=== PATIENT | male | born 1950 | race Caucasian/White ===

== ENCOUNTER → 2019-05-22 08:30 | Outpatient (CLI) | payer BC, SELFPAY ==
--- NOTE | 2019-05-19 08:30 | RAD_ITS ---
STUDY: X-RAY CHEST REASON FOR EXAM: Male, 68 years old. Chest pain TECHNIQUE: Frontal and lateral views of the chest COMPARISON: None. FINDINGS: The lungs are clear. There are no pleural effusions. There is no pneumothorax. The heart is normal in size. The visualized osseous structures are within normal limits. RAD/Chest PA and Lateral IMPRESSION: No acute thoracic pathology. Electronically Signed: Adi Wilhelm, at 16:54 EDT Tel , Service support ,
[2019-05-19 09:20] VITALS: BMI 37.7
--- NOTE | 2019-05-19 10:07 | HP_ITS ---
HPI HPI History of Present Illness Surgical H&P: Yes Details: Mr Fleming is a very pleasant 68-year-old nondiabetic gentleman with a history of GERD, hypertension, hypercholesterolemia, mild COPD diagnosed by PFTs on 12/15/2018, multiple sclerosis, irritable bowel syndrome, hypertension, anxiety and depression, recently relocated from [place] to [place]. He is a former cigarette smoker of approximately 40 pack years, quit in 1999, but continues to smoke 4 to 5 cigars/day. Patient had an echocardiogram on 11/27/2018 which showed normal EF of 65 percent, unable to quantitate RVSP, mildly dilated aortic root. In addition he underwent a non-walking nuclear Lexiscan stress test on 02/05/2019 which demonstrated inferolateral ischemia. Apparently it was recommended the patient undergo a catheterization in [place], but he wished to wait until he returned to [place] and completed his move. Patient states that around January 2019 he developed atypical, nonexertional chest pain while he was recumbent and sleeping. Although his chest pain has not woke him up from a sound sleep, the patient has had mostly chest pain while he is in bed. He denies any exertional chest pain, and he describes it as sharp, a pressure sensation, 5 out of 10 in severity, with no associated nausea, vomiting or shortness of breath. There is a question as to whether or not the patient has MS. Patient does not appear to have a family history of significant coronary occlusive disease. In our office today's blood pressure is 110/70, and pulse is 72 and regular. Physical exam demonstrates moderate obesity, clear lungs bilaterally, regular rate and rhythm, normal S1/S2. No S3-S4, no murmurs are noted. Lipids as of 10/17/2018 show an HDL of 43 and an LDL of 26. EKG dated 05/19/2019 shows normal sinus rhythm, normal axis, low voltage throughout, no previous myocardial infarction noted. Intake Vital Signs 05/19/19 Height 6 ft 05/19/19 Weight: 278 lb 05/19/19 Body Mass Index (BMI) 37.7 05/19/19 Blood Pressure 110/70 05/19/19 Blood Pressure Location Lt brachial 05/19/19 Respiratory Rate 20 H 05/19/19 Pulse Rate 72 05/19/19 Pulse Source Auscultation Intake Visit Reasons: CAD, JUST M[facility] [place] [facility] [place] Required: No Accompanied by: Is patient in pain?: No Allergies glatiramer (copolymer 1) [From Copaxone] Allergy (Severe, Verified 05/19/19 09:31) Other Medications CBD oil MISCELLANEOUS 05/06/19 [History Confirmed 05/19/19] acetaminophen 325 mg capsule 325 mg PO Q6H 05/06/19 [History Confirmed 05/19/19] alprazolam 1 mg tablet 1 mg PO TID tab 05/06/19 [History Confirmed 05/19/19] amlodipine 5 mg tablet 5 mg PO DAILY 05/06/19 [History Confirmed 05/19/19] atorvastatin 40 mg tablet 40 mg PO QHS 05/06/19 [History Confirmed 05/19/19] buspirone 10 mg tablet 10 mg PO BID #60 tab 05/06/19 [Rx Confirmed 05/19/19] c60 PO 05/06/19 [History Confirmed 05/19/19] furosemide 20 mg tablet 20 mg PO DAILY 05/06/19 [History Confirmed 05/19/19] lisinopril 40 mg tablet 40 mg PO DAILY 05/06/19 [History Confirmed 05/19/19] nitroglycerin 0.3 mg sublingual tablet 0.3 mg SUBLINGUAL Q5-15M 05/06/19 [History Confirmed 05/19/19] ondansetron HCl 4 mg tablet 4 mg PO BID-TID 05/06/19 [History Confirmed 05/19/19] pregabalin 150 mg capsule 150 mg PO BID 05/06/19 [History Confirmed 05/19/19] ranitidine 150 mg tablet 150 mg PO DAILY 05/06/19 [History Confirmed 05/19/19] theanine 50 mg disintegrating tablet mg PO tab 05/06/19 [History Confirmed 05/19/19] escitalopram 20 mg tablet 20 mg PO DAILY tab 05/12/19 [History Confirmed 05/19/19] aspirin 81 mg tablet,delayed release 81 mg PO DAILY #30 tab 05/19/19 [Rx Confirmed 05/19/19] clopidogrel 75 mg tablet 75 mg PO .COMPLEX #30 tab 05/19/19 [Rx Confirmed 05/19/19] diclofenac sodium 75 mg tablet,delayed release 75 mg PO BID PRN 05/19/19 [History Confirmed 05/19/19] [facility] Medical History (Updated 05/19/19 @ 07:19 by Milagros Flynn) Abnormal stress test (Acute) Chest pain (Acute) Anxiety and depression (Chronic) Neuropathy (Chronic) GERD (gastroesophageal reflux disease) (Chronic) Multiple sclerosis (Chronic) IBS (irritable bowel syndrome) (Chronic) HTN (hypertension) (Chronic) H/O emotional problems (Chronic) History of back problems (Chronic) Arthritis (Chronic) Bone fracture (Acute) Surgical History History of cholecystectomy (Acute) History of partial colectomy (Acute) Family History Other Anxiety Arthritis Bipolar 1 disorder Depression High cholesterol Hypertension Mental disorder Psychiatric care Suicide attempt Social History (Updated 05/19/19 @ 10:07 by Carlos A Marquis MD) Smoking Status: Current every day smoker tobacco type: cigars alcohol intake: never substance use type: does not use what type of physical activity do you participate in: none, walking ROS Const Const: Positive for fatigue (DX with MS recently) and other (Moved here from [place], had abn stress there. Has had CP); negative for weakness, body ache, fever(s), headache(s), chills, frequent falls, night sweats, daytime sleepiness, difficulty sleeping, excessive sweating, weight gain, weight loss, increased appetite, poor appetite or anorexia Eyes Eyes: Negative for blind spots, loss of peripheral vision, transient loss of vision, blurry vision, change in vision, double vision, floaters, tunnel vision or other ENT ENT: Negative for headache(s), dizziness, hearing loss, tinnitus, Nosebleed/epistaxis, balance problems, post nasal drip, lip swelling, tongue swelling, bleeding gums, hoarseness, neck pain, dry mouth or other Cardio Chest Pain: Yes (most recently 2 nights ago) Frequency: other (2-3 times a week) Character: squeezing Onset: at rest Location: mid sternal Duration: brief (less than a minute) Relieving: other (nitroglycerin does help) Recurrence: other (spontaneous) Palpitations: Yes (when having anxiety) Edema: None Muscle aches with walking: None Resp Respiratory: Positive for SOB with activity, wheezing and other (smokes cigars daily); negative for SOB at rest, SOB orthopnea\SOB lying down, Cough, Coughing up blood/hemoptysis, chest congestion, pain on inspiration, snoring, stridor, crackles or paroxysmal nocturnal dyspnea GI GI: Negative nausea, vomiting, heartburn, constipation, belching, bloating, cramping, vomiting blood/hematemesis, bright, red blood in stools, black,tarry stools, loose stools, Difficulty Swallowing or other : Negative for hematuria, frequent nighttime urination/ nocturia, erectile dysfunction or abnormal vaginal bleeding Musc Musc: Negative for muscle aches/ myalgia, muscle weakness, joint pain or balance problems Skin Skin: Negative redness, non-healing lesions, rash, unusual bruising, skin ulcer, wounds, jaundice or other Neuro Neuro: Negative for dizziness, lightheadedness, near syncope, syncope, orthostatic symptoms, frequent falls, headache(s), weakness, confusion, memory loss, restless legs, blurry vision, double vision, vertigo, seizures, lack of coordination or other Bryan Hematologic/Lymphatic: Negative for easy bleeding, easy bruising, enlarged lymph nodes or other Endo Endo: Positive for fatigue (DX with MS recently); negative for cold intolerance, heat intolerance, excessive sweating, flushing, increased thirst/drinking, increased hunger, hair loss, hair growth or other Psych Psych: Negative for anxiety, depression, thoughts of harming anyone, thoughts of harming yourself, visual hallucinations, panic attacks or audible hallucinations Allergy Allergy/Immunology: Negative for throat swelling, Negative for tongue swelling, Negative for hives, Negative for rash, Negative for lip swelling Cardiology Exam Const Appearance: cooperative, healthy appearing and no acute distress Nutritional Appearance: well nourished Orientation: alert, oriented x3 and oriented to person Head Head: normal to inspection, normocephalic and atraumatic Nose: external nose normal Face and Sinus: face symmetric Mouth: oral mucosae normal Eyes General: appearance normal, both eyes and all related structures Eyelids: eyelids normal Conjunctivae: conjunctivae normal Pupils: PERRL and normal by confrontation EOM: EOM intact bilaterally Neck Neck: normal visual inspection and full ROM Carotids: normal carotid upstroke Chest Chest inspection: normal inspection of the chest Auscultation: Bilateral: Clear to Auscultation Cardio Palpation: normal PMI Rate: regular rate Rhythm: regular rhythm Heart sounds: S1 normal and S2 normal GI GI: normal to inspection, no hepatosplenomegaly and bowel sounds present Neuro General: alert, awake, oriented x3, CN's II-XI intact bilaterally and moves all extremities Skin Skin: no rashes or lesions noted Extremities Pulses: Normal: Right Femoral Pulse, Left Femoral Pulse, Right Dorsalis Pedis Pulse, Left Dorsalis Pedis Pulse, Right Posterior Tibial Pulse, Left Posterior Tibial Pulse, Right Radial Pulse, Left Radial Pulse Lower Extremity Edema: None: Bilateral Psych Psychological: normal affect Assessment & Plan 1. Abnormal stress test R94.39 02/05/2019 Abnormal Lexiscan with reversible perfusion defect of inferior lateral wall, done @ [place], [place]: [employer] Worker there advised cath but pt was moving to [place] Plan 1. Abnormal stress test: The patient has several risk factors for coronary occlusive disease including his age, hypertension, hyperlipidemia, previous tobacco abuse, ongoing tobacco use, substernal chest pain, and abnormal stress test with evidence of inferior lateral ischemia. I recommended the patient undergo a left heart catheterization to determine if he has or has not significant coronary occlusive disease. The risks/benefits of the procedure were thoroughly explained to the patient including specific attention to lack of on-site surgical back-up, and the patient has agreed to proceed. All questions were answered by both him and his . I recommended starting baby aspirin 81 mg p.o. daily, loaded with Plavix 300 mg x 1 followed by 75 mg a day per and proceeding with left heart catheterization. In addition he will continue his Lasix, lisinopril and amlodipine. The patient has no significant coronary occlusive disease and does not require stenting we will discontinue his Plavix and evaluate him for possible GERD given his recumbent chest pain symptoms per Orders Orders: 12 Lead EKG performed by BMS Today Left Heart Cath Today Basic Metabolic Profile (BMP) Today Partial Thromboplast Time Today Prothrombin Time w/INR Today CBC-Complete Blood Cnt No Diff Today Chest PA and Lateral Today 2. Hyperlipidemia E78.5 Plan 2. Hyperlipidemia: His LDL and HDL cholesterol are under excellent control. Continue Lipitor. 3. Return office in 6 months. This note was generated using a voice recognition system and there may be incorrect words, spelling or punctuation that were not noted when reviewing the office note prior to saving. Plan Detail Other Orders Orders: 12 Lead EKG performed by BMS Today R07.9 Left Heart Cath Today I10, R07.9 Basic Metabolic Profile (BMP) Today R07.9 Partial Thromboplast Time Today R07.9 Prothrombin Time w/INR Today R07.9 CBC-Complete Blood Cnt No Diff Today R07.9 Chest PA and Lateral Today R07.9 Other Medications New: aspirin (Adult Aspirin Regimen) 81 mg PO DAILY 30 tabs 11RF clopidogrel (Plavix) 75 mg PO DAILY 30 tabs 11RF clopidogrel (Plavix) 75 mg PO 4 tablets by mouth today then 1 tablet by mouth daily for heart cath on Saturday05/22/19; 30 tabs 11RF Follow Up +6m ([facility]) Coding Level of Care Code Off vis,new,level 4 Diagnoses Abnormal stress test R94.39 Hyperlipidemia E78.5 Coding Level of Care Code Off vis,new,level 4 Diagnoses Abnormal stress test R94.39 Hyperlipidemia E78.5 Supplemental Info Supplemental Information Diagnostics Electrocardiogram 05/19/19 05/19/19 1007 <Electronically signed by Carlos A Marquis MD> Date _ Carlos A Marquis MD
== END ==
PROVIDERS: Family Provider Internal Medicine; PCP Internal Medicine; Referring Provider Internal Medicine Cardiovascular Disease; Visit Provider Internal Medicine Cardiovascular Disease
DX: Z01.818 Encounter for other preprocedural examination (principal); R94.39 Abnormal result of other cardiovascular function study
CPT/HCPCS: 71046

== ENCOUNTER → 2019-06-29 | Outpatient (CLI) | payer BC, SELFPAY ==
[2019-06-02 16:58] VITALS: BMI 37.7
--- NOTE | 2019-06-29 16:21 | RAD_ITS ---
STUDY: X-RAY - LUMBAR SPINE REASON FOR EXAM: Male, 69 years old. Low back pain TECHNIQUE: 3 view(s) of the lumbar spine were obtained. COMPARISON: None FINDINGS: Normal lumbar lordosis. There is no substantial scoliosis. There is a normal alignment of the vertebrae. There is multilevel endplate spondylosis of the lumbar vertebrae. There is narrowing of the L1-2 and L2-3 disc spaces. There is no demonstrated fracture. There are calcified plaques of the abdominal aorta. RAD/Lumbar Spine 2 or 3 Views IMPRESSION: Degenerative changes of the spine, as detailed above. Calcified plaques of the abdominal aorta. Electronically Signed: Jona Dutta MD at 17:53 EDT , Service support ,
--- NOTE | 2019-06-29 16:30 | RAD_ITS ---
STUDY: X-RAY - CERVICAL SPINE REASON FOR EXAM: Male, 69 years old. Neck pain TECHNIQUE: 5 view(s) of the cervical spine were obtained. COMPARISON: None FINDINGS: Normal anterior atlantoaxial articulation. Normal odontoid process. There is straightening of the normal cervical lordosis. C7 is poorly visualized on the lateral and swimmer's views. There is endplate spondylosis of C5 and C6. There is narrowing of the C5-6 disc space. The soft tissue structures are unremarkable. RAD/Cerv Spine 2 or 3 Views IMPRESSION: Poorly visualized C7. Straightening of the normal lordotic curvature which may be positional in nature or due to muscular spasm. Endplate spondylosis of C5 and C6. Narrowing of the C5-6 disc space. Electronically Signed: Jona Dutta MD at 19:43 EDT , Service support ,
[2019-06-29 17:49] LABS: Amphetamine Urine VISTA NEGATIVE (<1000 ng/mL); Barbiturate Urine VISTA NEGATIVE (< 200 ng/mL); Benzodiazepine Urine VISTA POSITIVE (< 200 ng/mL); Cocaine Urine VISTA NEGATIVE (< 300 ng/mL); Ecstacy Urine VISTA NEGATIVE (< 500 ng/mL); Methadone Urine VISTA NEGATIVE (< 300 ng/mL); PCP Urine VISTA NEGATIVE (< 25 ng/mL); THC Urine VISTA NEGATIVE (< 50 ng/mL); Vista UDS pH Range 5
== END | disposition home or self-care (01) ==
PROVIDERS: Family Provider Internal Medicine; PCP Internal Medicine; Referring Provider Anesthesiology Pain Medicine; Visit Provider Anesthesiology Pain Medicine
DX: F11.20 Opioid dependence, uncomplicated (principal); M54.2 Cervicalgia; M54.5 Low back pain
CPT/HCPCS: 72040; 72100; 80307

== ENCOUNTER → 2019-06-30 | Outpatient (CLI) | payer BC, SELFPAY ==
[2019-06-02 16:58] VITALS: BMI 37.7
[2019-06-30 13:26] LABS: CREATININE FINGERSTICK 1.1 mg/dL (0.70-1.30); EGFR FINGERSTICK > 60.0000 mL/min (>60)
--- NOTE | 2019-06-30 13:45 | MRI_ITS ---
STUDY: MRI BRAIN WITH AND WITHOUT CONTRAST REASON FOR EXAM: Male, 69 years old. Diplopia. Memory loss. History of MS TECHNIQUE: Standardized multiplanar fat and water weighted pulse sequences were obtained. IV Dotarem 25 was administered for the contrast portion of the examination. COMPARISON: None. FINDINGS: There is a large nonenhancing 2.2 x 0.8 cm plaque adjacent to the left occipital horn and a similar but slightly smaller plaque adjacent to the right occipital horn. Small juxtacortical areas of increased signal in the T2 FLAIR data sets are also evident. No similar findings in the posterior fossa or within the visualized portions of the upper spinal cord. There are no findings to suggest the presence of optic neuritis. The pituitary and pineal regions are normal. The brainstem is normal. The corpus callosum is normal. The 7th and 8th nerve complexes are normal. Both cerebellopontine angles are clear. The cerebellar vermis and lobes are normal. The ventricles, basal cisterns and cortical sulci are normal for the patient's age with no midline shift and no intra or extra-axial hemorrhage or tumor mass. There is no acute infarction. The calvarium is intact. There are no scalp swelling. The vessels at the base of the brain are normal. There is a retention cyst in the right maxillary sinus MRI/Brain W/WO Contrast IMPRESSION: The findings in the brain, consistent with multiple sclerosis (using Garcia's criteria). No evidence of optic neuritis. The extraocular muscles are normal Electronically Signed: Yinka Bob MD at 0:39 EDT Tel , Service support ,
== END | disposition home or self-care (01) ==
LOC: MRI 12:43
PROVIDERS: Family Provider Internal Medicine; PCP Internal Medicine; Referring Provider Psychiatry & Neurology Neurology; Visit Provider Psychiatry & Neurology Neurology
DX: H53.2 Diplopia (principal); R27.0 Ataxia, unspecified; R41.3 Other amnesia; R42 Dizziness and giddiness
CPT/HCPCS: 70553; A9575

== ENCOUNTER → 2019-07-08 | Outpatient (CLI) | payer BC, SELFPAY ==
[2019-06-02 16:58] VITALS: BMI 37.7
[2019-07-08 17:40] LABS: Amphetamine Urine VISTA NEGATIVE (<1000 ng/mL); Barbiturate Urine VISTA NEGATIVE (< 200 ng/mL); Benzodiazepine Urine VISTA NEGATIVE (< 200 ng/mL); Cocaine Urine VISTA NEGATIVE (< 300 ng/mL); Ecstacy Urine VISTA NEGATIVE (< 500 ng/mL); Methadone Urine VISTA NEGATIVE (< 300 ng/mL); PCP Urine VISTA NEGATIVE (< 25 ng/mL); THC Urine VISTA NEGATIVE (< 50 ng/mL); Vista UDS pH Range 6
== END | disposition home or self-care (01) ==
LOC: LAB 15:18
PROVIDERS: Family Provider Internal Medicine; PCP Internal Medicine; Referring Provider Anesthesiology Pain Medicine; Visit Provider Anesthesiology Pain Medicine
DX: F11.20 Opioid dependence, uncomplicated (principal)
CPT/HCPCS: 80307

== ENCOUNTER 2019-07-10 12:30 | Outpatient (RCR) | payer BC, SELFPAY ==
[2019-06-02 16:58] VITALS: BMI 37.7
--- NOTE | 2019-06-10 14:01 | HP.PTEVAL_ITS ---
Patient's Visit Information SHERLEY RIVERA is a 68 year old M referred to Physical Therapy by Marcial La MD with a diagnosis of vertigo, imbalance. Date of Evaluation: 06/10/19 Physical Therapist: Esau Arroyo, RANDYT, OCS, CSCS - Visit Plan Frequency: 2x /Week Duration: 2 Months Plan: Neurocom test then. 2x/week for 4-8 weeks for balance likely vest and FW weight shift and functional as well as progression of VOR HEP - Subjective Findings: Diagnosed with MS and sent to neuro. [facility] and found sparkly twinklies on the brain. Flew in from [place] to talk to neuro at [facility] to check into stem cell treatment. During that time they found that his balance is poor. Has to hold on if looks at the stars at night. Was told he does not have MS by [facility]. Has something else going on in neuro system. Balance remains poor however. Short term memory is poor. Balance is poor. Neuro thought one eye looked up higher than another. Started seeing double intermittently in the last month. Has tingling in toes and side of neck which is what started this diagnostic process. Working out pain and meds regimen over last couple years for anxiety, blood pressure adn pain. Came back to [place] from [place] to take care of mom's estate and convenience. Also for better quality medical care. Daily dizzyness intermittent without reason. It lasts 2 hours or a few minutes. Described as lightheaded disconnect. Not positional. Feels imbalance nearly all the time. Falls quite a bit last time in February. That was in a hurry and walking on [employer]. Sleeps OK, on meds. Not employed but does yard work and takes care of house. Spends time on computer researching finances. Wants to walk without feeling unsteady. - Pain feet Pain Intensity (Out of 10): 0 Pain Intensity Range: 2 Comment: tinkly , like step on stone, lyrica helps - Objective Walks slow and wide RIYA but I and refuses to try cane or walker. Stands with weight through heels. Slightly neuropathic gait pattern. Trasnfers without UE I. Steps require rail and prefers to mei R as L has pain and meniscal problem according to patient. LE aROM WFL adn strength at 4+/5. reflexes 2/3 patella and achilles. Sensation is hypersensitive to gross light touch distally in LE. Coordination to reciprocal toe tap is mildly challenging adn slow. - B hallpike bi test, - roll test. Oculomotor is : no nystagmus with gaze or head shake. normal pursuit, saccades slightly symptomatic afte 30 sec, VOR symptomatic after 30 seconds for one minute. - skew eye deviation. - ocular tilt. convergence is good but give goofy feeling in head transiently. - head thrust. - Balance Scores Functional Gait Assessment Score: 21 % Disability: 30.0000 CATSIB Score (Max score 120 seconds): 72 - Goals Goal 1:: Pt feel 50% better with dizzyness and able to look up at stars without symptoms. Goal Time Frame: 6-8 Weeks Goal 2:: Pt score 26/30 on FGA to diminish fall risk. Goal Time Frame: 6-8 Weeks Goal 3:: Neurocom test adn given results. Goal Time Frame: 2 Weeks - Rehabilitation Potential Physical Therapy Diagnosis: Imbalance, vertigo, likely neuropathy. Rehabilitation Potential: Questionable - Anticipated Interventions Patient/Client Instruction: Educate patient on: Condition, Plan of Care For the Purpose of:: To improve muscle performance and motor function, To improve gait and locomotor functions, To improve balance, To improve safety with gait Therapeutic Exercise to Include: Balance training Comment: adaptation/habituation ex For the Purpose of:: To increase tolerance to activity/condition/position, To improve ability of physical actions for home/community/work/leisure, To improve safety Thank you for the opportunity to evaluate your patient. For Medicare and Medicare HMO plans, please review the plan of care and approve it. It will need to be FAXED BACK to us at [phone] for Medicare purposes. For Medicare only, by signing this I certify the plan of care. Please let me know if there are questions or concerns regarding this plan of care. Physician Signature: Date:
--- NOTE | 2019-07-10 13:25 | HP.PTCOM ---
PT Communication Note 07/10/[address] Marcial La MD , Thank you for the referral of Sergey to [facility] for balance assessment. I have enclosed a copy of the results for your review. The patient is feeling significantly better since medication changes two weeks ago and wishes to f/u with you in a couple weeks before committing to pursuing any physical therapy. Please advise if you have questions or concerns. Sincerely, RANDY ArcherT, OCS, CSCS Contact Information
--- NOTE | 2019-07-10 13:27 | HP.PTDCSUM ---
HP - PT D/C Summary It has been my pleasure to treat SHERLEY RIVERA under orders from Marcial La MD, for the diagnosis of vertigo, imbalance for a total of 2 visit(s). Discharge Date: Please see the following information for a summary of their discharge status. - Subjective Subjective: No dizzyness, still unsteady. Numbness in feet persists. Overall symptoms noticably decreased since med change 2 weeks. - Pain feet Pain Intensity (Out of 10): 0 - Overall Improvement % Improvement: 90 - Objective Objective/Function: Much better balance test then expected. SOT: slight somatosensory deficits. MCT:normal. LOS:Fw excursion and velocity slight deficits. Walking well today with some complaints of R knee pain. pt feeling significantly better since medication change about two weeks ago(90%) adn wishes to hold until seeing doctor Abhinav on further therapy if recommended. - Goals Goal 1:: Pt feel 50% better with dizzyness and able to look up at stars without symptoms. Goal Progress: Goal Met Goal 2:: Pt score 26/30 on FGA to diminish fall risk. Goal Progress: not retested today Goal 3:: Neurocom test adn given results. Goal Progress: Goal Met - Plan Plan: d/c - D/C Information If there are questions or concerns regarding this patient's physical therapy, please feel free to call me at [phone]. Thank you for the referral of this patient. Sincerely, Esau Arroyo, DPT, OCS, CSCS
== END 2019-07-10 19:00 | disposition home or self-care (01) ==
LOC: PT 12:30
PROVIDERS: Family Provider Internal Medicine; PCP Internal Medicine; Referring Provider Psychiatry & Neurology Neurology; Visit Provider Psychiatry & Neurology Neurology
DX: R26.89 Other abnormalities of gait and mobility (principal); R42 Dizziness and giddiness
CPT/HCPCS: 97162; 97750

== ENCOUNTER → 2019-08-26 13:16 | Outpatient (CLI) | payer BC, SELFPAY ==
[2019-06-02 16:58] VITALS: BMI 37.7
[2019-08-26 14:42] LABS: Amphetamine Urine VISTA NEGATIVE (<1000 ng/mL); Barbiturate Urine VISTA NEGATIVE (< 200 ng/mL); Benzodiazepine Urine VISTA NEGATIVE (< 200 ng/mL); Cocaine Urine VISTA NEGATIVE (< 300 ng/mL); Ecstacy Urine VISTA NEGATIVE (< 500 ng/mL); Methadone Urine VISTA NEGATIVE (< 300 ng/mL); PCP Urine VISTA NEGATIVE (< 25 ng/mL); THC Urine VISTA NEGATIVE (< 50 ng/mL); Vista UDS pH Range 6
== END ==
PROVIDERS: Family Provider Internal Medicine; PCP Internal Medicine; Referring Provider Anesthesiology Pain Medicine; Visit Provider Anesthesiology Pain Medicine
DX: F11.20 Opioid dependence, uncomplicated (principal)
CPT/HCPCS: 80307

== ENCOUNTER → 2019-09-01 11:21 | Outpatient (CLI) | payer BC, SELFPAY ==
[2019-09-01 10:42] VITALS: BMI 37.7
[2019-09-01 12:51] LABS: Absolute Lymphocyte Count 1.77 X10^3/uL (0.83-4.51); Absolute Neutrophil Count 6.6 X10^3/uL (2.0-7.7); Basophil# 0.04 X10^3/uL; Basophil% 0.4 % (0-1); Eosinophil# 0.25 X10^3/uL; Eosinophils% 2.6 % (0-5); Hematocrit 42.3 % (40-54); Hemoglobin 14.4 g/dL (13.0-16.5); Lymphocyte # 1.77 X10^3/ul (4.0); Lymphocyte % 18.7 % (19-41); Mean Corpuscular Volume 88.1 fL (80-94); Mean Platelet Vol. 9.7 fl (6.2-12.0); Monocyte# 0.72 X10^3/uL; Monocyte% 7.6 % (0-10); NRBC Flagged by Analyzer 0 % (0-5); Neutrophil # 6.64 X10^3/uL (2.7-7.7); Neutrophil % 70.3 % (47-70); Platelet Count 335 K/mm3 (150-450); RBC Distribution Width CV 12.5 % (11.6-14.6); RBC Distribution Width SD 40.6 fl (35.1-43.9); White Blood Count 9.5 K/mm3 (4.4-11.0)
[2019-09-01 12:55] LABS: Erythrocyte Sedimentation Rate 12 mm/hr (0-20)
[2019-09-01 13:21] LABS: Vitamin B12 209 pg/mL (211-911)
[2019-09-01 13:26] LABS: Cholesterol 116 mg/dL (200); High Density Lipoprotein 48 mg/dL; Triglycerides 105 mg/dL; Very Low Density Lipoprotein 21 mg/dL (5-40)
[2019-09-01 13:28] LABS: AST(SGOT) 20 U/L (15-37); Alanine Aminotransfer ALT/SGPT 19 U/L (16-61); Albumin, Serum 3.6 g/dL (3.2-5.0); Alkaline Phosphatase 99 U/L (45-117); Anion Gap 6 (5-15); BUN 9 mg/dL (7-18); BUN/Creat Ratio 8.4 RATIO (10-20); Calcium,Total 8.3 mg/dL (8.5-10.1); Chloride 108 mmol/L (98-107); Creatinine, Serum 1.07 mg/dL (0.70-1.30); EST Glomerular Filtration Rate 73 mL/min (>60); Est Glom Filt Rate - Afr Amer 88 mL/min (>60); Globulin 3.7 g/dL (2.2-4.2); Glucose 76 mg/dL (74-106); Potassium 3.1 mmol/L (3.5-5.1); Protein, Total 7.3 g/dL (6.4-8.2); Sodium Level 141 mmol/L (136-145); T3 Uptake 32 % (33-40); T4 Free Direct 0.91 ng/dL (0.76-1.46); T4 Total, Thyroxin 7.5 ug/dL (4.5-12.1); T7 / Free Thyroxin Index 2.4 (1.4-4.5)
[2019-09-02 13:21] LABS: ANTINUCLEAR ANTIBODIES DIRECT Negative (Negative)
[2019-09-02 16:08] LABS: PROEL- A/G Ratio 1.2 (0.7-1.7); PROEL- Albumin 3.7 g/dL (2.9-4.4); PROEL- Alpha-1 Globulin 0.3 g/dL (0.0-0.4); PROEL- Alpha-2 Globulin 0.7 g/dL (0.4-1.0); PROEL- TOTAL PROTEIN 6.7 g/dL (6.0-8.5)
[2019-09-03 11:13] LABS: Angiotensin Convert Enzyme < 15 U/L (14-82)
== END ==
PROVIDERS: Family Provider Internal Medicine; PCP Internal Medicine; Visit Provider Psychiatry & Neurology Neurology
DX: I10 Essential (primary) hypertension (principal); G35 Multiple sclerosis
CPT/HCPCS: 36415; 80053; 80061; 82164; 82607; 84165; 84436; 84439; 84479; 85025; 85652; 86038

== ENCOUNTER → 2020-04-25 | Outpatient (CLI) | payer BC, SELFPAY ==
[2020-04-21 13:49] VITALS: BMI 37.5
--- NOTE | 2020-04-25 14:00 | RAD_ITS ---
STUDY: X-RAY - RIGHT SHOULDER REASON FOR EXAM: Male, 69 years old. Right shoulder pain for several weeks TECHNIQUE: 4 view(s) of the shoulder. COMPARISON: None. FINDINGS: There is mild degenerative arthrosis of the glenohumeral articulation. There is degenerative arthrosis of the acromioclavicular joint without inferior osseous spur formation. Normal acromion. Normal humeral head and visualized proximal humerus. The soft tissue structures are unremarkable. Normal visualized pulmonary apex. RAD/Shoulder min 2 Views IMPRESSION: Mild arthrosis Electronically Signed: Jayme Posadas MD at 14:16 EDT , Service support ,
== END | disposition home or self-care (01) ==
LOC: MTRAD 14:00
PROVIDERS: PCP Internal Medicine; Referring Provider Internal Medicine; Visit Provider Internal Medicine
DX: M25.511 Pain in right shoulder (principal)
CPT/HCPCS: 73030

== ENCOUNTER → 2020-06-02 | Outpatient (CLI) | payer BC, SELFPAY ==
[2020-06-02 13:18] VITALS: BMI 37.5
[2020-06-02 15:43] LABS: Absolute Lymphocyte Count 1.94 X10^3/uL (0.83-4.51); Absolute Neutrophil Count 7.6 X10^3/uL (2.0-7.7); Basophil# 0.05 X10^3/uL; Basophil% 0.5 % (0-1); Eosinophil# 0.13 X10^3/uL; Eosinophils% 1.2 % (0-5); Hematocrit 43.2 % (40-54); Hemoglobin 14.4 g/dL (13.0-16.5); Lymphocyte # 1.94 X10^3/ul (4.0); Lymphocyte % 18.4 % (19-41); Mean Corp Hgb Conc 33.3 g/dL (32-36); Mean Corpuscular Hgb 30.6 pg (27.0-32.0); Mean Corpuscular Volume 91.7 fL (80-94); Mean Platelet Vol. 9.8 fl (6.2-12.0); Monocyte# 0.81 X10^3/uL; Monocyte% 7.7 % (0-10); NRBC Flagged by Analyzer 0 % (0-5); Neutrophil # 7.55 X10^3/uL (2.7-7.7); Neutrophil % 71.6 % (47-70); Platelet Count 384 K/mm3 (150-450); RBC Distribution Width CV 11.9 % (11.6-14.6); RBC Distribution Width SD 40.1 fl (35.1-43.9); Red Blood Count 4.71 M/mm3 (4.6-6.2); White Blood Count 10.5 K/mm3 (4.4-11.0)
[2020-06-02 16:08] LABS: Amphetamine Urine VISTA NEGATIVE (<1000 ng/mL); Barbiturate Urine VISTA NEGATIVE (< 200 ng/mL); Benzodiazepine Urine VISTA NEGATIVE (< 200 ng/mL); Cocaine Urine VISTA NEGATIVE (< 300 ng/mL); Ecstacy Urine VISTA NEGATIVE (< 500 ng/mL); Methadone Urine VISTA NEGATIVE (< 300 ng/mL); PCP Urine VISTA NEGATIVE (< 25 ng/mL); THC Urine VISTA NEGATIVE (< 50 ng/mL); Vista UDS pH Range 6
[2020-06-02 16:09] LABS: AST(SGOT) 14 U/L (15-37); Alanine Aminotransfer ALT/SGPT 19 U/L (16-61); Albumin, Serum 3.8 g/dL (3.2-5.0); Alkaline Phosphatase 78 U/L (45-117); Anion Gap 5 (5-15); BUN 10 mg/dL (7-18); Calcium,Total 8.8 mg/dL (8.5-10.1); Chloride 106 mmol/L (98-107); Cholesterol 110 mg/dL (200); Creatinine, Serum 1.11 mg/dL (0.70-1.30); EST Glomerular Filtration Rate 70 mL/min (>60); Est Glom Filt Rate - Afr Amer 85 mL/min (>60); Globulin 3.9 g/dL (2.2-4.2); Glucose 95 mg/dL (74-106); High Density Lipoprotein 39 mg/dL; Potassium 4.4 mmol/L (3.5-5.1); Protein, Total 7.7 g/dL (6.4-8.2); Sodium Level 138 mmol/L (136-145); Triglycerides 85 mg/dL; Very Low Density Lipoprotein 17 mg/dL (5-40)
== END | disposition home or self-care (01) ==
LOC: BIMLAB 14:02
PROVIDERS: PCP Internal Medicine; Referring Provider Internal Medicine; Visit Provider Internal Medicine
DX: I10 Essential (primary) hypertension (principal); F32.9 Major depressive disorder, single episode, unspecified; F41.9 Anxiety disorder, unspecified
CPT/HCPCS: 36415; 80053; 80061; 80307; 85025

== ENCOUNTER 2020-06-07 13:00 | Outpatient (RCR) | payer BC, SELFPAY ==
[2020-04-21 13:49] VITALS: BMI 37.5
--- NOTE | 2020-05-02 14:44 | HP.PTEVAL ---
Patient's Visit Information SHERLEY RIVERA is a 69 year old M referred to Physical Therapy by Dr. Yarely De La Cruz MD with a diagnosis of PAIN IN RIGHT SHOULDER,ENTHESOPATHY. Date of Evaluation: 05/02/20 Physical Therapist: Marcial Enriquez, PT, Cert MDT, OCS - Visit Plan Frequency: 2x /Week Duration: 4 Weeks Plan: PT INTERVENTIONS GRADED RTC/SCAPULAR, ROM, POSTURAL EX'S,MANUAL THERAPY,AND MODALTIES - Subjective This 69 y/o male presents to physical therapy with right shoulder pain. This patient patient has had shoulder pain for 8weeks. Patient woke up with pain. Pain located right lateral deltiod. Patient pain desriped as sharp pain,popping . Patient seen DR kirbyeded x-rays and provided with predisone helped some. Patient aggraveting factors unable to lifting arm ,above 90 degrees for self hygine and ADLS'. Patient sleeping okay. Alleviating factors none. Patient MD stated try PT if doesnt help will do MRI. 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 SOCAIL: - Pain Right Shoulder Pain Intensity (Out of 10): 9 Pain Intensity Range: 10 - Objective POSTURE: mild foward posture. PALAPTION: tender AC ,long head bicep. NEURO: intact,denies parathesia/tingling. AROM: shoulder flexion 90 pain ,abduction 80 degrees pain,IR S2. PROM: shoulder flexion 150 degrres pain ,abd 10 in scapation ,ER 90 pain. MMT: infrspinatous pain 4-/5,suprspainatous 3+/5 ,pain subscapularis 4-/5. deltoid 3-/5 pain. CAPSULAR RESTRICTION: mild /mod tight - Special Tests R Shoulder External Rotation Lag Test - RC Tear: Positive R Shoulder Supine Impingement Test - RC Tear: Positive R Shoulder Lift Off Test - Subscapular Tear: Positive R Shoulder Drop Sign - IS Test: Negative R Shoulder Belly Press - SupScap: Positive R Shoulder Neer - Impingement: Positive R Shoulder Jim Jose - Impingement: Positive R Shoulder Speeds Test - Labrum/Biceps: Positive - Goals Goal 1:: Patient to be I with HEP( STG ) Goal Time Frame: 2-4 Weeks Goal 2:: Patient to decrease shoulder pain by 50 % or > to improve function. Goal Time Frame: 4-6 Weeks Goal 3:: Patient to increase AROM shoulder flexion /abd to 130 degrees to improve ADL'S Goal Time Frame: 4-6 Weeks Goal 4:: Pateint increase strength deltoid 3+/5 and RTC 4-/5 to improve ADL'S Goal Time Frame: 4-6 Weeks Goal 5:: Pateint improve quick dash score by 5 points or> to improve QOL and function. Goal Time Frame: 4-6 Weeks - Rehabilitation Potential Physical Therapy Diagnosis: This patient has right shoulder pain with possible torn RTC with poor ROM ,pain with RTC testing with weakness supraspinatous ,-drop arm impairs ADLS and activities abouve 90 degrees thus benidfit from skilled PT if doesnt get better may need further diagostics Rehabilitation Potential: Good - Anticipated Interventions Patient/Client Instruction: Educate patient on: Condition, Plan of Care For the Purpose of:: To decrease pain, To increase ROM, To improve muscle performance and motor function, To improve ability to perform ADL's, To increase tolerance to activity/condition/position, To improve performance and independence with ADL's, To improve ability of physical actions for home/community/work/leisure, To improve health of tissue, To decrease soft tissue restriction, To increase flexibility/ROM, To assume or resume ADL's, To reduce risk of recurrence Therapeutic Exercise to Include: Strength training, Postural training, Flexibilty training, Passive ROM, Active ROM, Scapular Strength/Stabilization Comment: RTC For the Purpose of:: To decrease pain, To increase ROM, To improve nutrient delivery to tissue, To increase oxygenation perfusion, To improve ability to perform ADL's, To improve ability of physical actions for home/community/work/leisure, To improve health of tissue, To decrease soft tissue restriction, To increase flexibility/ROM Manual Therapy Techniques to Include: Mobilization, Soft tissue mobilization Comment: G-H For the Purpose of:: To decrease pain, To increase ROM, To improve health of tissue, To decrease soft tissue restriction TENS: Yes IF ES: Yes Cryotherapy (ice pack, ice massage): Yes Thermo therapy (hot pack): Yes Ultrasound (thermal/non thermal): Yes For the Purpose of:: To decrease pain, To increase ROM, To improve nutrient delivery to tissue, To increase oxygenation perfusion, To improve health of tissue, To decrease soft tissue restriction Thank you for the opportunity to evaluate your patient. For Medicare and Medicare HMO plans, please review the plan of care and approve it. It will need to be FAXED BACK to us at [phone] for Medicare purposes. For Medicare only, by signing this I certify the plan of care. Please let me know if there are questions or concerns regarding this plan of care. Physician Signature: Date:
--- NOTE | 2020-05-05 08:19 | HP.PTEVAL_ITS ---
Patient's Visit Information SHERLEY RIVERA is a 69 year old M referred to Physical Therapy by Dr. Yarely De La Cruz MD with a diagnosis of PAIN IN RIGHT SHOULDER,ENTHESOPATHY. Date of Evaluation: 05/02/20 Physical Therapist: Marcial Enriquez, PT, Cert MDT, OCS - Visit Plan Frequency: 2x /Week Duration: 4 Weeks Plan: PT INTERVENTIONS GRADED RTC/SCAPULAR, ROM, POSTURAL EX'S,MANUAL THERAPY,AND MODALTIES - Subjective This 69 y/o male presents to physical therapy with right shoulder pain. This patient patient has had shoulder pain for 8weeks. Patient woke up with pain. Pain located right lateral deltiod. Patient pain desriped as sharp pain,popping . Patient seen DR kirbyeded x-rays and provided with predisone helped some. Patient aggraveting factors unable to lifting arm ,above 90 degrees for self hygine and ADLS'. Patient sleeping okay. Alleviating factors none. Patient MD stated try PT if doesnt help will do MRI. 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 SOCAIL: - Pain Right Shoulder Pain Intensity (Out of 10): 9 Pain Intensity Range: 10 - Objective POSTURE: mild foward posture. PALAPTION: tender AC ,long head bicep. NEURO: intact,denies parathesia/tingling. AROM: shoulder flexion 90 pain ,abduction 80 degrees pain,IR S2,ER 30 ,EXTENSION 30 degrees. PROM: shoulder flexion 150 degrres pain ,abd 120 in scapation ,ER 90 pain. MMT: infrspinatous pain 4- /5,suprspainatous 3+/5 ,pain subscapularis 4-/5. deltoid 3-/5 pain. CAPSULAR RESTRICTION: mild /mod tight - Special Tests R Shoulder External Rotation Lag Test - RC Tear: Positive R Shoulder Supine Impingement Test - RC Tear: Positive R Shoulder Lift Off Test - Subscapular Tear: Positive R Shoulder Drop Sign - IS Test: Negative R Shoulder Belly Press - SupScap: Positive R Shoulder Neer - Impingement: Positive R Shoulder Jim Jose - Impingement: Positive R Shoulder Speeds Test - Labrum/Biceps: Positive - Goals Goal 1:: Patient to be I with HEP( STG ) Goal Time Frame: 2-4 Weeks Goal 2:: Patient to decrease shoulder pain by 50 % or > to improve function. Goal Time Frame: 4-6 Weeks Goal 3:: Patient to increase AROM shoulder flexion /abd to 130 degrees to improve ADL'S Goal Time Frame: 4-6 Weeks Goal 4:: Pateint increase strength deltoid 3+/5 and RTC 4-/5 to improve ADL'S Goal Time Frame: 4-6 Weeks Goal 5:: Pateint improve quick dash score by 5 points or> to improve QOL and function. Goal Time Frame: 4-6 Weeks - Rehabilitation Potential Physical Therapy Diagnosis: This patient has right shoulder pain with possible torn RTC with poor ROM ,pain with RTC testing with weakness supraspinatous ,- drop arm impairs ADLS and activities abouve 90 degrees thus benidfit from skilled PT if doesnt get better may need further diagostics Rehabilitation Potential: Good - Anticipated Interventions Patient/Client Instruction: Educate patient on: Condition, Plan of Care For the Purpose of:: To decrease pain, To increase ROM, To improve muscle performance and motor function, To improve ability to perform ADL's, To increase tolerance to activity/condition/position, To improve performance and independ ence with ADL's, To improve ability of physical actions for home/community/work/leisure, To improve health of tissue, To decrease soft tissue restriction, To increase flexibility/ROM, To assume or resume ADL's, To reduce risk of recurrence Therapeutic Exercise to Include: Strength training, Postural training, Flexibilty training, Passive ROM, Active ROM, Scapular Strength/Stabilization Comment: RTC For the Purpose of:: To decrease pain, To increase ROM, To improve nutrient delivery to tissue, To increase oxygenation perfusion, To improve ability to perform ADL's, To improve ability of physical actions for home/community/work/leisure, To improve health of tissue, To decrease soft tissue restriction, To increase flexibility/ROM Manual Therapy Techniques to Include: Mobilization, Soft tissue mobilization Comment: G-H For the Purpose of:: To decrease pain, To increase ROM, To improve health of tissue, To decrease soft tissue restriction TENS: Yes IF ES: Yes Cryotherapy (ice pack, ice massage): Yes Thermo therapy (hot pack): Yes Ultrasound (thermal/non thermal): Yes For the Purpose of:: To decrease pain, To increase ROM, To improve nutrient delivery to tissue, To increase oxygenation perfusion, To improve health of tissue, To decrease soft tissue restriction Thank you for the opportunity to evaluate your patient. For Medicare and Medicare HMO plans, please review the plan of care and approve it. It will need to be FAXED BACK to us at [phone] for Medicare purposes. For Medicare only, by signing this I certify the plan of care. Please let me know if there are questions or concerns regarding this plan of care. Physician Signature: Date:
--- NOTE | 2020-09-15 10:38 | HP.PTDCSUM ---
It has been my pleasure to treat SHERLEY RIVERA referred by Dr. Yarely De La Cruz MD, with the diagnosis of PAIN IN RIGHT SHOULDER,ENTHESOPATHY for a total of 5 visit(s). Discharge Date: 05/31/20 Please see the following information for a summary of their discharge status. Subjective: is happy with progress. No soreness today Right Shoulder Pain Intensity (Out of 10): 1 % Improvement: 90 Objective/Function: Did well with ex's no pain just fatigue. GOOD ROM SHOULDER WFL. STRENGTH 4/5 Goal 1:: Patient to be I with HEP( STG ) Goal Progress: Goal Met Goal 2:: Patient to decrease shoulder pain by 50 % or > to improve function. Goal Progress: Goal Met Goal 3:: Patient to increase AROM shoulder flexion /abd to 130 degrees to improve ADL'S Goal Progress: Goal Met Goal 4:: Pateint increase strength deltoid 3+/5 and RTC 4-/5 to improve ADL'S Goal 5:: Pateint improve quick dash score by 5 points or> to improve QOL and function. Goal Progress: Goal Met Plan: d/c Discharge Comments: HEP If there are questions or concerns regarding this patient's physical therapy, please feel free to call me at [phone]. Thank you for the referral of this patient. Sincerely, Marcial Enriquez PT, Cert MDT, OCS
== END 2020-06-07 19:00 | disposition home or self-care (01) ==
LOC: PT 13:00
PROVIDERS: PCP Internal Medicine; Referring Provider Internal Medicine; Visit Provider Internal Medicine
DX: M25.511 Pain in right shoulder (principal); M77.9 Enthesopathy, unspecified
CPT/HCPCS: 97035; 97110; 97162

== ENCOUNTER → 2020-06-07 | Outpatient (CLI) | payer BC, SELFPAY ==
[2020-06-02 13:18] VITALS: BMI 37.5
--- NOTE | 2020-06-07 13:32 | RAD_ITS ---
STUDY: X-RAY - LUMBAR SPINE REASON FOR EXAM: Male, 69 years old. LOW BACK PAIN X SEVERAL YEARS, INJURY 40 YEARS AGO TECHNIQUE: 5 view(s) of the lumbar spine were obtained. COMPARISON: 06/29/2019 FINDINGS: Normal alignment. Diffuse spondylosis. Degenerative disc disease at the L1-2 and L5-S1 levels. Diffuse facet disease. No compression deformities. Vascular calcifications. RAD/L/S Spine Min 4 Views IMPRESSION: Multilevel degenerative disease as described. Electronically Signed: Carlos Manuel Holder MD at 18:52 EDT Tel , Service support ,
== END | disposition home or self-care (01) ==
PROVIDERS: PCP Internal Medicine; Referring Provider Internal Medicine; Visit Provider Internal Medicine
DX: M54.5 Low back pain (principal); G89.29 Other chronic pain
CPT/HCPCS: 72110

== ENCOUNTER → 2020-11-28 | Outpatient (CLI) | payer BC, SELFPAY ==
[2020-11-17 13:14] VITALS: BMI 40.6
[2020-11-28 15:13] LABS: Hematocrit 45.3 % (40-54); Mean Corp Hgb Conc 33.1 g/dL (32-36); Mean Corpuscular Hgb 30.2 pg (27.0-32.0); Mean Corpuscular Volume 91.3 fL (80-94); Mean Platelet Vol. 9.5 fl (6.2-12.0); Platelet Count 371 K/mm3 (150-450); RBC Distribution Width CV 12.3 % (11.6-14.6); RBC Distribution Width SD 41.1 fl (35.1-43.9); Red Blood Count 4.96 M/mm3 (4.6-6.2); White Blood Count 8.7 K/mm3 (4.4-11.0)
[2020-11-28 15:35] LABS: Vitamin B12 1758 pg/mL (211-911); Vitamin D,25 Hydroxy 70.2 ng/mL
[2020-11-28 15:48] LABS: ALB/GLOB Ratio 1.1 RATIO (0.9-2.4); AST(SGOT) 15 U/L (15-37); Alanine Aminotransfer ALT/SGPT 17 U/L (16-61); Albumin, Serum 3.8 g/dL (3.2-5.0); Alkaline Phosphatase 114 U/L (45-117); Anion Gap 5 (5-15); BUN 9 mg/dL (7-18); BUN/Creat Ratio 8.3 RATIO (10-20); Chloride 105 mmol/L (98-107); Creatinine, Serum 1.08 mg/dL (0.70-1.30); EST Glomerular Filtration Rate 72 mL/min (>60); Est Glom Filt Rate - Afr Amer 87 mL/min (>60); Globulin 3.5 g/dL (2.2-4.2); Glucose 89 mg/dL (74-106); Potassium 4.2 mmol/L (3.5-5.1); Protein, Total 7.3 g/dL (6.4-8.2); Sodium Level 139 mmol/L (136-145); Thyroid Stim Hormone (TSH) 1.06 uIU/mL (0.358-3.74)
[2020-11-28 16:23] LABS: Amphetamine Urine VISTA NEGATIVE (<1000 ng/mL); Barbiturate Urine VISTA NEGATIVE (< 200 ng/mL); Benzodiazepine Urine VISTA NEGATIVE (< 200 ng/mL); Cocaine Urine VISTA NEGATIVE (< 300 ng/mL); Ecstacy Urine VISTA NEGATIVE (< 500 ng/mL); Methadone Urine VISTA NEGATIVE (< 300 ng/mL); PCP Urine VISTA NEGATIVE (< 25 ng/mL); THC Urine VISTA POSITIVE (< 50 ng/mL); Vista UDS pH Range 5
[2020-12-03 14:09] LABS: Free Lambda Light Chains 14.7 mg/L (5.7-26.3); Intrinsic Factor Ab 1.1 AU/mL (0.0-1.1)
[2020-12-03 14:20] LABS: Vitamin B1, Thiamine 153.8 nmol/L (66.5-200.0)
== END | disposition home or self-care (01) ==
LOC: BIMLAB 14:03
PROVIDERS: Psychiatry & Neurology Neurology; PCP Internal Medicine; Visit Provider Internal Medicine
DX: G35 Multiple sclerosis (principal); G62.89 Other specified polyneuropathies; F41.0 Panic disorder [episodic paroxysmal anxiety]; F41.1 Generalized anxiety disorder
CPT/HCPCS: 36415; 80053; 80307; 82306; 82607; 82746; 83883; 84425; 84443; 85027; 86340

== ENCOUNTER → 2020-11-30 12:32 | Outpatient (CLI) | payer BC, SELFPAY ==
[2020-11-17 13:14] VITALS: BMI 40.6
--- NOTE | 2020-11-30 12:33 | MRI_ITS ---
STUDY: MRI BRAIN WITH AND WITHOUT CONTRAST REASON FOR EXAM: Male, 70 years old. MS TECHNIQUE: Standardized multiplanar fat and water weighted pulse sequences were obtained. IV Yes YES was administered for the contrast portion of the examination. COMPARISON: CT of the brain 06/30/2019 MRI of the brain 06/30/2019 FINDINGS: Mild atrophy and periventricular white matter disease which may be consistent with clinical history of multiple sclerosis. No foci of restricted diffusion are observed.. Normal bilateral basal ganglia. Normal thalami. There is no extra-axial fluid accumulation. Normal flow voids within the major intracranial circulation suggesting patency by spin echo criteria. Normal venous enhancement. There is no enhancing intra-axial or extra-axial abnormality. Empty sella deformity likely of no significance. Normal, infundibular stalk, optic chiasm and hypothalamus. Normal tectal plate and pineal gland. Normal midbrain, robb and medulla. Normal cerebellum. Normal basal cisterns. Normal bilateral temporal bones. Normal bilateral internal auditory canals. Fluid signal within left mastoid air cells consistent with inflammatory disease No demonstrated orbital abnormality, within the constraints of a routine brain study. Large mucous retention cyst in right maxillary sinus and minor mucosal thickening of the ethmoid air cells.. Normal calvarium and skull base. Normal visualized soft tissue structures. Normal visualized upper cervical spine. The plaque burden is relatively stable since previous exam with reduction in size of some of the lesions and slight increase in size of others. There is no enhancement to suggest active demyelination. MRI/Brain W/WO Contrast IMPRESSION: Mild atrophy and findings consistent with known multiple sclerosis which appears relatively stable since previous study. No enhancing plaque this time to suggest active demyelination. Electronically Signed: Pravin Serrano MD at 16:46 EST , Service support ,
== END ==
PROVIDERS: PCP Internal Medicine; Referring Provider Psychiatry & Neurology Neurology; Visit Provider Psychiatry & Neurology Neurology
DX: G35 Multiple sclerosis (principal); G62.89 Other specified polyneuropathies
CPT/HCPCS: 70553

== ENCOUNTER 2021-02-21 16:12 | Inpatient (IN) | payer MEDICARE, BC, SELFPAY ==
[2021-02-21 15:07] VITALS: BMI 39.9
[2021-02-21 16:13] VITALS: BP 159/88; PULSE 81; RESP 16; TEMP 36.6; O2SAT 97; BMI 39.4
--- NOTE | 2021-02-21 16:49 | CT_ITS ---
STUDY: CT FACIAL BONES WITH CONTRAST REASON FOR EXAM: Male, 70 years old. Nose drainage with facial pain RADIATION DOSAGE (If Supplied By Facility): CTDIvol = ( 29.38 ) mGy, DLP = ( 525.42 ) mGycm TECHNIQUE: The patient was scanned in a multi detector CT scanner. Transaxial imaging was performed following the intravenous administration of 100mL Isovue-300. Sagittal and coronal images were reconstructed. Individualized dose optimization techniques were used for this CT. COMPARISON: None. FINDINGS: There is soft tissue swelling of the nose with 1.1 cm low density collection compatible with abscess anteriorly and on the left. There are enlarged submandibular lymph nodes measuring 1.9 cm. Normal orbital meneses and orbital contents. Normal nasal bones and anterior nasal spine. There is sinuous deviation of the nasal septum. Normal zygomatic arches. Normal mandible Normal facial bones. There is no demonstrated fracture. Mucosal thickening of the right maxillary sinus. 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 There is mild left mastoid opacification. CT/Sinus/Facial Bone WITH Contras IMPRESSION: Swelling of the nose with anterior fluid collection consistent with abscess. Electronically Signed: Mike Cannon MD at 18:39 EDT , Service support ,
--- NOTE | 2021-02-21 16:50 | EX.ED.DYSGE1 ---
HPI History of Present Illness Chief Complaint: Cellulitis Narrative Narrative: 70-year-old male presents with swelling and pain to his nose. States is been present over the past 3 days. States it began draining on the outside of his nose. Followed up with his primary care this morning and was sent to the emergency department for further evaluation. Had 1 low blood pressure at his primary care office. States he has had subjective fever and chills. Denies any cough, chest pain, shortness of breath. Patient states he had one episode of vomiting prior to arrival. Denies any abdominal pain. [facility] Medical History (Updated 02/21/21 @ 22:[address] Jose L Khalil, DO) Abnormal stress test Anxiety and depression Arthritis Bone fracture Chest pain Chronic pain GERD (gastroesophageal reflux disease) H/O emotional problems History of back problems HTN (hypertension) IBS (irritable bowel syndrome) Multiple sclerosis Neuropathy Home Medications cholecalciferol (vitamin D3) 50 mcg (2,000 unit) capsule 2,000 unit PO DAILY 09/01/19 [History Last Taken Unknown] mecobalamin (vitamin B12) 5,000 mcg disintegrating tablet 5,000 mcg PO DAILY 10/21/19 [History Last Taken Unknown] lisinopril 40 mg tablet 40 mg PO DAILY #90 tab 05/03/20 [Rx Last Taken Unknown] ondansetron HCl 4 mg tablet 4 mg PO Q8H PRN #30 tab 06/10/20 [Rx Last Taken Unknown] clopidogrel 75 mg tablet 75 mg PO DAILY #90 tab 07/25/20 [Rx Last Taken Unknown] amlodipine 10 mg tablet 10 mg PO DAILY #90 tab 10/08/20 [Rx Last Taken Unknown] atorvastatin 40 mg tablet 40 mg PO QHS #90 tab 11/22/20 [Rx Last Taken Unknown] nitroglycerin 0.3 mg sublingual tablet 0.3 mg SUBLINGUAL Q5-15M #90 tab 01/03/21 [Rx Last Taken Unknown] furosemide 20 mg tablet 20 mg PO DAILY #90 tab 01/13/21 [Rx Last Taken Unknown] atenolol 50 mg tablet 50 mg PO DAILY #60 tab 01/19/21 [Rx Last Taken Unknown] pregabalin 150 mg capsule 150 mg PO BID #60 cap 01/26/21 [Rx Last Taken Unknown] duloxetine 30 mg capsule,delayed release 30 mg PO QPM #30 cap 02/13/21 [Rx Last Taken Unknown] duloxetine 60 mg capsule,delayed release 60 mg PO QAM #30 cap 02/13/21 [Rx Last Taken Unknown] oxycodone-acetaminophen 7.5 mg-325 mg tablet 1 tab PO .QID PRN tab 02/13/21 [History Last Taken Unknown] Allergy/AdvReac Type Severity Reaction Status Date / Time glatiramer (copolymer 1) Allergy Severe Bruising/Bl Verified 02/21/21 16:15 [From Copaxone] eeding dimethyl fumarate AdvReac Severe Nausea/Vom/ Verified 02/21/21 16:15 [From Tecfidera] Diarrhea ibuprofen AdvReac Upset Verified 02/21/21 21:40 Stomach Family History Other Anxiety Arthritis Bipolar 1 disorder Depression High cholesterol Hypertension Mental disorder Psychiatric care Suicide attempt Surgical History History of cholecystectomy History of partial colectomy Social History household members: spouse housing: house number of children: 0 Smoking Status: Current every day smoker tobacco type: cigars Tobacco: How many years used: 3 second hand exposure: No alcohol intake: former substance use type: marijuana and other details: CBD vape pen, and smokes marijuana (for past 2 years) what type of physical activity do you participate in: none and walking debbie/latter day: Islam ROS ROS ED Constitutional Constitutional ED: Denies chills, fever(s) or sweats Eyes Eyes: Denies blurry vision, change in vision or diplopia ENT ENT ED: Reports other Details: nose pain and erythema ; Denies rhinorrhea or sore throat Cardiovascular Cardiovascular: Denies chest pain, orthopnea, palpitations or racing heartbeat Respiratory/Chest Respiratory/Chest: Denies cough, dyspnea, dyspnea on exertion, orthopnea or sputum Gastrointestinal Gastrointestinal: Denies abdominal pain, constipation, diarrhea, melena, nausea or vomiting Genitourinary Genitourinary ED: Denies dysuria, hematuria or urinary frequency Musculoskeletal Musculoskeletal: Denies arthralgias, myalgias or neck pain Integumentary Denies rash Neurologic Neurologic: Denies headache(s), paresthesias or weakness Psychiatric Psychiatric: Denies anxiety or depression Hematologic/Lymphatic Hematologic/Lymphatic: Denies easy bleeding or easy bruising Allergic/Immunologic Allergic/Immunologic ED: Denies mouth swelling or tongue swelling EXAM Physical Exam Const Vital Signs: 02/21/21 16:13 02/21/21 17:15 02/21/21 19:00 Temperature 97.9 F Temperature Source Temporal Pulse Rate 81 92 Respiratory Rate 16 18 Blood Pressure 159/88 H 111/66 115/66 Blood Pressure Mean 111 81 82 Pulse Ox 97 98 Oxygen Delivery Method Room Air Room Air Positive well nourished and well developed General Appearance ED: well developed HEENT Reports TM's clear and moist mucous membranes HEENT Narrative: Erythema to the tip of the nose with small pustule. Crusting in this area. No intranasal drainage. normocephalic and atraumatic Tympanic Membrane ED: Yes TM's clear Eyes PERRL and EOMs intact bilaterally Neck no lymphadenopathy, supple and no JVD Chest Wall inspection of chest normal Resp normal respiratory effort and clear to auscultation bilaterally Cardio regular rate, S1 normal heart sound, S2 normal heart sound and no murmurs Peripheral Pulses: pulses 2+ throughout GI soft to palpation, non-tender and non-distended Back/Spine no CVA tenderness and no thoracic nor lumbar tenderness Extremity normal to inspection General Extremety ED: Negative for edema or tenderness General Extremity: Negative for edema Neuro oriented x3, CN's II-XII intact bilaterally and no sensory deficits noted Sensorium / Orientation: alert Motor Exam: strength 5/5 throughout Psych mental status grossly normal Skin no rashes or lesions noted MDM MDM MDM Narrative Medical decision making narrative: Patient appears well nontoxic. Afebrile and normotensive upon arrival. White blood cell count of 24,000. Lactate negative. Acute renal insufficiency. Patient given 1 L of normal saline. CT of the sinuses shows evidence of tip of the nose abscess without any other fluid collection. Spoke with ENT on-call Dr. Martell who advised antibiotic therapy but felt that this significant leukocytosis might not be secondary to the small abscess in the tip of his nose. Given the patient's heart rate being above 90 as well as his leukocytosis he does qualify for sepsis and will be treated with Unasyn and vancomycin. Spoke with hospitalist who agrees that he likely needs admission for IV antibiotic therapy. Patient also agreeable and admitted in stable condition. Lab Data Attestation: I reviewed the patient's lab results. Labs: Laboratory Results - last 24 hr 02/21/21 02/21/21 02/21/21 17:00 17:00 18:56 WBC 24.3 H RBC 5.24 Hgb 15.9 Hct 47.7 MCV 91.0 MCH 30.3 MCHC 33.3 RDW Std Deviation 39.5 RDW Coeff of Riddhi 11.8 Plt Count 476 H MPV 9.3 Immature Gran % (Auto) 0.800 Neut % (Auto) 87.9 H Lymph % (Auto) 4.4 L [place] % (Auto) 6.2 Eos % (Auto) 0.2 Baso % (Auto) 0.5 Absolute Neuts (auto) 21.4 H Absolute Lymphs (auto) 1.06 Nucleated RBC % 0 Differential Comment SCANNED Diff Path Review May foll Sodium 139 Potassium 4.4 Chloride 105 Carbon Dioxide 27.0 Anion Gap 7 BUN 16 Creatinine 1.70 H Estim Creat Clear Calc 42.34 Est GFR (MDRD) Af Amer 52 L Est GFR (MDRD) Non-Af 43 L BUN/Creatinine Ratio 9.4 L Glucose 141 H Lactic Acid 1.3 Calcium 8.8 Radiography Diagnostic Testing: Radiology Impression Facial/Sinus 02/21/21 16:49 IMPRESSION: Swelling of the nose with anterior fluid collection consistent with abscess. Electronically Signed: Mike Cannon MD at 18:39 EDT , Service support , Discharge Plan Dx/Rx/DC Orders Clinical Impression: Sepsis, Cellulitis of nasal tip, RUPALI (acute kidney injury) Disposition Disposition: Acute Care Hospital [facility] Discharge Date/Time: 02/21/21 21:05
[2021-02-21] MEDS: Ondansetron 4 MG/2 ML Vial IV (17:12)
[2021-02-21 17:15] VITALS: BP 111/66
[2021-02-21 17:32] LABS: Absolute Lymphocyte Count 1.06 X10^3/uL (0.83-4.51); Absolute Neutrophil Count 21.4 X10^3/uL (2.0-7.7); Basophil# 0.11 X10^3/uL; Basophil% 0.5 % (0-1); Eosinophil# 0.04 X10^3/uL; Eosinophils% 0.2 % (0-5); Hematocrit 47.7 % (40-54); Hemoglobin 15.9 g/dL (13.0-16.5); Lymphocyte # 1.06 X10^3/ul (0.83-4.51); Lymphocyte % 4.4 % (19-41); Mean Corp Hgb Conc 33.3 g/dL (32-36); Mean Corpuscular Hgb 30.3 pg (27.0-32.0); Mean Platelet Vol. 9.3 fl (6.2-12.0); Monocyte# 1.52 X10^3/uL; Monocyte% 6.2 % (0-10); NRBC Flagged by Analyzer 0 % (0-5); Neutrophil % 87.9 % (47-70); POSITIVE DIFFERENTIAL YES; Platelet Count 476 K/mm3 (150-450); RBC Distribution Width CV 11.8 % (11.6-14.6); RBC Distribution Width SD 39.5 fl (35.1-43.9); Red Blood Count 5.24 M/mm3 (4.6-6.2); White Blood Count 24.3 K/mm3 (4.4-11.0)
[2021-02-21 17:37] LABS: Anion Gap 7 (5-15); BUN 16 mg/dL (7-18); BUN/Creat Ratio 9.4 RATIO (10-20); Calcium,Total 8.8 mg/dL (8.5-10.1); Chloride 105 mmol/L (98-107); EST Glomerular Filtration Rate 43 mL/min (>60); Est Glom Filt Rate - Afr Amer 52 mL/min (>60); Estimated Creatinine Clearance 42.34 ml/min; Glucose 141 mg/dL (74-106); Potassium 4.4 mmol/L (3.5-5.1); Sodium Level 139 mmol/L (136-145)
[2021-02-21 17:53] LABS: Differential Indicated SCAN CRITERIA MET
[2021-02-21] MEDS: 0.9% Normal Saline 1,000 ML 999 ML IV (18:00)
[2021-02-21 18:22] LABS: Differential Comment SCANNED
[2021-02-21 19:00] VITALS: BP 115/66; PULSE 92; RESP 18; O2SAT 98
[2021-02-21 19:27] LABS: Lactic Acid 1.3 mmol/L (0.4-1.9)
--- NOTE | 2021-02-21 20:11 | PCM.HP.STD ---
HPI - General HPI Narrative SHERLEY RIVERA, is a 70 M who presents with fever, chills and redness to tip of nose. Patient states that he was at his primary care office for the redness to his nose tip when he became diaphoretic, hypotensive and chilled. PCP instructed patient to present to ER. Patient has not been hypotensive since arrival to ER. Upon review of labs patient is septic. Dr. Groves was consulted from ER and instructed ER physician to initiate IV antibiotic coverage for MRSA. [facility] Medical History (Updated 02/21/21 @ 20:20 by Donna Del Toro, INFORMATION SECURITY OFFICER-C) Abnormal stress test Anxiety and depression Arthritis Bone fracture Chest pain GERD (gastroesophageal reflux disease) H/O emotional problems History of back problems HTN (hypertension) IBS (irritable bowel syndrome) Multiple sclerosis Neuropathy Home Medications cholecalciferol (vitamin D3) 50 mcg (2,000 unit) capsule 2,000 unit PO DAILY 09/01/19 [History Last Taken Unknown] mecobalamin (vitamin B12) 5,000 mcg disintegrating tablet mcg PO 10/21/19 [History Last Taken Unknown] lisinopril 40 mg tablet 40 mg PO DAILY #90 tab 05/03/20 [Rx Last Taken Unknown] ondansetron HCl 4 mg tablet 4 mg PO Q8H PRN #30 tab 06/10/20 [Rx Last Taken Unknown] clopidogrel 75 mg tablet 75 mg PO DAILY #90 tab 07/25/20 [Rx Last Taken Unknown] amlodipine 10 mg tablet 10 mg PO DAILY #90 tab 10/08/20 [Rx Last Taken Unknown] atorvastatin 40 mg tablet 40 mg PO QHS #90 tab 11/22/20 [Rx Last Taken Unknown] nitroglycerin 0.3 mg sublingual tablet 0.3 mg SUBLINGUAL Q5-15M #90 tab 01/03/21 [Rx Last Taken Unknown] furosemide 20 mg tablet 20 mg PO DAILY #90 tab 01/13/21 [Rx Last Taken Unknown] atenolol 50 mg tablet 50 mg PO DAILY #60 tab 01/19/21 [Rx Last Taken Unknown] pregabalin 150 mg capsule 150 mg PO BID #60 cap 01/26/21 [Rx Last Taken Unknown] duloxetine 30 mg capsule,delayed release 30 mg PO QPM #30 cap 02/13/21 [Rx Last Taken Unknown] duloxetine 60 mg capsule,delayed release 60 mg PO QAM #30 cap 02/13/21 [Rx Last Taken Unknown] oxycodone-acetaminophen 7.5 mg-325 mg tablet 1 tab PO .QID PRN tab 02/13/21 [History Last Taken Unknown] Allergy/AdvReac Type Severity Reaction Status Date / Time glatiramer (copolymer 1) Allergy Severe Bruising/Bl Verified 02/21/21 16:15 [From Copaxone] eeding dimethyl fumarate AdvReac Severe Nausea/Vom/ Verified 02/21/21 16:15 [From Tecfidera] Diarrhea Family History Other Anxiety Arthritis Bipolar 1 disorder Depression High cholesterol Hypertension Mental disorder Psychiatric care Suicide attempt Surgical History History of cholecystectomy History of partial colectomy Social History household members: spouse housing: house number of children: 0 Smoking Status: Current every day smoker tobacco type: cigars Tobacco: How many years used: 3 second hand exposure: No alcohol intake: former substance use type: marijuana and other details: CBD vape pen, and smokes marijuana (for past 2 years) what type of physical activity do you participate in: none and walking debbie/latter-day: Hoahaoism ROS Constitutional Constitutional: Reports chills and fever(s); Denies anorexia or weakness Cardiovascular Cardiovascular: Denies chest pain, edema or palpitations Respiratory/Chest Respiratory/Chest: Denies cough, shortness of breath at rest or shortness of breath with exertion Gastrointestinal Gastrointestinal: Denies abdominal pain, constipation or diarrhea Genitourinary Genitourinary: Denies dysuria Musculoskeletal Musculoskeletal: Reports back pain; Denies extremity pain or joint pain Integumentary Integumentary: Reports erythema Neurologic Neurologic: Denies abnormal gait, abnormal speech, confusion or dizziness Psychiatric Psychiatric: Denies anxiety or depression Endocrine Endocrinology: Denies change in body appearance Hematologic/Lymphatic Hematologic/Lymphatic: Denies easy bleeding or easy bruising Vital Signs Vital Signs Vital Signs: 02/21/21 16:13 02/21/21 17:15 02/21/21 19:00 Temperature 97.9 F Temperature Source Temporal Pulse Rate 81 92 Respiratory Rate 16 18 Blood Pressure 159/88 H 111/66 115/66 Blood Pressure Mean 111 81 82 Pulse Ox 97 98 Oxygen Delivery Method Room Air Room Air Physical Exam Const alert and oriented x3 General Appearance: cooperative HEENT normocephalic and head/scalp atraumatic Face and Sinus: Negative for sinus tenderness Nose: no nasal polyps, nasal mucous membranes and turbinates normal, septum normal and external nose abnormal nasal erythema, nasal tenderness, nasal swelling and other (Drainage from nose tip) Eyes PERRL Neck no lymphadenopathy, supple, no JVD and thyroid normal General: trachea midline Resp normal respiratory effort, normal air movement and clear to auscultation bilaterally Cardio regular rate, regular rhythm, S1 normal heart sound and S2 normal heart sound GI normal to inspection, nondistended, normoactive bowel sounds, soft to palpation and non-tender Extremity normal capillary refill and no clubbing, cyanosis or edema General Extremity: no tenderness to palpation of joints or extremities Skin General Skin Exam: turgor normal Lesions: no lesions Rashes: no rashes Wounds: wounds noted size, drainage purulent and surrounding erythema Wound Narrative: To nose tip Neuro CN's II-XII intact bilaterally Psych thought process normal, cooperative and affect normal Appearance: appropriate Lab / Micro Data Result Diagrams: 02/21/21 17:00 02/21/21 17:00 Labs: Laboratory Results - last 24 hr 02/21/21 02/21/21 02/21/21 17:00 17:00 18:56 WBC 24.3 H RBC 5.24 Hgb 15.9 Hct 47.7 MCV 91.0 MCH 30.3 MCHC 33.3 RDW Std Deviation 39.5 RDW Coeff of Riddhi 11.8 Plt Count 476 H MPV 9.3 Immature Gran % (Auto) 0.800 Neut % (Auto) 87.9 H Lymph % (Auto) 4.4 L Carroll % (Auto) 6.2 Eos % (Auto) 0.2 Baso % (Auto) 0.5 Absolute Neuts (auto) 21.4 H Absolute Lymphs (auto) 1.06 Nucleated RBC % 0 Differential Comment SCANNED Diff Path Review May foll Sodium 139 Potassium 4.4 Chloride 105 Carbon Dioxide 27.0 Anion Gap 7 BUN 16 Creatinine 1.70 H Estim Creat Clear Calc 42.34 Est GFR (MDRD) Af Amer 52 L Est GFR (MDRD) Non-Af 43 L BUN/Creatinine Ratio 9.4 L Glucose 141 H Lactic Acid 1.3 Calcium 8.8 Radiology Impression Facial/Sinus 02/21/21 16:49 IMPRESSION: Swelling of the nose with anterior fluid collection consistent with abscess. Electronically Signed: Mike Cannon MD at 18:39 EDT , Service support , Assessment & Plan Assessment/Plan (1) Sepsis: QUALIFIERS: Sepsis type: sepsis due to unspecified organism Sepsis acute organ dysfunction status: with acute organ dysfunction Severe sepsis acute organ dysfunction type: acute renal failure Acute renal failure type: unspecified Severe sepsis shock status: without septic shock Qualified Code(s): A41.9 - Sepsis, unspecified organism; R65.20 - Severe sepsis without septic shock; N17.9 - Acute kidney failure, unspecified (2) Cellulitis of nasal tip: (3) RUPALI (acute kidney injury): PLAN: 1. Sepsis -Admit to [facility] -Vital signs per protocol -CBC and BMP in a.m. -O2 per protocol 2. Cellulitis of nasal tip -Due to location Dr. Martell was consulted by ER physician, recommended coverage for MRSA -Unasyn and vancomycin IV initiated in ER will continue -Wound culture and MRSA PCR ordered and obtained -Blood cultures pending -N.p.o. at midnight pending possible I&D 3. Acute kidney injury -Received 2 L IV fluids in the ER, normal saline at 150x1 bag ordered -Due to increased creatinine furosemide lisinopril held at this time -Trend kidney function daily with BMP -Encourage fluids 4. Chronic back pain -Continue Percocet and Lyrica -As needed morphine ordered for breakthrough pain 5. Hypertension -We will continue amlodipine and atenolol, lisinopril and Lasix held due to RUPALI -Vital signs per protocol, trend BP 6. Anxiety and depression -Continue duloxetine DVT Prophylaxis-SCDs only This patient was seen by Donna Del Toro NP-C under the supervision of Dr. Brown.
[2021-02-21 20:34] VITALS: BP 123/88; PULSE 69; RESP 18; TEMP 37.1; O2SAT 99
[2021-02-21 21:28] VITALS: BMI 40.0
[2021-02-21 21:43] VITALS: BP 117/65; PULSE 68; RESP 16; TEMP 37.1; O2SAT 95
[2021-02-21 22:22] LABS: M R Staph aureus DNA By PCR POSITIVE (Negative); Probe Check PASS; Staph aureus DNA By PCR POSITIVE (Negative)
[2021-02-21] MEDS: Atorvastatin Calcium 40 MG Tablet PO (22:34)
[2021-02-21] MEDS: DULoxetine Hcl 30 MG Capsule PO (22:34)
[2021-02-21] MEDS: Pregabalin 75 MG Capsule 150 MG PO (22:44)
[2021-02-21] MEDS: 0.9% Normal Saline 1,000 ML 150 ML IV (22:44)
[2021-02-21] MEDS: oxyCODONE 5 MG Tablet 7.5 MG PO (23:25)
[2021-02-22] VITALS (8 sets, daily range): BP systolic 85–141; BP diastolic 44–73; PULSE 65–94; RESP 16–19; TEMP 36.3–37; O2SAT 92–97
--- NOTE | 2021-02-22 01:22 | PCM.RX.CS ---
Consult Pharmacy has been consulted to manage selected antiobiotic: Vancomycin Type of Consult: New start Suspected Infection: Sepsis, Skin/Soft tissue Prior Doses of Antibiotics Received/Current Regimen: Medications Vancomycin HCl 1,500 mg/ (Sodium Chloride) 530 mls @ 250 mls/hr IV Q24H MANJIT Discontinued Medications Vancomycin HCl 1,250 mg/ (Sodium Chloride) 275 mls @ 167 mls/hr IV X1 ONE Stop: 02/21/21 21:24 Last Admin: 02/22/21 00:50 Dose: Infused Labs: Sodium 139 mmol/L (136-145) 02/21/21 17:00 Potassium 4.4 mmol/L (3.5-5.1) 02/21/21 17:00 Chloride 105 mmol/L (98-107) 02/21/21 17:00 Carbon Dioxide 27.0 mmol/L (21.0-32.0) 02/21/21 17:00 Anion Gap 7 (5-15) 02/21/21 17:00 BUN 16 mg/dL (7-18) 02/21/21 17:00 Creatinine 1.70 mg/dL (0.70-1.30) H 02/21/21 17:00 Est GFR (MDRD) Af Amer 52 mL/min (>60) L 02/21/21 17:00 Est GFR (MDRD) Non-Af 43 mL/min (>60) L 02/21/21 17:00 BUN/Creatinine Ratio 9.4 RATIO (10-20) L 02/21/21 17:00 Glucose 141 mg/dL (74-106) H 02/21/21 17:00 Weight used for dosin kg Estimated Creatinine Clearance: 42 Goal Trough: 10-15 mcg/mL Pharmacy Plan for Drug Dosing: Pharmacy Service will continue to monitor and adjust dosing as required. Follow-Up Labs: Trough Vancomycin Labs to be done on [date and time ordered]: 02/23/21 @2200
[2021-02-22] MEDS: 0.9% Normal Saline 1,000 ML 999 ML IV (01:58)
[2021-02-22 07:11] LABS: Absolute Lymphocyte Count 2.13 X10^3/uL (0.83-4.51); Absolute Neutrophil Count 11.4 X10^3/uL (2.0-7.7); Basophil# 0.06 X10^3/uL; Basophil% 0.4 % (0-1); Eosinophil# 0.16 X10^3/uL; Hematocrit 37.6 % (40-54); Hemoglobin 12.4 g/dL (13.0-16.5); Lymphocyte # 2.13 X10^3/ul (0.83-4.51); Lymphocyte % 13.6 % (19-41); Mean Corpuscular Hgb 30.5 pg (27.0-32.0); Mean Corpuscular Volume 92.4 fL (80-94); Mean Platelet Vol. 9.6 fl (6.2-12.0); Monocyte% 11.5 % (0-10); NRBC Flagged by Analyzer 0 % (0-5); Neutrophil # 11.42 X10^3/uL (2.7-7.7); Neutrophil % 72.9 % (47-70); POSITIVE DIFFERENTIAL YES; Platelet Count 355 K/mm3 (150-450); RBC Distribution Width CV 11.9 % (11.6-14.6); RBC Distribution Width SD 40.1 fl (35.1-43.9); Red Blood Count 4.07 M/mm3 (4.6-6.2); White Blood Count 15.7 K/mm3 (4.4-11.0)
[2021-02-22 07:12] LABS: Differential Indicated SCAN CRITERIA MET
[2021-02-22] MEDS: oxyCODONE 5 MG Tablet 7.5 MG PO ×3 (07:23→19:56)
[2021-02-22 07:36] LABS: Anion Gap 3 (5-15); BUN 13 mg/dL (7-18); Calcium,Total 8.1 mg/dL (8.5-10.1); Chloride 110 mmol/L (98-107); Creatinine, Serum 1.18 mg/dL (0.70-1.30); EST Glomerular Filtration Rate 65 mL/min (>60); Est Glom Filt Rate - Afr Amer 79 mL/min (>60); Estimated Creatinine Clearance 61.01 ml/min; Glucose 80 mg/dL (74-106); Potassium 3.9 mmol/L (3.5-5.1); Sodium Level 139 mmol/L (136-145)
--- NOTE | 2021-02-22 08:45 | PCM.RX.CS ---
Consult Pharmacy has been consulted to manage selected antiobiotic: Vancomycin Type of Consult: Follow-up Suspected Infection: Sepsis, Skin/Soft tissue Prior Doses of Antibiotics Received/Current Regimen: received 1250mg x1 in E.R. last night, then had been ordered to continue with 1500mg q24h starting tonight Labs: Sodium 139 mmol/L (136-145) 02/22/21 05:50 Potassium 3.9 mmol/L (3.5-5.1) 02/22/21 05:50 Chloride 110 mmol/L (98-107) H 02/22/21 05:50 Carbon Dioxide 26.0 mmol/L (21.0-32.0) 02/22/21 05:50 Anion Gap 3 (5-15) L 02/22/21 05:50 BUN 13 mg/dL (7-18) 02/22/21 05:50 Creatinine 1.18 mg/dL (0.70-1.30) 02/22/21 05:50 Est GFR (MDRD) Af Amer 79 mL/min (>60) 02/22/21 05:50 Est GFR (MDRD) Non-Af 65 mL/min (>60) 02/22/21 05:50 BUN/Creatinine Ratio 11.0 RATIO (10-20) 02/22/21 05:50 Glucose 80 mg/dL (74-106) 02/22/21 05:50 Weight used for dosin.6 kg Estimated Creatinine Clearance: 78.9ml/min Goal Trough: 10-15 mcg/mL Pharmacy Plan for Drug Dosing: The patient's renal function has improved from last night (SCr improved to 1.18 from 1.70 last night) so will change dosing to 1250mg q12h per [facility] dosing protocol. Will order a trough to be drawn before the 4th total dose tomorrow morning. The patient's CrCl of 78.9ml/min was calculated using an adjusted body weight of 94.4kg. Pharmacy Service will continue to monitor and adjust dosing as required. Follow-Up Labs: Trough Vancomycin Labs to be done on [date and time ordered]: 02/23/21 9124
--- NOTE | 2021-02-22 09:40 | CASEMGMT ---
KHALIDA BARLOW Assessment: Face to Face with pt for initial transition planning/care coordination assessment. RN CAIN introduced self and role at [facility], pt voices understanding and consents to assessment. Pt is A/O x4 and answers all questions appropriately at this time. Pt lying in bed in no distress. Care providers, pharmacy, and demographics verified/updated. Admitting Dx: RUPALI, cellulitis, sepsis PCP: Dorothy Specialists: Gabriel,neuro; Luan, pain mgmt at [facility] Preferred Pharmacy: [facility] Insurance: Lauren MORENO Prescription Benefit: yes LW/HPOA: Pt denies having a LW/DPOA. LNOK: [facility], Living Arrangements: Pt lives with in a two story house with 4-5 steps to enter with a rail. Pt reports being I with ADL's and denies concerns at home. Transportation: Pt drives self, denies concerns with transportation. DME/HHC/SNF: Pt has no DME in the home, denies need for. Pt denies previous HHC or SNF stays. Pt recently moved back to [place] from [place] after 35 years. Pt states he is going to do a road trip out west to see [place], etc in a couple of weeks. Pt states no concerns with going home at time of dc. Pt states no further concerns/needs. CM to follow. Advised pt to ask CM if any further question/concerns/needs arise, voices understanding. Pt Goal: Home Plan: Home with support
--- NOTE | 2021-02-22 11:34 | PCM.RX.CS ---
Consult Pharmacy has been consulted to manage selected antiobiotic: Vancomycin Type of Consult: Follow-up Suspected Infection: Sepsis, Skin/Soft tissue Prior Doses of Antibiotics Received/Current Regimen: current regimen is 1250mg q12h with the first dose given today at 10:13. A 1250mg dose was also given in E.R. last night at 22:30 Labs: Sodium 139 mmol/L (136-145) 02/22/21 05:50 Potassium 3.9 mmol/L (3.5-5.1) 02/22/21 05:50 Chloride 110 mmol/L (98-107) H 02/22/21 05:50 Carbon Dioxide 26.0 mmol/L (21.0-32.0) 02/22/21 05:50 Anion Gap 3 (5-15) L 02/22/21 05:50 BUN 13 mg/dL (7-18) 02/22/21 05:50 Creatinine 1.18 mg/dL (0.70-1.30) 02/22/21 05:50 Est GFR (MDRD) Af Amer 79 mL/min (>60) 02/22/21 05:50 Est GFR (MDRD) Non-Af 65 mL/min (>60) 02/22/21 05:50 BUN/Creatinine Ratio 11.0 RATIO (10-20) 02/22/21 05:50 Glucose 80 mg/dL (74-106) 02/22/21 05:50 Microbiology: Microbiology 02/21/21 Unknown Wound Abcess - Nose Gram Stain - Final Weight used for dosin.6 kg Estimated Creatinine Clearance: 78.9ml/min Goal Trough: 15-20 mcg/mL Pharmacy Plan for Drug Dosing: After the current regimen was started, a new order was received today to increase the goal trough to 15-20. Therefore, will increase the next dose to 1750mg IV q12h per [facility] dosing protocol. Will start this a couple hours earlier than when the next 1250mg dose would have been due (instead of giving an extra dose this morning). Will still check the trough tomorrow morning. The patient's CrCl of 78.9ml/min was calculated using an adjusted body weight of 94.4kg. Pharmacy Service will continue to monitor and adjust dosing as required. Follow-Up Labs: Trough Vancomycin Labs to be done on [date and time ordered]: 02/23/21 0728
[2021-02-22] MEDS: Pregabalin 75 MG Capsule 150 MG PO ×2 (11:58→20:51)
[2021-02-22] MEDS: Cholecalciferol (VIT D3) 25 MCG TABLET (1,000 UNITS) 50 MCG PO (11:58)
[2021-02-22] MEDS: DULoxetine Hcl 60 MG Capsule PO (11:58)
[2021-02-22] MEDS: Mupirocin Ointment 22gm Tube 1 APPLIC NASAL ×2 (11:59→20:51)
--- NOTE | 2021-02-22 12:29 | NURSING ---
Pt home meds returned to [facility] to take home. Count verified by second RN Otilia. Pt aware.
[2021-02-22 13:24] LABS: Pathologist Review Reviewed
--- NOTE | 2021-02-22 14:53 | PCM.PN.HOSP ---
Documented by User: Izaiah TSANG 02/22/21 15:07 Subjective Subjective Patient is a 70-year-old male comfortably resting in bed, alert and oriented x3. Patient denies any change or progression in symptoms from admission. Denies chest pain, shortness of breath, palpitations, sputum production, fever, chills, N/V/D. Objective Data Objective Data Vital Signs: Vital Signs Temp Pulse Resp BP Pulse Ox 97.3 F L 72 18 95/61 97 02/22/21 09:00 02/22/21 09:00 02/22/21 09:00 02/22/21 09:00 02/22/21 09:00 Oxygen Delivery Method Room Air Weight: 278 lb 15.99 oz Body Mass Index (BMI) 40.0 Intake & Output: Intake and Output for Last 24 Hours 02/20/21 02/21/21 02/22/21 23:59 23:59 23:59 Intake Total 1000 / 1220 3458 / 3458 Balance 1000 / 1220 3458 / 3458 Lab / Micro Data Result Diagrams: 02/22/21 05:50 02/22/21 05:50 Labs: Laboratory Results - last 24 hr 02/21/21 02/21/21 02/21/21 17:00 17:00 18:56 WBC 24.3 H RBC 5.24 Hgb 15.9 Hct 47.7 MCV 91.0 MCH 30.3 MCHC 33.3 RDW Std Deviation 39.5 RDW Coeff of Riddhi 11.8 Plt Count 476 H MPV 9.3 Immature Gran % (Auto) 0.800 Neut % (Auto) 87.9 H Lymph % (Auto) 4.4 L Montgomery % (Auto) 6.2 Eos % (Auto) 0.2 Baso % (Auto) 0.5 Absolute Neuts (auto) 21.4 H Absolute Lymphs (auto) 1.06 Nucleated RBC % 0 Differential Comment SCANNED Diff Path Review Reviewed Sodium 139 Potassium 4.4 Chloride 105 Carbon Dioxide 27.0 Anion Gap 7 BUN 16 Creatinine 1.70 H Estim Creat Clear Calc 42.34 Est GFR (MDRD) Af Amer 52 L Est GFR (MDRD) Non-Af 43 L BUN/Creatinine Ratio 9.4 L Glucose 141 H Lactic Acid 1.3 Calcium 8.8 S.aureus Protein A PCR MRSA (PCR) 02/21/21 02/22/21 02/22/21 Unknown 05:50 05:50 WBC 15.7 H RBC 4.07 L Hgb 12.4 L Hct 37.6 L MCV 92.4 MCH 30.5 MCHC 33.0 RDW Std Deviation 40.1 RDW Coeff of Riddhi 11.9 Plt Count 355 MPV 9.6 Immature Gran % (Auto) 0.600 Neut % (Auto) 72.9 H Lymph % (Auto) 13.6 L Montgomery % (Auto) 11.5 H Eos % (Auto) 1.0 Baso % (Auto) 0.4 Absolute Neuts (auto) 11.4 H Absolute Lymphs (auto) 2.13 Nucleated RBC % 0 Differential Comment Diff Path Review February foll Sodium 139 Potassium 3.9 Chloride 110 H Carbon Dioxide 26.0 Anion Gap 3 L BUN 13 Creatinine 1.18 Estim Creat Clear Calc 61.01 Est GFR (MDRD) Af Amer 79 Est GFR (MDRD) Non-Af 65 BUN/Creatinine Ratio 11.0 Glucose 80 Lactic Acid Calcium 8.1 L S.aureus Protein A PCR POSITIVE H MRSA (PCR) POSITIVE H Micro: Microbiology 02/21/21 Unknown Wound Abcess - Nose Gram Stain - Final 02/21/21 Unknown Wound Abcess - Nose Wound Culture - Preliminary Staphylococcus aureus Radiography Diagnostic Testing: Radiology Impression Facial/Sinus 02/21/21 16:49 IMPRESSION: Swelling of the nose with anterior fluid collection consistent with abscess. Electronically Signed: Mike Cannon MD at 18:39 EDT , Service support , Physical Exam Narrative See subjective. Const alert, oriented x3 and no apparent distress HEENT head/scalp atraumatic and moist oral mucous membranes HEENT Narrative: Redness and swelling noted about the tip of the nose. White discharge observed inside the left nostril. Head and Scalp: normocephalic Face and Sinus: facial erythema Nose: no nasal polyps, nasal discharge and other Other Details: Swelling Mouth: oral and palatal mucosa normal, lips normal and tongue normal Eyes PERRL, EOMs intact bilaterally and conjunctivae normal Neck no lymphadenopathy, supple and no JVD Resp normal respiratory effort, no retractions, no use of accessory muscles and clear to auscultation bilaterally Cardio regular rate, regular rhythm, no murmurs and no JVD GI normal to inspection, nondistended, normoactive bowel sounds, soft to palpation, non-tender and non-distended Extremity normal to inspection, full ROM and no clubbing, cyanosis or edema Skin no rashes or lesions noted and no wounds Neuro CN's II-XII intact bilaterally Psych affect normal Assessment & Plan Assessment/Plan (1) Sepsis: QUALIFIERS: Acute renal failure type: unspecified Sepsis acute organ dysfunction status: with acute organ dysfunction Sepsis type: sepsis due to unspecified organism Severe sepsis acute organ dysfunction type: acute renal failure Severe sepsis shock status: without septic shock Qualified Code(s): A41.9 - Sepsis, unspecified organism; R65.20 - Severe sepsis without septic shock; N17.9 - Acute kidney failure, unspecified (2) RUPALI (acute kidney injury): (3) Cellulitis of nasal tip: (4) Chronic back pain: QUALIFIERS: Back pain laterality: bilateral Back pain location: low back pain Sciatica laterality: bilateral sciatica Sciatica presence: with sciatica Qualified Code(s): M54.42 - Lumbago with sciatica, left side; M54.41 - Lumbago with sciatica, right side; G89.29 - Other chronic pain (5) HTN (hypertension): QUALIFIERS: Hypertension type: essential hypertension Qualified Code(s): I10 - Essential (primary) hypertension (6) Anxiety: (7) Depression: PLAN: 1) Cellulitis of the nasal tip Redness and swelling observed about the tip of the nose. White discharge noted in the left nostril. CT of the face/sinuses demonstrate swelling of the nose with anterior fluid collection consistent with abscess. Vital signs stable and patient is afebrile. Leukocytosis at 15,000. BMP unremarkable. MRSA serologies of the wound/abscess +. Blood cultures pending. Plan; ENT following and to see patient on 02/23, continue Unasyn and vancomycin. 2) RUPALI Resolved, creatinine currently 1.18. Plan; continue to hold lisinopril and Lasix. 3) Chronic LBP Plan; continue percocet and Lyrica, morphine as needed. 4) Hypertension Stable. Continue amlodipine, atenolol. Hold lisinopril and Lasix due to #2. 5) Anxiety/Depression Continue duloxetine DVT prophylaxis -SCDs Patient seen by Izaiah Bloom PA-C, under the supervision of Dr. Linder. Documented by User: Dr. Kunal Linder MD 02/22/21 15:51 Subjective Subjective Patient admitted with nose pain, swelling and cellulitis. RUPALI. Patient has history of MS and hypertension. Has leukocytosis. Currently pain is improved and abscess drained in ED. Cultures pending. Objective Data Lab / Micro Data Result Diagrams: 02/22/21 05:50 02/22/21 05:50 Physical Exam Narrative Physical exam General: Alert, Oriented x3, Cooperative HEENT: Redness over vestibular part of nasal cavity with tenderness, induration and edema. No purulent discharge. No proximal tenderness over the nasal bridge, periorbital region or maxillary sinuses. Atraumatic, PERRLA, EOMI, Normocephalic Oral: No Gingival or Mucosal Lesions/ Ulcerations Neck: Supple, No JVD, Negative Carotid Bruits Lungs: Air entry diminished in bilateral lung bases. No crepitation/rhonchi Cardiovascular: Regular rate, Regular Rhythm, Normal S1, Normal S2, No murmurs Abdomen: Bowel Sounds Present, Soft, Non Tender, Non-Distended : No renal angle tenderness. No suprapubic tenderness. Extremities: No edema, Capillary Refill Less than 3 Seconds Skin: No rashes, No breakdown Musculoskeletal: No Tenderness to Palpation of Joints or Extremities Neurological: Cranial nerves II-XII grossly intact, Deep Tendon Reflexes 2+/4 and Symmetrical, Neuro grossly intact Psych/Mental Status: Normal Affect, Appropriate. Assessment & Plan Assessment/Plan (1) Cellulitis of nasal tip: PLAN: This patient was seen in conjunction with SHARAN Sargent. I have independently interviewed and examined the patient and reviewed pertinent history, examination findings, laboratory and plan of management. I have reviewed the note and agree with the documented findings with the few additional points. In brief, patient is admitted for cellulitis of vestibule of nasal cavity and abscess. CT sinus reviewed and shows nasal cavity vestibular abscess. Discussed with ENT Dr. Ny. He agrees with the current IV antibiotic for MRSA coverage. Patient on vancomycin, Unasyn and mupirocin ointment. Leukocytosis improving. Patient afebrile. MRSA PCR positive. Preliminary wound culture showing staph aureus 1+ possible MRSA. Patient has RUPALI, creatinine normal. RUPALI resolved. Patient has history of MS, hypertension as mentioned above. He follows Dr. Rios, the neurologist and currently not on treatment for MS which is in remission. I have discussed my assessment with SHARAN Sargent and orders have been reviewed. Microbiology Past 72 Hours 02/21/21 Unknown Wound Abcess - Nose Gram Stain - Final 02/21/21 Unknown Wound Abcess - Nose Wound Culture - Preliminary Staphylococcus aureus Laboratory Results 02/21/21 18:56: Lactic Acid 1.3 02/21/21 : S.aureus Protein A PCR POSITIVE H, MRSA (PCR) POSITIVE H 02/22/21 05:50: WBC 15.7 H, RBC 4.07 L, Hgb 12.4 L, Hct 37.6 L, MCV 92.4, MCH 30.5, MCHC 33.0, RDW Std Deviation 40.1, RDW Coeff of Riddhi 11.9, Plt Count 355, MPV 9.6, Immature Gran % (Auto) 0.600, Neut % (Auto) 72.9 H, Lymph % (Auto) 13.6 L, Montgomery % (Auto) 11.5 H, Eos % (Auto) 1.0, Baso % (Auto) 0.4, Absolute Neuts (auto) 11.4 H, Absolute Lymphs (auto) 2.13, Nucleated RBC % 0, Diff Path Review February02/22/21 05:50: Sodium 139, Potassium 3.9, Chloride 110 H, Carbon Dioxide 26.0, Anion Gap 3 L, BUN 13, Creatinine 1.18, Estim Creat Clear Calc 61.01, Est GFR (MDRD) Af Amer 79, Est GFR (MDRD) Non-Af 65, BUN/Creatinine Ratio 11.0, Glucose 80, Calcium 8.1 L Clinical Impression(s) from Imaging Studies Facial/Sinus 02/21/21 16:49 IMPRESSION: Swelling of the nose with anterior fluid collection consistent with abscess. Visit Charges Inpatient E&M: 52986 Subs Hosp L2
[2021-02-22] MEDS: Atorvastatin Calcium 40 MG Tablet PO (20:50)
[2021-02-22] MEDS: DULoxetine Hcl 30 MG Capsule PO (20:51)
--- NOTE | 2021-02-22 20:56 | NURSING ---
Patient's 2200 medication given early per patient request.
[2021-02-23] MEDS: oxyCODONE 5 MG Tablet 7.5 MG PO ×5 (01:01→22:04)
[2021-02-23 02:45] VITALS: BP 107/62; PULSE 66; RESP 17; TEMP 36.7; O2SAT 97
[2021-02-23 07:31] LABS: Absolute Lymphocyte Count 2.33 X10^3/uL (0.83-4.51); Absolute Neutrophil Count 6.8 X10^3/uL (2.0-7.7); Basophil# 0.06 X10^3/uL; Basophil% 0.6 % (0-1); Eosinophil# 0.35 X10^3/uL; Eosinophils% 3.3 % (0-5); Hematocrit 35.8 % (40-54); Hemoglobin 12.1 g/dL (13.0-16.5); Lymphocyte # 2.33 X10^3/ul (0.83-4.51); Lymphocyte % 22.1 % (19-41); Mean Corp Hgb Conc 33.8 g/dL (32-36); Mean Corpuscular Hgb 30.4 pg (27.0-32.0); Mean Corpuscular Volume 89.9 fL (80-94); Mean Platelet Vol. 8.8 fl (6.2-12.0); Monocyte# 0.93 X10^3/uL; Monocyte% 8.8 % (0-10); NRBC Flagged by Analyzer 0 % (0-5); Neutrophil % 64.6 % (47-70); Platelet Count 352 K/mm3 (150-450); RBC Distribution Width CV 11.9 % (11.6-14.6); RBC Distribution Width SD 38.8 fl (35.1-43.9); Red Blood Count 3.98 M/mm3 (4.6-6.2); White Blood Count 10.5 K/mm3 (4.4-11.0)
[2021-02-23 07:42] VITALS: O2SAT 92
[2021-02-23 07:49] LABS: Anion Gap 4 (5-15); BUN 8 mg/dL (7-18); BUN/Creat Ratio 7.9 RATIO (10-20); Calcium,Total 8.4 mg/dL (8.5-10.1); Chloride 110 mmol/L (98-107); Creatinine, Serum 1.01 mg/dL (0.70-1.30); EST Glomerular Filtration Rate 78 mL/min (>60); Est Glom Filt Rate - Afr Amer 94 mL/min (>60); Estimated Creatinine Clearance 71.27 ml/min; Glucose 95 mg/dL (74-106); Potassium 3.6 mmol/L (3.5-5.1); Sodium Level 140 mmol/L (136-145)
[2021-02-23 07:56] LABS: Vancomycin, Trough Level 16.8 ug/mL (5.0-15.0)
--- NOTE | 2021-02-23 08:30 | PCM.RX.CS ---
Consult Pharmacy has been consulted to manage selected antiobiotic: Vancomycin Type of Consult: Follow-up Suspected Infection: Sepsis, Skin/Soft tissue Labs: Sodium 140 mmol/L (136-145) 02/23/21 07:20 Potassium 3.6 mmol/L (3.5-5.1) 02/23/21 07:20 Chloride 110 mmol/L (98-107) H 02/23/21 07:20 Carbon Dioxide 26.0 mmol/L (21.0-32.0) 02/23/21 07:20 Anion Gap 4 (5-15) L 02/23/21 07:20 BUN 8 mg/dL (7-18) 02/23/21 07:20 Creatinine 1.01 mg/dL (0.70-1.30) 02/23/21 07:20 Est GFR (MDRD) Af Amer 94 mL/min (>60) 02/23/21 07:20 Est GFR (MDRD) Non-Af 78 mL/min (>60) 02/23/21 07:20 BUN/Creatinine Ratio 7.9 RATIO (10-20) L 02/23/21 07:20 Glucose 95 mg/dL (74-106) 02/23/21 07:20 Vancomycin Trough 16.8 ug/mL (5.0-15.0) H 02/23/21 07:20 Microbiology: Microbiology 02/21/21 Unknown Wound Abcess - Nose Gram Stain - Final 02/21/21 Unknown Wound Abcess - Nose Wound Culture - Final Meth. resistant Staph. aureus Goal Trough: 15-20 mcg/mL Pharmacy Plan for Drug Dosing: VANCOMYCIN LEVEL RECEIVED Current Vancomycin Dose: 1750mg q12h (). Dose was increased from 1250mg q12h on 02/22/21 due to a change in goal trough Number of Doses Received: 1250mg x1 on 02/21/21 at 2230 (ER), 1250mg q12h x1 dose 02/22/21 at 1013, and 1750mg q12h x1 dose on 02/22/21 at 1949 Vancomycin Level: 16.8 Hours Since Last Dose: 11.5 Renal Function: SrCr 1.01 Renal Function Trend: stable Lab/Micro: Vancomycin Plan/Comments: continue current dose of 1750mg q12h Pending Level: 02/24/21 at 1930 Pharmacy Service will continue to monitor and adjust dosing as required. Follow-Up Labs: Trough Vancomycin - 02/24/21 at 1930
[2021-02-23 08:36] VITALS: BP 111/63; PULSE 62; RESP 18; TEMP 36.2; O2SAT 96
[2021-02-23] MEDS: Pregabalin 75 MG Capsule 150 MG PO ×2 (08:44→22:01)
[2021-02-23] MEDS: DULoxetine Hcl 60 MG Capsule PO (08:45)
[2021-02-23] MEDS: Mupirocin Ointment 22gm Tube 1 APPLIC NASAL ×2 (08:45→22:02)
[2021-02-23] MEDS: Cholecalciferol (VIT D3) 25 MCG TABLET (1,000 UNITS) 50 MCG PO (08:46)
--- NOTE | 2021-02-23 10:29 | PCM.CONS.GEN ---
Assessment & Plan Assessment/Plan (1) Cellulitis of nasal tip: PLAN: nasal vestibulitis / vestibular abscess -initial WBC combination of abscess and renal failure hemoconcentration. labs have since normalized including creatinine. -cultures returned MRSA. -improving dramatically on current antibiotic regimen, added mupirocin yesterday -okay for discharge on oral antibiotics if continues to improve tomorrow. would run sensitivities on culture and send home on appropriate oral MRSA dosage along with mupirocin HPI Consult Data Date of Consult: 02/23/21 HPI Narrative HPI Narrative: SHERLEY RIVERA, is a 70 M with nasal vestibulitis that progressed to vestibular abscess. initial presentation with fever/chills, WBC 24k. also in acute renal failure. was placed on vanc, unasyn; added mupirocin ointment yesterday. abscess freely draining and has improved dramatically. cultures returned MRSA. CT scan with vestibular abscess, no further spread. renal labs and WBC normalized. [facility] Medical History (Updated 02/21/21 @ 22:[address] Jose L Khalil, DO) Abnormal stress test Anxiety and depression Arthritis Bone fracture Chest pain Chronic pain GERD (gastroesophageal reflux disease) H/O emotional problems History of back problems HTN (hypertension) IBS (irritable bowel syndrome) Multiple sclerosis Neuropathy Home Medications cholecalciferol (vitamin D3) 50 mcg (2,000 unit) capsule 2,000 unit PO DAILY 09/01/19 [History Last Taken Unknown] mecobalamin (vitamin B12) 5,000 mcg disintegrating tablet 5,000 mcg PO DAILY 10/21/19 [History Last Taken Unknown] lisinopril 40 mg tablet 40 mg PO DAILY #90 tab 05/03/20 [Rx Last Taken Unknown] ondansetron HCl 4 mg tablet 4 mg PO Q8H PRN #30 tab 06/10/20 [Rx Last Taken Unknown] clopidogrel 75 mg tablet 75 mg PO DAILY #90 tab 07/25/20 [Rx Last Taken Unknown] amlodipine 10 mg tablet 10 mg PO DAILY #90 tab 10/08/20 [Rx Last Taken Unknown] atorvastatin 40 mg tablet 40 mg PO QHS #90 tab 11/22/20 [Rx Last Taken Unknown] nitroglycerin 0.3 mg sublingual tablet 0.3 mg SUBLINGUAL Q5-15M #90 tab 01/03/21 [Rx Last Taken Unknown] furosemide 20 mg tablet 20 mg PO DAILY #90 tab 01/13/21 [Rx Last Taken Unknown] atenolol 50 mg tablet 50 mg PO DAILY #60 tab 01/19/21 [Rx Last Taken Unknown] pregabalin 150 mg capsule 150 mg PO BID #60 cap 01/26/21 [Rx Last Taken Unknown] duloxetine 30 mg capsule,delayed release 30 mg PO QPM #30 cap 02/13/21 [Rx Last Taken Unknown] duloxetine 60 mg capsule,delayed release 60 mg PO QAM #30 cap 02/13/21 [Rx Last Taken Unknown] oxycodone-acetaminophen 7.5 mg-325 mg tablet 1 tab PO .QID PRN tab 02/13/21 [History Last Taken Unknown] Allergy/AdvReac Type Severity Reaction Status Date / Time glatiramer (copolymer 1) Allergy Severe Bruising/Bl Verified 02/21/21 16:15 [From Copaxone] eeding dimethyl fumarate AdvReac Severe Nausea/Vom/ Verified 02/21/21 16:15 [From Tecfidera] Diarrhea ibuprofen AdvReac Upset Verified 02/21/21 21:40 Stomach Family History Other Anxiety Arthritis Bipolar 1 disorder Depression High cholesterol Hypertension Mental disorder Psychiatric care Suicide attempt Surgical History History of cholecystectomy History of partial colectomy Social History household members: spouse housing: house number of children: 0 Smoking Status: Current every day smoker tobacco type: cigars Tobacco: How many years used: 3 second hand exposure: No alcohol intake: former substance use type: marijuana and other details: CBD vape pen, and smokes marijuana (for past 2 years) what type of physical activity do you participate in: none and walking debbie/religious: Protestant ROS Constitutional Constitutional: Denies chills or headache(s) Eyes Eyes: Denies puffy eyes ENT HEENT: Reports other Details: nasal tip pain Respiratory/Chest Respiratory/Chest: Denies wheezing Physical Exam Const alert and oriented x3 General Appearance: cooperative Orientation / Consciousness: awake Exam Limitations: no limitations HEENT Head and Scalp: normal to inspection Face and Sinus: Negative for sinus tenderness Nose: external nose abnormal other (left vestibular abscess with left tip / alar drainage) Lab / Micro Data Result Diagrams: 02/23/21 07:20 02/23/21 07:20 Labs: Laboratory Results - last 24 hr 02/21/21 02/23/21 02/23/21 17:00 07:20 07:20 WBC 10.5 RBC 3.98 L Hgb 12.1 L Hct 35.8 L MCV 89.9 MCH 30.4 MCHC 33.8 RDW Std Deviation 38.8 RDW Coeff of Riddhi 11.9 Plt Count 352 MPV 8.8 Immature Gran % (Auto) 0.600 Neut % (Auto) 64.6 Lymph % (Auto) 22.1 [place] % (Auto) 8.8 Eos % (Auto) 3.3 Baso % (Auto) 0.6 Absolute Neuts (auto) 6.8 Absolute Lymphs (auto) 2.33 Nucleated RBC % 0 [address] Review Reviewed Sodium Potassium Chloride Carbon Dioxide Anion Gap BUN Creatinine Estim Creat Clear Calc Est GFR (MDRD) Af Amer Est GFR (MDRD) Non-Af BUN/Creatinine Ratio Glucose Calcium Vancomycin Trough 16.8 H 02/23/21 07:20 WBC RBC Hgb Hct MCV MCH MCHC RDW Std Deviation RDW Coeff of Riddhi Plt Count MPV Immature Gran % (Auto) Neut % (Auto) Lymph % (Auto) [place] % (Auto) Eos % (Auto) Baso % (Auto) Absolute Neuts (auto) Absolute Lymphs (auto) Nucleated RBC % Diff Path Review Sodium 140 Potassium 3.6 Chloride 110 H Carbon Dioxide 26.0 Anion Gap 4 L BUN 8 Creatinine 1.01 Estim Creat Clear Calc 71.27 Est GFR (MDRD) Af Amer 94 Est GFR (MDRD) Non-Af 78 BUN/Creatinine Ratio 7.9 L Glucose 95 Calcium 8.4 L Vancomycin Trough Micro: Microbiology 02/21/21 Unknown Gram Stain - Final Wound Abcess - Nose Wound Culture - Final Meth. resistant Staph. aureus
[2021-02-23 12:28] LABS: Pathologist Review Reviewed
--- NOTE | 2021-02-23 13:54 | PN.HOSP_ITS ---
Documented by User: Hannah Burciaga NP, DIRECTOR OF STRATEGIC COMMUNICATIONS-C 02/23/21 14:09 Subjective Subjective Patient seen and examined. Denies fever, chills. States he is still having intermittent purulent drainage from the end of his nose. Objective Data Objective Data Vital Signs: Vital Signs Temp Pulse Resp BP Pulse Ox 97.2 F L 62 18 111/63 96 02/23/21 08:36 02/23/21 08:36 02/23/21 08:36 02/23/21 08:36 02/23/21 08:36 Oxygen Delivery Method Room Air Weight: 278 lb 15.99 oz Body Mass Index (BMI) 40.0 Intake & Output: Intake and Output for Last 24 Hours 02/21/21 02/22/21 02/23/21 23:59 23:59 23:59 Intake Total 1000 / 1220 4345 / 4545 1579 / 1579 Balance 1000 / 1220 4345 / 4545 1579 / 1579 Lab / Micro Data Result Diagrams: 02/23/21 07:20 02/23/21 07:20 Labs: Laboratory Results - last 24 hr 02/22/21 02/23/21 02/23/21 05:50 07:20 07:20 WBC 10.5 RBC 3.98 L Hgb 12.1 L Hct 35.8 L MCV 89.9 MCH 30.4 MCHC 33.8 RDW Std Deviation 38.8 RDW Coeff of Riddhi 11.9 Plt Count 352 MPV 8.8 Immature Gran % (Auto) 0.600 Neut % (Auto) 64.6 Lymph % (Auto) 22.1 [place] % (Auto) 8.8 Eos % (Auto) 3.3 Baso % (Auto) 0.6 Absolute Neuts (auto) 6.8 Absolute Lymphs (auto) 2.33 Nucleated RBC % [address] Review Reviewed Sodium Potassium Chloride Carbon Dioxide Anion Gap BUN Creatinine Estim Creat Clear Calc Est GFR (MDRD) Af Amer Est GFR (MDRD) Non-Af BUN/Creatinine Ratio Glucose Calcium Vancomycin Trough 16.8 H 02/23/21 07:20 WBC RBC Hgb Hct MCV MCH MCHC RDW Std Deviation RDW Coeff of Riddhi Plt Count MPV Immature Gran % (Auto) Neut % (Auto) Lymph % (Auto) [place] % (Auto) Eos % (Auto) Baso % (Auto) Absolute Neuts (auto) Absolute Lymphs (auto) Nucleated RBC % Diff Path Review Sodium 140 Potassium 3.6 Chloride 110 H Carbon Dioxide 26.0 Anion Gap 4 L BUN 8 Creatinine 1.01 Estim Creat Clear Calc 71.27 Est GFR (MDRD) Af Amer 94 Est GFR (MDRD) Non-Af 78 BUN/Creatinine Ratio 7.9 L Glucose 95 Calcium 8.4 L Vancomycin Trough Micro: Microbiology 02/21/21 Unknown Wound Abcess - Nose Gram Stain - Final 02/21/21 Unknown Wound Abcess - Nose Wound Culture - Final Meth. resistant Staph. aureus Physical Exam Const alert, oriented x3 and no apparent distress Orientation / Consciousness: awake, oriented to person, oriented to place and oriented to time HEENT normocephalic and moist oral mucous membranes Eyes PERRL, EOMs intact bilaterally and conjunctivae normal Neck no lymphadenopathy Resp normal respiratory effort and clear to auscultation bilaterally Cardio regular rate, regular rhythm and no murmurs Peripheral Pulses: pulses 2+ throughout GI normal to inspection, nondistended, normoactive bowel sounds, non-tender and non-distended Extremity normal to inspection Skin no rashes or lesions noted Skin Narrative: Nasal tip cellulitis with distal areas of scabbing, intermittent purulent drainage Lesions: no lesions Rashes: no rashes Trauma: no lacerations or abrasions Neuro oriented x3 Sensorium / Orientation: awake and alert Psych affect normal Assessment & Plan Assessment/Plan (1) Cellulitis of nasal tip: PLAN: 1. Cellulitis of nasal tip-ENT consulted. Cultures growing MRSA. Improving on IV antibiotics. Plan for discharge home on oral antibiotics tomor row if patient continues to improve. No plans for OR. Continue IV vancomycin. 2. Acute kidney injury-resolved, trend BMP. 3. Chronic back pain-on Percocet, Lyrica. 4. Hypertension-stable, continue amlodipine, atenolol. KELIN inhibitor and Lasix on hold secondary to acute kidney injury. 5. Anxiety/depression-continue duloxetine. DVT prophylaxis-SCDs This patient was seen by LUIS CARLOS Bridges under the supervision of Dr. Linder. Documented by User: Dr. Kunal Linder MD 02/23/21 16:14 Subjective Subjective Patient was seen by ENT doctor in the morning. No surgical intervention recommended by surgeon. Continue IV antibiotics. Objective Data Lab / Micro Data Result Diagrams: 02/23/21 07:20 02/23/21 07:20 Physical Exam Narrative Physical exam General: Alert, Oriented x3, Cooperative HEENT: Erythema, tenderness and induration over vestibular part of nasal cavity has improved. No purulent discharge. Atraumatic, PERRLA, EOMI, Normocephalic Oral: No Gingival or Mucosal Lesions/ Ulcerations Neck: Supple, No JVD, Negative Carotid Bruits Lungs: Air entry diminished in bilateral lung bases. No crepitation/rhonchi Cardiovascular: Regular rate, Regular Rhythm, Normal S1, Normal S2, No murmurs Abdomen: Bowel Sounds Present, Soft, Non Tender, Non-Distended : No renal angle tenderness. No suprapubic tenderness. Extremities: No edema, Capillary Refill Less than 3 Seconds Skin: No rashes, No breakdown Musculoskeletal: No Tenderness to Palpation of Joints or Extremities Neurological: Cranial nerves II-XII grossly intact, Deep Tendon Reflexes 2+/4 and Symmetrical, Neuro grossly intact Psych/Mental Status: Normal Affect, Appropriate. Assessment & Plan Assessment/Plan (1) Cellulitis of nasal tip: PLAN: This patient was seen in conjunction with DIRECTOR OF STRATEGIC COMMUNICATIONS, Hannah. I have independently interviewed and examined the patient and reviewed pertinent history, examination findings, laboratory and plan of management. I have reviewed the note and agree with the documented findings with the few additional points. In brief, patient is admitted for cellulitis of vestibule of nasal cavity and abscess due to MRSA.? CT sinus reviewed and shows nasal cavity vestibular abscess.? Discussed with ENT Dr. Ny.? He agrees with the current IV antibiotic for MRSA coverage.? Initially patient on vancomycin, Unasyn and mupirocin ointment and then Unasyn discontinued after MRSA culture.? Leukocytosis improving.? Patient afebrile.? MRSA PCR positive.??Preliminary wound culture showing MRSA. Patient has RUPALI, creatinine normal.? RUPALI resolved. Patient has history of MS, hypertension as mentioned above.? He follows Dr. Rios, the neurologist and currently not on treatment for MS which is in remission. MRSA infection, contact precaution, disinfection and antibiotic discussed with the patient and present in the room I have discussed my assessment with DIRECTOR OF STRATEGIC COMMUNICATIONS, Hannah and orders have been reviewed. Visit Charges Inpatient E&M: 93323 Subs Hosp L2
[2021-02-23 14:40] VITALS: BP 129/69; PULSE 68; RESP 18; TEMP 37.2; O2SAT 97
[2021-02-23] MEDS: 0.9% Saline Lock 10 ML Syringe IV ×2 (20:08→22:58)
[2021-02-23 20:10] VITALS: BP 122/74; PULSE 66; RESP 16; TEMP 36.7; O2SAT 98
[2021-02-23] MEDS: Atorvastatin Calcium 40 MG Tablet PO (22:04)
[2021-02-23] MEDS: DULoxetine Hcl 30 MG Capsule PO (22:06)
[2021-02-24 02:57] VITALS: BP 132/72; PULSE 63; RESP 16; TEMP 36.6; O2SAT 97
[2021-02-24] MEDS: oxyCODONE 5 MG Tablet 7.5 MG PO ×2 (06:43→11:23)
[2021-02-24 07:07] LABS: Absolute Lymphocyte Count 1.58 X10^3/uL (0.83-4.51); Absolute Neutrophil Count 4.6 X10^3/uL (2.0-7.7); Basophil# 0.05 X10^3/uL; Basophil% 0.7 % (0-1); Eosinophil# 0.27 X10^3/uL; Eosinophils% 3.6 % (0-5); Hematocrit 33.6 % (40-54); Hemoglobin 11.6 g/dL (13.0-16.5); Lymphocyte # 1.58 X10^3/ul (0.83-4.51); Lymphocyte % 21.2 % (19-41); Mean Corp Hgb Conc 34.5 g/dL (32-36); Mean Corpuscular Hgb 30.9 pg (27.0-32.0); Mean Corpuscular Volume 89.4 fL (80-94); Monocyte# 0.89 X10^3/uL; NRBC Flagged by Analyzer 0 % (0-5); Neutrophil % 61.8 % (47-70); Platelet Count 341 K/mm3 (150-450); RBC Distribution Width CV 11.5 % (11.6-14.6); RBC Distribution Width SD 37.3 fl (35.1-43.9); Red Blood Count 3.76 M/mm3 (4.6-6.2); White Blood Count 7.4 K/mm3 (4.4-11.0)
[2021-02-24 07:53] LABS: Anion Gap 5 (5-15); BUN 5 mg/dL (7-18); BUN/Creat Ratio 6.2 RATIO (10-20); Calcium,Total 8.3 mg/dL (8.5-10.1); Chloride 109 mmol/L (98-107); EST Glomerular Filtration Rate 101 mL/min (>60); Est Glom Filt Rate - Afr Amer 123 mL/min (>60); Estimated Creatinine Clearance 89.98 ml/min; Glucose 87 mg/dL (74-106); Potassium 3.4 mmol/L (3.5-5.1); Sodium Level 142 mmol/L (136-145)
[2021-02-24] MEDS: amLODIPine 10 MG Tablet PO (09:15)
[2021-02-24] MEDS: Potassium Chloride Oral Tablet 20 MEQ 40 MEQ PO (09:15)
[2021-02-24] MEDS: Mupirocin Ointment 22gm Tube 1 APPLIC NASAL (09:15)
[2021-02-24] MEDS: Pregabalin 75 MG Capsule 150 MG PO (09:19)
[2021-02-24 09:23] VITALS: BP 111/68; PULSE 58; RESP 18; TEMP 36.5; O2SAT 95
[2021-02-24] MEDS: DULoxetine Hcl 60 MG Capsule PO (10:09)
--- NOTE | 2021-02-24 11:22 | PCM.DC ---
Discharge Instructions Diet Discharge Diet: No restrictions Activity Discharge Activity: Return to Normal Activity Dressing / Incision Call your doctor if your incision/area has: Continuous Slow Oozing, Increased Pain/ Swelling, Increased Redness and Foul Smelling Discharge Call your doctor if you observe: Fever of 101 or Higher and Uncontrolled pain Follow Up Care Test Results: Test results from this visit will be discussed in further detail at your follow-up appointment, if applicable. Discharge Plan Admission Admit Date/Time: 02/21/21 20:09 Primary Reason for Your Visit: Nasal Cellulitis Attending Provider: Kunal Linder Primary Care Provider: Yarely De La Cruz Consulting Providers: Bolivar Quiñones Discharge Orders/Prescriptions Prescriptions: New mupirocin 2 % Ointment 1 applic NASAL BID 7 Days Qty: 0 RF: 0 sulfamethoxazole-trimethoprim [Bactrim DS] 800-160 mg tablet 1 tab PO BID 7 Days Qty: 14 RF: 0 Continued cholecalciferol (vitamin D3) 2,000 unit capsule 2,000 unit PO DAILY RF: 0 mecobalamin (vitamin B12) 5,000 mcg disintegrating tablet 5,000 mcg tablet,disintegrating 5,000 mcg PO DAILY RF: 0 oxycodone-acetaminophen [Percocet] 7.5-325 mg tablet 1 tab PO .QID PRN (Reason: Pain) RF: 0 duloxetine 30 mg capsule,delayed release(DR/EC) 30 mg PO QPM Qty: 30 RF: 3 duloxetine 60 mg capsule,delayed release(DR/EC) 60 mg PO QAM Qty: 30 RF: 3 lisinopril 40 mg tablet 40 mg PO DAILY Qty: 90 RF: 3 ondansetron HCl [Zofran] 4 mg tablet 4 mg PO Q8H PRN (Reason: nausea and vomiting) Qty: 30 RF: 1 clopidogrel [Plavix] 75 mg tablet 75 mg PO DAILY Qty: 90 RF: 3 amlodipine 10 mg tablet 10 mg PO DAILY Qty: 90 RF: 3 atorvastatin 40 mg tablet 40 mg PO QHS Qty: 90 RF: 3 nitroglycerin 0.3 mg tablet, sublingual 0.3 mg SUBLINGUAL Q5-15M Qty: 90 RF: 3 furosemide 20 mg tablet 20 mg PO DAILY Qty: 90 RF: 3 atenolol 50 mg tablet 50 mg PO DAILY Qty: 60 RF: 1 pregabalin 150 mg capsule 150 mg PO BID Qty: 60 RF: 1 Referrals / Follow Up: Yarely De La Cruz MD [Primary Care Provider] - In 1 Week Disposition Disposition (needs filled in before D/C Order can be placed): Home, self care
[2021-02-24 11:32] VITALS: O2SAT 98
--- NOTE | 2021-02-24 11:36 | DS.PCM_ITS ---
Documented by User: Hannah Burciaga NP, [employer] 02/24/21 11:41 Providers Date of Admission: 02/21/21 Date of Discharge: 02/24/21 Primary Care Physician: Dr. Yarely De La Cruz MD Consultations 02/22/21 01:54 Consult: ENT Routine Consulting Provider: Bolivar Quiñones Reason for Consult: nasal tip abscess EMERGENT Consult: No MD Notified: Yes Date Notified:: 02/21/21 Time Notified: 20:00 Method of Notification: Provider Initiated Method of Consult:: In-Person Reason For Visit: RUPALI, CELLULITIS, SEPSIS Diagnosis Discharge Diagnosis (1) Cellulitis of nasal tip: Status: Acute Code(s): J34.0 - Abscess, furuncle and carbuncle of nose Medications at Discharge Home Medications cholecalciferol (vitamin D3) 50 mcg (2,000 unit) capsule 2,000 unit PO DAILY 09/01/19 mecobalamin (vitamin B12) 5,000 mcg disintegrating tablet 5,000 mcg PO DAILY 10/21/19 lisinopril 40 mg tablet 40 mg PO DAILY #90 tab 05/03/20 ondansetron HCl 4 mg tablet 4 mg PO Q8H PRN #30 tab 06/10/20 clopidogrel 75 mg tablet 75 mg PO DAILY #90 tab 07/25/20 amlodipine 10 mg tablet 10 mg PO DAILY #90 tab 10/08/20 atorvastatin 40 mg tablet 40 mg PO QHS #90 tab 11/22/20 nitroglycerin 0.3 mg sublingual tablet 0.3 mg SUBLINGUAL Q5-15M #90 tab 01/03/21 furosemide 20 mg tablet 20 mg PO DAILY #90 tab 01/13/21 atenolol 50 mg tablet 50 mg PO DAILY #60 tab 01/19/21 pregabalin 150 mg capsule 150 mg PO BID #60 cap 01/26/21 duloxetine 30 mg capsule,delayed release 30 mg PO QPM #30 cap 02/13/21 duloxetine 60 mg capsule,delayed release 60 mg PO QAM #30 cap 02/13/21 oxycodone-acetaminophen 7.5 mg-325 mg tablet 1 tab PO .QID PRN tab 02/13/21 mupirocin 1 applic NASAL BID 7 Days #0 g 02/24/21 sulfamethoxazole-trimethoprim [Bactrim DS] 1 tab PO BID 7 Days #14 tab 02/24/21 Hospital Course Operations None Procedures None Summary of Care Provided Minutes Spent on Discharge: 35 Hospital Course: Patient is a 70-year-old male admitted 02/21/2021 due to fever, chills and redness of the tip of the nose. 1. MRSA cellulitis of nasal tip-ENT consulted during admission. Cultures growing MRSA. Improved on IV vancomycin. No surgical intervention required. Continue nasal mupirocin twice daily. Discharged on Bactrim DS 1 tab twice daily for 7 days. Follow-up with PCP in 1 week. 2. Acute kidney injury-resolved. 3. Chronic back pain-on Percocet, Lyrica. 4. Hypertension-stable, continue amlodipine, atenolol. Resume KELIN inhibitor and Lasix at discharge given acute kidney injury resolved. 5. Anxiety/depression-continue duloxetine. Physical Exam Const alert, oriented x3 and no apparent distress Orientation / Consciousness: awake, oriented to person, oriented to place and oriented to time HEENT normocephalic and moist oral mucous membranes Eyes PERRL, EOMs intact bilaterally and conjunctivae normal Neck no lymphadenopathy Resp normal respiratory effort and clear to auscultation bilaterally Cardio regular rate, regular rhythm and no murmurs Peripheral Pulses: pulses 2+ throughout GI normal to inspection, nondistended, normoactive bowel sounds, non-tender and non-distended Extremity normal to inspection Skin no rashes or lesions noted Skin Narrative: Nasal tip cellulitis with distal areas of scabbing, intermittent purulent drainage Lesions: no lesions Rashes: no rashes Trauma: no lacerations or abrasions Neuro oriented x3 Sensorium / Orientation: awake and alert Psych affect normal Patient seen and examined prior to discharge. Physical assessment as noted above. Patient is stable for discharge with follow up recommendations as noted above. This patient was seen by LUIS CARLOS Bridges under the supervision of Dr. Linder. ABG / Lab / Microbiology Data Result Diagrams: 02/24/21 06:31 02/24/21 06:31 Laboratory: Laboratory Results - last 24 hr 02/22/21 02/24/21 02/24/21 05:50 06:31 06:31 WBC 7.4 RBC 3.76 L Hgb 11.6 L Hct 33.6 L MCV 89.4 MCH 30.9 MCHC 34.5 RDW Std Deviation 37.3 RDW Coeff of Riddhi 11.5 L Plt Count 341 MPV 9.0 Immature Gran % (Auto) 0.700 Neut % (Auto) 61.8 Lymph % (Auto) 21.2 Forest % (Auto) 12.0 H Eos % (Auto) 3.6 Baso % (Auto) 0.7 Absolute Neuts (auto) 4.6 Absolute Lymphs (auto) 1.58 Nucleated RBC % 0 [address] Review Reviewed Sodium 142 Potassium 3.4 L Chloride 109 H Carbon Dioxide 28.0 Anion Gap 5 BUN 5 L Creatinine 0.80 Estim Creat Clear Calc 89.98 Est GFR (MDRD) Af Amer 123 Est GFR (MDRD) Non-Af 101 BUN/Creatinine Ratio 6.2 L Glucose 87 Calcium 8.3 L Microbiology: Microbiology 02/21/21 19:09 Blood Culture - Preliminary Blood Culture (Wb) - Left Forearm No growth in 48 hours. 02/21/21 18:56 Blood Culture - Preliminary Blood Culture (Wb) - Anticubital Right No growth in 48 hours. Microbiology 02/21/21 19:09 Blood Culture (Wb) - Left Forearm Blood Culture - Preliminary No growth in 48 hours. 02/21/21 18:56 Blood Culture (Wb) - Anticubital Right Blood Culture - Preliminary No growth in 48 hours. 02/21/21 Unknown Wound Abcess - Nose Gram Stain - Final 02/21/21 Unknown Wound Abcess - Nose Wound Culture - Final Meth. resistant Staph. aureus D/C Instructions Discharge Diet: No restrictions Discharge Activity: Return to Normal Activity Call your doctor if your incision/area has: Continuous Slow Oozing, Increased Pain/ Swelling, Increased Redness and Foul Smelling Discharge Call your doctor if you observe: Fever of 101 or Higher and Uncontrolled pain Meaningful Use Info Meaningful Use Diagnoses (Choose all that apply): None applicable Discharge Plan Admission Admit Date/Time: 02/21/21 20:09 Primary Reason for Your Visit: Nasal Cellulitis Attending Provider: Kunal Linder Primary Care Provider: Yarley De La Cruz Consulting Providers: Bolivar Quiñones Instructions Additional Instructions / Restrictions: Patient Problems: Altered Health Status related to Hospitalization Patient Goals: *Optimal Level of Health *Keep Appointments *Medication Compliance *Remain Safe Discharge Orders/Prescriptions Prescriptions: New mupirocin 2 % Ointment 1 applic NASAL BID 7 Days Qty: 0 RF: 0 sulfamethoxazole-trimethoprim [Bactrim DS] 800-160 mg tablet 1 tab PO BID 7 Days Qty: 14 RF: 0 Continued cholecalciferol (vitamin D3) 2,000 unit capsule 2,000 unit PO DAILY RF: 0 mecobalamin (vitamin B12) 5,000 mcg disintegrating tablet 5,000 mcg tablet,disintegrating 5,000 mcg PO DAILY RF: 0 oxycodone-acetaminophen [Percocet] 7.5-325 mg tablet 1 tab PO .QID PRN (Reason: Pain) RF: 0 duloxetine 30 mg capsule,delayed release(DR/EC) 30 mg PO QPM Qty: 30 RF: 3 duloxetine 60 mg capsule,delayed release(DR/EC) 60 mg PO QAM Qty: 30 RF: 3 lisinopril 40 mg tablet 40 mg PO DAILY Qty: 90 RF: 3 ondansetron HCl [Zofran] 4 mg tablet 4 mg PO Q8H PRN (Reason: nausea and vomiting) Qty: 30 RF: 1 clopidogrel [Plavix] 75 mg tablet 75 mg PO DAILY Qty: 90 RF: 3 amlodipine 10 mg tablet 10 mg PO DAILY Qty: 90 RF: 3 atorvastatin 40 mg tablet 40 mg PO QHS Qty: 90 RF: 3 nitroglycerin 0.3 mg tablet, sublingual 0.3 mg SUBLINGUAL Q5-15M Qty: 90 RF: 3 furosemide 20 mg tablet 20 mg PO DAILY Qty: 90 RF: 3 atenolol 50 mg tablet 50 mg PO DAILY Qty: 60 RF: 1 pregabalin 150 mg capsule 150 mg PO BID Qty: 60 RF: 1 Referrals / Follow Up: Yarely De La Cruz MD [Primary Care Provider] - In 1 Week Disposition Disposition (needs filled in before D/C Order can be placed): Home, self care Documented by User: Dr. Kunal Linder MD 02/24/21 16:36 Providers Date of Admission: 02/21/21 Reason For Visit: RUPALI, CELLULITIS, SEPSIS Medications at Discharge Home Medications cholecalciferol (vitamin D3) 50 mcg (2,000 unit) capsule 2,000 unit PO DAILY 09/01/19 mecobalamin (vitamin B12) 5,000 mcg disintegrating tablet 5,000 mcg PO DAILY 10/21/19 lisinopril 40 mg tablet 40 mg PO DAILY #90 tab 05/03/20 ondansetron HCl 4 mg tablet 4 mg PO Q8H PRN #30 tab 06/10/20 clopidogrel 75 mg tablet 75 mg PO DAILY #90 tab 07/25/20 amlodipine 10 mg tablet 10 mg PO DAILY #90 tab 10/08/20 atorvastatin 40 mg tablet 40 mg PO QHS #90 tab 11/22/20 nitroglycerin 0.3 mg sublingual tablet 0.3 mg SUBLINGUAL Q5-15M #90 tab 01/03/21 furosemide 20 mg tablet 20 mg PO DAILY #90 tab 01/13/21 atenolol 50 mg tablet 50 mg PO DAILY #60 tab 01/19/21 pregabalin 150 mg capsule 150 mg PO BID #60 cap 01/26/21 duloxetine 30 mg capsule,delayed release 30 mg PO QPM #30 cap 02/13/21 duloxetine 60 mg capsule,delayed release 60 mg PO QAM #30 cap 02/13/21 oxycodone-acetaminophen 7.5 mg-325 mg tablet 1 tab PO .QID PRN tab 02/13/21 mupirocin 1 applic NASAL BID 7 Days #0 g 02/24/21 sulfamethoxazole-trimethoprim [Bactrim DS] 1 tab PO BID 7 Days #14 tab 02/24/21 Hospital Course Summary of Care Provided Hospital Course: ?This patient was seen in conjunction with [employer].? I have independently interviewed and examined the patient and reviewed pertinent history, examination findings, laboratory and plan of management.? I have? reviewed the note and agree with the documented findings with the few? additional points. In brief, patient is admitted for cellulitis of vestibule of nasal cavity and abscess due to MRSA.? CT sinus reviewed and shows nasal cavity vestibular abscess.? Discussed with ENT Dr. Ny.? He agrees with the current IV antibiotic for MRSA coverage.? Initially patient on vancomycin, Unasyn and mupirocin ointment and then Unasyn discontinued after MRSA culture.? Tonie kocytosis improving.? Patient afebrile.? MRSA PCR positive.??Preliminary wound culture showing MRSA. Patient is discharged on Bactrim DS 1 tablet twice daily for 7 more days and advised to continue using mupirocin nasal ointment, twice daily for 5 days. Patient has RUPALI, creatinine normal.? RUPALI resolved. Patient has history of MS, hypertension as mentioned above.? He follows Dr. Rios, the neurologist and currently not on treatment for MS which is in remission. MRSA infection, contact precaution, disinfection and antibiotic discussed with the patient and present in the room I have discussed my assessment with [employer], Hannah and orders have been reviewed. Discharge medication reconciliation done. Discharge follow-up instructions completed. Discharge process discussed with the patient and all questions were answered to patient's satisfaction. Total time spent, exact 35 minutes on discharge meds reconciliation, examination, coordination of care with nurses and ancillary staff, review of imaging and blood test and discussion with the patient on follow-up instructions Physical Exam Narrative Physical exam General: Alert, Oriented x3, Cooperative HEENT: Cellulitis over vestibular part of nasal cavity has improved/almost resolved. No purulent discharge. Atraumatic, PERRLA, EOMI, Normocephalic Oral: No Gingival or Mucosal Lesions/ Ulcerations Neck: Supple, No JVD, Negative Carotid Bruits Lungs: Air entry diminished in bilateral lung bases. No crepitation/rhonchi Cardiovascular: Regular rate, Regular Rhythm, Normal S1, Normal S2, No murmurs Abdomen: Bowel Sounds Present, Soft, Non Tender, Non-Distended : No renal angle tenderness. No suprapubic tenderness. Extremities: No edema, Capillary Refill Less than 3 Seconds Skin: No rashes, No breakdown Musculoskeletal: No Tenderness to Palpation of Joints or Extremities Neurological: Cranial nerves II-XII grossly intact, Deep Tendon Reflexes 2+/4 and Symmetrical, Neuro grossly intact Psych/Mental Status: Normal Affect, Appropriate. ABG / Lab / Microbiology Data Result Diagrams: 02/24/21 06:31 02/24/21 06:31 Discharge Plan Admission Admit Date/Time: 02/21/21 20:09 Primary Reason for Your Visit: Nasal Cellulitis Attending Provider: Kunal Linder Primary Care Provider: Yarely De La Cruz Consulting Providers: Bolivar Quiñones Instructions Additional Instructions / Restrictions: Patient Problems: Altered Health Status related to Hospitalization Patient Goals: *Optimal Level of Health *Keep Appointments *Medication Compliance *Remain Safe Discharge Orders/Prescriptions Prescriptions: New mupirocin 2 % Ointment 1 applic NASAL BID 7 Days Qty: 0 RF: 0 sulfamethoxazole-trimethoprim [Bactrim DS] 800-160 mg tablet 1 tab PO BID 7 Days Qty: 14 RF: 0 Continued cholecalciferol (vitamin D3) 2,000 unit capsule 2,000 unit PO DAILY RF: 0 mecobalamin (vitamin B12) 5,000 mcg disintegrating tablet 5,000 mcg tablet,disintegrating 5,000 mcg PO DAILY RF: 0 oxycodone-acetaminophen [Percocet] 7.5-325 mg tablet 1 tab PO .QID PRN (Reason: Pain) RF: 0 duloxetine 30 mg capsule,delayed release(DR/EC) 30 mg PO QPM Qty: 30 RF: 3 duloxetine 60 mg capsule,delayed release(DR/EC) 60 mg PO QAM Qty: 30 RF: 3 lisinopril 40 mg tablet 40 mg PO DAILY Qty: 90 RF: 3 ondansetron HCl [Zofran] 4 mg tablet 4 mg PO Q8H PRN (Reason: nausea and vomiting) Qty: 30 RF: 1 clopidogrel [Plavix] 75 mg tablet 75 mg PO DAILY Qty: 90 RF: 3 amlodipine 10 mg tablet 10 mg PO DAILY Qty: 90 RF: 3 atorvastatin 40 mg tablet 40 mg PO QHS Qty: 90 RF: 3 nitroglycerin 0.3 mg tablet, sublingual 0.3 mg SUBLINGUAL Q5-15M Qty: 90 RF: 3 furosemide 20 mg tablet 20 mg PO DAILY Qty: 90 RF: 3 atenolol 50 mg tablet 50 mg PO DAILY Qty: 60 RF: 1 pregabalin 150 mg capsule 150 mg PO BID Qty: 60 RF: 1 Referrals / Follow Up: Yarely De La Cruz MD [Primary Care Provider] - In 1 Week Disposition Disposition (needs filled in before D/C Order can be placed): Home, self care Visit Charges Inpatient E&M: 77665 Disch Hosp
--- NOTE | 2021-02-24 12:27 | PHA.DC.MR ---
Pharmacy Service has performed discharge medication reconciliation for this patient. The patient's discharge medication list was reviewed for discrepancies and discrepancies were resolved. Home Medications cholecalciferol (vitamin D3) 50 mcg (2,000 unit) capsule 2,000 unit PO DAILY 09/01/19 mecobalamin (vitamin B12) 5,000 mcg disintegrating tablet 5,000 mcg PO DAILY 10/21/19 lisinopril 40 mg tablet 40 mg PO DAILY #90 tab 05/03/20 ondansetron HCl 4 mg tablet 4 mg PO Q8H PRN #30 tab 06/10/20 clopidogrel 75 mg tablet 75 mg PO DAILY #90 tab 07/25/20 amlodipine 10 mg tablet 10 mg PO DAILY #90 tab 10/08/20 atorvastatin 40 mg tablet 40 mg PO QHS #90 tab 11/22/20 nitroglycerin 0.3 mg sublingual tablet 0.3 mg SUBLINGUAL Q5-15M #90 tab 01/03/21 furosemide 20 mg tablet 20 mg PO DAILY #90 tab 01/13/21 atenolol 50 mg tablet 50 mg PO DAILY #60 tab 01/19/21 pregabalin 150 mg capsule 150 mg PO BID #60 cap 01/26/21 duloxetine 30 mg capsule,delayed release 30 mg PO QPM #30 cap 02/13/21 duloxetine 60 mg capsule,delayed release 60 mg PO QAM #30 cap 02/13/21 oxycodone-acetaminophen 7.5 mg-325 mg tablet 1 tab PO .QID PRN tab 02/13/21 mupirocin 1 applic NASAL BID 7 Days #0 g 02/24/21 sulfamethoxazole-trimethoprim [Bactrim DS] 1 tab PO BID 7 Days #14 tab 02/24/21
== END 2021-02-24 14:45 | disposition home or self-care (01) | DRG 155 ==
LOC: ED 20:15 → PCU 20:47
PROVIDERS: Nurse Practitioner Family; Physician Assistant; Admitting Provider Family Medicine; Emergency Provider Emergency Medicine; PCP Internal Medicine; Visit Provider Internal Medicine
DX: J34.0 Abscess, furuncle and carbuncle of nose (principal); N17.9 Acute kidney failure, unspecified; B95.62 Methicillin resistant Staphylococcus aureus infection as the cause of diseases classified elsewhere; G89.29 Other chronic pain; M54.5 Low back pain; I10 Essential (primary) hypertension; F31.9 Bipolar disorder, unspecified; F41.9 Anxiety disorder, unspecified; F17.290 Nicotine dependence, other tobacco product, uncomplicated; I25.10 Atherosclerotic heart disease of native coronary artery without angina pectoris; E78.5 Hyperlipidemia, unspecified; G35 Multiple sclerosis; Z79.02 Long term (current) use of antithrombotics/antiplatelets; Z79.899 Other long term (current) drug therapy
CPT/HCPCS: 36415; 70487; 80048; 80202; 83605; 85025; 87040; 87070; 87077; 87186; 87205; 87640; 97802; 99282; J7030; J7040; J7050; A4216; J0295; J2405

== ENCOUNTER → 2021-04-19 13:52 | Outpatient (CLI) | payer BC, SELFPAY ==
[2021-04-19 13:29] VITALS: BMI 39.9
[2021-04-19 15:21] LABS: T4 Free Direct 0.96 ng/dL (0.76-1.46); Thyroid Stim Hormone (TSH) 1.06 uIU/mL (0.358-3.74)
[2021-04-21 16:09] LABS: Albumin 3.6 g/dL (2.9-4.4); Alpha-1-Globulins 0.3 g/dL (0.0-0.4); Alpha-2-Globulins 0.8 g/dL (0.4-1.0); Immunoglobulin A 284 mg/dL (61-437); Immunoglobulin G 1014 mg/dL (603-1613); Immunoglobulin M 81 mg/dL (20-172); PROEL- TOTAL PROTEIN 6.9 g/dL (6.0-8.5)
== END ==
PROVIDERS: Psychiatry & Neurology Neurology; PCP Internal Medicine; Referring Provider Internal Medicine; Visit Provider Internal Medicine
DX: G62.9 Polyneuropathy, unspecified (principal); Z13.29 Encounter for screening for other suspected endocrine disorder
CPT/HCPCS: 36415; 82784; 84165; 84439; 84443; 86334; 86335

== ENCOUNTER → 2021-08-14 10:03 | Outpatient (CLI) | payer BC, SELFPAY ==
[2021-08-14 12:12] LABS: Absolute Lymphocyte Count 1.84 X10^3/uL (0.83-4.51); Absolute Neutrophil Count 6.8 X10^3/uL (2.0-7.7); Basophil# 0.06 X10^3/uL; Basophil% 0.6 % (0-1); Eosinophil# 0.17 X10^3/uL; Eosinophils% 1.7 % (0-5); Hematocrit 42.5 % (40-54); Hemoglobin 14.3 g/dL (13.0-16.5); Lymphocyte # 1.84 X10^3/ul (0.83-4.51); Lymphocyte % 18.5 % (19-41); Mean Corp Hgb Conc 33.6 g/dL (32-36); Mean Corpuscular Hgb 30.4 pg (27.0-32.0); Mean Corpuscular Volume 90.2 fL (80-94); Monocyte# 0.97 X10^3/uL; Monocyte% 9.8 % (0-10); NRBC Flagged by Analyzer 0 % (0-5); Neutrophil # 6.83 X10^3/uL (2.7-7.7); Neutrophil % 68.8 % (47-70); Platelet Count 378 K/mm3 (150-450); RBC Distribution Width CV 11.8 % (11.6-14.6); RBC Distribution Width SD 38.8 fl (35.1-43.9); Red Blood Count 4.71 M/mm3 (4.6-6.2); White Blood Count 9.9 K/mm3 (4.4-11.0)
[2021-08-14 12:30] LABS: Vitamin D,25 Hydroxy 71.3 ng/mL
[2021-08-14 12:40] LABS: AST(SGOT) 13 U/L (15-37); Alanine Aminotransfer ALT/SGPT 20 U/L (16-61); Albumin, Serum 3.7 g/dL (3.2-5.0); Alkaline Phosphatase 103 U/L (45-117); Anion Gap 3 (5-15); BUN 10 mg/dL (7-18); BUN/Creat Ratio 9.5 RATIO (10-20); Calcium,Total 8.8 mg/dL (8.5-10.1); Chloride 106 mmol/L (98-107); Cholesterol 98 mg/dL (200); Creatinine, Serum 1.05 mg/dL (0.70-1.30); EST Glomerular Filtration Rate 74 mL/min (>60); Est Glom Filt Rate - Afr Amer 90 mL/min (>60); Globulin 3.8 g/dL (2.2-4.2); Glucose 95 mg/dL (74-106); High Density Lipoprotein 46 mg/dL; Potassium 3.5 mmol/L (3.5-5.1); Protein, Total 7.5 g/dL (6.4-8.2); Sodium Level 138 mmol/L (136-145); Triglycerides 69 mg/dL; Very Low Density Lipoprotein 14 mg/dL (5-40)
== END ==
PROVIDERS: PCP Internal Medicine; Visit Provider Internal Medicine
DX: E55.9 Vitamin D deficiency, unspecified (principal); I10 Essential (primary) hypertension
CPT/HCPCS: 36415; 80053; 80061; 82306; 85025

== ENCOUNTER 2021-11-23 14:37 | Outpatient (CLI) | payer BC, SELFPAY ==
[2021-11-23 17:21] LABS: Anion Gap 3 (5-15); BUN 13 mg/dL (7-18); BUN/Creat Ratio 11.8 RATIO (10-20); Calcium,Total 8.7 mg/dL (8.5-10.1); Chloride 104 mmol/L (98-107); EST Glomerular Filtration Rate 70 mL/min (>60); Est Glom Filt Rate - Afr Amer 85 mL/min (>60); Glucose 96 mg/dL (74-106); Potassium 3.6 mmol/L (3.5-5.1); Sodium Level 138 mmol/L (136-145)
== END 2021-11-23 23:59 | disposition home or self-care (01) ==
LOC: BIMLAB 14:38
PROVIDERS: PCP Internal Medicine; Referring Provider Internal Medicine; Visit Provider Internal Medicine
DX: I10 Essential (primary) hypertension (principal)
CPT/HCPCS: 36415; 80048

== ENCOUNTER → 2022-10-11 | Outpatient (CLI) | payer BC, SELFPAY ==
[2022-10-11 17:00] LABS: Absolute Lymphocyte Count 1.57 X10^3/uL (0.83-4.51); Absolute Neutrophil Count 8.5 X10^3/uL (2.0-7.7); Basophil# 0.03 X10^3/uL; Basophil% 0.3 % (0-1); Eosinophil# 0.08 X10^3/uL; Eosinophils% 0.7 % (0-5); Hematocrit 44.5 % (40-54); Hemoglobin 14.9 g/dL (13.0-16.5); Lymphocyte # 1.57 X10^3/ul (0.83-4.51); Lymphocyte % 14.1 % (19-41); Mean Corp Hgb Conc 33.5 g/dL (32-36); Mean Corpuscular Hgb 30.9 pg (27.0-32.0); Mean Corpuscular Volume 92.3 fL (80-94); Mean Platelet Vol. 9.6 fl (6.2-12.0); Monocyte# 0.92 X10^3/uL; Monocyte% 8.3 % (0-10); NRBC Flagged by Analyzer 0 % (0-5); Neutrophil # 8.48 X10^3/uL (2.7-7.7); Neutrophil % 76.2 % (47-70); Platelet Count 361 K/mm3 (150-450); RBC Distribution Width CV 11.8 % (11.6-14.6); RBC Distribution Width SD 39.8 fl (35.1-43.9); Red Blood Count 4.82 M/mm3 (4.6-6.2); White Blood Count 11.1 K/mm3 (4.4-11.0)
[2022-10-11 17:13] LABS: AST(SGOT) 16 U/L (15-37); Alanine Aminotransfer ALT/SGPT 21 U/L (16-61); Albumin, Serum 3.8 g/dL (3.2-5.0); Alkaline Phosphatase 92 U/L (45-117); Anion Gap 6 (5-15); BUN 10 mg/dL (7-18); BUN/Creat Ratio 8.3 RATIO (10-20); Calcium,Total 8.5 mg/dL (8.5-10.1); Chloride 106 mmol/L (98-107); Cholesterol 103 mg/dL (200); Creatinine, Serum 1.21 mg/dL (0.70-1.30); EST Glomerular Filtration Rate 63 mL/min (>60); Est Glom Filt Rate - Afr Amer 76 mL/min (>60); Globulin 3.9 g/dL (2.2-4.2); Glucose 104 mg/dL (74-106); High Density Lipoprotein 52 mg/dL; PSA,Total - Annual Screen 4.35 ng/mL (0.00-4.00); Potassium 3.6 mmol/L (3.5-5.1); Protein, Total 7.7 g/dL (6.4-8.2); Sodium Level 140 mmol/L (136-145); Triglycerides 70 mg/dL; Very Low Density Lipoprotein 14 mg/dL (5-40)
== END | disposition home or self-care (01) ==
PROVIDERS: PCP Internal Medicine; Referring Provider Internal Medicine; Visit Provider Internal Medicine
DX: I10 Essential (primary) hypertension (principal); E78.5 Hyperlipidemia, unspecified; N40.0 Benign prostatic hyperplasia without lower urinary tract symptoms
CPT/HCPCS: 36415; 80053; 80061; 84153; 85025; G0103

== ENCOUNTER → 2023-04-17 | Outpatient (CLI) | payer BC, SELFPAY ==
[2023-04-17 15:33] LABS: Bacteria 0 SEEN /hpf (None Seen); Mucous, Urine 0 SEEN /hpf (<or=2+); Red Blood Cells-Urine 0 SEEN /hpf (0-5); White Blood Cells 0 SEEN /hpf (0-5)
[2023-04-17 16:33] LABS: Absolute Lymphocyte Count 1.41 X10^3/uL (0.83-4.51); Absolute Neutrophil Count 8.1 X10^3/uL (2.0-7.7); Basophil# 0.04 X10^3/uL; Basophil% 0.4 % (0-1); Eosinophil# 0.13 X10^3/uL; Eosinophils% 1.2 % (0-5); Hematocrit 44.3 % (40-54); Hemoglobin 14.9 g/dL (13.0-16.5); Lymphocyte # 1.41 X10^3/ul (0.83-4.51); Lymphocyte % 13.1 % (19-41); Mean Corp Hgb Conc 33.6 g/dL (32-36); Mean Corpuscular Hgb 31.2 pg (27.0-32.0); Mean Corpuscular Volume 92.7 fL (80-94); Mean Platelet Vol. 9.1 fl (6.2-12.0); Monocyte# 1.05 X10^3/uL; Monocyte% 9.8 % (0-10); NRBC Flagged by Analyzer 0 % (0-5); Neutrophil # 8.08 X10^3/uL (2.7-7.7); Platelet Count 348 K/mm3 (150-450); RBC Distribution Width CV 11.8 % (11.6-14.6); RBC Distribution Width SD 40.5 fl (35.1-43.9); Red Blood Count 4.78 M/mm3 (4.6-6.2); White Blood Count 10.8 K/mm3 (4.4-11.0)
[2023-04-17 16:53] LABS: Color, Urine Yellow (Yellow); Glucose, Dipstick Normal (Normal); Ketone-Dipstick 5 mg/dl (Negative); Leukocyte Esterase-Dipstick Negative /ul (Negative); Nitrite-Dipstick Negative (Negative); Occult Blood-Urine 25 /ul (Negative); Protein-Dipstick Negative (Negative); Urine Bilirubin Dipstick Negative (Negative); Urine Clarity Clear (Clear); Urine Urobilinogen Normal (Normal)
[2023-04-17 17:03] LABS: ALB/GLOB Ratio 1.1 RATIO (0.9-2.4); AST(SGOT) 18 U/L (15-37); Alanine Aminotransfer ALT/SGPT 24 U/L (16-61); Albumin, Serum 3.9 g/dL (3.2-5.0); Alkaline Phosphatase 104 U/L (45-117); Anion Gap 7 (5-15); BUN 25 mg/dL (7-18); BUN/Creat Ratio 22.5 RATIO (10-20); Calcium,Total 8.5 mg/dL (8.5-10.1); Chloride 101 mmol/L (98-107); Creatinine, Serum 1.11 mg/dL (0.70-1.30); EST Glomerular Filtration Rate 69 mL/min (>60); Est Glom Filt Rate - Afr Amer 84 mL/min (>60); Globulin 3.6 g/dL (2.2-4.2); Glucose 86 mg/dL (74-106); PSA,Total- Diagnostic 2.14 ng/mL (0.0-4.0); Potassium 3.9 mmol/L (3.5-5.1); Protein, Total 7.5 g/dL (6.4-8.2); Sodium Level 135 mmol/L (136-145); T4 Free Direct 1.07 ng/dL (0.76-1.46); Thyroid Stim Hormone (TSH) 1.34 uIU/mL (0.358-3.74)
[2023-04-17 17:08] LABS: Squamous Epithelial Cells - UA 0-5 SEEN /hpf (0-5)
== END | disposition home or self-care (01) ==
PROVIDERS: PCP Internal Medicine; Visit Provider Internal Medicine
DX: R53.83 Other fatigue (principal); N40.0 Benign prostatic hyperplasia without lower urinary tract symptoms
CPT/HCPCS: 36415; 80053; 81001; 84153; 84439; 84443; 85025

== ENCOUNTER → 2024-02-05 | Outpatient (CLI) | payer BC, SELFPAY ==
[2024-02-05 16:38] LABS: Absolute Lymphocyte Count 1.58 X10^3/uL (0.83-4.51); Absolute Neutrophil Count 6.9 X10^3/uL (2.0-7.7); Basophil# 0.05 X10^3/uL; Basophil% 0.5 % (0-1); Eosinophil# 0.18 X10^3/uL; Eosinophils% 1.8 % (0-5); Hematocrit 43.8 % (40-54); Hemoglobin 14.8 g/dL (13.0-16.5); Lymphocyte # 1.58 X10^3/ul (0.83-4.51); Lymphocyte % 16.1 % (19-41); Mean Corp Hgb Conc 33.8 g/dL (32-36); Mean Corpuscular Hgb 31.3 pg (27.0-32.0); Mean Corpuscular Volume 92.6 fL (80-94); Mean Platelet Vol. 9.2 fl (6.2-12.0); Monocyte# 1.06 X10^3/uL; Monocyte% 10.8 % (0-10); NRBC Flagged by Analyzer 0 % (0-5); Neutrophil # 6.89 X10^3/uL (2.7-7.7); Neutrophil % 70.1 % (47-70); Platelet Count 312 K/mm3 (150-450); RBC Distribution Width CV 12.3 % (11.6-14.6); Red Blood Count 4.73 M/mm3 (4.6-6.2); White Blood Count 9.8 K/mm3 (4.4-11.0)
[2024-02-05 16:53] LABS: Vitamin D,25 Hydroxy 48.6 ng/mL
[2024-02-05 17:06] LABS: ALB/GLOB Ratio 1.1 RATIO (0.9-2.4); AST(SGOT) 15 U/L (15-37); Alanine Aminotransfer ALT/SGPT 17 U/L (16-61); Albumin, Serum 3.7 g/dL (3.2-5.0); Alkaline Phosphatase 119 U/L (45-117); Anion Gap 4 (5-15); BUN 26 mg/dL (7-18); BUN/Creat Ratio 26.5 RATIO (10-20); Calcium,Total 8.7 mg/dL (8.5-10.1); Chloride 107 mmol/L (98-107); Cholesterol 111 mg/dL (200); Creatinine, Serum 0.98 mg/dL (0.70-1.30); EST Glomerular Filtration Rate 80 mL/min (>60); Est Glom Filt Rate - Afr Amer 96 mL/min (>60); Globulin 3.5 g/dL (2.2-4.2); Glucose 70 mg/dL (74-106); High Density Lipoprotein 56 mg/dL; PSA,Total - Annual Screen 3.63 ng/mL (0.00-4.00); Potassium 3.9 mmol/L (3.5-5.1); Protein, Total 7.2 g/dL (6.4-8.2); Sodium Level 138 mmol/L (136-145); Triglycerides 62 mg/dL; Very Low Density Lipoprotein 12 mg/dL (5-40)
== END | disposition home or self-care (01) ==
LOC: BIMLAB 14:41
PROVIDERS: PCP Internal Medicine; Visit Provider Internal Medicine
DX: I10 Essential (primary) hypertension (principal); E78.5 Hyperlipidemia, unspecified; N40.0 Benign prostatic hyperplasia without lower urinary tract symptoms; F41.9 Anxiety disorder, unspecified; F32.9 Major depressive disorder, single episode, unspecified
CPT/HCPCS: 36415; 80053; 80061; 82306; 84153; 85025; G0103

== ENCOUNTER → 2024-09-08 | Outpatient (CLI) | payer BC, SELFPAY ==
--- NOTE | 2024-09-08 06:56 | ECHOD_ITS ---
Reason For Study: Dyspnea/SOB Procedure This was a 2D Doppler, Color Flow transthoracic echocardiogram. Exam performed in department. Left Ventricle Normal LV size. The estimated ejection fraction is 55 %. No evidence for diastolic dysfunction. No regional wall motion abnormalities noted. Right Ventricle Normal RV size. Normal systolic function. Atria The left and right atria are normal. No doppler evidence for ASD. Mitral Valve There is no mitral valve stenosis. Trivial mitral valve insufficiency. Tricuspid Valve There is no tricuspid stenosis. Trivial tricuspid valve insufficiency. Unable to estimate RV systolic pressure due to insufficient tricuspid regurgitant envelope. Aortic Valve Trisinus/trileaflet aortic valve. Aortic sclerosis, no stenosis. There is no aortic stenosis. No aortic valve insufficiency. Pulmonic Valve There is no pulmonic valvular stenosis. No pulmonic valve insufficiency. Great Vessels Mildly dilated aortic root. Pericardium/Pleural No pericardial effusion. MMode/2D Measurements & Calculations LVIDd: 5.1 cm IVSd: 1.1 cm LVOT diam: 2.0 cm LVIDs: 3.1 cm LVPWd: 1.1 cm LVOT area: 3.3 cm2 RVDd: 4.6 cm FS: 40.6 % asc Aorta Diam: 3.9 cm LAV(MOD-bp): 50.2 ml LVAd ap4: 28.4 cm2 LAV(MOD-bp) Indexed: 21.0 ml/m2 LVLd ap4: 7.5 cm LAV(MOD-sp2): 56.2 ml EDV(MOD-sp4): 89.1 ml LAV(MOD-sp4): 43.4 ml EDV(sp4-el): 90.5 ml LVAs ap4: 14.2 cm2 LVLs ap4: 6.3 cm ESV(MOD-sp4): 28.8 ml ESV(sp4-el): 27.3 ml EF(MOD-sp4): 67.6 % EF(sp4-el): 69.8 % SV(MOD-sp4): 60.2 ml SV(sp4-el): 63.1 ml LA A4 area: 16.7 cm2 SI(MOD-sp4): 25.1 ml/m2 LA dimension(2D): 4.6 cm RA A4 area: 17.2 cm2 Time Measurements MV dec time: 0.25 sec Doppler Measurements & Calculations MV E max roni: 65.3 cm/sec Lat Peak E' Roni: 8.4 cm/sec Med Peak E' Roni: 8.7 cm/sec MV A max roni: 69.3 cm/sec E/E' lat: 7.8 E/E' med: 7.5 MV E/A: 0.94 Ao V2 max: 149.4 cm/sec LV V1 max: 122.9 cm/sec MV dec slope: 256.6 cm/sec2 Ao max P.9 mmHg LV V1 max P.0 mmHg Ao V2 mean: 103.8 cm/sec LV V1 mean P.0 mmHg Ao mean P.9 mmHg LV V1 mean: 79.5 cm/sec Ao V2 VTI: 32.0 cm LV V1 VTI: 28.7 cm AV (velocity ratio): 0.90 JAZ(I,D): 3.0 cm2 JAZ(V,D): 2.7 cm2 SV(LVOT): 94.5 ml PA V2 max: 95.1 cm/sec TR max roni: 265.0 cm/sec TR max P.1 mmHg ECHO/Echo Complete Interpretation Summary The estimated ejection fraction is 55 %. No evidence for diastolic dysfunction. Trivial mitral valve insufficiency. Mildly dilated aortic root. Ordering Physician: Naldo Caballero Referring Physician: Yarely De La Cruz Performed By: Annamarie Steel RVT, RDCS and Student
--- NOTE | 2024-09-08 14:46 | STRESSREP_ITS ---
Stress Test Report Date: 09/08/2024 Procedure: Pharmacologic stress nuclear imaging study Indications: Abnormal stress test Consent: Per the patient Procedure: The patient underwent pharmacologic (Regadenoson) evaluation with a peak heart rate of 65 beats per minute (44%predicted maximal heart rate) and a peak blood pressure of 118/68 mmHg. The baseline ECG demonstrated normal sinus rhythm. EKG during lexiscan infusion revealed no significant ischemic changes. EKG post infusion revealed no significant ischemic changes [There were no cardiac dysrhythmias pretest, during pharmacologic infusion, or recovery]. [There was no complaint of chest discomfort during pharmacologic infusion or recovery]. The examination was discontinued secondary to completion of protocol. Impression: 1. Lexiscan stress test test is negative for Lexiscan infusion induced EKG changes of ischemia. 2. Lexiscan stress test test is negative for Lexiscan infusion induced chest pain. 3. Results of the nuclear portion of the test is as below Myocardial perfusion imaging study: Technique: The patient was injected with 14.7 millicuries of technetium 99m Cardiolite and subsequently rest SPECT Cardiolite nuclear imaging was obtained in the horizontal long, vertical long, and short axis views. The patient underwent pharmacologic [Regadenoson 0.4mg] evaluation. Please see above for details. The patient was injected with 44.4 millicuries of technetium 99m Cardiolite and subsequently stress SPECT Cardiolite nuclear imaging was obtained in the horiz ontal long, vertical long, and short axis views. A gated Cardiolite study at peak stress was obtained. Interpretation: Rest and stress SPECT Cardiolite nuclear imaging status post realignment, no rmalization, and attenuation correction demonstrate evidence of mild ischemia involving the inferior wall and inferior apex. Gated images reveal no significant regional wall motion abnormalities. The reported LVEF is 72%. Impression: 1. There is evidence of mild ischemia involving the inferior wall and inferior apex. 2. Estimated ejection fraction is 72%. This note was generated with [employer] software. It may contain incorrect words, spelling, and punctuation that were not noted in checking the note before signing.
== END | disposition home or self-care (01) ==
PROVIDERS: PCP Internal Medicine; Referring Provider Internal Medicine Cardiovascular Disease; Visit Provider Internal Medicine Cardiovascular Disease
DX: I25.10 Atherosclerotic heart disease of native coronary artery without angina pectoris (principal); R06.09 Other forms of dyspnea
CPT/HCPCS: 78452; 93017; 93306; A9500; A4216; J2785

== ENCOUNTER → 2024-10-19 | Outpatient (CLI) | payer BC, SELFPAY ==
[2024-10-19 16:46] LABS: Absolute Lymphocyte Count 1.87 X10^3/uL (0.83-4.51); Absolute Neutrophil Count 5.7 X10^3/uL (2.0-7.7); Basophil# 0.05 X10^3/uL; Basophil% 0.6 % (0-1); Eosinophil# 0.21 X10^3/uL; Eosinophils% 2.3 % (0-5); Hematocrit 41.6 % (40-54); Hemoglobin 14.1 g/dL (13.0-16.5); Lymphocyte # 1.87 X10^3/ul (0.83-4.51); Lymphocyte % 20.8 % (19-41); Mean Corp Hgb Conc 33.9 g/dL (32-36); Mean Corpuscular Hgb 31.1 pg (27.0-32.0); Mean Corpuscular Volume 91.6 fL (80-94); Mean Platelet Vol. 9.8 fl (6.2-12.0); Monocyte# 1.08 X10^3/uL; NRBC Flagged by Analyzer 0 % (0-5); Neutrophil # 5.73 X10^3/uL (2.7-7.7); Platelet Count 270 K/mm3 (150-450); RBC Distribution Width CV 12.2 % (11.6-14.6); RBC Distribution Width SD 41.1 fl (35.1-43.9); Red Blood Count 4.54 M/mm3 (4.6-6.2)
[2024-10-19 16:53] LABS: Anion Gap 3 (5-15); BUN 15 mg/dL (7-18); BUN/Creat Ratio 14.7 RATIO (10-20); Calcium,Total 8.8 mg/dL (8.5-10.1); Chloride 107 mmol/L (98-107); Creatinine, Serum 1.02 mg/dL (0.70-1.30); EST Glomerular Filtration Rate 76 mL/min (>60); Est Glom Filt Rate - Afr Amer 92 mL/min (>60); Glucose 98 mg/dL (74-106); Potassium 3.6 mmol/L (3.5-5.1); Sodium Level 139 mmol/L (136-145)
== END | disposition home or self-care (01) ==
LOC: BIMLAB 14:46
PROVIDERS: PCP Internal Medicine; Referring Provider Internal Medicine; Visit Provider Internal Medicine
DX: I10 Essential (primary) hypertension (principal)

== ENCOUNTER → 2025-09-17 | Outpatient (CLI) | payer BC, SELFPAY ==
[2025-09-17 12:30] LABS: Hematocrit 42.1 % (40-54); Hemoglobin 14.7 g/dL (13.0-16.5); Immature Granulocytes Count 0.040 X10^3/uL (0.0-0.0); Mean Corp Hgb Conc 34.9 g/dL (32-36); Mean Corpuscular Volume 90.9 fL (80-94); Mean Platelet Vol. 9.5 fl (6.2-12.0); NRBC Flagged by Analyzer 0 % (0-5); Platelet Count 323 K/mm3 (150-450); RBC Distribution Width CV 11.9 % (11.6-14.6); RBC Distribution Width SD 40.1 fl (35.1-43.9); Red Blood Count 4.63 M/mm3 (4.6-6.2); White Blood Count 9.7 K/mm3 (4.4-11.0)
[2025-09-17 13:02] LABS: AST(SGOT) 21 U/L (<=37); Alanine Aminotransfer ALT/SGPT 8 U/L (<=46); Albumin, Serum 4.2 g/dL (3.4-4.8); Alkaline Phosphatase 78 U/L (40-129); Anion Gap 11 (5-15); BUN 17 mg/dL (4-19); BUN/Creat Ratio 17.4 RATIO (10-20); Calcium,Total 9.5 mg/dL (7.6-11.0); Carbon Dioxide 25.5 mmol/L (21.0-32.0); Chloride 103 mmol/L (98-108); Cholesterol 111 mg/dL (<=200); Globulin 2.8 g/dL (2.2-4.2); Glucose 85 mg/dL (70-99); Low Density Lipoprotein Calc. 47 mg/dL; PSA,Total - Annual Screen 3.36 ng/mL (0.02-4.00); Potassium 3.9 mmol/L (3.3-5.1); Triglycerides 81 mg/dL; Very Low Density Lipoprotein 16 mg/dL (5-40); Vitamin D,25 Hydroxy 61.8 ng/mL (30-100); cholesterol:hdl ratio screen 2.33
[2025-09-17 17:27] LABS: Xtra Tube EP Lab EXTRA TUBE
== END | disposition home or self-care (01) ==
LOC: EPLAB 09:26
PROVIDERS: PCP Internal Medicine; Visit Provider Internal Medicine
DX: F41.1 Generalized anxiety disorder (principal); I25.10 Atherosclerotic heart disease of native coronary artery without angina pectoris; E78.00 Pure hypercholesterolemia, unspecified; N40.0 Benign prostatic hyperplasia without lower urinary tract symptoms; G35.D Multiple sclerosis, unspecified
CPT/HCPCS: 36415; 80053; 80061; 82306; 84153; 85025; G0103

== ENCOUNTER → 2025-10-01 | Outpatient (CLI) | payer BC, SELFPAY ==
--- NOTE | 2025-10-01 11:11 | MRI_ITS ---
PROCEDURE: BRAIN W/WO CONTRAST 10/01/2025 REASON FOR EXAM: UNSTEADY GAIT, DIZZINESS, DIPLOPIA TECHNIQUE: Procedure Code: [id number] Modality: MR Procedure: BRAIN W/WO CONTRAST Multiplanar and multisequence images were obtained. CONTRAST: Fiorella scan VOLUME: 20 mL COMPARISON: 11/30/2020 FINDINGS: Normal craniovertebral junction. Incidental note is made of a partial empty sella. Periventricular demyelination is present. The craniovertebral junction is unremarkable. There is no pathologic diffusion restriction. There is no hydrocephalus. Mild cerebral atrophy. Normal brainstem and cerebellum. No pathologic flow voids. No extra-axial pathology. The pattern and degree of periventricular demyelination is similar to the prior study without new areas of demyelination detected. Negative for hemorrhage. Negative for pathologic enhancement. MRI/Brain W/WO Contrast IMPRESSION: Stable intracranial demyelination without new areas of demyelination, acute inf arct or abnormal enhancement Reading [facility]
--- OUTSIDE RECORDS SUMMARY | 2025-10-01 11:24 | XMS RPT_ITS | CCD ---
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 Francisco De La Cruz Primary Care Provider [phone] Dr. Francisco De La Cruz Attending Provider [phone] Dr. Francisco De La Cruz Referring Provider [phone] Francisco De La Cruz MD Primary Care Provider 1(3 30) Carlos A Marquis MD Unavailable Carlos A Marquis MD Unavailable Francisco De La Cruz MD Primary Care Provider 1(3 30) Carlos A Marquis MD Unavailable Dr. Francisco De La Cruz Primary Care Provider [phone] Dr. Francisco De La Cruz Attending Provider [phone] Dr. Francisco De La Cruz Referring Provider [phone] FRANCISCO DE LA CRUZ Primary Care Unavailable Francisco De La Cruz MD Primary Care Provider 1(3 [phone]) Francisco De La Cruz MD Primary Care Provider 1(3 30) JOEL, TANGELA Attending Unavailable MELISSA DE LA CRUZBE B Primary Care Unavailable JOEL, TANGELA Attending Unavailable AUDELIA DE LA CRUZONGBE B Primary Care Unavailable JOEL, TANGELA Attending Unavailable DOROTHY, EFEWONGBE B Primary Care Unavailable JOEL, TANGELA Attending Unavailable DOROTHY EFEWONGBE B Primary Care Unavailable JOEL, TANGELA Referring Unavailable OLEGHE, EFEWONGBE B Primary Care Unavailable TANGELA MALDONADO Attending Unavailable OLEGHE, EFEWONGBE B Primary Care Unavailable TANGELA MALDONADO Attending Unavailable OLEGHE, EFEWONGBE B Primary Care Unavailable Oleghe, Efewongbe Primary Care Unavailable Oleghe, Efewongbe Attending Unavailable Oleghe, Efewongbe Referring Unavailable Adi Paulino Attending Unavailable Oleghe, Efewongbe Primary Care Unavailable Oleghe, Efewongbe Referring Unavailable Oleghe, Efewongbe Primary Care Unavailable Oleghe, Efewongbe Attending Unavailable Oleghe, Efewongbe Referring Unavailable Nagajomario Nagapradee Attending Unavailabl e Oleghe, Efewongbe Primary Care Unavailable Oleghe, Efewongbe Primary Care Unavailable Oleghe, Efewongbe Attending Unavailable Oleghe, Efewongbe Referring Unavailable Oleghe, Efewongbe Referring Unavailable Naldo Caballero Attending Unavailable Oleghe, Efewongbe Primary Care Unavailable Oleghe, Efewongbe Referring Unavailable Oleghe, Efewongbe Primary Care Unavailable Oleghe, Efewongbe Attending Unavailable Oleghe, Efewongbe Primary Care Unavailable Oleghe, Efewongbe Attending Unavailable Oleghe, Efewongbe Referring Unavailable Naldo Caballero Attending Unavailable Naldo Caballero Referring Unavailable Oleghe, Efewongbe Primary Care Unavailable Allergies Allergy Classification Reported Allergen(s) Allergy Type Date of Onset Reaction(s) Facility dimethyl fumarate (1 source) dimethyl fumarate Drug Allergy 7 Other: See Comments [facility] Glatiramer (1 source) Glatiramer Drug Allergy 1 Unknown [facility] NSAIDs (1 source) Ibuprofen Drug Allergy 1 GI Upset [facility] (20 sources) dimethyl fumarate; Translations: [DIMETHYL FUMARATE] Drug Allergy 7 Other: See Comments [facility] (20 sources) Glatiramer; Translations: [GLATIRAMER] Drug Allergy 1 Unknown [facility] (20 sources) Ibuprofen; Translations: [IBUPROFEN] Drug Allergy 1 GI Upset [facility] Work Phone: (2 sources) Glatiramer Drug Allergy 2 Bruising/Bleedi ng [facility] (2 sources) Escitalopram; Translations: [ESCITALOPRAM] Drug Allergy 5 Unknown [facility] (1 source) dimethyl fumarate Drug Allergy 5 [facility] (1 source) Escitalopram Drug Allergy 5 [facility] (1 source) Glatiramer Drug Allergy 5 [facility] (1 source) Ibuprofen Drug Allergy 5 [facility] Medications Current Medications Medication Drug Class(es) Dates Sig (Normalized) Sig (Original) acetaminophen 325 mg / oxyCODONE hydrochloride 7.5 mg oral tablet (20 sources) Opioid Agonist Start: 04-28-2025 End: 07-27-2025 take 1 tablet by mouth four times daily as needed for pain oxyCODONE-acetamino phen (PERCOCET) 7.5-325 mg tablet Indications: Lumbar radiculopathy , Chronic pain syndrome , Lumbar degenerative disc disease , Lumbar facet arthropathy Take 1 tablet by mouth four times a day as needed for pain for up to 30 days. Ok to fill early if pharmacy is closed or closes early on fill date Patient should start on June 27, 2025. 120 tablet 06/27/2025 07/27/2025 Active Start: 03-29-2025 End: 04-22-2025 take 1 tablet by mouth four times daily as needed for pain oxyCODONE-acetaminophen (PERCOCET) 7.5-3 25 mg tablet Indications: Chronic pain syndrome , Lumbar radiculopathy , Lumbar degenerative disc disease , Lumbar facet arthropathy Take 1 tablet by mouth four times a day as needed for pain for up to 30 days. Ok to fill early if pharmacy is closed or closes early on fill date Patient should start on March 29, 2025. 120 tablet 03/29/2025 04/22/2025 Discontinued Start: 03-29-2025 End: 03-23-2025 take 1 tablet by mouth four times daily as needed for pain oxyCODONE-acetaminophen (PERCOCET) 7.5-3 25 mg tablet Indications: Chronic pain syndrome , Lumbar radiculopathy , Lumbar degenerative disc disease , Lumbar facet arthropathy Take 1 tablet by mouth four times a day as needed for pain for up to 30 days. Ok to fill early if pharmacy is closed or closes early on fill date Patient should start on March 29, 2025. 120 tablet 03/29/2025 03/23/2025 Discontinued Start: 11-29-2024 End: 04-28-2025 take 1 tablet by mouth four times daily as needed for pain oxyCODONE-acetaminophen (PERCOCET) 7.5-3 25 mg tablet Indications: Chronic pain syndrome , Lumbar radiculopathy , Lumbar degenerative disc disease , Lumbar facet arthropathy Take 1 tablet by mouth four times a day as needed for pain for up to 30 days. Ok to fill early if pharmacy is closed or closes early on fill date Patient should start on February 27, 2025. 120 tablet 02/27/2025 04/22/2025 Discontinued Start: 11-27-2024 End: 10-28-2024 take 1 tablet by mouth four times daily as needed for pain oxyCODONE-acetaminophen (PERCOCET) 7.5-3 25 mg tablet Indications: Lumbar radiculopathy , Lumbar degenerative disc disease , Chronic pain syndrome , Lumbar facet arthropathy Take 1 tablet by mouth four times a day as needed for pain for up to 30 days. Ok to fill early if pharmacy is closed or closes early on fill date Patient should start on November 27, 2024. 120 tablet 11/27/2024 10/28/2024 Discontinued Start: 08-31-2024 End: 12-24-2024 take 1 tablet by mouth four times daily as needed for pain oxyCODONE-acetaminophen (PERCOCET) 7.5-3 25 mg tablet Indications: Lumbar radiculopathy , Lumbar degenerative disc disease , Chronic pain syndrome , Lumbar facet arthropathy Take 1 tablet by mouth four times a day as needed for pain for up to 30 days. Ok to fill early if pharmacy is closed or closes early on fill date Patient should start on October 30, 2024. 120 tablet 10/30/2024 12/24/2024 Discontinued Start: 08-24-2024 End: 07-01-2024 take 1 tablet by mouth four times daily as needed for pain oxyCODONE-acetaminophen (PERCOCET) 7.5-3 25 mg tablet Indications: Lumbar degenerative disc disease , Lumbar radiculopathy , Chronic pain syndrome , Lumbar facet arthropathy Take 1 tablet by mouth four times a day as needed for pain for up to 30 days. Ok to fill early if pharmacy is closed or closes early on fill date Patient should start on August 24, 2024. 120 tablet 08/24/2024 07/01/2024 Discontinued Start: 08-01-2024 End: 08-31-2024 take 1 tablet by mouth four times daily as needed for pain oxyCODONE-acetaminophen (PERCOCET) 7.5-3 25 mg tablet Indications: Lumbar degenerative disc disease , Lumbar radiculopathy , Chronic pain syndrome , Lumbar facet arthropathy Take 1 tablet by mouth four times a day as needed for pain for up to 30 days. Ok to fill early if pharmacy is closed or closes early on fill date Patient should start on August 01, 2024. 120 tablet 08/01/2024 08/27/2024 Discontinued Start: 07-25-2024 End: 07-01-2024 take 1 tablet by mouth four times daily as needed for pain oxyCODONE-acetaminophen (PERCOCET) 7.5-3 25 mg tablet Indications: Lumbar degenerative disc disease , Lumbar radiculopathy , Chronic pain syndrome , Lumbar facet arthropathy Take 1 tablet by mouth four times a day as needed for pain for up to 30 days. Ok to fill early if pharmacy is closed or closes early on fill date Patient should start on July 25, 2024. 120 tablet 07/25/2024 07/01/2024 Discontinued Start: 03-20-2024 End: 08-27-2024 take 1 tablet by mouth four times daily as needed for pain oxyCODONE-acetaminophen (PERCOCET) 7.5-3 25 mg tablet Indications: Lumbar degenerative disc disease , Lumbar radiculopathy , Chronic pain syndrome , Lumbar facet arthropathy Take 1 tablet by mouth four times a day as needed for pain for up to 30 days. Ok to fill early if pharmacy is closed or closes early on fill date Patient should start on July 02, 2024. 120 tablet 07/02/2024 08/27/2024 Discontinued Start: 03-20-2024 End: 03-04-2024 take 1 tablet by mouth four times daily as needed for pain oxyCODONE-acetaminophen (PERCOCET) 7.5-3 25 mg tablet Indications: Lumbar degenerative disc disease , Chronic pain syndrome , Lumbar radiculopathy , Lumbar facet arthropathy Take 1 tablet by mouth four times a day as needed for pain for up to 12 days. Ok to fill early if pharmacy is closed or closes early on fill date Do not start before March 20, 2024. 48 tablet 0 03/20/2024 03/04/2024 Discontinued Start: 03-20-2024 End: 04-01-2024 take 1 tablet by mouth four times daily as needed for pain oxyCODONE-acetaminophen (PERCOCET) 7.5-3 25 mg tablet Indications: Lumbar degenerative disc disease , Chronic pain syndrome , Lumbar radiculopathy , Lumbar facet arthropathy Take 1 tablet by mouth four times a day as needed for pain for up to 12 days. Ok to fill early if pharmacy is closed or closes early on fill date Do not start before March 20, 2024. 48 tablet 0 03/20/2024 04/01/2024 Active Start: 03-20-2024 End: 03-04-2024 take 1 tablet by mouth four times daily as needed for pain oxyCODONE-acetaminophen (PERCOCET) 7.5-3 25 mg tablet Indications: Lumbar degenerative disc disease , Chronic pain syndrome , Lumbar radiculopathy , Lumbar facet arthropathy Take 1 tablet by mouth four times a day as needed for pain for up to 12 days. Ok to fill early if pharmacy is closed or closes early on fill date Do not start before March 20, 2024. 48 tablet 0 03/20/2024 03/04/2024 Discontinued Start: 11-03-2023 End: 05-01-2024 take 1 tablet by mouth four times daily as needed for pain oxyCODONE-acetaminophen (PERCOCET) 7.5-3 25 mg tablet Indications: Lumbar degenerative disc disease , Chronic pain syndrome , Lumbar radiculopathy , Lumbar facet arthropathy Take 1 tablet by mouth four times a day as needed for pain for up to 30 days. Ok to fill early if pharmacy is closed or closes early on fill date Do not start before March 02, 2024. 120 tablet 0 03/02/2024 04/30/2024 Discontinued Start: 04-26-2023 End: 10-04-2023 take 1 tablet by mouth four times daily as needed for pain oxyCODONE-acetaminophen (PERCOCET) 7.5-3 25 mg tablet Indications: Lumbar degenerative disc disease , Lumbar radiculopathy , Chronic pain syndrome , Lumbar facet arthropathy Take 1 tablet by mouth four times a day as needed for pain for up to 5 days. Ok to fill early if pharmacy is closed on fill date Do not start before August 30, 2023. 20 tablet 0 08/30/2023 09/03/2023 Discontinued Start: 04-26-2023 End: 04-16-2023 take 1 tablet by mouth four times daily as needed for pain oxyCODONE-acetaminophen (PERCOCET) 7.5-3 25 mg tablet Indications: Lumbar radiculopathy , Chronic pain syndrome , Lumbar degenerative disc disease , Lumbar facet arthropathy Take 1 tablet by mouth four times daily as needed for pain for up to 5 days. Ok to fill early if pharmacy is closed on fill date Do not start before April 26, 2023. 20 tablet 0 04/26/2023 04/16/2023 Discontinued Start: 02-28-2023 End: 05-01-2023 take 1 tablet by mouth four times daily as needed for pain oxyCODONE-acetaminophen (PERCOCET) 7.5-3 25 mg tablet Indications: Lumbar radiculopathy , Chronic pain syndrome , Lumbar degenerative disc disease , Lumbar facet arthropathy Take 1 tablet by mouth four times daily as needed for pain for up to 5 days. Ok to fill early if pharmacy is closed on fill date Do not start before April 26, 2023. 20 tablet 0 04/26/2023 05/01/2023 Active Start: 10-01-2022 End: 09-20-2022 take 1 tablet by mouth every 30 days as needed oxyCODONE-acetaminophen (PERCOCET) 7.5-3 25 mg tablet Indications: Lumbar radiculopathy , Chronic pain syndrome , Lumbar degenerative disc disease , Lumbar facet arthropathy Take 1 tablet by mouth as needed for up to 30 days. Do not start before October 01, 2022. 120 tablet 0 10/01/2022 09/20/2022 Discontinued Start: 10-01-2022 End: 10-31-2022 take 1 tablet by mouth every 30 days as needed oxyCODONE-acetaminophen (PERCOCET) 7.5-3 25 mg tablet Indications: Lumbar radiculopathy , Chronic pain syndrome , Lumbar degenerative disc disease , Lumbar facet arthropathy Take 1 tablet by mouth as needed for up to 30 days. Do not start before October 01, 2022. 120 tablet 0 10/01/2022 10/31/2022 Active Start: 07-03-2022 End: 09-17-2022 take 1 tablet by mouth every 30 days as needed oxyCODONE-acetaminophen (PERCOCET) 7.5-3 25 mg tablet Indications: Lumbar radiculopathy , Chronic pain syndrome , Lumbar degenerative disc disease , Lumbar facet arthropathy Take 1 tablet by mouth as needed for up to 30 days. Do not start before September 01, 2022. 120 tablet 0 09/01/2022 09/17/2022 Discontinued Start: 02-05-2022 End: 07-03-2022 oxyCODONE-acetaminophen (PER COCET) 7.5-325 mg tablet Start: 02-13-2021 End: 01-29-2023 take 1 tablet by mouth four times daily as needed for pain oxyCODONE-acetaminophen (PERCOCET) 7.5-3 25 mg tablet Indications: Lumbar radiculopathy , Chronic pain syndrome , Lumbar degenerative disc disease , Lumbar facet arthropathy Take 1 tablet by mouth four times daily as needed for pain for up to 30 days. Ok to fill early if pharmacy is closed on fill date Do not start before December 30, 2022. 120 tablet 0 12/30/2022 01/29/2023 Discontinued Start: 06-02-2019 End: 09-01-2019 take 1 tablet by mouth every eight hours Oxycodone-Acetaminophen Discontinued 1 TABLET PO Q8H June 01, 2019 11:00pm September 01, 2019 10:38am Start: 05-06-2019 End: 05-19-2019 take 1 tablet by mouth every four hours Oxycodone-Acetaminophen Discontinued 1 TABLET PO Q4H May 05, 2019 11:00pm May 19, 2019 8:35am Comment on above: Take 1 tablet by ade th four times daily as needed for pain for up to 30 days. Do not start before May 06, 2022. Take 1 tablet by ade th four times daily as needed for pain for up to 30 days. Do not start before June 05, 2022. Take 1 tablet by ade th as needed. Take 1 tablet by ade th as needed for up to 30 days. Take 1 tablet by ade th as needed for up to 30 days. Do not start before August 02, 2022. Take 1 tablet by ade th as needed for up to 30 days. Do not start before October 01, 2022. Take 1 tablet by ade th as needed for up to 30 days. Do not start before September 01, 2022. Take 1 tablet by ade th four times daily as needed for pain for up to 30 days. Normal fill date would be 10/01/22- ok to fill 09/28/22 due to the holiday Take 1 tablet by ade th four times daily as needed for pain for up to 30 days. Ok to fill early if pharmacy is closed on fill date Take 1 tablet by ade th four times daily as needed for pain for up to 30 days. Ok to fill early if pharmacy is closed on fill date Do not start before December 30, 2022. Take 1 tablet by ade th four times daily as needed for pain for up to 30 days. Ok to fill early if pharmacy is closed on fill date Do not start before February 28, 2023. Take 1 tablet by ade th four times daily as needed for pain for up to 30 days. Ok to fill early if pharmacy is closed or closes early on fill date Do not start before March 30, 2023. Take 1 tablet by ade th four times daily as needed for pain for up to 5 days. Ok to fill early if pharmacy is closed on fill date Do not start before April 26, 2023. Take 1 tablet by ade th four times daily as needed for pain for up to 30 days. Ok to fill early if pharmacy is closed or closes early on fill date Do not start before May 02, 2023. Take 1 tablet by ade th four times daily as needed for pain for up to 30 days. Ok to fill early if pharmacy is closed or closes early on fill date Do not start before June 01, 2023. Take 1 tablet by ade th four times daily as needed for pain for up to 30 days. Ok to fill early if pharmacy is closed or closes early on fill date Do not start before July 01, 2023. Take 1 tablet by ade th four times a day as needed for pain for up to 30 days. Ok to fill early if pharmacy is closed or closes early on fill date Do not start before July 31, 2023. Take 1 tablet by ade th four times a day as needed for pain for up to 5 days. Ok to fill early if pharmacy is closed on fill date Do not start before August 30, 2023. Take 1 tablet by ade th four times a day as needed for pain for up to 30 days. Ok to fill early if pharmacy is closed or closes early on fill date Do not start before September 04, 2023. Take 1 tablet by ade th four times a day as needed for pain for up to 30 days. Ok to fill early if pharmacy is closed or closes early on fill date Take 1 tablet by ade th four times a day as needed for pain for up to 30 days. Ok to fill early if pharmacy is closed or closes early on fill date Do not start before November 03, 2023. Take 1 tablet by ade four times a day as needed for pain for up to 30 days. Ok to fill early if pharmacy is closed or closes early on fill date Do not start before January 02, 2024. amLODIPine 10 mg oral tablet (20 sources) Dihydropyridine Calcium Channel Cathryn Start: 02-26-2023 amLODIPine (NORVASC) 10 mg tablet 02/26/2023 Active Start: 05-27-2022 amLODIPine (NO RVASC) 5 mg tablet Start: 02-23-2022 End: 04-18-2022 amLODIPine (NORVASC) 5 mg ta blet Start: 02-18-2022 End: 05-29-2022 amLODIPine (NORVASC) 10 mg t ablet Start: 12-22-2021 End: 02-23-2022 take 5 mg by mouth once daily Amlodipine Discontinued 5 MG PO DAILY December 22, 2021 10:40am February 23, 2022 1:01pm Start: 10-21-2019 End: 12-22-2021 take 10 mg by mouth once daily Amlodipine Discontinued 10 MG PO DAILY November 20, 2021 12:53pm December 22, 2021 10:41am Start: 05-06-2019 End: 10-21-2019 take 5 mg by mouth once daily Amlodipine Discontinued 5 MG PO DAILY May 05, 2019 11:00pm October 21, 2019 11:20am Comment on above: Take 5 mg by mouth o nce daily. ascorbic acid 500 mg oral capsule (20 sources) Vitamin C Start: 12-22-2021 ascorbic acid, vitamin C, 500 mg cap Take by mouth. 12/22/2021 Active Start: 12-22-2021 Ascorbic Acid (Vitamin C) Active MG PO December 21, 2021 11:00pm Comment on above: Take by mouth. atenolol 50 mg oral tablet (20 sources) beta-Adrenergic Cathryn Start: 11-28-2020 End: 07-23-2022 take 1 tablet by mouth once daily atenolol (TENORMIN) 50 mg tablet Take 50 mg by mouth once daily. 01/22/2022 Active Start: 12-02-2019 End: 11-28-2020 take 25 mg by mouth once daily Atenolol Discontinued 2 5 MG PO DAILY 60 October 13, 2020 10:04am November 28, 2020 2:02pm Comment on above: Take 50 mg by mouth once daily. busPIRone hydrochloride 15 mg oral tablet (20 sources) Start: 07-30-2023 take 1 tablet by mouth three times daily busPIRone (BUSPAR) 15 mg tablet Take 1 tablet by mouth three times a day. 07/30/2023 Active Start: 11-23-2021 End: 12-22-2021 take 10 mg by mouth twice daily Buspirone Discontinued 10 MG PO TWICE A DAY 180 November 23, 2021 12:00am December 22, 2021 10:18am Start: 02-23-2020 End: 12-26-2020 take 1 tablet by mouth three times daily Buspirone Discontinued 0 .ROUTE .COMPLEX 270 February 23, 2020 12:32pm December 26, 2020 12:21pm TAKE 1 TABLET BY MOUTH THREE TIMES A DAY Start: 09-01-2019 End: 02-23-2020 Buspirone Discontinued 15 MG PO .Q6 360 90 September 01, 2019 11:12am February 23, 2020 12:32pm Start: 06-02-2019 End: 09-01-2019 take 15 mg by mouth three times daily Buspirone Discontinued 15 MG PO THREE TIMES A DAY 270 90 June 02, 2019 9:24am September 01, 2019 11:13am Start: 05-06-2019 End: 06-02-2019 take 10 mg by mouth twice daily Buspirone Discontinued 10 MG PO TWICE A DAY 60 May 05, 2019 11:00pm June 02, 2019 9:25am Comment on above: Take 10 mg by mouth twice daily. Take 1 tablet by ade th three times a day. cholecalciferol 0.05 mg oral capsule (2 sources) Vitamin D Start: 09-01-20 take 2000 [IU] by mouth once daily Cholecalciferol (Vitamin D3) Active 2000 UNIT PO DAILY September 01, 2019 12:00am cyclobenzaprine hydrochloride 10 mg oral tablet (4 sources) Muscle Relaxant Start: 02-25-20 End: 04-22-20 take 5-10 mg by mouth every eight hours as needed cyclobenzaprine (FLEXERIL) 10 mg tablet Take 0.5-1 tablets by mouth three times a day as needed for muscle spasm or pain. 90 tablet 1 04/22/2025 Active escitalopram 5 mg oral tablet (17 sources) Serotonin Reuptake Inhibitor Start: 01-19-20 take 0.5 tablet by mouth once daily escitalopram oxalate (LEXAPRO) 5 mg tablet Take 0.5 tablets by mouth once daily. 01/18/2025 Active Start: 11-23-2021 End: 12-22-2021 take 10 mg by mouth once daily Escitalopram Oxalate Di scontinued 10 MG PO DAILY November 23, 2021 12:00am December 22, 2021 10:19am Start: 12-02-2019 End: 11-17-2020 take 20 mg by mouth once daily Escitalopram Oxalate Di scontinued 20 MG PO DAILY December 02, 2019 12:00am November 17, 2020 2:26pm Start: 05-12-2019 End: 10-21-2019 take 20 mg by mouth once daily Escitalopram Oxalate Di scontinued 20 MG PO DAILY October 08, 2019 4:40pm October 21, 2019 11:33am Start: 05-06-2019 End: 05-12-2019 take 10 mg by mouth once daily Escitalopram Oxalate Di scontinued 10 MG PO DAILY May 05, 2019 11:00pm May 12, 2019 2:27pm Comment on above: Take 20 mg by mouth once daily. furosemide 40 mg oral tablet (20 sources) Loop Diuretic Start: 05-15-2022 take 1 tablet by mouth once daily furosemide (LASIX) 40 mg tablet Take 40 mg by mouth once daily. 05/15/2022 Active Start: 08-14-2021 End: 01-29-2022 take 40 mg by mouth once daily Furosemide Discontinued 40 MG PO DAILY January 17, 2022 12:44pm January 29, 2022 12:38pm Start: 05-06-2019 End: 05-29-2022 take 20 mg by mouth once daily Furosemide Discontinued 20 MG PO DAILY January 13, 2021 12:14pm August 14, 2021 4:20pm Comment on above: Take 20 mg by mouth once daily. Take 40 mg by mouth once daily. mupirocin 0.02 mg/mg topical ointment (2 sources) RNA Synthetase Inhibitor Antibacterial Start: 02-24-2021 Mupirocin Active 1 APPLIC NASAL TWICE A DAY 0 February 23, 2021 11:00pm nitroglycerin 0.3 mg sublingual tablet (20 sources) Nitrate Vasodilator Start: 07-09-2022 nitroglycerin sublingual (NITROQUICK) 0.3 mg SL tablet DISSOLVE 1 TABLET UNDER THE TONGUE EVERY 5 TO 15 MINUTES 07/09/2022 Active Start: 02-23-2022 End: 07-03-2022 nitroglycerin sublingual (NI TROQUICK) 0.3 mg SL tablet Start: 05-06-2019 End: 07-09-2022 Nitroglycerin Discontinued 0 .3 MG SL every 5 to 15 minutes January 03, 2021 8:24am February 23, 2022 12:57pm nitroglycerin lynch blingual (NITROQUICK) 0.4 mg SL tablet Dissolve 0.4 mg under the tongue every 5 minutes as needed. 0 Active Comment on above: Dissolve 0.4 mg unde r the tongue every 5 minutes as needed. DISSOLVE 1 TABLET UN CHERI THE TONGUE EVERY 5 TO 15 MINUTES ondansetron 4 mg oral tablet (20 sources) Serotonin-3 Receptor Antagonist Start: 05-06-2019 End: 09-18-2022 ondansetron (ZOFRAN) 4 mg tablet 09/19/2022 Active Start: 05-06-2019 End: 12-02-2019 Ondansetron Hcl Discontinued 4 MG PO 2 to 3 times per day May 05, 2019 11:00pm December 02, 2019 11:42am End: 07-03-2022 take 1 tablet by mouth every six hours as needed ondansetron orally disintegrating (ZOFRAN ODT) 4 mg disintegrating tablet Take 4 mg by mouth every 6 hours as needed for Nausea/Vomiting. 0 07/03/2022 Discontinued Comment on above: Take 4 mg by mouth e very 6 hours as needed for Nausea/Vomiting. Take by mouth as nee ded. PARoxetine hydrochloride 20 mg oral tablet (20 sources) Serotonin Reuptake Inhibitor Start: 02-07-20 take 0.5 tablet by mouth once daily, then take 1 tablet by mouth once daily PARoxetine (PAXIL) 20 mg tablet TAKE 1/2 TABLET BY MOUTH DAILY X 1 WEEK THEN INCREASE TO 1 TABLET DAILY 02/06/2023 Active Comment on above: TAKE 1/2 TABLET BY M OUTH DAILY X 1 WEEK THEN INCREASE TO 1 TABLET DAILY pregabalin 150 mg oral capsule (20 sources) Start: 04-26-20 End: 05-26-20 take 1 capsule by mouth twice daily pregabalin (LYRICA) 150 mg capsule Indications: Chronic pain syndrome Take 1 capsule by mouth two times a day for 30 days. Patient should start on April 26, 2025. 60 capsule 2 04/26/2025 05/26/2025 Active Start: 02-24-2025 End: 04-22-2025 take 1 capsule by mouth twice daily pregabalin (LYRICA) 150 mg capsule Indications: Chronic pain syndrome Take 1 capsule by mouth two times a day for 30 days. 60 capsule 1 02/24/2025 04/22/2025 Discontinued Start: 08-30-2024 End: 01-23-2025 take 1 capsule by mouth twice daily pregabalin (LYRICA) 150 mg capsule Indications: Chronic pain syndrome Take 1 capsule by mouth two times a day for 30 days. 60 capsule 1 12/24/2024 01/23/2025 Active Start: 10-31-2023 End: 08-27-2024 take 1 capsule by mouth twice daily pregabalin (LYRICA) 150 mg capsule Indications: Chronic pain syndrome Take 1 capsule by mouth two times a day for 30 days. 60 capsule 1 07/01/2024 08/27/2024 Discontinued Start: 04-30-2023 End: 10-03-2023 take 1 capsule by mouth twice daily pregabalin (LYRICA) 150 mg capsule Indications: Chronic pain syndrome Take 1 capsule by mouth two times a day for 30 days. 60 capsule 0 09/03/2023 10/03/2023 Active Start: 02-27-2023 End: 04-28-2023 take 1 capsule by mouth twice daily pregabalin (LYRICA) 150 mg capsule Indications: Chronic pain syndrome Take 1 capsule by mouth twice daily for 30 days. 60 capsule 1 03/29/2023 04/28/2023 Active Start: 09-27-2022 End: 12-30-2022 take 1 capsule by mouth twice daily pregabalin (LYRICA) 150 mg capsule Indications: Chronic pain syndrome Take 1 capsule by mouth twice daily for 30 days. 60 capsule 1 11/30/2022 Active Start: 08-28-2022 End: 09-17-2022 take 1 capsule by mouth twice daily pregabalin (LYRICA) 150 mg capsule Indications: Chronic pain syndrome Take 1 capsule by mouth twice daily for 60 days. 60 capsule 1 08/28/2022 09/17/2022 Discontinued Start: 05-06-2019 End: 07-28-2022 take 150 mg by mouth twice daily Pregabalin Discontinued 150 MG PO TWICE A DAY 60 September 01, 2021 1:51pm November 23, 2021 2:30pm Comment on above: Take 150 mg by mouth twice daily. Take 1 capsule by mo ut twice daily for 60 days. Take 1 capsule by mo uth twice daily for 60 days. Do not start before September 27, 2022. Take 1 capsule by mo uth twice daily for 30 days. Take 1 capsule by mo uth two times a day for 30 days. Completed/Discontinued Medications Medication Drug Class(es) Dates Sig (Normalized) Sig (Original) acetaminophen 325 mg oral capsule (2 sources) Start: 05-06-2019 End: 06-02-2019 take 1 capsule by mouth every six hours Acetaminophen (Tylenol) 325 mg capsule Discontinued 325 MG PO EVERY 6 HOURS May 05, 2019 11:00pm June 02, 2019 8:42am ALPRAZolam 0.25 mg oral tablet (16 sources) Benzodiazepine Start: 06-02-2020 End: 12-26-2020 take 0.25 mg by mouth every week Alprazolam Discontinued 0.25 MG PO DAILY July 01, 2020 2:02pm August 29, 2020 3:46pm Take Once to 2x weekly for panic attacks. Start: 12-02-2019 End: 04-21-2020 take 0.25 mg by mouth once daily Alprazolam Discontinued 0.25 MG PO DAILY December 02, 2019 12:00am April 21, 2020 12:46pm Start: 06-02-2019 End: 09-01-2019 take 0.5 mg by mouth twice daily Alprazolam Discontinued 0.5 MG PO TWICE A DAY June 02, 2019 3:59pm September 01, 2019 10:38am Start: 06-02-2019 End: 06-02-2019 take 0.5 mg by mouth three times daily Alprazolam Discontinued 0.5 MG PO THREE TIMES A DAY June 02, 2019 3:58pm June 02, 2019 3:59pm Start: 05-06-2019 End: 06-02-2019 take 1 mg by mouth three times daily Alprazolam Discontinued 1 MG PO THREE TIMES A DAY May 22, 2019 2:06pm June 02, 2019 3:58pm ARIPiprazole 10 mg oral tablet (6 sources) Atypical Antipsychotic Start: 07-01-2020 End: 12-26-2020 take 10 mg by mouth at bedtime Aripiprazole Discontinued 10 MG PO AT BEDTIME July 11, 2020 12:25pm December 26, 2020 12:21pm Start: 06-02-2020 End: 07-01-2020 take 5 mg by mouth at bedtime Aripiprazole (Abilify) 1 0 mg tablet Discontinued 5 MG PO AT BEDTIME June 01, 2020 11:00pm July 01, 2020 12:32pm aspirin 81 mg delayed release oral tablet (6 sources) Platelet Aggregation Inhibitor, Nonsteroidal Anti-inflammatory Drug Start: 05-19-2019 End: 06-02-2019 take 1 tablet by mouth once daily Aspirin (Adult Aspirin Regimen) 81 mg tablet,delayed release (DR/EC) Discontinued 81 MG PO DAILY May 18, 2019 11:00pm June 02, 2019 8:44am take 1 tablet by mouth once stacy y aspirin 81 mg chewable tablet Take 81 mg by mouth once daily. 0 Active Comment on above: Take 81 mg by mouth once daily. atorvastatin 40 mg oral tablet (20 sources) HMG-CoA Reductase Inhibitor Start: 9 End: 2 take 40 mg by mouth at bedtime Atorvastatin Discontinued 40 MG PO AT BEDTIME November 15, 2021 11:11am February 23, 2022 12:57pm Comment on above: Take 40 mg by mouth daily at bedtime. CBD oil (2 sources) Start: 9 End: 9 CBD oil Discontinued May 05, 2019 11:00pm September 01, 2019 10:38am Start: 05-06-2019 End: 09-01-2019 CBD oil Discontinued May 06, 2019 12:00am September 01, 2019 11:38am clopidogrel 75 mg oral tablet (20 sources) P2Y12 Platelet Inhibitor Start: 09-01-2019 End: 01-17-2022 take 1 tablet by mouth once daily Clopidogrel (Plavix) 75 mg tablet Discontinued 75 MG PO DAILY August 07, 2021 9:36am January 17, 2022 12:38pm Start: 05-19-2019 End: 06-02-2019 take 1 tablet by mouth once daily Clopidogrel (Plavix) 75 mg tablet Discontinued 75 MG PO .COMPLEX May 19, 2019 8:50am June 02, 2019 8:45am 75 mg PO 4 tablets by mouth today then 1 tablet by mouth daily for heart cath on Saturday05/22/19; Comment on above: Take 75 mg by mouth once daily. diclofenac sodium 75 mg delayed release oral tablet (14 sources) Nonsteroidal Anti-inflammatory Drug Start: 03-30-2020 End: 11-29-2020 Diclofenac Sodium Discontinued 0 .ROUTE .COMPLEX March 30, 2020 11:42am November 29, 2020 8:23am TAKE 1 TABLET BY MOUTH ONCE TO TWICE WEEKLY NEEDED FOR PAIN Start: 05-06-2019 End: 03-30-2020 take 1 tablet by mouth twice daily as needed for pain Diclofenac Sodium Discontinued 0 .ROUTE .COMPLEX December 29, 2019 8:38am March 30, 2020 11:43am TAKE 1 TABLET BY MOUTH TWICE DAILY NEEDED FOR PAIN Comment on above: Take 75 mg by mouth twice daily as needed (Low back pain). Take with food or milk DULoxetine 60 mg delayed release oral capsule (20 sources) Serotonin and Norepinephrine Reuptake Inhibitor Start: 05-30-20 End: 11-23-19 take 60 mg by mouth once daily in the morning Duloxetine Discontinued 60 MG PO EVERY MORNING May 30, 2021 1:28pm November 23, 2021 2:25pm Start: 12-29-2020 End: 05-30-2021 take 30 mg by mouth once daily in the evening Duloxetine Discontinued 30 MG PO EVERY EVENING February 13, 2021 6:49pm May 30, 2021 12:56pm Start: 11-17-2020 End: 11-28-2020 take 30 mg by mouth once daily Duloxetine Discontinued 30 MG PO DAILY November 17, 2020 12:00am November 28, 2020 1:48pm Start: 11-17-2020 End: 05-30-2021 take 30 mg by mouth once daily in the evening Duloxetine Discontinued 60 MG PO EVERY MORNING February 13, 2021 6:50pm May 30, 2021 1:31pm Take with duloxetine 30mg po every evening Start: 10-21-2019 End: 12-02-2019 take 30 mg by mouth twice daily Duloxetine Discontinue d 30 MG PO TWICE A DAY 60 November 12, 2019 4:42pm December 02, 2019 11:41am flurbiprofen 100 mg oral tablet (2 sources) Nonsteroidal Anti-inflammatory Drug Start: 11-29-2020 End: 12-08-2020 take 100 mg by mouth three times daily at mealtime Flurbiprofen Discontinued 100 MG PO THREE TIMES A DAY November 29, 2020 12:00am December 08, 2020 4:11pm take with food; do not take with other NSAIDs lisinopril 40 mg oral tablet (20 sources) Angiotensin Converting Enzyme Inhibitor Start: 05-06-2019 End: 07-03-2022 take 40 mg by mouth once daily Lisinopril Discontinued 40 MG PO DAILY April 06, 2021 10:02am June 15, 2022 2:44pm Comment on above: Take 40 mg by mouth once daily. Take 1 tablet by . mecobalamin 5 mg disintegrating oral tablet (2 sources) Start: 10-21-2019 End: 05-30-2021 take 1 tablet by mouth once daily mecobalamin (vitamin B12) 5,000 mcg disintegrating tablet Discontinued 5000 MCG PO DAILY October 21, 2019 12:00am May 30, 2021 1:39pm meloxicam 15 mg oral tablet (4 sources) Nonsteroidal Anti-inflammatory Drug Start: 12-08-2020 End: 12-29-2020 take 15 mg by mouth once daily Meloxicam Discontinued 15 MG PO DAILY December 26, 2020 12:22pm December 29, 2020 2:35pm methylPREDNISolone 4 mg oral tablet (2 sources) Corticosteroid Start: 04-21-2020 End: 06-02-2020 take 1 tablet by mouth once Methylprednisolone (Medrol (Jose)) 4 mg tablets,dose pack Discontinued 0 PO per package directions April 20, 2020 11:00pm June 02, 2020 12:13pm PO PER PKG DIR oxyCODONE 13.5 mg 12 hr extended release oral capsule, abuse-deterrent (2 sources) Opioid Agonist Start: 09-01-2019 End: 10-21-2019 take 1 capsule by mouth twice daily Oxycodone Myristate (Xtampza Er) 13.5 mg cap,sprinkl,ER12hr(D ONT CRUSH) Discontinued 13.5 MG PO TWICE A DAY September 01, 2019 12:00am October 21, 2019 11:04am raNITIdine 150 mg oral tablet (8 sources) Histamine-2 Receptor Antagonist Start: 05-06-2019 End: 04-21-2020 take 150 mg by mouth once daily Ranitidine Hcl Discontinued 150 MG PO DAILY September 01, 2019 4:49pm April 21, 2020 12:47pm take 1 tablet by mouth twice douglas ly ranitidine (ZANTAC) 150 mg tablet Take 150 mg by mouth twice daily. 0 Active Comment on above: Take 150 mg by mouth twice daily. sulfamethoxazole 800 mg / trimethoprim 160 mg oral tablet (2 sources) Dihydrofolate Reductase Inhibitor Antibacterial, Sulfonamide Antimicrobial Start: End: take 1 tablet by mouth twice daily Sulfamethoxazole-Trim ethoprim (Bactrim Ds) 800-160 mg tablet Discontinued 1 TABLET PO TWICE A DAY 19 04February 23, 2021 11:00pm May 30, 2021 1:30pm theanine 50 mg disintegrating tablet (2 sources) Start: 019 End: 020 theanine 50 mg disintegrating tablet Discontinued MG PO May 05, 2019 11:00pm December 02, 2019 11:10am Start: 05-06-2019 End: 12-02-2019 theanine 50 mg disintegratin g tablet Discontinued MG PO May 06, 2019 12:00am December 02, 2019 12:10pm Problems Active Problems Problem Classification Problem Date Documented Da te Episodic/Chronic Acute and unspecified renal failure (2 sources) Injury of kidney; Translations: [Acute kidney failure, unspecified] 02-21-2021 Episodic Anxiety disorders (20 sources) Anxiety; Translations: [Anxiety disorder, unspecified] Onset: 1 04-18-2022 Chronic Coronary atherosclerosis and other heart disease (1 source) Atherosclerotic heart disease of [place] coronary artery without angina pectoris; Translations: [Atherosclerotic heart disease of [place] coronary artery without angina pectoris] Onset: Chronic Disorders of lipid metabolism (20 sources) Hyperlipidemia; Translations: [Hyperlipidemia, unspecified] Onset: 1 04-18-2022 Chronic Esophageal disorders (20 sources) Gastroesophageal reflux disease; Translations: [Gastro-esophageal reflux disease without esophagitis] Onset: 2 04-18-2022 Chronic Essential hypertension (20 sources) Hypertensive disorder; Translations: [Essential (primary) hypertension] Onset: 1 04-18-2022 Chronic Hyperplasia of prostate (20 sources) Benign prostatic hyperplasia; Translations: [Benign prostatic hyperplasia without lower urinary tract symptoms] Onset: 3 10-11-2022 Chronic Malaise and fatigue (20 sources) Chronic fatigue syndrome; Translations: [Chronic fatigue syndrome] Onset: 2 08-27-2022 Chronic Malaise and fatigue (4 sources) Fatigue; Translations: [Other fatigue] 02-13-2021 Episodic Mood disorders (20 sources) Recurrent major depressive episodes, moderate ; Translations: [Major depressive disorder, recurrent, moderate] Onset: 7 07-05-2017 Chronic Multiple sclerosis (20 sources) Multiple sclerosis; Translations: [Multiple sclerosis] Onset: 1 04-18-2022 Chronic Nutritional deficiencies (2 sources) Vitamin D deficiency; Translations: [Vitamin D deficiency, unspecified] 08-14-2021 Chronic Osteoarthritis (20 sources) Arthritis; Translations: [Unspecified osteoarthritis, unspecified site] Onset: 1 04-18-2022 Chronic Other aftercare (20 sources) Long-term current use of opiate analgesic drug; Translations: [intermediate (current) use of opiate analgesic] Onset: 1 Episodic Other and unspecified benign neoplasm (2 sources) Change in skin lesion; Translations: [Melanocytic nevi of unspecified part of face] 08-14-2021 Episodic Other connective tissue disease (2 sources) Tendinitis of shoulder region; Translations: [Other enthesopathies, not elsewhere classified] 06-02-2020 Episodic Other gastrointestinal disorders (20 sources) Irritable bowel syndrome; Translations: [Irritable bowel syndrome without diarrhea] Onset: 2 04-18-2022 Chronic Other nervous system disorders (20 sources) Chronic pain syndrome; Translations: [Chronic pain syndrome] Onset: 1 04-18-2022 Chronic Other nervous system disorders (20 sources) Neuropathy; Translations: [Polyneuropathy, unspecified] Onset: 2 04-18-2022 Chronic Other nervous system disorders (20 sources) Chronic pain; Translations: [Other chronic pain] Onset: 2 Chronic Other nervous system disorders (1 source) Other chronic pain; Translations: [Other chronic pain] Onset: 2 Chronic Other nervous system disorders (1 source) Polyneuropathy, unspecified; Translations: [Neuropathy] Onset: 2 Chronic Other nervous system disorders (1 source) Chronic pain syndrome; Translations: [Chronic pain syndrome] Onset: 4 Chronic Other non-traumatic joint disorders (2 sources) Pain in right knee; Translations: [Right knee pain] 10-11-2022 Episodic Other upper respiratory disease (2 sources) Cellulitis of external nose ; Translations: [Abscess, furuncle and carbuncle of nose] 02-21-2021 Episodic Screening and history of mental health and substance abuse codes (2 sources) History of clinical finding in subject; Translations: [Personal history of other mental and behavioral disorders] 05-19-2019 Episodic Septicemia (except in labor) (2 sources) Sepsis; Translations: [Sepsis, unspecified organism] 02-21-2021 Episodic Spondylosis; intervertebral disc disorders; other back problems (20 sources) Arthropathy of lumbar facet joint; Translations: [Spondylosis without myelopathy or radiculopathy, lumbar region] Onset: 1 04-18-2022 Chronic Unclassified (20 sources) H/O: back problem; Translations: [History of back problems] Onset: 2 04-18-2022 Unclassified (1 source) Degeneration of intervertebral disc of lumbar region with discogenic back pain; Translations: [Degeneration of intervertebral disc of lumbar region with discogenic back pain] Onset: 2 Unclassified (1 source) Lumbar degenerative disc disease; Translations: [Lumbar degenerative disc disease] Onset: 2 Past or Other Problems Problem Classification Problem Date Documented Date Episodic/Chronic Conditions associated with dizziness or vertigo (20 sources) Dizziness and giddiness; Translations: [Dizziness and giddiness] Onset: 08-27-2022 08-27-2022 Episodic Joint disorders and dislocations; trauma-related (20 sources) Tear of meniscus of knee; Translations: [Unspecified tear of unspecified meniscus, current injury, unspecified knee, initial encounter] Onset: 12-24-2022 12-26-2022 Episodic Nonspecific chest pain (20 sources) Chest pain; Translations: [Chest pain, unspecified] Onset: 04-18-2022 04-18-2022 Episodic Other aftercare (20 sources) Patient encounter status; Translations: [intermediate (current) use of opiate analgesic] Onset: 04-03-2011 04-18-2022 Episodic Other aftercare (1 source) intermediate (current) use of opiate analgesic; Translations: [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] Onset: 05-02-2022 Episodic Other and unspecified benign neoplasm (1 source) Melanocytic nevi of unspecified part of face; Translations: [Melanocytic nevi of unspecified part of face] Onset: 04-19-2025 Episodic Other connective tissue disease (20 sources) Fibromyositis; Translations: [Fibromyalgia] Onset: 01-10-2021 04-18-2022 Episodic Other connective tissue disease (11 sources) H/O: back problem; Translations: [Personal history of other diseases of the musculoskeletal system and connective tissue] Onset: 04-18-2022 04-18-2022 Episodic Other connective tissue disease (1 source) Other symptoms and signs involving the musculoskeletal system; Translations: [Other symptoms and signs involving the musculoskeletal system] Onset: 01-18-2025 Episodic Other lower respiratory disease (20 sources) Dyspnea; Translations: [Shortness of breath] Onset: 08-27-2022 08-27-2022 Episodic Other lower respiratory disease (1 source) Other forms of dyspnea; Translations: [Other forms of dyspnea] Onset: 08-13-2024 Episodic Other nervous system disorders (20 sources) Paresthesia; Translations: [Paresthesia of skin] Onset: 07-05-2017 07-05-2017 Episodic Other screening for suspected conditions (not mental disorders or infectious disease) (20 sources) Cardiovascular stress test abnormal; Translations: [Abnormal result of other cardiovascular function study] Onset: 04-18-2022 04-18-2022 Episodic Spondylosis; intervertebral disc disorders; other back problems (20 sources) Chronic back pain ; Translations: [Dorsalgia, unspecified] Onset: 01-03-2021 04-18-2022 Episodic Sprains and strains (20 sources) Sprain of left knee; Translations: [Sprain of unspecified site of left knee, initial encounter] Onset: 05-25-2013 04-18-2022 Episodic Results Test Name Value Interpretation Reference Range Facility Internal Medicine Office Vis [facility] 07-26-2025 Internal Medicine Office Visit [facility] Internal Medicine [address] [place] [address] OFFICE VISIT Date of Service: 07/26/25 MR#: [id number] Acct: [id number] Name: SHERLEY RIVERA Rep #: [id number] : 1950 Provider: Dr. 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: No Accompanied by: Self Is patient in pain?: No Allergies escitalopram (From MediaVaprAnafocus) Allergy (Severe, Verified 07/26/25 14:33) Nausea glatiramer (copolymer 1) (From Copaxone) Allergy (Severe, Verified 07/26/25 14:33) Bruising/Bleeding dimethyl fumarate (From Tecfidera) Adverse Reaction (Severe, Verified 07/26/25 14:33) Nausea/Vom/Diarrhea ibuprofen Adverse Reaction (Verified 07/26/25 14:33) Upset Stomach Medications ???Medication ???Instructions ???Recorded ???Confirmed ???Type cholecalciferol (vitamin D3) 50 2,000 unit PO DAILY 09/01/1907/26 History mcg (2,000 unit) capsule oxycodone-acetaminop hen 7.5 mg-325 1 tab PO .QID PRN Pain 02/13/21 07/26/25 History mg tablet (Percocet) ascorbic acid (vitamin C) 500 mg mg PO 12/22/21 07/26/25 History capsule nitroglycerin 0.3 mg sublingual 0.3 mg sublingual Q5-15M #90 tabs 07/09/22 07/26/25 Rx tablet furosemide 40 mg tablet 40 mg PO DAILY #90 tabs 03/23/24 1 Rx chaga mushroom PO DAILY 08/13/24 07/26/25 History pregabalin 150 mg capsule mg PO BID 01/18/25 07/26/25 Histor y amlodipine 10 mg tablet See Rx Instructions .Route 5 07/26/25 Rx .COMPLEX #90 tabs prednisone 50 mg tablet 50 mg PO QDAY #6 tabs 02/15/25 Rx atorvastatin 40 mg tablet 40 mg PO QHS #90 TABLETS 04/19/25 07/26/25 Rx clopidogrel 75 mg tablet See Rx Instructions .Route 5 07/26/25 Rx .COMPLEX #90 tabs escitalopram oxalate 5 mg tablet 5 mg PO QDAY #90 tabs 04/19/25 Rx (Lexapro) lisinopril 40 mg tablet 40 mg PO DAILY #90 TABLETS 5 07/26/25 Rx atenolol 50 mg tablet 50 mg PO DAILY #90 tabs 05/31/25 1 Rx ondansetron HCl 4 mg tablet 4 mg PO Q8H PRN nausea and 07/26/2 5 07/26/25 Rx vomiting #90 tabs Have you fallen in the past year?: No PFSH Medical History (Updated 07/26/25 @ 15:[address] Francisco De La Cruz MD) Flu vaccine refused Stasis dermatitis of both legs Bilateral lower extremity edema Skin lesion of back Lumbar radiculopathy Lumbar strain Right leg weakness MDD (major depressive disorder) MADALYN (generalized anxiety disorder) CAD (coronary artery disease) Right knee pain BPH (benign prostatic hyperplasia) Hyperlipidemia Fatigue Change in facial mole Vitamin D deficiency Screening for thyroid disorder Chronic pain Abnormal stress test Chest pain Anxiety and depression Neuropathy GERD (gastroesophageal reflux disease) Multiple sclerosis IBS (irritable bowel syndrome) HTN (hypertension) H/O emotional problems Bone fracture History of back problems Arthritis Surgical History History of hand surgery History of tonsillectomy History of appendectomy History of partial colectomy History of cholecystectomy Family History Other Anxiety Arthritis Bipolar 1 disorder Depression High cholesterol Hypertension Mental disorder Psychiatric care Suicide attempt Social History household members: spouse housing: house number of children: 0 Smoking Status: Current every day smoker tobacco type: cigars Tobacco: How many years used: 3 second hand exposure: No alcohol intake: former caffeine: Yes what type of physical activity do you participate in: none and walking debbie/adventist: Adventism HPI HPI Chief Complaint: 3 M FU Details: SHERLEY RIVERA, is a 75-year-old male with a history of HTN, anxiety, and neuropathic pain, presenting for a follow-up visit. He requests a refill of ondansetron and reports a recurrent rash on the posterior aspect of both legs. The patient reports a recurrent rash on the posterior aspect of both legs, which has been present for the past few months. He has been using [id number] cortisone cream, which he finds somewhat effective. He mentions that his , Ruby, had a skin issue and was prescribed a more potent cortisone cream, which was very ef (more content not included)... [facility] 07-09-2025 CNPN Telephone ([facility]) MIGUELSHERLEY ([id number]) 1950 Date Time Provider Department 07/09/25 TANGELA MALDONADO [facility] During your visit today, we recorded the following information about you: Caroline Cabral MA 07/09/2025 1:04 PM Signed Items addressed in this encounter: Telephone Encounter Spoke with Ins about UDS and coverage. It is 100% covered. No copay or out of pocket costs. Spoke with Audra Vasquez With a reference #[id number]. If any questions call and give the ref# they can pull up the info. Able to close encounter. Caroline Cabral MA July 09, 2025 1:02 PM 1:02 PM Allergies As of Date: 07/09/2025 Noted Allergy Reaction ESCITALOPRAM 02/15/2025 16 - Unknown GLATIRAMER 01/03/2021 16 - Unknown IBUPROFEN 04/19/2021 8 - GI Upset TECFIDERA (DIMETHYL FUMARATE) 07/01/2017 14 - Other: See Comments Comments: Cognitive changes Dizziness headaches Date Reviewed: 07/08/2025 Reviewed by: Tangela Maldonado APRN.[employer]ICKB[employer]KS BOOKKEEPER - Fully Assessed Reason for Visit: Other [1320] Cmt: UDS costs per ins 100% covered Prescriptions as of 07/09/2025 - oxyCODONE-acetaminop hen (PERCOCET) 7.5-325 mg tablet Take 1 tablet by mouth four times a day as needed for pain for up to 30 days. Ok to fill early if pharmacy is closed or closes early on fill date Patient should start on July 27, 2025. - oxyCODONE-acetaminop hen (PERCOCET) 7.5-325 mg tablet Take 1 tablet by mouth four times a day as needed for pain for up to 30 days. Ok to fill early if pharmacy is closed or closes early on fill date Patient should start on August 26, 2025. - oxyCODONE-acetaminop hen (PERCOCET) 7.5-325 mg tablet Take 1 tablet by mouth four times a day as needed for pain for up to 30 days. Ok to fill early if pharmacy is closed or closes early on fill date Patient should start on September 25, 2025. - pregabalin (LYRICA) 150 mg capsule Take 1 capsule by mouth two times a day for 30 days. Patient should start on July 13, 2025. - escitalopram oxalate (LEXAPRO) 5 mg tablet Take 0.5 tablets by mouth once daily. - busPIRone (BUSPAR) 15 mg tablet Take 1 tablet by mouth three times a day. - PARoxetine (PAXIL) 20 mg tablet TAKE 1/2 TABLET BY MOUTH DAILY X 1 WEEK THEN INCREASE TO 1 TABLET DAILY - amLODIPine (NORVASC) 10 mg tablet - ascorbic acid, vitamin C, 500 mg cap Take by mouth. - ondansetron (ZOFRAN) 4 mg tablet - nitroglycerin sublingual (NITROQUICK) 0.3 mg SL tablet DISSOLVE 1 TABLET UNDER THE TONGUE EVERY 5 TO 15 MINUTES - lisinopril (ZESTRIL, PRINIVIL) 40 mg tablet Take 1 tablet by mouth. - furosemide (LASIX) 40 mg tablet Take 40 mg by mouth once daily. - atenolol (TENORMIN) 50 mg tablet Take 50 mg by mouth once daily. - clopidogrel (PLAVIX) 75 mg tablet Take 75 mg by mouth once daily. - atorvastatin (LIPITOR) 40 mg tablet Take 40 mg by mouth daily at bedtime. 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] 01/10/2021 Generalized anxiety disorder [F41.1] 04/18/2022 History of back problems [Z87.39] 04/18/2022 Hyperlipidemia [E78.5] 01/03/2021 Hypertension [I10] 01/03/2021 Irritable bowel syndrome [K58.9] 04/18/2022 Left knee sprain [S83.92XA] 05/25/2013 Lumbar facet arthropathy [M47.816] 02/21/2021 Lumbar radiculopathy [M54.16] 01/10/2021 Lumbar degenerative disc disease [M51.369] 02/21/2021 Multiple sclerosis (HCC) [G35.D] 01/10/2021 Neuropathy [G62.9] 04/18/2022 Chronic fatigue syndrome [G93.32] 08/27/2022 Dizziness and giddiness [R42] 08/27/2022 Shortness of breath [R06.02] 08/27/2022 Other chronic pain [G89.29] 10/02/2022 Benign prostatic hyperplasia [N40.0] 10/11/2022 Tear of meniscus of knee [S83.209A] 12/24/2022 Bipolar I disorder (HCC) [F31.9] 07/30/2023 Encounter Status:Closed by CAROLINE CABRAL on 07/09/25 [facility] Kasey 07-08-2025 [facility] SHERLEY [facility]IVERA ([id number]) 1950 [place] Date Time Provider Department 07/08/25 2:00 PM TANGELA MALDONADO During your visit today, we recorded the following information about you: Pulse Respiration Blood pressure Weight 60/minute 20/minute 155/87 112.5 kg Tangela Maldonado APRN.CNP 07/08/2025 2:02 PM Addendum Despite its legality, THC containing products and CBD products that may contain THC are not to be used while being prescribed pain medications. If your drug screen contains any THC your medication will be discontinued. Continue Percocet A prescription for narcan (naloxone) has been offered to the patient. Continue Lyrica He declines physical therapy at this time due to the cost Patient declines injections at this time Continue care with PCP and specialists Follow up in 3 months Tangela Maldonado APRN.CNP 07/08/2025 2:02 PM Signed Chief Complaint: Pain History of Present Illness: Sherley Rivera is a 75 year old year old male being seen at [facility] for a evaluation and/or management of his chronic pain. He states that since the last visit symptoms have been stable. His medical history has not changed and he denies any hospital stays or ER visits. Pain Level: 6 Pain Location: Back Description: Aching; Stabbing; Throbbing Duration Amount of Time: 20 Duration Units: Years Frequency: Continuous Intervention/Comfort measure: Medication; Reposition; Relaxation Has the Patient Had 2 Falls in the Last Year or 1 Fall with Injury or Currently Using an Ambulatory Assistive Device (Walker, Cane, Wheelchair, Crutches, etc.): No No Data Recorded The patient denies any bowel or bladder dysfunction. The patient is currently prescribed percocet and lyrica from our office. The last doses were taken today. The medications are partially effective. He denies any side effects from the medications. PDMP website checked and validated. The OARRS report has been reviewed and is consistent with the patients medical history and medication intake. Last Opioid agreement effective date: 12/24/2024 Last UDS: Ordered. 10/28/2024 UDS CONSISTENT 01/22/2024 UDS CONSISTENT 07/16/2023 UDS CONSISTENT 11/27/2022 UDS Questionable - no drugs detected but low creatinine. [facility] Urine Drug Screen Summary Report Date Value Ref Range Status 10/28/2024 FINAL Final Comment: ======== Opiate Class, MS, Ur RFX Oxycodone Class, MS, Ur RFX Methadone, MS, Ur RFX Acetaminophen, MS, Ur RFX ToxAssure Flex 23, Ur ======== Test Result Flag Units Drug Present Oxycodone 1098 ng/mg creat Oxymorphone 80 ng/mg creat Noroxycodone 700 ng/mg creat Sources of oxycodone include scheduled prescription medications. Oxymorphone and noroxycodone are expected metabolites of oxycodone. Oxymorphone is also available as a scheduled prescription medication. Acetaminophen PRESENT ======== Test Result Flag Units Ref Range Creatinine 64 mg/dL >=20 ======== Declared Medications: Medication list was not provided. ======== For clinical consultation, please call . ======== [facility] Urine Drug Screen and Benzo Confirm Urine Panel: Lab Results Component Value Date Cannabinoid Quant, Urine <16 11/27/2022 Benzoylecgonine Quant, Urine <24 11/27/2022 6-Acetylmorphine Quant, Urine <5 11/27/2022 Amphetamine Quant, Urine <5 11/27/2022 Methamphetamine Quant, Urine <8 11/27/2022 Buprenorphine Quant, Urine <20 11/27/2022 Norbuprenorphine Quant, Urine <20 11/27/2022 Methadone Quant, Urine <16 11/27/2022 EDDP Quant, Urine <6 11/27/2022 Tramadol Quant, Urine <25 11/27/2022 Desmethyltramadol Quant, Urine <20 11/27/2022 Fentanyl Quant, Urine <6 11/27/2022 Norfentanyl Quant, Urine <6 11/27/2022 Codeine Quant, Urine <11 11/27/2022 Morphine Quant, Urine <10 11/27/2022 Dihydrocodeine Quant, Urine <5 11/27/2022 Hydrocodone Quant, Urine <8 11/27/2022 Oxycodone Quant, Urine 1,235 (H) 11/27/2022 Hydromorphone Quant, Urine <5 11/27/2022 Oxymorphone Quant, Urine 253 (H) 11/27/2022 Chronic Pain Functional Assessment Tools Pain Disability Index: 02/24/2025 07/08/2025 Pain Disability Index Family/Home Responsibilities: This category includes chores or duties performed around the house (e.g. yard work), errands or favors for other family members (e.g. driving the children to school) 10 Total Disability 3 Recreation: This category (more content not included)... Normal [facility] Internal Medicine Office Vis iton 04-19-2025 Internal Medicine Office Visit [facility] [address] [place], [place] [address] OFFICE VISIT Date of Service: 04/19/25 MR#: [id number] Acct: [id number] Name: SHERLEY RIVERA Rep #: [id number] : 1950 Provider: Dr. 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: No Accompanied by: Self Is patient in pain?: No Allergies escitalopram (From Lexapro) Allergy (Severe, Verified 04/19/25 15:30) Nausea glatiramer (copolymer 1) (From Copaxone) Allergy (Severe, Verified 04/19/25 15:30) Bruising/Bleeding dimethyl fumarate (From Tecfidera) Adverse Reaction (Severe, Verified 04/19/25 15:30) Nausea/Vom/Diarrhea ibuprofen Adverse Reaction (Verified 04/19/25 15:30) Upset Stomach Medications ???Medication ???Instructions ???Recorded ???Confirmed ???Type cholecalciferol (vitamin D3) 50 2,000 unit PO DAILY 09/01/1904/19 History mcg (2,000 unit) capsule oxycodone-acetaminop hen 7.5 mg-325 1 tab PO .QID PRN Pain 02/13/21 04/19/25 History mg tablet (Percocet) ascorbic acid (vitamin C) 500 mg mg PO 12/22/21 04/19/25 History capsule nitroglycerin 0.3 mg sublingual 0.3 mg sublingual Q5-15M #90 tabs 07/09/22 04/19/25 Rx tablet furosemide 40 mg tablet 40 mg PO DAILY #90 tabs 03/23/24 0 04/19/25 Rx chaga mushroom PO DAILY 08/13/24 04/19/25 History atenolol 50 mg tablet 50 mg PO DAILY #90 tabs 11/23/24 0 04/19/25 Rx pregabalin 150 mg capsule mg PO BID 01/18/25 04/19/25 Histor y amlodipine 10 mg tablet See Rx Instructions .Route 5 04/19/25 Rx .COMPLEX #90 tabs prednisone 50 mg tablet 50 mg PO QDAY #6 tabs 02/15/25 Rx ondansetron HCl 4 mg tablet 4 mg PO Q8H PRN nausea and 5 04/19/25 Rx vomiting #90 tabs atorvastatin 40 mg tablet 40 mg PO QHS #90 TABLETS 04/19/25 04/19/25 Rx clopidogrel 75 mg tablet See Rx Instructions .Route 5 04/19/25 Rx .COMPLEX #90 tabs escitalopram oxalate 5 mg tablet 5 mg PO QDAY #90 tabs 04/19/25 Rx (Lexapro) lisinopril 40 mg tablet 40 mg PO DAILY #90 TABLETS 5 04/19/25 Rx Have you fallen in the past year?: Yes (twice; ice and then knee gave out) Nurse's Note: F/U. Has concern for skin issue(s) and has questions about medications. [facility] Medical History (Updated 04/19/25 @ 16:[address] Francisco De La Cruz MD) Skin lesion of back Lumbar radiculopathy Lumbar strain Right leg weakness MDD (major depressive disorder) MADALYN (generalized anxiety disorder) CAD (coronary artery disease) Right knee pain BPH (benign prostatic hyperplasia) Hyperlipidemia Fatigue Change in facial mole Vitamin D deficiency Screening for thyroid disorder Chronic pain Abnormal stress test Chest pain Anxiety and depression Neuropathy GERD (gastroesophageal reflux disease) Multiple sclerosis IBS (irritable bowel syndrome) HTN (hypertension) H/O emotional problems Bone fracture History of back problems Arthritis Surgical History History of hand surgery History of tonsillectomy History of appendectomy History of partial colectomy History of cholecystectomy Family History Other Anxiety Arthritis Bipolar 1 disorder Depression High cholesterol Hypertension Mental disorder Psychiatric care Suicide attempt Social History household members: spouse housing: house number of children: 0 Smoking Status: Current every day smoker tobacco type: cigars Tobacco: How many years used: 3 second hand exposure: No alcohol intake: former caffeine: Yes what type of physical activity do you participate in: none and walking debbie/adventist: Adventism HPI HPI Chief Complaint: 3 M FU Details: SHERLEY RIVERA, is a 74 M who presents to the office today for follow-up of his chronic conditions. The patient reports the presence of skin tags and a lesion with a red base on his back, which is painful upon contact. The lesion has been causing discomfort, especially when rubbed against clothing. Started on Lexapro at his last visit due to ongoing anxiety. He was however started on very low- dose due to concern for tolerance. He states that he has done well on the low-dose and has noted an overall improvement in his symptoms. He would like to go up to 5 mg. Hist (more content not included)... Normal [facility] CNOVon 02-24-2025 [facility] SHERLEY RIVERA ([id number]) 1950 M Date Time Provider Department 02/24/25 3:00 PM TANGELA MALDONADO [facility] During your visit today, we recorded the following information about you: Pulse Respiration Blood pressure Weight 68/minute 20/minute 172/95 117.3 kg Tangela Maldonado APRN.CNP 02/24/2025 2:58 PM Addendum Despite its legality, THC containing products and CBD products that may contain THC are not to be used while being prescribed pain medications. If your drug screen contains any THC your medication will be discontinued. Continue Percocet A prescription for narcan (naloxone) has been offered to the patient. Continue Lyrica Trial of flexeril Order XR LS He declines physical therapy at this time due to the cost Patient declines injections at this time Continue care with PCP and specialists Follow up with PCP concerning BP Follow up in 2 months Tangela Maldonado APRN.QUICKBOOKS BOOKKEEPER 02/24/2025 3:01 PM Signed Chief Complaint: Pain History of Present Illness: Sherley Rivera is a 74 year old year old male being seen at [facility] for a evaluation and/or management of his chronic pain. He states that since the last visit symptoms have been worsening. He has been having a sharp throb in his lower back on the right side. He was seen in the urgent care for this and given steroids. Otherwise, his medical history has not changed and he denies any hospital stays or ER visits. Pain Level: 9 Pain Location: (Patient-Rptd) Back-Lower Description: (Patient-Rptd) Radiating; Sharp; Shooting; Spasm; Stiffness; Tightness Duration Amount of Time: 10 Duration Units: Years Frequency: (Patient-Rptd) Continuous Intervention/Comfort measure: Medication; Reposition; Relaxation Has the Patient Had 2 Falls in the Last Year or 1 Fall with Injury or Currently Using an Ambulatory Assistive Device (Walker, Cane, Wheelchair, Crutches, etc.): (Patient-Rptd) Yes, Patient High Risk for Falls, Notify provider if applicable The patient denies any bowel or bladder dysfunction. The patient is currently prescribed percocet and lyrica from our office. The last doses were taken today. The medications are partially effective. PDMP website checked and validated. The OARRS report has been reviewed and is consistent with the patients medical history and medication intake. Last Opioid agreement effective date: 12/24/2024 Last UDS: Reviewed - No inconsistencies noted. 10/28/2024 UDS CONSISTENT 01/22/2024 UDS CONSISTENT 07/16/2023 UDS CONSISTENT 11/27/2022 UDS Questionable - no drugs detected but low creatinine. [facility] Urine Drug Screen Summary Report Date Value Ref Range Status 10/28/2024 FINAL Final Comment: ======== Opiate Class, MS, Ur RFX Oxycodone Class, MS, Ur RFX Methadone, MS, Ur RFX Acetaminophen, MS, Ur RFX ToxAssure Flex 23, Ur ======== Test Result Flag Units Drug Present Oxycodone 1098 ng/mg creat Oxymorphone 80 ng/mg creat Noroxycodone 700 ng/mg creat Sources of oxycodone include scheduled prescription medications. Oxymorphone and noroxycodone are expected metabolites of oxycodone. Oxymorphone is also available as a scheduled prescription medication. Acetaminophen PRESENT ======== Test Result Flag Units Ref Range Creatinine 64 mg/dL >=20 ======== Declared Medications: Medication list was not provided. ======== For clinical consultation, please call . ======== [facility] Urine Drug Screen and Benzo Confirm Urine Panel: Lab Results Component Value Date Cannabinoid Quant, Urine <16 11/27/2022 Benzoylecgonine Quant, Urine <24 11/27/2022 6-Acetylmorphine Quant, Urine <5 11/27/2022 Amphetamine Quant, Urine <5 11/27/2022 Methamphetamine Quant, Urine <8 11/27/2022 Buprenorphine Quant, Urine <20 11/27/2022 Norbuprenorphine Quant, Urine <20 11/27/2022 Methadone Quant, Urine <16 11/27/2022 EDDP Quant, Urine <6 11/27/2022 Tramadol Quant, Urine <25 11/27/2022 Desmethyltramadol Quant, Urine <20 11/27/2022 Fentanyl Quant, Urine <6 11/27/2022 Norfentanyl Quant, Urine <6 11/27/2022 Codeine Quant, Urine <11 11/27/2022 Morphine Quant, Urine <10 11/27/2022 Dihydrocodeine Quant, Urine <5 11/27/2022 Hydrocodone Quant, Urine <8 11/27/2022 Oxycodone Quant, Urine 1,235 (H) 11/27/2022 Hydromorphone Quant, Urine <5 11/27/2022 Oxymorphone Quant, Urine 253 (H) 11/27/2022 Chronic Pain Functional Assess (more content not included)... [facility] XR LUMBAR 4V AP/LAT/ FLEX/EX Ton 02-24-2025 XR LUMBAR 4V AP/LAT/ FLEX/EXT * * *Final Report* * * DATE OF EXAM: Feb 24 2025 4:56PM RNX [id number] - XR LUMBAR 4V AP/LAT/ FLEX/EXT / PROCEDURE REASON: Degeneration of intervertebral disc of lumbar region with discogenic back pain * * * * Physician Interpretation * * * * EXAMINATION: XR LUMBAR 4V AP/LAT/ FLEX/EXT HISTORY: PT C/O LOWER RIGHT SIDED BACK PAIN. NKI Degeneration of intervertebral disc of lumbar region with discogenic back pain . COMPARISON: None. FINDINGS: For counting purposes, L4-5 is presumed to be at the level of the iliac crests. Normal vertebral body height and alignment. No instability in flexion or extension. Levoscoliosis. _ There is degenerative disc disease with endplate spondylosis and disc height loss at all lumbar levels. Degenerative changes of the lumbar facet joints. Surgical clips in the right upper quadrant of the abdomen. _ IMPRESSION: Degenerative changes of the lumbar spine. Levoscoliosis Crib Tender: [facility] Transcribe Date/Time: Mar 02 2025 6:14P Dictated by : ADRIÁN ANGELES MD This examination was interpreted and the report reviewed and electronically signed by: ADRIÁN ANGELES MD on Mar 02 2025 6:15PM EST [id number] [email or web address] [facility] Urgent Care Visit Reporton 0 02-15-2025 Urgent Care Visit Report [facility] [address] [place] [address] OFFICE VISIT Date of Service: 02/15/25 MR#: [id number] Acct: [id number] Name: SHERLEY RIVERA Rep #: [id number] : 1950 Provider: SHARAN Kay Age/Sex: 74/M [place] [facility] Status: Signed Intake Vital Signs 01/18/25 14:22 02/15/25 07:47 Height 5 ft 10 in 5 ft 10 in Weight: 261 lb 257 lb 6 oz BMI 37.4 36.9 BP 136/78 H 138/82 H Blood Pressure Location Lt brachial Position Sitting Sitting Respiration 18 Pulse 67 61 Pulse Source Monitor Temp 96.8 F L 98.3 F Temp Source Temporal Oral Pulse Oximetry (%) 99 99 Oxygen Delivery Method room air room air Intake Visit Reasons: LOWER BACK PAIN Accompanied by: Self Is patient in pain?: Yes Pain scale (1-10): 8 Allergies escitalopram (From Lexapro) Allergy (Severe, Verified 02/15/25 07:39) Nausea glatiramer (copolymer 1) (From Copaxone) Allergy (Severe, Verified 02/15/25 07:39) Bruising/Bleeding dimethyl fumarate (From Tecfidera) Adverse Reaction (Severe, Verified 02/15/25 07:39) Nausea/Vom/Diarrhea ibuprofen Adverse Reaction (Verified 02/15/25 07:39) Upset Stomach Medications ???Medication ???Instructions ???Recorded ???Confirmed ???Type cholecalciferol (vitamin D3) 50 2,000 unit PO DAILY 09/01/1901/18 History mcg (2,000 unit) capsule oxycodone-acetaminop hen 7.5 mg-325 1 tab PO .QID PRN Pain 02/13/21 02/15/25 History mg tablet (Percocet) ascorbic acid (vitamin C) 500 mg mg PO 12/22/21 01/18/25 History capsule nitroglycerin 0.3 mg sublingual 0.3 mg sublingual Q5-15M #90 tabs 07/09/22 02/15/25 Rx tablet furosemide 40 mg tablet 40 mg PO DAILY #90 tabs 03/23/24 0 02/15/25 Rx chaga mushroom PO DAILY 08/13/24 01/18/25 History atorvastatin 40 mg tablet 40 mg PO QHS #90 tabs 09/28/2409/30 Rx clopidogrel 75 mg tablet See Rx Instructions .Route 4 02/15/25 Rx .COMPLEX #90 tabs ondansetron HCl 4 mg tablet 4 mg PO Q8H PRN nausea and 5 01/18/25 Rx vomiting #30 tabs atenolol 50 mg tablet 50 mg PO DAILY #90 tabs 11/23/24 0 02/15/25 Rx lisinopril 40 mg tablet 40 mg PO DAILY #90 TABLETS 5 02/15/25 Rx escitalopram oxalate 5 mg tablet 2.5 mg (1/2 x 5 mg) PO QDAY #60 02/15/25 Rx (Lexapro) tabs pregabalin 150 mg capsule mg PO BID 01/18/25 02/15/25 Histor y amlodipine 10 mg tablet See Rx Instructions .Route 5 02/15/25 Rx .COMPLEX #90 tabs prednisone 50 mg tablet 50 mg PO QDAY #6 tabs 02/15/2509/30 Rx Have you fallen in the past year?: No Nurse's Note: Patient has been having Right side lower back pain since Sat or thus. Patient states that he has a tightness that goes down his leg. [facility] Medical History (Updated 02/15/25 @ 09:31 by Adi TSANG, PA) Lumbar radiculopathy Lumbar strain Right leg weakness MDD (major depressive disorder) MADALYN (generalized anxiety disorder) CAD (coronary artery disease) Right knee pain BPH (benign prostatic hyperplasia) Hyperlipidemia Fatigue Change in facial mole Vitamin D deficiency Screening for thyroid disorder Chronic pain Abnormal stress test Chest pain Anxiety and depression Neuropathy GERD (gastroesophageal reflux disease) Multiple sclerosis IBS (irritable bowel syndrome) HTN (hypertension) H/O emotional problems Bone fracture History of back problems Arthritis Surgical History History of hand surgery History of tonsillectomy History of appendectomy History of partial colectomy History of cholecystectomy Family History Other Anxiety Arthritis Bipolar 1 disorder Depression High cholesterol Hypertension Mental disorder Psychiatric care Suicide attempt Social History household members: spouse housing: house number of children: 0 Smoking Status: Current every day smoker tobacco type: cigars Tobacco: How many years used: 3 second hand exposure: No alcohol intake: former caffeine: Yes what type of physical activity do you participate in: none and walking debbie/adventist: Adventism HPI HPI Details: SHERLEY RIVERA, is a 74 M who presents to the office today for initial evaluation approximately 1 week history of progressively worsening right low back pain with intermittent right thigh paresthes ias. No history of trauma/fall to the same. Patient notes currently under the care of pain management for chronic low back pain, well-controlled with oxycodone/acetaminop hen, but noting the symptoms are new. No cauda complaints upon questioning. Pain is aggravated touch and with range of motion, alleviat (more content not included)... Normal [facility] Internal Medicine Office Vis cata 01-18-2025 Internal Medicine Office Visit [facility] [address] [place] [address] [place] [address] OFFICE VISIT Date of Service: 01/18/25 MR#: [id number] Acct: [id number] Name: SHERLEY RIVERA Rep #: [id number] : 1950 Provider: Dr. Francisco yeh MD Age/Sex: 74/M [place] [facility] Status: Signed Intake Vital Signs 10/19/24 14:25 01/18/25 14:22 Height 5 ft 10 in 5 ft 10 in Weight: 261 lb BMI 37.4 BP 136/78 H Blood Pressure Location Lt brachial Position Sitting Respiration 18 Pulse 67 Pulse Source Monitor Temp 96.8 F L Temp Source Temporal Pulse Oximetry (%) 99 Oxygen Delivery Method room air Intake Visit Reasons: 3 M FU Chief Complaint: 3 M FU Is patient in pain?: No Allergies escitalopram (From Lexapro) Allergy (Severe, Verified 01/18/25 14:27) Nausea glatiramer (copolymer 1) (From Copaxone) Allergy (Severe, Verified 01/18/25 14:27) Bruising/Bleeding dimethyl fumarate (From Tecfidera) Adverse Reaction (Severe, Verified 01/18/25 14:27) Nausea/Vom/Diarrhea ibuprofen Adverse Reaction (Verified 01/18/25 14:27) Upset Stomach Medications ???Medication ???Instructions ???Recorded ???Confirmed ???Type cholecalciferol (vitamin D3) 50 2,000 unit PO DAILY 09/01/1901/18 History mcg (2,000 unit) capsule oxycodone-acetaminop hen 7.5 mg-325 1 tab PO .QID PRN Pain 02/13/21 01/18/25 History mg tablet (Percocet) ascorbic acid (vitamin C) 500 mg mg PO 12/22/21 01/18/25 History capsule nitroglycerin 0.3 mg sublingual 0.3 mg sublingual Q5-15M #90 tabs 07/09/22 01/18/25 Rx tablet amlodipine 10 mg tablet See Rx Instructions .Route 4 01/18/25 Rx .COMPLEX #90 tabs furosemide 40 mg tablet 40 mg PO DAILY #90 tabs 03/23/24 0 01/18/25 Rx chaga mushroom PO DAILY 08/13/24 01/18/25 History atorvastatin 40 mg tablet 40 mg PO QHS #90 tabs 09/28/24 Rx clopidogrel 75 mg tablet See Rx Instructions .Route 4 01/18/25 Rx .COMPLEX #90 tabs ondansetron HCl 4 mg tablet 4 mg PO Q8H PRN nausea and 5 01/18/25 Rx vomiting #30 tabs atenolol 50 mg tablet 50 mg PO DAILY #90 tabs 11/23/24 0 01/18/25 Rx lisinopril 40 mg tablet 40 mg PO DAILY #90 TABLETS 5 01/18/25 Rx escitalopram oxalate 5 mg tablet 2.5 mg (1/2 x 5 mg) PO QDAY #60 01/18/25 Rx (Lexapro) tabs pregabalin 150 mg capsule mg PO BID 01/18/25 01/18/25 Histor y Have you fallen in the past year?: Yes (x2) PFS Medical History (Updated 01/18/25 @ 14:[address] Francisco De La Cruz MD) Right leg weakness MDD (major depressive disorder) MADALYN (generalized anxiety disorder) CAD (coronary artery disease) Right knee pain BPH (benign prostatic hyperplasia) Hyperlipidemia Fatigue Change in facial mole Vitamin D deficiency Screening for thyroid disorder Chronic pain Abnormal stress test Chest pain Anxiety and depression Neuropathy GERD (gastroesophageal reflux disease) Multiple sclerosis IBS (irritable bowel syndrome) HTN (hypertension) H/O emotional problems Bone fracture History of back problems Arthritis Surgical History History of hand surgery History of tonsillectomy History of appendectomy History of partial colectomy History of cholecystectomy Family History Other Anxiety Arthritis Bipolar 1 disorder Depression High cholesterol Hypertension Mental disorder Psychiatric care Suicide attempt Social History household members: spouse housing: house number of children: 0 Smoking Status: Current every day smoker tobacco type: cigars Tobacco: How many years used: 3 second hand exposure: No alcohol intake: former caffeine: Yes what type of physical activity do you participate in: none and walking debbie/adventist: Adventism HPI HPI Chief Complaint: 3 M FU Details: SHERLEY RIVERA, is a 74 M who presents to the office today for follow-up of his chronic conditions. Also has some concerns. Chronic history of anxiety and depression. Recently, started taking Lexapro again however he states that he discontinued just after a few days due to intolerable side effects. Ongoing depressive symptoms which have been progressively worsening. History of hypertension, blood pressure today at 136/78 mmHg. Has reestablished with cardiology and workup so far with no significant concerns. Documented history of multiple sclerosis although, recently reevaluated by neurology with no significant concerns for this. He states that recently, he had a fall where his right leg just gave out. Was able to stand up and walk without any significant assistance no loss of consciousness. Other chronic medical con (more content not included)... [facility] SHER[facility]IVER[facility] ([id number]) 1950 M Date Time Provider Department 12/24/24 3:00 PM [facility] During your visit today, we recorded the following information about you: Pulse Respiration Blood pressure Weight 68/minute 20/minute 176/68 127.2 kg Tangela Maldonado APRN.CNP 12/24/2024 2:51 PM Signed Despite its legality, THC containing products and CBD products that may contain THC are not to be used while being prescribed pain medications. If your drug screen contains any THC your medication will be discontinued. Continue Percocet A prescription for narcan (naloxone) has been offered to the patient. Continue Lyrica Patient declines injections at this time Continue care with PCP and specialists Follow up in 2 months Tangela Maldonado APRN.CNP 12/24/2024 3:09 PM Signed Chief Complaint: Pain History of Present Illness: Sherley Rivera is a 74 year old year old male being seen at [facility] for a evaluation and/or management of his chronic pain. He states that since the last visit symptoms have been stable. He slipped on the ice when going up some stairs and fell. He denies serious injury or an Emergency Room visit. His BP is elevated today. He states he did not take his BP medication. Otherwise, his medical history has not changed and he denies any hospital stays or ER visits. Pain Level: 5 Pain Location: Back Description: Aching; Burning; Throbbing Duration Amount of Time: 10 Duration Units: Years Frequency: Continuous Intervention/Comfort measure: Medication; Reposition; Relaxation Has the Patient Had 2 Falls in the Last Year or 1 Fall with Injury or Currently Using an Ambulatory Assistive Device (Walker, Cane, Wheelchair, Crutches, etc.): (Patient-Rptd) No The patient denies any bowel or bladder dysfunction. The patient is currently prescribed percocet and lyrica from our office. The last doses were taken today. The medications are partially effective. PDMP website checked and validated. The OARRS report has been reviewed and is consistent with the patients medical history and medication intake. Last Opioid agreement effective date: 12/03/2023 Last UDS: Reviewed - No inconsistencies noted. 10/28/2024 UDS CONSISTENT 01/22/2024 UDS CONSISTENT 07/16/2023 UDS CONSISTENT 11/27/2022 UDS Questionable - no drugs detected but low creatinine. [facility] Urine Drug Screen Summary Report Date Value Ref Range Status 10/28/2024 FINAL Final Comment: ======== Opiate Class, MS, Ur RFX Oxycodone Class, MS, Ur RFX Methadone, MS, Ur RFX Acetaminophen, MS, Ur RFX ToxAssure Flex 23, Ur ======== Test Result Flag Units Drug Present Oxycodone 1098 ng/mg creat Oxymorphone 80 ng/mg creat Noroxycodone 700 ng/mg creat Sources of oxycodone include scheduled prescription medications. Oxymorphone and noroxycodone are expected metabolites of oxycodone. Oxymorphone is also available as a scheduled prescription medication. Acetaminophen PRESENT ======== Test Result Flag Units Ref Range Creatinine 64 mg/dL >=20 ======== Declared Medications: Medication list was not provided. ======== For clinical consultation, please call . ======== [facility] Urine Drug Screen and Benzo Confirm Urine Panel: Lab Results Component Value Date Cannabinoid Quant, Urine <16 11/27/2022 Benzoylecgonine Quant, Urine <24 11/27/2022 6-Acetylmorphine Quant, Urine <5 11/27/2022 Amphetamine Quant, Urine <5 11/27/2022 Methamphetamine Quant, Urine <8 11/27/2022 Buprenorphine Quant, Urine <20 11/27/2022 Norbuprenorphine Quant, Urine <20 11/27/2022 Methadone Quant, Urine <16 11/27/2022 EDDP Quant, Urine <6 11/27/2022 Tramadol Quant, Urine <25 11/27/2022 Desmethyltramadol Quant, Urine <20 11/27/2022 Fentanyl Quant, Urine <6 11/27/2022 Norfentanyl Quant, Urine <6 11/27/2022 Codeine Quant, Urine <11 11/27/2022 Morphine Quant, Urine <10 11/27/2022 Dihydrocodeine Quant, Urine <5 11/27/2022 Hydrocodone Quant, Urine <8 11/27/2022 Oxycodone Quant, Urine 1,235 (H) 11/27/2022 Hydromorphone Quant, Urine <5 11/27/2022 Oxymorphone Quant, Urine 253 (H) 11/27/2022 Chronic Pain Functional Assessment Tools Pain Disability Index: 10/28/2024 12/24/2024 Pain Disability Index Family/Home Responsibilities: This category includes chores or duties performed around the house (e.g. yard work), errands or favors for ot (more content not included)... [facility] 10-28-2024 [facility] Office Visit ([facility]) SHERLEY RIVERA ([id number]) 1950 M Date Time Provider Department 10/28/24 3:00 PM TANGELA MALDONADO During your visit today, we recorded the following information about you: Pulse Respiration Blood pressure Weight 78/minute 20/minute 158/73 128.5 kg Tangela Maldonado APRN.CNP 10/28/2024 2:57 PM Signed Order UDS Despite its legality, THC containing products and CBD products that may contain THC are not to be used while being prescribed pain medications. If your drug screen contains any THC your medication will be discontinued. Continue Percocet A prescription for narcan (naloxone) has been offered to the patient. Continue Lyrica He was started on this medication and has been maintained on it by Dr Roland and CLINICAL ALLERGIST's working with her. Patient declines injections at this time Continue care with PCP and specialists Follow up in 2 months Tangela Maldonado APRN.CNP 10/28/2024 3:14 PM Signed Chief Complaint: Pain History of Present Illness: Sherley Rivera is a 74 year old year old male being seen at [facility] for a evaluation and/or management of his chronic pain. The patient was last seen on 08/27/2024. He states that since the last visit symptoms have been stable. His medical history has not changed and he denies any hospital stays or ER visits. Pain Location: lower back, feet due to neuropathy, right knee VAS: 7-8/10 Timing: constant Character/Quality: ache Radiation: pelvic area to both legs at times Numbness/Tingling: toes Burning: denies Weakness: denies Falls: denies Alleviating Factors: medications and laying down Aggravating Factors: standing, walking, prior to medications The patient denies any bowel or bladder dysfunction. The patient is currently prescribed percocet and lyrica from our office. The last doses were taken today. The medications are partially effective. PDMP website checked and validated. OARRS report reviewed and is consistent with the patients medical history and medication intake. Last Opioid agreement effective date: 12/03/2023 Last UDS: Reviewed - No inconsistencies noted. 01/22/2024 UDS CONSISTENT 07/16/2023 UDS CONSISTENT 11/27/2022 UDS Questionable - no drugs detected but low creatinine. Summary Report Date Value Ref Range Status 01/16/2024 FINAL Final Comment: ======== Opiate Class, MS, Ur RFX Oxycodone Class, MS, Ur RFX Acetaminophen, MS, Ur RFX ToxAssure Flex 23, Ur ======== Test Result Flag Units Drug Present Oxycodone 4730 ng/mg creat Noroxycodone 5100 ng/mg creat Sources of oxycodone include scheduled prescription medications. Noroxycodone is an expected metabolite of oxycodone. Acetaminophen PRESENT ======== Test Result Flag Units Ref Range Creatinine 20 mg/dL >=20 ======== Declared Medications: Medication list was not provided. ======== For clinical consultation, please call . ======== PREGABALIN, URINE Date Value Ref Range Status 01/16/2024 97.8 ug/mL Final Comment: This test was developed and its performance characteristics determined by [employer]. It has not been cleared or approved by the Food and Drug Administration. Urine Panel: Lab Results Component Value Date Cannabinoid Quant, Urine <16 11/27/2022 Benzoylecgonine Quant, Urine <24 11/27/2022 6-Acetylmorphine Quant, Urine <5 11/27/2022 Amphetamine Quant, Urine <5 11/27/2022 Methamphetamine Quant, Urine <8 11/27/2022 Buprenorphine Quant, Urine <20 11/27/2022 Norbuprenorphine Quant, Urine <20 11/27/2022 Methadone Quant, Urine <16 11/27/2022 EDDP Quant, Urine <6 11/27/2022 Tramadol Quant, Urine <25 11/27/2022 Desmethyltramadol Quant, Urine <20 11/27/2022 Fentanyl Quant, Urine <6 11/27/2022 Norfentanyl Quant, Urine <6 11/27/2022 Codeine Quant, Urine <11 11/27/2022 Morphine Quant, Urine <10 11/27/2022 Dihydrocodeine Quant, Urine <5 11/27/2022 Hydrocodone Quant, Urine <8 11/27/2022 Oxycodone Quant, Urine 1,235 (H) 11/27/2022 Hydromorphone Quant, Urine <5 11/27/2022 Oxymorphone Quant, Urine 253 (H) 11/27/2022 Chronic Pain Functional Assessment Tools Pain Disability Index: 11/24/2022 10/28/2024 Pain Disability Index Family/Home Responsibilities: This category includes chores or duties performed around the house (e.g. yard work), errands or favors for other family members (e.g. driving the children to school) 7 5 Recreation: This category in (more content not included)... Normal [facility] Basic Metabolic Profile (BMP )on 10-19-2024 BUN/CRE 14.7 RATIO Normal 10-20 [facility] Comment on above: Performed By: #### L 100.0100, L500.2500 ####[facility] [address] [place], [address] CA,Total 8.8 mg/dL Normal 8.5-10.1 [facility] Comment on above: Performed By: #### L 100.0100, L500.2500 ####[facility] [address] [place], [address] Chloride [Moles/Vol] 107 mmol/L Normal 98-107 [facility] Comment on above: Performed By: #### L 100.0100, L500.2500 ####[facility] [address] [place], [address] CO2 [Moles/Vol] 29.0 mmol/L Normal 21.0-32.0 [facility] Comment on above: Performed By: #### L 100.0100, L500.2500 ####[facility] [address] [place], [address] Creatinine [Mass/Vol] 1.02 mg/dL Normal 0.70-1.30 [facility] Comment on above: Result Comment: The validity of the calculated GFR GFRAA in patients over 70 years has not been determined. Clinical correlation is essential. Performed By: #### L 100.0100, L500.2500 ####[facility] [address] [place], [address] EST GFR - AA 92 mL/min Normal >60 [facility] Comment on above: Result Comment: Afri can German GFR Calc Performed By: #### L 100.0100, L500.2500 ####[facility] [address] [place], [address] GAP 3 Low 5-15 [facility] Comment on above: Performed By: #### L 100.0100, L500.2500 ####[facility] [address] [place], [address] GFR/1.73 sq M.predicted among non-blacks MDRD (S/P/Bld) [Vol rate/Area] 76 mL/min/{1.73_m2} Normal >60 [facility] Comment on above: Result Comment: Non- GFR Calc Performed By: #### L 100.0100, L500.2500 ####[facility] [address] [place], [address] Glucose [Mass/Vol] 98 mg/dL Normal 74-106 [facility] Comment on above: Performed By: #### L 100.0100, L500.2500 ####[facility] [address] [place], [address] Potassium [Moles/Vol] 3.6 mmol/L Normal 3.5-5.1 [facility] Comment on above: Performed By: #### L 100.0100, L500.2500 ####[facility] [address] [place], [address] Sodium [Moles/Vol] 139 mmol/L Normal 136-145 [facility] Comment on above: Performed By: #### L 100.0100, L500.2500 ####[facility] [address] [place], [address] Urea nitrogen [Mass/Vol] 15 mg/dL Normal 7-18 [facility] Comment on above: Performed By: #### L 100.0100, L500.2500 ####[facility] [address] [place], [address] CBC W/Diff, Automatedon 10-07 Absolute Lymph 1.87 X10 3/uL Normal 0.83-4.51 [facility] Comment on above: Performed By: #### L 100.0100, L500.2500 #### [facility] [address] [place], [address] Absolute Neut 5.7 X10 3/uL Normal 2.0-7.7 [facility] Comment on above: Performed By: #### L 100.0100, L500.2500 #### [facility] [address] [place], [address] Basophils/100 WBC (Bld) 0.6 % Normal 0-1 [facility] Comment on above: Performed By: #### L 100.0100, L500.2500 #### [facility] [address] [place], [address] Eosinophils/100 WBC (Bld) 2.3 % Normal 0-5 [facility] Comment on above: Performed By: #### L 100.0100, L500.2500 #### [facility] [address] [place], [address] Erythrocyte distribution width (RBC) [Ratio] 12.2 % Normal 11.6-14.6 [facility] Comment on above: Performed By: #### L 100.0100, L500.2500 #### [facility] [address] [place], [address] Hematocrit (Bld) [Volume fraction] 41.6 % Normal 40-54 [facility] Comment on above: Performed By: #### L 100.0100, L500.2500 #### [facility] [address] [place], [address] Hemoglobin (Bld) [Mass/Vol] 14.1 g/dL Normal 13.0-16.5 [facility] Comment on above: Performed By: #### L 100.0100, L500.2500 #### [facility] [address] [place], [address] IG% 0.300 Normal 0.0-0.9 [facility] Comment on above: Result Comment: IG% - Immature Granulocytes (promyelocytes, myelocytes and metamyelocytes) > 1% indicates that a LEFT SHIFT is Present. Performed By: #### L 100.0100, L500.2500 #### [facility] [address] [place], [address] Lymphocytes/100 WBC (Bld) 20.8 % Normal 19-41 [facility] Comment on above: Performed By: #### L 100.0100, L500.2500 #### [facility] [address] [place], [address] MCH (RBC) [Entitic mass] 31.1 pg Normal 27.0-32.0 [facility] Comment on above: Performed By: #### L 100.0100, L500.2500 #### [facility] [address] [place], [address] MCHC (RBC) [Mass/Vol] 33.9 g/dL Normal 32-36 [facility] Comment on above: Performed By: #### L 100.0100, L500.2500 #### [facility] [address] [place], [address] MCV (RBC) [Entitic vol] 91.6 fL Normal 80-94 [facility] Comment on above: Performed By: #### L 100.0100, L500.2500 #### [facility] [address] [place], [address] Monocytes/100 WBC (Bld) 12.0 % High 0-10 [facility] Comment on above: Performed By: #### L 100.0100, L500.2500 #### [facility] [address] [place], [address] Neutrophils/100 WBC (Bld) 64.0 % Normal 47-70 [facility] Comment on above: Performed By: #### L 100.0100, L500.2500 #### [facility] [address] [place], [address] Nucleated RBC (Bld) [#/Vol] 0 10*3/uL Normal 0-5 [facility] Comment on above: Performed By: #### L 100.0100, L500.2500 #### [facility] [address] [place], [address] Platelet mean volume (Bld) [Entitic vol] 9.8 fL Normal 6.2-12.0 [facility] Comment on above: Performed By: #### L 100.0100, L500.2500 #### [facility] [address] [place], [address] Platelets (Bld) [#/Vol] 270 10*3/uL Normal 150-450 [facility] Comment on above: Performed By: #### L 100.0100, L500.2500 #### [facility] [address] [place], [address] RBC (Bld) [#/Vol] 4.54 10*6/uL Low 4.6-6.2 [facility] Comment on above: Performed By: #### L 100.0100, L500.2500 #### [facility] [address] [place], [address] RDW SD 41.1 fl Normal 35.1-43.9 [facility] Comment on above: Performed By: #### L 100.0100, L500.2500 #### [facility] [address] [place], [address] WBC (Bld) [#/Vol] 9.0 10*3/uL Normal 4.4-11.0 [facility] Comment on above: Performed By: #### L 100.0100, L500.2500 #### [facility] [address] [place], [address] Internal Medicine Office Vis cata 10-19-2024 Internal Medicine Office Visit [facility] [address] [place] [address] [place] [address] OFFICE VISIT Date of Service: 10/19/24 MR#: [id number] Acct: [id number] Name: SHERLEY RIVERA Rep #: [id number] : 1950 Provider: Dr. Francisco yeh MD Age/Sex: 74/M [place] [facility] [place]: Signed Intake Vital Signs 06/10/24 14:38 08/13/24 14:35 10/19/24 14:25 Height 5 ft 10 in 5 ft 10 in 5 ft 10 in Weight: 276 lb BMI 39.6 BP 116/62 Blood Pressure Location Lt brachial Position Sitting Respiration 16 Pulse 7 L Pulse Source Monitor Temp 97.4 F L Temp Source Temporal Pulse Oximetry (%) 99 Oxygen Delivery Method room air Intake Visit Reasons: 3 m fu Chief Complaint: FU Chronic Conditions Red Hat Engineer Required: No Accompanied by: Self Is patient in pain?: No Allergies glatiramer (copolymer 1) (From Copaxone) Allergy (Severe, Verified 10/19/24 14:21) Bruising/Bleeding dimethyl fumarate (From Tecfidera) Adverse Reaction (Severe, Verified 10/19/24 14:21) Nausea/Vom/Diarrhea ibuprofen Adverse Reaction (Verified 10/19/24 14:21) Upset Stomach Medications ???Medication ???Instructions ???Recorded ???Confirmed ???Type cholecalciferol (vitamin D3) 50 2,000 unit PO DAILY 09/01/19 10/19/24 History mcg (2,000 unit) capsule oxycodone-acetaminop hen 7.5 mg-325 1 tab PO .QID PRN Pain 02/13/21 10/19/24 History mg tablet (Percocet) ascorbic acid (vitamin C) 500 mg mg PO 12/22/21 10/19/24 History capsule nitroglycerin 0.3 mg sublingual 0.3 mg sublingual Q5-15M #90 tabs 07/09/22 10/19/24 Rx tablet pregabalin 150 mg capsule mg PO 12/04/23 10/19/24 History amlodipine 10 mg tablet See Rx Instructions .Route 12/31/23 10/19/24 Rx .COMPLEX #90 tabs furosemide 40 mg tablet 40 mg PO DAILY #90 tabs 03/23/24 10/19/24 Rx atenolol 50 mg tablet 50 mg PO DAILY #90 tabs 05/04/24 10/19/24 Rx lisinopril 40 mg tablet 40 mg PO DAILY #90 tabs 06/17/24 10/19/24 Rx chaga mushroom PO DAILY 08/13/24 10/19/24 History atorvastatin 40 mg tablet 40 mg PO QHS #90 tabs 09/28/24 10/19/24 Rx clopidogrel 75 mg tablet See Rx Instructions .Route 09/28/24 10/19/24 Rx .COMPLEX #90 tabs escitalopram oxalate 10 mg tablet 10 mg PO QDAY #30 tabs 10/19/24 10/19/24 Rx (Lexapro) ondansetron HCl 4 mg tablet 4 mg PO Q8H PRN nausea and 10/19/24 10/19/24 Rx vomiting #30 tabs Have you fallen in the past year?: No PFSH Medical History MDD (major depressive disorder) MADALYN (generalized anxiety disorder) CAD (coronary artery disease) Right knee pain BPH (benign prostatic hyperplasia) Hyperlipidemia Fatigue Change in facial mole Vitamin D deficiency Screening for thyroid disorder Chronic pain Abnormal stress test Chest pain Anxiety and depression Neuropathy GERD (gastroesophageal reflux disease) Multiple sclerosis IBS (irritable bowel syndrome) HTN (hypertension) H/O emotional problems Bone fracture History of back problems Arthritis Surgical History History of hand surgery History of tonsillectomy History of appendectomy History of partial colectomy History of cholecystectomy Family History Other Anxiety Arthritis Bipolar 1 disorder Depression High cholesterol Hypertension Mental disorder Psychiatric care Suicide attempt Social History household members: spouse housing: house number of children: 0 Smoking Status: Current every day smoker tobacco type: cigars Tobacco: How many years used: 3 second hand exposure: No alcohol intake: former caffeine: Yes what type of physical activity do you participate in: none and walking debbie/adventist: Adventism HPI HPI Chief Complaint: FU Chronic Conditions Details: SHERLEY RIVERA, is a 74 M who presents to the office today for follow-up of his chronic conditions. Chronic history of anxiety and depression. Has been seeing psychiatry over the last year however he states that current measures have not been particularly helpful. He would like to go back on Lexapro which he had been on in the past and believes he tolerated much better overall. History of hypertension, blood pressure today at 116/62 mmHg. Taking medication as prescribed. No chest pain, palpitation or worsening shortness of breath reported. Since his last visit, established with cardiology and workup so far with no significant concerns per patient. Other chronic conditions are stable. ROS Const Constitutional: No body ache, chills, excessive sweating, fatigue, fever(s), frequent falls, headache(s), snoring, weakness or change in appetite Eyes Eyes: No blurry vision, change in visi (more content not included)... Normal [facility] Echo Completeon 09-08-2024 Echo Complete [facility] [address] [place] [address] Echo Complete 09/08/24 0830 MR#: [id number] Acct: [id number] Name: SHERLEY RIVERA Rep #: [id number] : 1950 74 From: Denise Johnson MD Attending Dr: Dr. Naldo Caballero MD Status: [facility] Ordering Dr: Naldo Caballero MD Date: 09/08/24 Location: [facility] Sex: M C Admitted: Reason For Study: Dyspnea/SOB Procedure This was a 2D Doppler, Color Flow transthoracic echocardiogram. Exam performed in department. Left Ventricle Normal LV size. The estimated ejection fraction is 55 %. No evidence for diastolic dysfunction. No regional wall motion abnormalities noted. Right Ventricle Normal RV size. Normal systolic function. Atria The left and right atria are normal. No doppler evidence for ASD. Mitral Valve There is no mitral valve stenosis. Trivial mitral valve insufficiency. Tricuspid Valve There is no tricuspid stenosis. Trivial tricuspid valve insufficiency. Unable to estimate RV systolic pressure due to insufficient tricuspid regurgitant envelope. Aortic Valve Trisinus/trileaflet aortic valve. Aortic sclerosis, no stenosis. There is no aortic stenosis. No aortic valve insufficiency. Pulmonic Valve There is no pulmonic valvular stenosis. No pulmonic valve insufficiency. Great Vessels Mildly dilated aortic root. Pericardium/Pleural No pericardial effusion. MMode/2D Measurements Calculations LVIDd: 5.1 cm IVSd: 1.1 cm LVOT diam: 2.0 cm LVIDs: 3.1 cm LVPWd: 1.1 cm LVOT area: 3.3 cm2 RVDd: 4.6 cm FS: 40.6 % _ asc Aorta Diam: 3.9 cm LAV(MOD-bp): 50.2 ml LVAd ap4: 28.4 cm2 LAV(MOD-bp) Indexed: 21.0 ml/m2 LVLd ap4: 7.5 cm LAV(MOD-sp2): 56.2 ml EDV(MOD-sp4): 89.1 ml LAV(MOD-sp4): 43.4 ml EDV(sp4-el): 90.5 ml LVAs ap4: 14.2 cm2 LVLs ap4: 6.3 cm ESV(MOD-sp4): 28.8 ml ESV(sp4-el): 27.3 ml EF(MOD-sp4): 67.6 % EF(sp4-el): 69.8 % _ SV(MOD-sp4): 60.2 ml SV(sp4-el): 63.1 ml LA A4 area: 16.7 cm2 SI(MOD-sp4): 25.1 ml/m2 _ LA dimension(2D): 4.6 cm RA A4 area: 17.2 cm2 Time Measurements MV dec time: 0.25 sec Doppler Measurements Calculations MV E max renan: 65.3 cm/sec Lat Peak E' Renan: 8.4 cm/sec Med Peak E' Renan: 8.7 cm/sec MV A max renan: 69.3 cm/sec E/E' lat: 7.8 E/E' med: 7.5 MV E/A: 0.94 _ Ao V2 max: 149.4 cm/sec LV V1 max: 122.9 cm/sec MV dec slope: 256.6 cm/sec2 Ao max P.9 mmHg LV V1 max P.0 mmHg Ao V2 mean: 103.8 cm/sec LV V1 mean P.0 mmHg Ao mean P.9 mmHg LV V1 mean: 79.5 cm/sec Ao V2 VTI: 32.0 cm LV V1 VTI: 28.7 cm AV (velocity ratio): 0.90 JAZ(I,D): 3.0 cm2 JAZ(V,D): 2.7 cm2 _ SV(LVOT): 94.5 ml PA V2 max: 95.1 cm/sec TR max renan: 265.0 cm/sec TR max P.1 mmHg ECHO/Echo Complete Interpretation Summary The estimated ejection fraction is 55 %. No evidence for diastolic dysfunction. Trivial mitral valve insufficiency. Mildly dilated aortic root. Ordering Physician: Naldo Caballero Referring Physician: Francisco De La Cruz Performed By: Damián Stella FUNG, Annamarie and Student 09/08/24 1335 Date Denise Johnson MD CC: Dr. Francisco De La Cruz MD; Dr. Naldo Caballero MD Date Dictated: 09/08/24829 Date Transcribed: 09/08/241334 Crib Tender: Signed Normal [facility] Stress Reporton 09-08-2024 Stress Report [facility] [address] [place] [id number] MR#: [id number] Acct: [id number] Name: SHERLEY RIVERA Rep #: [id number] : 1950 74 From: Denise Johnson MD Primary Care: Dr. Francisco De La Cruz MD Status: REG CLI Referring Dr: Naldo Caballero MD Sex: M C Stress Test Report Date: 09/08/2024 Procedure: Pharmacologic stress nuclear imaging study Indications: Abnormal stress test Consent: Per the patient Procedure: The patient underwent pharmacologic (Regadenoson) evaluation with a peak heart rate of 65 beats per minute (44%predicted maximal heart rate) and a peak blood pressure of 118/68 mmHg. The baseline ECG demonstrated normal sinus rhythm. EKG during lexiscan infusion revealed no significant ischemic changes. EKG post infusion revealed no significant ischemic changes [There were no cardiac dysrhythmias pretest, during pharmacologic infusion, or recovery]. [There was no complaint of chest discomfort during pharmacologic infusion or recovery]. The examination was discontinued secondary to completion of protocol. Impression: 1. Lexiscan stress test test is negative for Lexiscan infusion induced EKG changes of ischemia. 2. Lexiscan stress test test is negative for Lexiscan infusion induced chest pain. 3. Results of the nuclear portion of the test is as below Myocardial perfusion imaging study: Technique: The patient was injected with 14.7 millicuries of technetium 99m Cardiolite and subsequently rest SPECT Cardiolite nuclear imaging was obtained in the horizontal long, vertical long, and short axis views. The patient underwent pharmacologic [Regadenoson 0.4mg] evaluation. Please see above for details. The patient was injected with 44.4 millicuries of technetium 99m Cardiolite and subsequently stress SPECT Cardiolite nuclear imaging was obtained in the horizontal long, vertical long, and short axis views. A gated Cardiolite study at peak stress was obtained. Interpretation: Rest and stress SPECT Cardiolite nuclear imaging status post realignment, normalization, and attenuation correction demonstrate evidence of mild ischemia involving the inferior wall and inferior apex. Gated images reveal no significant regional wall motion abnormalities. The reported LVEF is 72%. Impression: 1. There is evidence of mild ischemia involving the inferior wall and inferior apex. 2. Estimated ejection fraction is 72%. This note was generated with [employer] software. It may contain incorrect words, spelling, and punctuation that were not noted in checking the note before signing. 09/08/24 1451 Date Denise Johnson MD CC: Dr. Francisco De La Cruz MD; Dr. Naldo Caballero MD Date Dictated: 09/08/241445 Date Transcribed: 09/08/241445 Crib Tender: NN Signed Normal [facility] CNOVon 08-27-2024 [facility] SHERLEY [facility]IVER[facility] ([id number]) 1950 M Date Time Provider Department 08/27/24 3:00 PM TANGELA MALDONADO [facility] During your visit today, we recorded the following information about you: Pulse Respiration Blood pressure Weight 74/minute 20/minute 155/74 123.7 kg Tangela Maldonado APRN.FANNY 08/27/2024 3:09 PM Addendum Order Drug Screen Despite its legality, THC containing products and CBD products that may contain THC are not to be used while being prescribed pain medications. If your drug screen contains any THC your medication will be discontinued. Continue Percocet A prescription for narcan (naloxone) has been offered to the patient. Continue Lyrica He was started on this medication and has been maintained on it by Dr Roland and CLINICAL ALLERGIST's working with her. Patient declines injections at this time Continue care with PCP and specialists Follow up in 2 months Tangela Maldonado APRN.FANNY 08/27/2024 3:09 PM Signed Chief Complaint: Pain History of Present Illness: Sherley Rivera is a 74 year old year old male being seen at [facility] for a evaluation and/or management of his chronic pain. The patient was last seen on 07/01/2024. He states that since the last visit symptoms have been stable. His medical history has not changed and he denies any hospital stays or ER visits. Pain Location: lower back, feet due to neuropathy, right knee VAS: 3-4/10 Timing: constant Character/Quality: ache Radiation: pelvic area to both legs at times Numbness/Tingling: toes Burning: denies Weakness: denies Falls: denies Alleviating Factors: medications and laying down Aggravating Factors: standing, walking, prior to medications The patient denies any bowel or bladder dysfunction. The patient is currently prescribed percocet and lyrica from our office. The last doses were taken today. The medications are partially effective. PDMP website checked and validated. OARRS report reviewed and is consistent with the patients medical history and medication intake. Last Opioid agreement effective date: 12/03/2023 Last UDS: Reviewed - No inconsistencies noted. 01/22/2024 UDS CONSISTENT 07/16/2023 UDS CONSISTENT 11/27/2022 UDS Questionable - no drugs detected but low creatinine. Summary Report Date Value Ref Range Status 01/16/2024 FINAL Final Comment: ======== Opiate Class, MS, Ur RFX Oxycodone Class, MS, Ur RFX Acetaminophen, MS, Ur RFX ToxAssure Flex 23, Ur ======== Test Result Flag Units Drug Present Oxycodone 4730 ng/mg creat Noroxycodone 5100 ng/mg creat Sources of oxycodone include scheduled prescription medications. Noroxycodone is an expected metabolite of oxycodone. Acetaminophen PRESENT ======== Test Result Flag Units Ref Range Creatinine 20 mg/dL >=20 ======== Declared Medications: Medication list was not provided. ======== For clinical consultation, please call . ======== PREGABALIN, URINE Date Value Ref Range Status 01/16/2024 97.8 ug/mL Final Comment: This test was developed and its performance characteristics determined by [employer]. It has not been cleared or approved by the Food and Drug Administration. Urine Panel: Lab Results Component Value Date Cannabinoid Quant, Urine <16 11/27/2022 Benzoylecgonine Quant, Urine <24 11/27/2022 6-Acetylmorphine Quant, Urine <5 11/27/2022 Amphetamine Quant, Urine <5 11/27/2022 Methamphetamine Quant, Urine <8 11/27/2022 Buprenorphine Quant, Urine <20 11/27/2022 Norbuprenorphine Quant, Urine <20 11/27/2022 Methadone Quant, Urine <16 11/27/2022 EDDP Quant, Urine <6 11/27/2022 Tramadol Quant, Urine <25 11/27/2022 Desmethyltramadol Quant, Urine <20 11/27/2022 Fentanyl Quant, Urine <6 11/27/2022 Norfentanyl Quant, Urine <6 11/27/2022 Codeine Quant, Urine <11 11/27/2022 Morphine Quant, Urine <10 11/27/2022 Dihydrocodeine Quant, Urine <5 11/27/2022 Hydrocodone Quant, Urine <8 11/27/2022 Oxycodone Quant, Urine 1,235 (H) 11/27/2022 Hydromorphone Quant, Urine <5 11/27/2022 Oxymorphone Quant, Urine 253 (H) 11/27/2022 Chronic Pain Functional Assessment Tools Pain Disability Index: 10/28/2022 11/24/2022 Pain Disability Index Family/Home Responsibilities: This category includes chores or duties performed around the house (e.g. yard work), errands or favors for other family members (e.g. driving the children to school) 7 7 Recreation: This (more content not included)... Normal [facility] 12 Lead E[place] performed [place] [facility] [place]-13[place]2024 12 Lead EKG performed by [place] [id number] [place] [address] 12 Lead E[place] [facility] 08/13/24 1009 MR#: [id number] Acct: [id number] Name: SHERLEY RIVERA Rep #: [id number] : 1950 74 From: Naldo Caballero MD Attending Dr: Dr. Naldo Caballero MD Status: DE P [facility] Ordering Dr: Naldo Caballero MD Date: 08/13/24 Location: [facility] Sex: M C Ad[place] [facility]12 Lead [place] performed [place] [facility] ECG Report Interpretation ------Sinus Rhythm Low voltage in limb leads. ABNORMAL Electronically signed on 08/13/2024 at 16:[address] Naldo Caballero [employer] Version 8610 08/13/24 1650 Date Naldo Caballero MD CC: Dr. Francisco De La Cruz MD Date Dictated: 08/13/241008 Date Transcribed: 08/13/241008 Crib Tender: Signed Normal [facility] Cardiology Visit Reporton Cardiology Visit Report [facility] [address] [place] [address] OFFICE VISIT Date of Service: 08/13/24 MR#: [id number] Acct: [id number] Name: SHERLEY RIVERA Rep #: [id number] : 1950 Provider: Dr. Naldo vanessa MD Age/Sex: 74/M [place] [facility] Status: Signed HPI HPI History of Present Illness Details: Patient is a pleasant 74-year-old white male from [place] who moved back to his hometown of [facility] in 2019. Patient carries a history of an abnormal stress test which showed inferior wall ischemic changes. He was evaluated by Dr. Gonzales Marquis and then Dr. Matt Cervantes at the [facility]. He opted for medical therapy. The patient also has a history of multiple sclerosis hyperlipidemia and hypertension. He continues to complain of fatigue and weakness he complains of chest tightness usually when he is lying down is of short duration he has occasionally used nitro sublingual. His biggest complaint is the fatigue and sweating. It is difficult to ascertain if this is related to his multiple sclerosis which she is on no therapy. The patient was never a cast back in 2019. He really does not have much in the way of change of his symptoms from a chest standpoint but this fatigue and sweating is progressive. His EKG in office today shows sinus rhythm at 60 bpm and low voltage in the limb leads otherwise is unremarkable. Patient denies any PND or orthopnea. Intake Vital Signs 06/10/24 14:38 08/13/24 14:33 08/13/24 14:35 Height 5 ft 10 in 5 ft 10.5 in 5 ft 10 in Weight: 271 lb 272 lb BMI 38.9 38.5 BP 112/78 131/80 H Blood Pressure Location Lt brachial Lt brachial Position Sitting Sitting Respiration 14 18 Pulse 65 62 Pulse Source Monitor Monitor Temp 98 F Pulse Oximetry (%) 99 96 Oxygen Delivery Method room air room air Intake Visit Reasons: CAD (Dorothy) [employer] Required: No Accompanied by: Self Is patient in pain?: No Allergies glatiramer (copolymer 1) (From Copaxone) Allergy (Severe, Verified 08/13/24 14:29) Bruising/Bleeding dimethyl fumarate (From Tecfidera) Adverse Reaction (Severe, Verified 08/13/24 14:29) Nausea/Vom/Diarrhea ibuprofen Adverse Reaction (Verified 08/13/24 14:29) Upset Stomach Medications ???Medication ???Instructions ???Recorded ???Confirmed ???Type cholecalciferol (vitamin D3) 50 2,000 unit PO DAILY 09/01/19 08/13/24 History mcg (2,000 unit) capsule oxycodone-acetaminop hen 7.5 mg-325 1 tab PO .QID PRN Pain 02/13/21 08/13/24 History mg tablet (Percocet) ascorbic acid (vitamin C) 500 mg mg PO 12/22/21 08/13/24 History capsule nitroglycerin 0.3 mg sublingual 0.3 mg sublingual Q5-15M #90 tabs 07/09/22 08/13/24 Rx tablet atorvastatin 40 mg tablet 40 mg PO QHS #90 tabs 10/10/23 08/13/24 Rx clopidogrel 75 mg tablet See Rx Instructions .Route 10/10/23 08/13/24 Rx .COMPLEX #90 tabs pregabalin 150 mg capsule mg PO 12/04/23 08/13/24 History amlodipine 10 mg tablet See Rx Instructions .Route 12/31/23 08/13/24 Rx .COMPLEX #90 tabs furosemide 40 mg tablet 40 mg PO DAILY #90 tabs 03/23/24 08/13/24 Rx atenolol 50 mg tablet 50 mg PO DAILY #90 tabs 05/04/24 08/13/24 Rx bupropion HCl 150 mg 24 hr tablet, See Rx Instructions .Route 05/25/24 08/13/24 Rx extended release .COMPLEX #30 tabs ondansetron HCl 4 mg tablet 4 mg PO Q8H PRN nausea and 06/15/24 08/13/24 Rx vomiting #30 tabs lisinopril 40 mg tablet 40 mg PO DAILY #90 tabs 06/17/24 08/13/24 Rx paroxetine HCl 30 mg tablet 30 mg PO DAILY 30 days #30 tabs 07/02/24 08/13/24 Rx chaga mushroom PO DAILY 08/13/24 History Have you fallen in the past year?: No PFSH Medical History MDD (major depressive disorder) MADALYN (generalized anxiety disorder) CAD (coronary artery disease) Right knee pain BPH (benign prostatic hyperplasia) Hyperlipidemia Fatigue Change in facial mole Vitamin D deficiency Screening for thyroid disorder Chronic pain Abnormal stress test Chest pain Anxiety and depression Neuropathy GERD (gastroesophageal reflux disease) Multiple sclerosis IBS (irritable bowel syndrome) HTN (hypertension) H/O emotional problems Bone fracture History of back problems Arthritis Surgical History History of hand surgery History of tonsillectomy History of appendectomy History of partial colectomy History of cholecystectomy Family History Other Anxiety Arthritis Bipolar 1 disorder Depression High cholesterol Hypertension Mental disorder Psychiatric care Suicide attempt Social History (more content not included)... Normal [facility] ACETAMINOPHEN, MS, UR RFXon 01-20-2024 Acetaminophen (U) [Mass/Vol] PRESENT [facility] Acetaminophen Ql (U) Positive [facility] - Drug toxicology on 01-20-2024 Ethanol Screen Ql (U) Negative CUTOFF :500 ng/mL [facility] Opiate Class, MS, Ur RFXon 0 01-20-2024 Codeine Confirm (U) [Mass/Vol] Not detected [facility] Dihydrocodeine/Creatini ne (U) [Mass ratio] Not detected [facility] HYDROcodone Confirm (U) [Mass/Vol] Not detected [facility] HYDROmorphone Confirm (U) [Mass/Vol] Not detected [facility] Morphine Confirm (U) [Mass/Vol] Not detected [facility] Norcodeine/Creatinine Confirm (U) [Mass ratio] Not detected [facility] Norhydrocodone Confirm (U) [Mass/Vol] Not detected [facility] Normorphine (U) [Mass/Vol] Not detected [facility] Opiates Confirm Ql (U) Negative [facility] Oxycodone Class, MS, Ur RFXo n 01-20-2024 Noroxycodone Confirm (U) [Mass/Vol] 5100 ng/mg creat [facility] Noroxymorphone/Creatini ne Confirm (U) [Mass ratio] Not detected [facility] oxyCODONE Confirm (U) [Mass/Vol] 4730 ng/mg creat [facility] oxyCODONE Confirm Ql (U) Positive [facility] oxyMORphone Confirm (U) [Mass/Vol] Not detected [facility] TOXASSURE FLEX 23, URINEon 0 01-20-2024 1-Hydroxymidazolam Screen Ql (U) Not detected [facility] 6-Monoacetylmorphine (6-ANNY) Screen Ql (U) Negative CUTOFF:10 ng/mL [facility] 7-Aminoclonazepam/Creat inine (U) [Mass ratio] Not detected [facility] Acetaminophen Screen Ql (U) Comment CUTOFF:5.0 ug/mL [facility] Alpha hydroxyalprazolam/Creat inine (U) [Mass ratio] Not detected [facility] Alpha hydroxytriazolam/Creati nine Confirm (U) [Mass ratio] Not detected [facility] ALPRAZolam/Creatinine Confirm (U) [Mass ratio] Not detected [facility] Amino Chloropyridine Not detected [facility] Amphetamines Screen Ql (U) Negative CUTOFF:300 ng/mL [facility] Barbiturates Screen Ql (U) Negative CUTOFF:200 ng/mL [facility] Benzodiazepines screen method Nom (U) Negative [facility] Buprenorphine Screen Ql (U) Negative [facility] Buprenorphine/Creatinin e (U) [Mass ratio] Not detected [facility] Cannabinoids Screen Ql (U) Negative CUTOFF:20 ng/mL [facility] Carisoprodol Ql (U) Negative CUTOFF:1 00 ng/mL [facility] clonazePAM/Creatinine Confirm (U) [Mass ratio] Not detected [facility] Cocaine+Benzoylecgonine Screen Ql (U) Negative CUTOFF:150 ng/mL [facility] Creatinine (U) [Mass/Vol] 20 mg/dL [facility] Dextromethorphan (U) [Mass/Vol] Not detected [facility] Dextromethorphan+Levorp hanol Ql (U) Not detected [facility] diazePAM/Creatinine (U) [Mass ratio] Not detected [facility] fentaNYL cutoff Screen (U) [Mass/Vol] Negative [facility] fentaNYL/Creatinine (U) [Mass ratio] Not detected [facility] Flunitrazepam Screen Ql (U) Not detected [facility] Gabapentin (U) [Mass/Vol] Negative CUTOFF:1.0 ug/mL [facility] Hypnotics Screen Ql (U) Negative [facility] Ketamine Ql (U) Not detected [facility] LORazepam/Creatinine (U) [Mass ratio] Not detected [facility] Meperidine Screen Ql (U) Negative CUTOFF:200 ng/mL [facility] Methadone Screen Ql (U) Negative CUTO FF:100 ng/mL [facility] Methadone+Metabolite Screen Ql (U) Negative CUTOFF:100 ng/mL [facility] Midazolam/Creatinine Confirm (U) [Mass ratio] Not detected [facility] MISCELLANEOUS Negative [facility] N-desalkylflurazepam/Cr eatinine (U) [Mass ratio] Not detected [facility] Norbuprenorphine/Creati nine (U) [Mass ratio] Not detected [facility] Nordiazepam/Creatinine (U) [Mass ratio] Not detected [facility] Norfentanyl/Creatinine (U) [Mass ratio] Not detected [facility] Norflunitrazepam (U) [Mass/Vol] Not detected [facility] Norketamine (U) [Mass/Vol] Not detected [facility] Opiates Screen (U) [Mass/Vol] Comment CUTOFF:100 ng/mL [facility] OTHER HALLUCINOGENS Negative [facility] Oxazepam/Creatinine (U) [Mass ratio] Not detected [facility] oxyCODONE cutoff Screen (U) [Mass/Vol] Comment CUTOFF:100 ng/mL [facility] Phencyclidine Ql (U) Negative CUTOFF: 25 ng/mL [facility] Prescribed medications FINAL [facility] Propoxyphene Screen Ql (U) Negative CUTOFF:300 ng/mL [facility] Tapentadol cutoff Screen (U) [Mass/Vol] Negative CUTOFF:200 ng/mL [facility] Temazepam/Creatinine (U) [Mass ratio] Not detected [facility] traMADol Screen Ql (U) Negative CUTOF F:200 ng/mL [facility] Zaleplon (U) [Mass/Vol] Not detected [facility] Zolpidem [id number] Screen Ql (U) Not detected [facility] Zolpidem Screen Ql (U) Not detected [facility] Ofttttius-G-ytnio (U) [Mass/Vol] Not detected [facility] Absolute lymphocyte countOrd ered By: Dr. De La Cruz on 10-11-2022 Lymphocytes Auto (Unsp spec) [#/Vol] 1.57 10*3/uL 0.83-4.51 [facility] Basophil percentageOrdered B y: Dr. De La Cruz on 10-11-2022 Basophils/100 WBC (Bld) 0.3 % 0-1 [facility] Bilirubin [Mass/Vol] 0.60 mg/dL 0.20-1.00 [facility] Comment on above: For patients on eltr ombopag therapy, use of Dimension [place] TBIL is not recommended. Chloride [Moles/Vol] 106 mmol/L 98-107 [facility] Cholesterol [Mass/Vol] 103 mg/dL <200 [facility] Comment on above: <200 mg/dL Desirable 200-240 mg/dL Borderline >240 mg/dL High Risk Eosinophils/100 WBC (Bld) 0.7 % 0-5 [facility] Glucose [Mass/Vol] 104 mg/dL 74-106 [facility] Comment on above: Fasting Glucose resu lt from 100 to 125 mg/dL suggests IMPAIRED HOMEOSTASIS per A.D.A. criteria. Neutrophils (Bld) [#/Vol] 8.5 10*3/uL 2.0-7.7 [facility] Neutrophils/100 WBC (Bld) 76.2 % 47-70 [facility] Potassium [Moles/Vol] 3.6 mmol/L 3.5-5.1 [facility] Protein [Mass/Vol] 7.7 g/dL 6.4-8.2 [facility] Sodium [Moles/Vol] 140 mmol/L 136-145 [facility] Triglyceride [Mass/Vol] 70 mg/dL <199 [facility] Comment on above: The drugs N-Acetylcy steine and Metamizole may falsely depress this assay.Serum Triglycerides Reference Interval Normal <150 mg/dL Borderline high 150 - 199 mg/dL High 200 - 499 mg/dL Very High > or = 500 mg/dL WBC (Bld) [#/Vol] 11.1 10*3/uL 4.4-11.0 [facility] Blood erythrocytes count (nu mber/volume)Ordered By: Dr. De La Cruz on 10-11-2022 RBC (Bld) [#/Vol] 4.82 10*6/uL 4.6-6.2 [facility] Blood hemoglobin measurement (mass/volume)Ordered By: Dr. De La Cruz on 10-11-2022 Hemoglobin (Bld) [Mass/Vol] 14.9 g/dL 13.0-16.5 [facility] Blood lymphocytes/100 leukoc ytesOrdered By: Dr. De La Cruz on 10-11-2022 Lymphocytes/100 WBC (Bld) 14.1 % 19-41 [facility] Blood monocytes/100 leukocyt esOrdered By: Dr. De La Cruz on 10-11-2022 Monocytes/100 WBC (Bld) 8.3 % 0-10 [facility] Blood platelet mean volumeOr dered By: Dr. De La Cruz on 10-11-2022 Platelet mean volume (Bld) [Entitic vol] 9.6 fL 6.2-12.0 [facility] Determination of erythrocyte mean corpuscular volume (MCV)Ordered By: Dr. De La Cruz on 10-11-2022 MCV (RBC) [Entitic vol] 92.3 fL 80-94 [facility] Hematocrit Auto (Bld) [Volum e fraction]Ordered By: Dr. De La Cruz on 10-11-2022 Hematocrit (Bld) [Volume fraction] 44.5 % 40-54 [facility] Laboratory - Chemistry and C hemistry - challengeOrdered By: Dr. De La Cruz on 10-11-2022 ALP [Catalytic activity/Vol] 92 U/L 45-117 [facility] ALT [Catalytic activity/Vol] 21 U/L 16-61 [facility] CO2 [Moles/Vol] 28.0 mmol/L 21.0-32.0 [facility] Globulin (S) [Mass/Vol] 3.9 g/dL 2.2-4.2 [facility] Urea nitrogen/Creatinine [Mass ratio] 8.3 mg/mg 10-20 [facility] - Hematology and Cell countsOrdered By: Dr. De La Cruz on 10-11-2022 Erythrocyte distribution width (RBC) [Entitic vol] 39.8 fL 35.1-43.9 [facility] Erythrocyte distribution width (RBC) [Ratio] 11.8 % 11.6-14.6 [facility] Immature granulocytes/100 WBC (Bld) 0.400 % 0.0-0.9 [facility] Comment on above: IG% - Immature Granu locytes (promyelocytes, myelocytes and metamyelocytes) > 1% indicates that a LEFT SHIFT is Present. MCH (RBC) [Entitic mass] 30.9 pg 27.0-32.0 [facility] Nucleated RBC/100 WBC (Bld) [Ratio] 0 % 0-5 [facility] MCHC Auto (RBC) [Mass/Vol]Or dered By: Dr. De La Cruz on 10-11-2022 MCHC (RBC) [Mass/Vol] 33.5 g/dL 32-36 [facility] No Panel InformationOrdered By: Dr. De La Cruz on 10-11-2022 Estimated GFR (MDRD) Amer 76 mL/min >60 [facility] Comment on above: GFR Calc Estimated GFR (MDRD) Non-Af Amer 63 mL/min >60 [facility] Comment on above: Non- GFR Calc Prostate Specific Antigen Screen 4.35 ng/mL 0.00-4.00 [facility] Comment on above: This test was perfor med using the TPSA assay method for theVigno chemistry system. Values obtained with differentassay methods cannot be used interchangably.When changing PSA assays in the course of monitoring apatient, additional sequential testing should be carriedout to confirm baseline values. Platelets bldOrdered By: Dr. De La Cruz on 10-11-2022 Platelets (Bld) [#/Vol] 361 10*3/uL 150-450 [facility] Serum or plasma albumin chandrika urement (mass/volume)Ordered By: Dr. De La Cruz on 10-11-2022 Albumin [Mass/Vol] 3.8 g/dL 3.2-5.0 [facility] Serum or plasma albumin/glob ulin mass ratioOrdered By: Dr. De La Cruz on 10-11-2022 Albumin/Globulin [Mass ratio] 1.0 {ratio} 0.9-2.4 [facility] Serum or plasma calcium chandrika urement (mass/volume)Ordered By: Dr. De La Cruz on 10-11-2022 Calcium [Mass/Vol] 8.5 mg/dL 8.5-10.1 [facility] Serum or plasma cholesterol in HDL measurement (mass/volume)Ordered By: Dr. De La Cruz on 10-11-2022 Cholesterol in HDL [Mass/Vol] 52 mg/dL >40 [facility] Comment on above: The drugs N-Acetylcy steine and Metamizole may falsely depress this assay. Reference Range HDL <40 mg/dL Low HDL Cholesterol HDL >or= 60 mg/dL High HDL Cholesterol Serum or plasma cholesterol in VLDL measurement (mass/volume)Ordered By: Dr. De La Cruz on 10-11-2022 Cholesterol in VLDL [Mass/Vol] 14 mg/dL 5-40 [facility] Serum or plasma creatinine m easurement (mass/volume)Ordered By: Dr. De La Cruz on 10-11-2022 Creatinine [Mass/Vol] 1.21 mg/dL 0.70-1.30 [facility] Comment on above: The validity of the calculated GFR & GFRAA in patients over 70 years has not been determined. Clinical correlation is essential. Serum or plasma low density lipoprotein (LDL) cholesterol measurement (mass/volume)Ordered By: Dr. De La Cruz on 10-11-2022 Cholesterol in LDL [Mass/Vol] 37 mg/dL 0-130 [facility] Serum or plasma urea nitroge n measurement (mass/volume)Ordered By: Dr. De La Cruz on 10-11-2022 Urea nitrogen [Mass/Vol] 10 mg/dL 7-18 [facility] Thin prep Papanicolaou smear with manual screeningOrdered By: Dr. De La Cruz on 10-11-2022 Thin prep Papanicolaou smear with manual screening 16 U/L 15-37 [facility] Thin prep Papanicolaou smear with manual screening 6 5-15 [facility] Vital Signs Date Time Vital Sign Value Performing Clinician Scooteri carlos 12-24-2024 14:53-0400 Body mass index (BMI) [Ratio] 39.26 kg/m2 Tangela Maldonado APRN.CNP Work Phone: [facility] 12-24-2024 14:53-0400 Body weight 127.19 kg Tangela Maldonado APRN.CNP Work Phone: [facility] 12-24-2024 14:53-0400 Diastolic blood pressure 68 mm[Hg] Tangela Joel UNIX ANALYST.[employer] BOOKKEEPER Work Phone: [facility] 12-24-2024 14:53-0400 Heart rate 68 /min Tangela Joel UNIX ANALYST.[employer] BOOKKEEPER Work Phone: [facility] 12-24-2024 14:53-0400 Respiratory rate 20 /min Tangela Joel UNIX ANALYST.[employer] BOOKKEEPER Work Phone: [facility] 12-24-2024 14:53-0400 SaO2% (BldA) [Mass fraction] 99 % Tangela Joel UNIX ANALYST.[employer] BOOKKEEPER Work Phone: [facility] 12-24-2024 14:53-0400 Systolic blood pressure 176 mm[Hg] Tangela Joel UNIX ANALYST.[employer] BOOKKEEPER Work Phone: [facility] 10-28-2024 14:59-0500 Body mass index (BMI) [Ratio] 39.65 kg/m2 Tangela Joel UNIX ANALYST.[employer] BOOKKEEPER Work Phone: [facility] 10-28-2024 14:59-0500 Body weight 128.46 kg Tangela Joel UNIX ANALYST.[employer] BOOKKEEPER Work Phone: [facility] 10-28-2024 14:59-0500 Diastolic blood pressure 73 mm[Hg] Tangela Joel UNIX ANALYST.[employer] BOOKKEEPER Work Phone: [facility] 10-28-2024 14:59-0500 Heart rate 78 /min Tangela Joel UNIX ANALYST.[employer] BOOKKEEPER Work Phone: [facility] 10-28-2024 14:59-0500 Respiratory rate 20 /min Tangela Joel UNIX ANALYST.[employer] BOOKKEEPER Work Phone: [facility] 10-28-2024 14:59-0500 SaO2% (BldA) [Mass fraction] 98 % Tangela Joel UNIX ANALYST.[employer] BOOKKEEPER Work Phone: [facility] 10-28-2024 14:59-0500 Systolic blood pressure 158 mm[Hg] Tangela Joel UNIX ANALYST.[employer] BOOKKEEPER Work Phone: [facility] 08-27-2024 15:00-0500 Body mass index (BMI) [Ratio] 38.16 kg/m2 Tangela Joel UNIX ANALYST.[employer] BOOKKEEPER Work Phone: [facility] 08-27-2024 15:00-0500 Body weight 123.65 kg Tangela Joel UNIX ANALYST.[employer] BOOKKEEPER Work Phone: [facility] 08-27-2024 15:00-0500 Diastolic blood pressure 74 mm[Hg] Tangela Joel UNIX ANALYST.[employer] BOOKKEEPER Work Phone: [facility] 08-27-2024 15:00-0500 Heart rate 74 /min Tangela Joel UNIX ANALYST.[employer] BOOKKEEPER Work Phone: [facility] 08-27-2024 15:00-0500 Respiratory rate 20 /min Tangela Joel UNIX ANALYST.[employer] BOOKKEEPER Work Phone: [facility] 08-27-2024 15:00-0500 SaO2% (BldA) [Mass fraction] 98 % Tangela Joel UNIX ANALYST.[employer] BOOKKEEPER Work Phone: [facility] 08-27-2024 15:00-0500 Systolic blood pressure 155 mm[Hg] Tangela Joel UNIX ANALYST.[employer] BOOKKEEPER Work Phone: [facility] 07-01-2024 07:25-0400 Body mass index (BMI) [Ratio] 36.71 kg/m2 Tangela Joel UNIX ANALYST.[employer] BOOKKEEPER Work Phone: [facility] 07-01-2024 07:25-0400 Body weight 118.93 kg Tangela Joel UNIX ANALYST.[employer] BOOKKEEPER Work Phone: [facility] 07-01-2024 07:25-0400 Diastolic blood pressure 83 mm[Hg] Tangela Joel UNIX ANALYST.[employer] BOOKKEEPER Work Phone: [facility] 07-01-2024 07:25-0400 Heart rate 63 /min Tangela Joel UNIX ANALYST.[employer] BOOKKEEPER Work Phone: [facility] 07-01-2024 07:25-0400 Respiratory rate 18 /min Tangela Joel UNIX ANALYST.[employer] BOOKKEEPER Work Phone: [facility] 07-01-2024 07:25-0400 SaO2% (BldA) [Mass fraction] 100 % Tangela Maldonado UNIX ANALYST.[employer] BOOKKEEPER Work Phone: [facility] 07-01-2024 07:25-0400 Systolic blood pressure 138 mm[Hg] Tangela Maldonado UNIX ANALYST.[employer] BOOKKEEPER Work Phone: [facility] 10-11-2022 14:28-0500 Body height 177.[address] Francisco De La Cruz Work Phone: [facility] 10-11-2022 14:28-0500 Body mass index (BMI) [Ratio] 39.2 kg/m2 Dr. Francisco De La Cruz Work Phone: [facility] 10-11-2022 14:28-0500 Body temperature 99.1 [degF] Dr. Francisco De La Cruz Work Phone: [facility] 10-11-2022 14:28-0500 Body weight 123.[address] Francisco De La Cruz Work Phone: [facility] 10-11-2022 14:28-0500 Diastolic blood pressure 82 mm[Hg] Dr. Francisco De La Cruz Work Phone: [facility] 10-11-2022 14:28-0500 Heart rate 65 /min Dr. Francisco De La Cruz Work Phone: [facility] 10-11-2022 14:28-0500 Respiratory rate 16 /min Dr. Francisco De La Cruz Work Phone: [facility] 10-11-2022 14:28-0500 SaO2% (BldA) [Mass fraction] 98 % Dr. Francisco De La Cruz Work Phone: [facility] 10-11-2022 14:28-0500 Systolic blood pressure 138 mm[Hg] Dr. Francisco De La Cruz Work Phone: [facility] 07-03-2022 08:50-0400 Body height 180 cm Marcialcate oRland DO Work Phone: [facility] 07-03-2022 08:50-0400 Body weight 122.02 kg Marija Roland DO Work Phone: [facility] 07-03-2022 08:50-0400 Diastolic blood pressure 84 mm[Hg] Marcialcate Roland DO Work Phone: [facility] 07-03-2022 08:50-0400 Heart rate 71 /min Marija Roland DO Work Phone: [facility] 07-03-2022 08:50-0400 Respiratory rate 19 /min Marija Roland DO Work Phone: [facility] 07-03-2022 08:50-0400 SaO2% (BldA) [Mass fraction] 98 % Marija Roland DO Work Phone: [facility] 07-03-2022 08:50-0400 Systolic blood pressure 153 mm[Hg] Marija Roland DO Work Phone: [facility] 02-23-2022 13:44-0400 Body height 177.[address] Francisco De La Cruz Work Phone: [facility] Work Phone: 02-23-2022 13:44-0400 Body mass index (BMI) [Ratio] 40.7 kg/m2 Dr. Francisco De La Cruz Work Phone: [facility] Work Phone: 02-23-2022 13:44-0400 Body temperature 98.6 [degF] Dr. Francisco De La Cruz Work Phone: [facility] Work Phone: 02-23-2022 13:44-0400 Body weight 128.[address] Francisco De La Cruz Work Phone: [facility] Work Phone: 02-23-2022 13:44-0400 Diastolic blood pressure 86 mm[Hg] Dr. Francisco De La Cruz Work Phone: [facility] Work Phone: 02-23-2022 13:44-0400 Heart rate 78 /min Dr. Francisco De La Cruz Work Phone: [facility] Work Phone: 02-23-2022 13:44-0400 Respiratory rate 16 /min Dr. Francisco De La Cruz Work Phone: [facility] Work Phone: 02-23-2022 13:44-0400 SaO2% (BldA) [Mass fraction] 98 % Dr. Francisco De La Cruz Work Phone: [facility] Work Phone: 02-23-2022 13:44-0400 Systolic blood pressure 116 mm[Hg] Dr. Francisco De La Cruz Work Phone: [facility] Work Phone: 01-10-2021 10:07-0400 Body height 172.7 cm Tangela Joel UNIX ANALYST.[employer] BOOKKEEPER Work Phone: [facility] 01-10-2021 10:07-0400 Body weight 126.55 kg Tangela Joel UNIX ANALYST.[employer] BOOKKEEPER Work Phone: [facility] 01-10-2021 10:07-0400 Diastolic blood pressure 97 mm[Hg] Tangela Joel UNIX ANALYST.[employer] BOOKKEEPER Work Phone: [facility] 01-10-2021 10:07-0400 Heart rate 89 /min Tangela Joel UNIX ANALYST.[employer] BOOKKEEPER Work Phone: [facility] 01-10-2021 10:07-0400 Respiratory rate 19 /min Tangela Joel UNIX ANALYST.[employer] BOOKKEEPER Work Phone: [facility] 01-10-2021 10:07-0400 SaO2% (BldA) [Mass fraction] 98 % Tangela Joel UNIX ANALYST.[employer] BOOKKEEPER Work Phone: [facility] 01-10-2021 10:07-0400 Systolic blood pressure 133 mm[Hg] Tangela Joel UNIX ANALYST.[employer] BOOKKEEPER Work Phone: [facility] Encounters Encounter Date Encounter Type Care Provider Facility Start: 07-26-2025 End: 07-26-2025 ambulatory [facility] Start: 07-08-2025 End: 07-08-2025 ambulatory TANGELA JOEL Facility:[id number] Start: 04-22-2025 End: 04-22-2025 Telemedicine consultation with patient Tangela Joel UNIX ANALYST.[employer] BOOKKEEPER Work Phone: [facility] Start: 04-22-2025 End: 04-22-2025 ambulatory Tangela Joel UNIX ANALYST.[employer] BOOKKEEPER Work Phone: [facility] Comment on above: Other chronic pain ( Primary Dx); Lumbar radiculopathy; 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; Neuropathy; Multiple sclerosis (HCC); Chronic pain syndrome; Lumbar degenerative disc disease; Lumbar facet arthropathy Start: 04-19-2025 End: 04-19-2025 ambulatory [facility] Start: 03-23-2025 End: 03-23-2025 Refill Tangela Joel UNIX ANALYST.[employer] BOOKKEEPER Work Phone: [facility] Comment on above: Refill Request Start: 03-22-2025 End: 03-23-2025 ambulatory Tangela Joel UNIX ANALYST.[employer] BOOKKEEPER Work Phone: [facility] Comment on above: NEW PHARMACY Start: 02-24-2025 End: 02-24-2025 ambulatory TANGELA JOEL Facility:[id number] Start: 02-15-2025 End: 02-15-2025 ambulatory Adi TSANG Facility:[facility] Start: 01-18-2025 End: 01-18-2025 ambulatory [facility] Start: 12-24-2024 End: 12-24-2024 Patient encounter procedure Tangela Joel UNIX ANALYST.[employer] B[employer]KEEPER Work Phone: [facility] Comment on above: Other chronic pain ( Primary Dx); Degeneration of intervertebral disc of lumbar region with discogenic back pain; 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; Neuropathy; Multiple sclerosis (HCC); Lumbar radiculopathy; Lumbar degenerative disc disease; Chronic pain syndrome; Lumbar facet arthropathy Start: 12-24-2024 End: 12-24-2024 ambulatory [facility] Facility:[id number] Start: 10-28-2024 End: 10-28-2024 Patient encounter procedure Tangela Joel UNIX ANALYST.[employer] BOOKKEEPER Work Phone: [facility] Comment on above: Other chronic pain ( Primary Dx); Degeneration of intervertebral disc of lumbar region with discogenic back pain; 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; Neuropathy; Lumbar radiculopathy; Lumbar degenerative disc disease; Chronic pain syndrome; Lumbar facet arthropathy Start: 10-28-2024 End: 10-28-2024 ambulatory [facility] Facility:[id number] Start: 10-26-2024 End: 10-27-2024 ambulatory Tangela Joel UNIX ANALYST.[employer] B[employer]KEEPER Work Phone: [facility] Start: 10-26-2024 End: 10-27-2024 Patient encounter procedure Tangela Joel UNIX ANALYST.[employer] BOOKKEEPER Work Phone: [facility] Comment on above: CHANGE TO VIRTUAL R OCT 28 APPOINTMENT Start: 10-19-2024 End: 10-19-2024 ambulatory [facility] [place] [place]: 10-19-2024 End: 10-19-2024 ambulatory [facility] Facility:[facility] Start: 09-08-2024 ambulatory Denise [facility]resty:[facility] Start: 09-08-2024 End: 09-08-2024 ambulatory Naldo Caballero Facility:[facility] Start: 08-27-2024 End: 08-27-2024 Patient encounter procedure Tangela Joel UNIX ANALYST.[employer] BOOKKEEPER Work Phone: [facility] Comment on above: Other chronic pain ( Primary Dx); Degeneration of intervertebral disc of lumbar region with discogenic back pain; intermediate (current) use of opiate analgesic; Neuropathy; Lumbar degenerative disc disease; Lumbar radiculopathy; Chronic pain syndrome; Lumbar facet arthropathy Start: 08-27-2024 End: 08-27-2024 ambulatory TANGELA JOEL Facility:[id number] Start: 08-13-2024 End: 08-13-2024 ambulatory Francisco De La Cruz [facility] Start: 07-01-2024 End: 07-01-2024 Patient encounter procedure Tangela Joel UNIX ANALYST.[employer] BOOKKEEPER Work Phone: [facility] Comment on above: Other chronic pain ( Primary Dx); Lumbar degenerative disc disease; Lumbar radiculopathy; intermediate (current) use of opiate analgesic; Chronic pain syndrome; Lumbar facet arthropathy Start: 06-26-2024 End: 06-26-2024 ambulatory Tangela Joel UNIX ANALYST.[employer] BOOKKEEPER Work Phone: [facility] Start: 06-26-2024 End: 06-26-2024 Patient encounter procedure Tangela Joel UNIX ANALYST.[employer] BOOKKEEPER Work Phone: [facility] Comment on above: APPOINTM ENT Start: 06-25-2024 End: 06-25-2024 Telephone encounter Tangela Maldonado APRN.[employer] BOOKKEEPER Work Phone: [facility] Comment on above: Medication Problem Start: 06-04-2024 End: 06-04-2024 ambulatory Tangela Joel UNIX ANALYST.[employer] BOOKKEEPER Work Phone: [facility] Comment on above: Rx Modification Start: 04-30-2024 End: 04-30-2024 ambulatory Tangela Joel UNIX ANALYST.[employer] BOOKKEEPER Work Phone: [facility] Comment on above: Other chronic pain ( Primary Dx); Lumbar degenerative disc disease; intermediate (current) use of opiate analgesic; Neuropathy; Chronic pain syndrome; Lumbar radiculopathy; Lumbar facet arthropathy Start: 04-30-2024 End: 04-30-2024 Telemedicine consultation with patient Tangela Joel UNIX ANALYST.[employer] BOOKKEEPER Work Phone: [facility] Start: 03-17-2024 Telephone encounter Tangela velazquez UNIX ANALYST.[employer] BOOKKEEPER Work Phone: [facility] Comment on above: Other (Health Ma intenance) Start: 03-04-2024 ambulatory Tangela Maldonado APRN.[employer] BOOKKEEPER Work Phone: [facility] Comment on above: Incorrect Pharmacy? 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; Lumbar degenerative disc disease; Neuropathy; Multiple sclerosis (HCC); Chronic pain syndrome; Lumbar radiculopathy; Lumbar facet arthropathy Start: 02-27-2024 End: 02-27-2024 Telemedicine consultation with patient Tangela Maldonado APRN.[employer] BOOKKEEPER Work Phone: [facility] Start: 02-13-2024 ambulatory [facility] Comment on above: SOAPP Start: 02-13-2024 E-mail encounter fro m caregiver [facility] Start: 02-11-2024 Telephone encounter Tangelaalissa velazquez APRN.[employer] BOOKKEEPER Work Phone: [facility] Comment on above: Other (Health Ma intenance Review) Start: 01-30-2024 Telephone encounter Tangelaalissa velazquez APRN.[employer] BOOKKEEPER Work Phone: [facility] Comment on above: Other (Virtual V isit Pre Check In) Other (Patient q uestions) Start: 01-30-2024 End: 01-30-2024 ambulatory Tangela Maldonado APRN.[employer] BOOKKEEPER Work Phone: [facility] Comment on above: Other chronic pain ( Primary Dx); 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; Lumbar degenerative disc disease; Neuropathy; Multiple sclerosis (HCC); Chronic pain syndrome; Lumbar radiculopathy; Lumbar facet arthropathy Start: 01-30-2024 End: 01-30-2024 Telemedicine consultation with patient Tangela Maldonado APRN.[employer] BOOKKEEPER Work Phone: [facility] Start: 01-23-2024 ambulatory [facility] Comment on above: SOAPP Start: 01-23-2024 E-mail encounter fro m caregiver [facility] Start: 01-14-2024 Telephone encounter Tangela velazquez APRN.[employer] BOOKKEEPER Work Phone: [facility] Comment on above: Orders Start: 12-31-2023 Telephone encounter Tangela Kanchan marcus NAVAS.[employer] BOOKKEEPER Work Phone: [facility] Comment on above: Other (Virtual V isit Pre Check In) Other (Patient q uestshiva) Start: 12-31-2023 End: 12-31-2023 ambulatory Tangelaalissa Maldonado APRN.[employer] BOOKKEEPER Work Phone: [facility] Comment on above: Other chronic pain ( Primary Dx); Lumbar degenerative disc disease; 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; Neuropathy; Multiple sclerosis (HCC); Chronic pain syndrome; Lumbar radiculopathy; Lumbar facet arthropathy Start: 12-31-2023 End: 12-31-2023 Telemedicine consultation with patient Tangela Maldonado APRN.[employer] B[employer]KEEPER Work Phone: [facility] Start: 12-25-2023 ambulatory [facility] Comment on above: SOAPP Start: 12-25-2023 E-mail encounter fro m caregiver [facility] Start: 12-03-2023 End: 12-03-2023 ambulatory Tangela Joel UNIX ANALYST.[employer] BOOKKEEPER Work Phone: [facility] Comment on above: Other chronic pain ( Primary Dx); Lumbar degenerative disc disease; intermediate (current) use of opiate analgesic; Neuropathy; Multiple sclerosis (HCC); Lumbar radiculopathy; Chronic pain syndrome; Lumbar facet arthropathy Start: 12-03-2023 End: 12-03-2023 Telemedicine consultation with patient Tangela Maldonado APRN.[employer] BOOKKEEPER Work Phone: [facility] Start: 09-03-2023 End: 09-03-2023 ambulatory Tangela Maldonado APRN.FANNY Work Phone: [facility] Comment on above: Other chronic pain ( Primary Dx); 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; Lumbar degenerative disc disease; Lumbar radiculopathy; Neuropathy; Chronic pain syndrome; Lumbar facet arthropathy Start: 09-03-2023 End: 09-03-2023 Telemedicine consultation with patient Tangela Maldonado APRN.[employer] BOOKKEEPER Work Phone: [facility] Start: 08-28-2023 Telephone encounter Tangelaalissa velazquez APRN.[employer] BOOKKEEPER Work Phone: [facility] Comment on above: Other (Health Ma intenance Review) Start: 07-30-2023 End: 07-30-2023 Telephone encounter Tangela Joel APRN.[employer] BOOKKEEPER Work Phone: [facility] Comment on above: Other (Virtual V isit Pre Check In) Other chronic pain ( Primary Dx); intermediate (current) use of opiate analgesic; Lumbar degenerative disc disease; Lumbar radiculopathy; Neuropathy; Multiple sclerosis (HCC); Bipolar I disorder (HCC); Chronic pain syndrome; Lumbar facet arthropathy Start: 07-30-2023 End: 07-30-2023 Telemedicine consultation with patient Tangela Maldonado APRN.[employer] BOOKKEEPER Work Phone: [facility] Start: 07-26-2023 ambulatory [facility] Comment on above: SOAPP Start: 07-26-2023 E-mail encounter sabas sepulveda caregiver [facility] Start: 07-26-2023 Telephone encounter Tangela velazquez APRN.[employer] BOOKKEEPER Work Phone: [facility] Comment on above: Other (Health Ma intenance Review-UDS) Start: 07-10-2023 Telephone encounter Tangela velazquez APRN.[employer] BOOKKEEPER Work Phone: [facility] Start: 06-28-2023 End: 06-28-2023 ambulatory Tangela Jole UNIX ANALYST.[employer] BOOKKEEPER Work Phone: [facility] Comment on above: Other chronic pain ( Primary Dx); 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; Lumbar degenerative disc disease; Neuropathy; Multiple sclerosis (HCC); Chronic pain syndrome; Lumbar radiculopathy; Lumbar facet arthropathy Start: 06-28-2023 End: 06-28-2023 Telemedicine consultation with patient Tangela Joel UNIX ANALYST.[employer] BOOKKEEPER Work Phone: [facility] Start: 06-27-2023 Telephone encounter Tangela velazquez UNIX ANALYST.[employer] BOOKKEEPER Work Phone: [facility] Comment on above: Appointment (UDS upd ated) Start: 06-19-2023 ambulatory [facility] Comment on above: SOAPP Start: 06-19-2023 E-mail encounter fro m caregiver [facility] Start: 06-12-2023 Refill Tangela Joel UNIX ANALYST.[employer] BOOKKEEPER Work Phone: [facility] Comment on above: Refill Request Start: 05-30-2023 End: 05-30-2023 ambulatory Tangela Joel UNIX ANALYST.[employer] BOOKKEEPER Work Phone: [facility] Comment on above: Other chronic pain ( Primary Dx); 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; Lumbar degenerative disc disease; Neuropathy; Lumbar radiculopathy; Chronic pain syndrome; Lumbar facet arthropathy Start: 05-30-2023 End: 05-30-2023 Telemedicine consultation with patient Tangela Patelo UNIX ANALYST.[employer] BOOKKEEPER Work Phone: [facility] Start: 05-29-2023 ambulatory [facility] Comment on above: SOAPP Start: 05-29-2023 E-mail encounter fro m caregiver [facility] Start: 05-29-2023 Telephone encounter Tangela gonzalezo UNIX ANALYST.[employer] BOOKKEEPER Work Phone: [facility] Start: 05-24-2023 Telephone encounter Tangela gonzalezo UNIX ANALYST.[employer] BOOKKEEPER Work Phone: [facility] Comment on above: Health Maintenance Start: 04-16-2023 Refill Tangela Joel UNIX ANALYST.[employer] BOOKKEEPER Work Phone: [facility] Comment on above: Refill Request Start: 04-04-2023 ambulatory Tangela Joel UNIX ANALYST.[employer] BOOKKEEPER Work Phone: [facility] Comment on above: Pharmacy Change Start: 03-29-2023 End: 03-29-2023 ambulatory Tangela Joel UNIX ANALYST.[employer] BOOKKEEPER Work Phone: [facility] Comment on above: Other chronic pain ( Primary Dx); Lumbar radiculopathy; intermediate (current) use of opiate analgesic; Neuropathy; Multiple sclerosis (HCC); Chronic pain syndrome; Lumbar degenerative disc disease; Lumbar facet arthropathy Rx redirection Start: 03-29-2023 End: 03-29-2023 Telemedicine consultation with patient Tangela Patelo UNIX ANALYST.[employer] BOOKKEEPER Work Phone: [facility] Start: 03-28-2023 ambulatory [facility] Comment on above: Soapp Start: 03-28-2023 E-mail encounter fro m caregiver [facility] [facility] Start: 01-28-2023 ambulatory Tangela Joel UNIX ANALYST.QUICKBOOKS BOOKKEEPER Work Phone: Pain Management Comment on above: ACCESS Start: 12-26-2022 End: 12-26-2022 ambulatory Tangela Joel UNIX ANALYST.QUICKBOOKS BOOKKEEPER Work Phone: Pain Management Comment on above: Other chronic pain ( Primary Dx); Lumbar radiculopathy; intermediate (current) use of opiate analgesic; Neuropathy; Multiple sclerosis (HCC); Chronic pain syndrome; Lumbar degenerative disc disease; Lumbar facet arthropathy Start: 12-26-2022 End: 12-26-2022 Telemedicine consultation with patient Tangela Patelo UNIX ANALYST.QUICKBOOKS BOOKKEEPER Work Phone: [facility] Start: 11-30-2022 End: 11-30-2022 ambulatory Tangela Joel UNIX ANALYST.QUICKBOOKS BOOKKEEPER Work Phone: Pain Management Comment on above: Other chronic pain ( Primary Dx); Lumbar radiculopathy; intermediate (current) use of opiate analgesic; Neuropathy; Multiple sclerosis (HCC); Chronic pain syndrome; Lumbar degenerative disc disease; Lumbar facet arthropathy Start: 11-30-2022 End: 11-30-2022 Telemedicine consultation with patient Tangela Maldonado APRN.FANNY Work Phone: [facility] Start: 11-27-2022 End: 11-28-2022 ambulatory Tangela Maldonado APRN.QUICKBOOKS BOOKKEEPER Work Phone: Pain Management Comment on above: Video visit 11/30/22 Refill Request Video visit Start: 11-15-2022 Telephone encounter Tangela Hemphill marcus NAVAS.QUICKBOOKS BOOKKEEPER Work Phone: Pain Management Comment on above: 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 Francisco De La Cruz Work Phone: [facility] Work Phone: Start: 10-11-2022 End: 10-11-[address] Francisco De La Cruz Work Phone: [facility] Start: 09-20-2022 Telephone encounter Tangelaalissa velazquez APRN.QUICKBOOKS BOOKKEEPER Work Phone: Pain Management Comment on above: inquiring about rx d irections Start: 09-17-2022 ambulatory Tangela Patelo UNIX ANALYST.FANNY Work Phone: Pain Management Comment on above: Vid visit / Rx sched ule Start: 07-27-2022 ambulatory Marija Segura sloan DO Work Phone: [facility] Start: 07-27-2022 Patient encounter procedure Marija Tabares Luan DO Work Phone: Pain Management Comment on above: Appointment Schedule Start: 07-03-2022 End: 07-03-2022 Patient encounter procedure Marija Tabares Luan DO Work Phone: Pain Management Comment on above: Chronic pain syndrom e (Primary Dx); Lumbar degenerative disc disease; Lumbar radiculopathy; Lumbar facet arthropathy Start: 05-29-2022 End: 05-29-2022 ambulatory Tangela Joel UNIX ANALYST.QUICKBOOKS BOOKKEEPER Work Phone: Pain Management Comment on above: Multiple sclerosis ( HCC) (Primary Dx); Chronic pain syndrome; Lumbar radiculopathy; Neuropathy; intermediate (current) use of opiate analgesic Start: 05-29-2022 End: 05-29-2022 Telemedicine consultation with patient Tangela Joel UNIX ANALYST.QUICKBOOKS BOOKKEEPER Work Phone: [facility] Start: 05-02-2022 End: 05-02-2022 ambulatory Tangela Joel UNIX ANALYST.QUICKBOOKS BOOKKEEPER Work Phone: Pain Management Comment on above: Chronic pain syndrom e (Primary Dx); Multiple sclerosis (HCC); Lumbar radiculopathy; Neuropathy; 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 Comment on above: VIRTUAL Start: 02-23-2022 End: 02-23-[address] Francisco De La Cruz Work Phone: [facility] Start: 01-05-2022 End: 01-05-2022 Subsequent hospital visit by physician Tangela Bird APRN.QUICKBOOKS BOOKKEEPER Work Phone: [facility] Comment on above: VIRTUAL Start: 12-06-2021 End: 12-06-2021 Subsequent hospital visit by physician Tangela Bird RN Work Phone: [facility] Comment on above: VIRTUAL Procedures Date Procedure Procedure Detail Performing Clinician Start: 01-16-2024 ACETAMINOPHEN, MS, UR RFX Tangela Joel UNIX ANALYST.QUICKBOOKS BOOKKEEPER Work Phone: Start: 01-16-2024 Opiate Class, MS, Ur RFX Tangela Joel UNIX ANALYST.QUICKBOOKS BOOKKEEPER Work Phone: Start: 01-16-2024 Oxycodone Class, MS, Ur RFX Tangela Joel UNIX ANALYST.QUICKBOOKS BOOKKEEPER Work Phone: Start: 01-16-2024 TOXASSURE FLEX 23, URINE Tangela Joel UNIX ANALYST.QUICKBOOKS BOOKKEEPER Work Phone: Plan of Treatment Date Care Activity Detail Author Start: 2026 RSV Vaccine (1 - 1-d ose 75+ series) RSV Vaccine (1 - 1-dose 75+ series) [facility] Start: 07-08-2025 End: 07-08-2025 Patient encounter procedure 07/08/2025 2:00 PM EDT Office Visit PAIN [address] [address] Tangela Maldonado UNIX ANALYST.QUICKBOOKS BOOKKEEPER [address] [facility] [place] [address] follow up PAIN [facility] Comment on above: follow up Start: 06-07-2025 Influenza vaccination [facility] Start: 04-22-2025 End: 04-22-2025 Follow-up encounter 04/22/2025 3:30 PM EDT [facility] [address] [address] Tangela Maldonado UNIX ANALYST.QUICKBOOKS BOOKKEEPER [address] [place] [address] follow up PAIN [facility] Comment on above: follow up Start: 02-24-2025 End: 02-24-2025 Patient encounter procedure 02/24/2025 3:00 PM EDT Office Visit PAIN [address] [address] Tangela Maldonado, UNIX ANALYST.QUICKBOOKS BOOKKEEPER [address] [place] [address] follow up PAIN [facility] Comment on above: follow up Start: 12-24-2024 End: 12-24-2024 Patient encounter procedure 12/24/2024 3:00 PM EDT Office Visit PAIN [address] [place] [address] Tangela Maldonado, UNIX ANALYST.QUICKBOOKS BOOKKEEPER [address] [place] [address] follow up PAIN [facility] Comment on above: follow up Start: 10-28-2024 End: 10-28-2024 Patient encounter procedure 10/28/2024 3:00 PM EST Office Visit PAIN [address] [place] [address] Tangela Maldonado, UNIX ANALYST.QUICKBOOKS BOOKKEEPER [address] [place] [address] follow up PAIN [facility] Comment on above: follow up Start: 10-07-2024 Advance Directive Discussion Advance Directive Discussion [facility] Start: 08-27-2024 End: 11-26-2024 COMP BLD DRUG SCR W/MED RPT COMP BLD DRUG SCR W/MED RPT Lab Routine intermediate (current) use of opiate analgesic Expected: 08/27/2024, Expires: 11/26/2024 [facility] Work Phone: Comment on above: Expected: 08/27/2024 , Expires: 11/26/2024 Start: 08-27-2024 End: 08-27-2024 Patient encounter procedure PAIN [facility] Comment on above: 2 month follow up Start: 07-01-2024 End: 07-01-2024 Patient encounter procedure 07/01/2024 7:30 AM EDT Office Visit PAIN [facility] 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 [address] [place] [address] 2 month follow up appt PAIN [facility] Comment on above: 2 month follow up ap pt Start: 06-07-2024 Covid-19 Vaccine ( season) Covid-19 Vaccine ( season) [facility] Start: 06-07-2024 Covid-19 Vaccine ( season) Covid-19 Vaccine () [facility] Start: 06-07-2024 Influenza vaccination [facility] Start: 04-30-2024 End: 04-30-2024 Follow-up encounter 04/30/2024 7:30 AM EDT [facility] [address] [place] [address] Tangela Maldonado, UNIX ANALYST.QUICKBOOKS BOOKKEEPER [address] [place] [address] 2 month follow up Pain Management Comment on above: 2 month follow up Start: 02-27-2024 End: 02-27-2024 Follow-up encounter 02/27/2024 7:45 AM EDT [facility] [address] [place] [address] Tangela Maldonado, UNIX ANALYST.QUICKBOOKS BOOKKEEPER [address] [place] [address] follow up Pain Management Comment on above: follow up Start: 01-30-2024 End: 01-30-2024 Follow-up encounter 01/30/2024 8:00 AM EDT [facility] [address] [place] [address] Tangela Maldonado APRN.QUICKBOOKS BOOKKEEPER [address] [address] [facility] [address] follow up Pain Management Comment on above: follow up Start: 01-14-2024 End: 04-14-2024 PREGABALIN, URINE PREGABALIN, URINE Lab Routine intermediate (current) use of opiate analgesic Expected: 01/14/2024, Expires: 04/14/2024 [facility] Work Phone: Comment on above: Expected: 01/14/2024 , Expires: 04/14/2024 Start: 10-07-2023 Advance Directive Discussion Advance Directive Discussion [facility] Start: 07-17-2023 End: 09-16-2023 TOXASSURE FLEX 23, URINE TOXASSURE FLEX 23, URINE Lab Routine intermediate (current) use of opiate analgesic Expected: 07/17/2023, Expires: 09/16/2023 [facility] Work Phone: Comment on above: Expected: 07/17/2023 , Expires: 09/16/2023 Start: 06-07-2023 Covid-19 Vaccine ( season) Covid-19 Vaccine () [facility] Start: 06-07-2023 Influenza vaccination [facility] Start: 12-04-2022 End: 02-03-2023 PAIN PANEL, UR QUANT PAIN PANEL, UR QUANT Lab Routine intermediate (current) use of opiate analgesic Expected: 12/04/2022, Expires: 02/03/2023 [facility] Work Phone: Comment on above: Expected: 12/04/2022 , Expires: 02/03/2023 Start: 11-22-2022 End: 01-22-2023 TOXASSURE FLEX 23, URINE TOXASSURE FLEX 23, URINE Lab Routine intermediate (current) use of opiate analgesic Expected: 11/22/2022, Expires: 01/22/2023 [facility] Work Phone: Comment on above: Expected: 11/22/2022 , Expires: 01/22/2023 Start: 10-07-2022 ADVANCE DIRECTIVE DISCUSSION ADVANCE DIRECTIVE DISCUSSION [facility] Start: 07-03-2022 End: 09-02-2022 DRUG SCR TOXASURE DRUG SCR TOXASURE Lab Routine Chronic pain syndrome Expected: 07/03/2022, Expires: 09/02/2022 [facility] Work Phone: Comment on above: Expected: 07/03/2022 , Expires: 09/02/2022 Start: 06-07-2022 Influenza vaccination C [facility] Start: 10-07-2021 ADVANCE DIRECTIVE DISCUSSION ADVANCE DIRECTIVE DISCUSSION [facility] Start: 06-07-2021 Influenza vaccination INFLUENZA (#1) [facility] Start: 2016 PNEUMOVAX AGE 65 AND OVER WITH 5YR LOOKBACK (#1) PNEUMOVAX AGE 65 AND OVER WITH 5YR LOOKBACK (#1) [facility] Start: 06-07-2016 Medicare Annual Well ness Visit Medicare Annual Wellness Visit [facility] Start: 2011 RSV Vaccine (1 - 1-d ose 60+ series) RSV Vaccine (1 - 1-dose 60+ series) [facility] Start: 2001 SHINGRIX VACCINE (1 of 2) SHINGRIX VACCINE (1 of 2) [facility] Start: 1996 COLOGUARD (FIT-DNA) COLOGUARD (FIT-D NA) [facility] Start: 1996 Colonoscopy COLONOSCOPY [facility] Start: 1996 COLORECTAL CANCER SCREENING COLORECTAL CANCER SCREENING [facility] Start: [address] COLONOGRAPHY [facility] Start: 1996 DIABETES SCREEN DIABETES SCREEN [facility] Start: 1996 Diabetes Screening Diabetes Screenin g [facility] Start: 1996 FECAL OCCULT BLOOD FECAL OCCULT BLOO D [facility] Start: 1996 Screening for malign ant neoplasm of colon [facility] Start: 1996 [facility]COPY [facility] Start: 1986 Lipid 1996 panel - S camacho or Plasma Lipid Screening [facility] Start: 1986 Lipid panel [facility] Screening [facility] Start: 1986 LIPID SCREEN LIPID SCREEN [facility] Start: 1970 Pneumococcal Vaccine : 50+ (1 of 2 - PCV) Pneumococcal Vaccine: 50+ (1 of 2 - PCV) [facility] Start: 1970 Urine microalbumin profile [facility] Start: 1969 ANNUAL PCP TEAM IN SERVICE EDUCATOR CRISTIAN DISEASE VISIT ANNUAL PCP TEAM CHRONIC DISEASE VISIT [facility] Start: 1969 BP CONTROLLED (<130/80) BP CONTROLLE D (<130/80) [facility] Start: 1969 HEPATITIS C SCREENING HEPATITIS C [facility] Start: 1969 Hepatitis C screening Hepatitis C [facility] Start: 1957 Pneumococcal Vaccine : 65+ (1 - PCV) Pneumococcal Vaccine: 65+ (1 - PCV) [facility] Start: 1957 Pneumococcal Vaccine : 65+ (1 of 2 - PCV) Pneumococcal Vaccine: 65+ (1 of 2 - PCV) [facility] Start: 1957 PNEUMOCOCCAL: 65+ (1 - PCV) PNEUMOCOCCAL: 65+ (1 - PCV) [facility] Start: 1956 COVID-19 VACCINE (#1) COVID-19 VACCI NE (#1) [facility] Start: 1956 COVID-19 VACCINE (1) COVID-19 VACCIN E (1) [facility] Start: 1951 COVID-19 VACCINE (#1) COVID-19 VACCI NE (#1) [facility] Start: 1951 ABDOMINAL AORTIC ANEURYSM SCREENING ABDOMINAL AORTIC ANEURYSM SCREENING [facility] Start: 1950 Abdominal aortic aneurysm screening Abdominal Aortic Aneurysm Screening [facility] TOXASSURE FLEX 23, URINE TOXASSU RE FLEX 23, URINE 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 2006 Unknown [employer] BLUE CARD PPO OOS [id number] 2006-Present [phone] [address] [place] [address] PPO [id number] 2006 Unknown [id number] 2006 Unknown [id number] Medicare [id number] Unknown [id number] Unknown [id number] Unknown [id number] Unknown [id number] Unknown [id number] Unknown [id number] Unknown [id number] Unknown [id number] Unknown [id number] Social History Date Type Detail Facility Start: 07-01-2017 End: 07-03-2022 Tobacco smoking status NHIS Smokes tobacco daily [facility] History of tobacco use Cigar Smoker [facility] Start: 07-01-2017 End: 07-03-2022 Tobacco use and exposure Smokeless tobacco non-user [facility] Start: 07-09-2019 End: 04-22-2025 Alcohol intake Ex-drinker (finding) [facility] Start: 07-09-2019 Tobacco Comment Smokes about 2 -4 cigars per day [facility] Start: 1950 Sex Assigned At Not on file C [facility] Start: 02-23-2022 End: 10-11-2022 Tobacco smoking status ALIS Unknown if ever smoked [facility] Start: 02-21-2021 Cigars [facility] Start: 1950 Sex Assigned At Male [facility] Start: 04-22-2022 End: 07-03-2022 Exposure to SARS-CoV-2 (event) Not sure [facility] Start: 07-03-2022 Tobacco Comment Smokes about 2 -4 cigars per day. Since age 17 yo. [facility] Start: 02-27-2023 End: 03-29-2023 History of Social function [facility] Start: 02-27-2023 End: 03-29-2023 Tobacco use panel [facility] National Score (1-100), lower number is lower risk 69 [facility] Clinical Notes 05-02-2022 to 07-08-2025 Tangela Maldonado APRN.QUICKBOOKS BOOKKEEPER - 04/22/2025 3:30 PM EDTPatient InstructionsTangela Maldonado APRN.QUICKBOOKS BOOKKEEPER - 12/24/2024 3:00 PM EDTPatient InstructionsTangela Maldonado APRN.QUICKBOOKS BOOKKEEPER - 10/28/2024 3:00 PM EST Note Date & Type Note Facility 07-08-2025 Note HNO ID: [id number] Author: TANGELA MALDONADO APRN.QUICKBOOKS BOOKKEEPER Service: ? Author Type: Nurse Practitioner Type: Progress Notes Filed: 07/08/2025 14:02 Note Text: Chief Complaint: Pain _ History of Present Illness: Sherley Rivera is a 75 year old year old male being seen at [facility] for a evaluation and/or management of his chronic pain. He states that since the last visit symptoms have been stable. His medical history has not changed and he denies any hospital stays or ER visits. Pain Level: 6 Pain Location: Back Description: Aching; Stabbing; Throbbing Duration Amount of Time: 20 Duration Units: Years Frequency: Continuous Intervention/Comfort measure: Medication; Reposition; Relaxation Has the Patient Had 2 Falls in the Last Year or 1 Fall with Injury or Currently Using an Ambulatory Assistive Device (Walker, Cane, Wheelchair, Crutches, etc.): No No Data Recorded The patient denies any bowel or bladder dysfunction. The patient is currently prescribed percocet and lyrica from our office. The last doses were taken today. The medications are partially effective. He denies any side effects from the medications. PDMP website checked and validated. The OARRS report has been reviewed and is consistent with the patients medical history and medication intake. Last Opioid agreement effective date: 12/24/2024 Last UDS: Ordered. 10/28/2024 UDS CONSISTENT 01/22/2024 UDS CONSISTENT 07/16/2023 UDS CONSISTENT 11/27/2022 UDS Questionable - no drugs detected but low creatinine. [facility] Urine Drug Screen Summary Report Date Value Ref Range Status 10/28/2024 FINAL Final Comment: == Opiate Class, MS, Ur RFX Oxycodone Class, MS, Ur RFX Methadone, MS, Ur RFX Acetaminophen, MS, Ur RFX ToxAssure Flex 23, Ur == Test Result Flag Units Drug Present Oxycodone 1098 ng/mg creat Oxymorphone 80 ng/mg creat Noroxycodone 700 ng/mg creat Sources of oxycodone include scheduled prescription medications. Oxymorphone and noroxycodone are expected metabolites of oxycodone. Oxymorphone is also available as a scheduled prescription medication. Acetaminophen PRESENT == Test Result Flag Units Ref Range Creatinine 64 mg/dL >=20 == Declared Medications: Medication list was not provided. == For clinical consultation, please call . == [facility] Urine Drug Screen and Benzo Confirm Urine Panel: Lab Results Component Value Date Cannabinoid Quant, Urine <16 11/27/2022 Benzoylecgonine Quant, Urine <24 11/27/2022 6-Acetylmorphine Quant, Urine <5 11/27/2022 Amphetamine Quant, Urine <5 11/27/2022 Methamphetamine Quant, Urine <8 11/27/2022 Buprenorphine Quant, Urine <20 11/27/2022 Norbuprenorphine Quant, Urine <20 11/27/2022 Methadone Quant, Urine <16 11/27/2022 EDDP Quant, Urine <6 11/27/2022 Tramadol Quant, Urine <25 11/27/2022 Desmethyltramadol Quant, Urine <20 11/27/2022 Fentanyl Quant, Urine <6 11/27/2022 Norfentanyl Quant, Urine <6 11/27/2022 Codeine Quant, Urine <11 11/27/2022 Morphine Quant, Urine <10 11/27/2022 Dihydrocodeine Quant, Urine <5 11/27/2022 Hydrocodone Quant, Urine <8 11/27/2022 Oxycodone Quant, Urine 1,235 (H) 11/27/2022 Hydromorphone Quant, Urine <5 11/27/2022 Oxymorphone Quant, Urine 253 (H) 11/27/2022 Chronic Pain Functional Assessment Tools Pain Disability Index: 02/24/2025 07/08/2025 Pain Disability Index Family/Home Responsibilities: This category includes chores or duties performed around the house (e.g. yard work), errands or favors for other family members (e.g. driving the children to school) 10 Total Disability 3 Recreation: This category includes hobbies, sports, and other similar leisure time activities 10 Total disability 3 Social Activity: This category refers to activities which involve participation with friends and acquaintances, other than family members. It includes parties, theater, concerts, dinning out, and other social functions 10 Total disability 3 Occupation: This category refers to activities that are a part of or directly related to ones' job. This includes non-paying jobs as well, such as that of a housewife or volunteer worker 10 Total disability 3 Sexual Behavior: This category refers to the frequency and quality of one's sex life 10 Total Disability 3 Self Care: This category includes activities which involve personal maintenance and independent daily living (e.g. taking a shower, driving, getting (more content not included)... [facility] 04-22-2025 History of Presen t illness Narrative This video visit was performed via [facility] Video Visit. Patient consented to receive health care services via virtual visit for this encounter Provider Location: [facility] Patient Location: Patient Home or Place of Residence I have communicated my name and active licensure. The patient's identity and physical location were verified at the time of this visit. Either the patient or their legal direct sales representative has been informed of the risks and benefits of -- and alternatives to -- treatment through a remote evaluation and consents to proceed with the evaluation remotely. Chief Complaint: Pain _ History of Present Illness: Sherley Rivera is a 74 year old year old male being seen at [facility] for a evaluation and/or management of his chronic pain. He states that since the last visit symptoms have been stable. His medical history has not changed and he denies any hospital stays or ER visits. Pain Level: 4-5 Pain Location: (Patient-Rptd) Back-Lower Description: (Patient-Rptd) Radiating; Sharp; Shooting; Spasm; Stiffness; Tightness Duration Amount of Time: 10 Duration Units: Years Frequency: (Patient-Rptd) Continuous Intervention/Comfort measure: Medication; Reposition; Relaxation Has the Patient Had 2 Falls in the Last Year or 1 Fall with Injury or Currently Using an Ambulatory Assistive Device (Walker, Cane, Wheelchair, Crutches, etc.): (Patient-Rptd) Yes, Patient High Risk for Falls, Notify provider if applicable The patient denies any bowel or bladder dysfunction. The patient is currently prescribed percocet and lyrica from our office. The last doses were taken today. The medications are partially effective. He denies any side effects from the medications. PDMP website checked and validated. The OARRS report has been reviewed and is consistent with the patients medical history and medication intake. Last Opioid agreement effective date: 12/24/2024 Last UDS: Reviewed - No inconsistencies noted. 10/28/2024 UDS CONSISTENT 01/22/2024 UDS CONSISTENT 07/16/2023 UDS CONSISTENT 11/27/2022 UDS Questionable - no drugs detected but low creatinine. [facility] Urine Drug Screen Summary Report Date Value Ref Range Status 10/28/2024 FINAL Final Comment: == Opiate Class, MS, Ur RFX Oxycodone Class, MS, Ur RFX Methadone, MS, Ur RFX Acetaminophen, MS, Ur RFX ToxAssure Flex 23, Ur == Test Result Flag Units Drug Present Oxycodone 1098 ng/mg creat Oxymorphone 80 ng/mg creat Noroxycodone 700 ng/mg creat Sources of oxycodone include scheduled prescription medications. Oxymorphone and noroxycodone are expected metabolites of oxycodone. Oxymorphone is also available as a scheduled prescription medication. Acetaminophen PRESENT == Test Result Flag Units Ref Range Creatinine 64 mg/dL >=20 == Declared Medications: Medication list was not provided. == For clinical consultation, please call . == [facility] Urine Drug Screen and Benzo Confirm Urine Panel: Lab Results Component Value Date Cannabinoid Quant, Urine <16 11/27/2022 Benzoylecgonine Quant, Urine <24 11/27/2022 6-Acetylmorphine Quant, Urine <5 11/27/2022 Amphetamine Quant, Urine <5 11/27/2022 Methamphetamine Quant, Urine <8 11/27/2022 Buprenorphine Quant, Urine <20 11/27/2022 Norbuprenorphine Quant, Urine <20 11/27/2022 Methadone Quant, Urine <16 11/27/2022 EDDP Quant, Urine <6 11/27/2022 Tramadol Quant, Urine <25 11/27/2022 Desmethyltramadol Quant, Urine <20 11/27/2022 Fentanyl Quant, Urine <6 11/27/2022 Norfentanyl Quant, Urine <6 11/27/2022 Codeine Quant, Urine <11 11/27/2022 Morphine Quant, Urine <10 11/27/2022 Dihydrocodeine Quant, Urine <5 11/27/2022 Hydrocodone Quant, Urine <8 11/27/2022 Oxycodone Quant, Urine 1,235 (H) 11/27/2022 Hydromorphone Quant, Urine <5 11/27/2022 Oxymorphone Quant, Urine 253 (H) 11/27/2022 Chronic Pain Functional Assessment Tools Pain Disability Index: 12/24/2024 02/24/2025 Pain Disability Index Family/Home Responsibilities: This category includes chores or duties performed around the house (e.g. yard work), errands or favors for other family members (e.g. driving the children to school) 4 10 Total Disability Recreation: This category includes hobbies, sports, and other similar leisure time activities 4 10 Total disability Social Activity: This category refers to activities which involve participation with friends and acquaintances, other than family members. It includes parties, theater, concerts, dinning out, and other social functions 4 10 Total disability Occupation: This category refers to activities that are a part of or directly related to ones' job. This includes non-paying jobs as well, such as that of a housewife or volunteer worker 4 10 Total disability Sexual Behavior: This category refers to the frequency and quality of one's sex life 4 10 Total Disability Self Care: This category includes activities which involve personal maintenance and independent daily living (e.g. taking a shower, driving, getting dress, etc) 4 10 Total disability Life Support Activity: This category refers to basic-life supporting behaviors such as eating, sleeping, and breathing 4 10 Total disability PDI Score 28 70 Pain Enjoyment of Life and General Activity Scale (0-10): PEG: A Three-Item Scale Assessing Pain Intensity and Interference What number best describes your pain on average in the past week?: (Patient-Rptd) 8 (02/19/2025 10:26 AM) What number best describes how, during the past week, pain has interfered with your enjoyment of life?: (Patient-Rptd) 10 - Completely interferes (02/19/2025 10:26 AM) What number best describes how, during the past week, pain has interfered with your general activity?: (Patient-Rptd) 10 - Completely interferes (02/19/2025 10:26 AM) SOAPP: SOAPP QUESTIONS How often do you have mood swings?: 0 - Never (02/24/2025 7:00 AM) How often do you smoke a cigarette within an hour after you wake up?: 4 - Very Often (02/24/2025 7:00 AM) How often have you taken medication other than the way it was prescribed?: 0 - Never (02/24/2025 7:00 AM) How often have you used illegal drugs (for example, marijuana, cocaine, etc.) in the past five years?: 0 - Never (02/24/2025 7:00 AM) How often, in your lifetime, have you had legal problems or been arrested?: 0 - Never (02/24/2025 7:00 AM) Sum of Questions (> or = 7 is positive): 4 (02/24/2025 7:00 AM) REVIEW OF SYSTEMS: GENERAL: No weight loss or fevers RESPIRATORY: Negative for cough CARDIOVASCULAR: Negative for chest pain GI: No nausea, vomiting, or diarrhea. MUSCULOSKELETAL: + joint pain or swelling, back pain and muscle pain ____ PAST MEDICAL HISTORY Diagnosis Date Anxiety and depression Arthritis Back pain Bone fracture CAD (coronary artery disease) CHF (congestive heart failure) (HCC) Chronic fatigue syndrome 08/27/2022 Diverticulitis Fatty liver GERD (gastroesophageal reflux disease) HLD (hyperlipidemia) HTN (hypertension) IBS (irritable bowel syndrome) MR (mitral regurgitation) MS (multiple sclerosis) (HCC) dx in [place], seen by MS DANII and diagrisaac with dx Neuropathy Panic attacks TR (tricuspid regurgitation) PAST SURGICAL HISTORY Procedure Laterality Date APPENDECTOMY CHOLECYSTECTOMY HAND SURGERY HX KNEE SURGERY HX Right meniscus repair LX PARTIAL COLECTOMY FAMILY HISTORY Problem Relation Age of Onset Hypertension Mother other (Irregular Heart Beat) Mother Cancer Father Lymphoma Social History Tobacco Use Smoking status: Every Day Types: Cigars Smokeless tobacco: Never Tobacco comments: Smokes about 2-4 cigars per day. Since age 17 yo. Substance Use Topics Alcohol use: Not Currently Drug use: Never Allergies: Glatiramer Unknown Ibuprofen GI Upset Tecfidera [Dimethyl* Other: See Comments Comment:Cognitive changes Dizziness headaches Current Outpatient Medications Medication Sig oxyCODONE-acetaminophen (PERCOCET) 7.5-325 mg tablet Take 1 tablet by mouth four times a day as needed for pain for up to 30 days. Ok to fill early if pharmacy is closed or closes early on fill date Patient should start on March 29, 2025. escitalopram oxalate (LEXAPRO) 5 mg tablet Take 0.5 tablets by mouth once daily. pregabalin (LYRICA) 150 mg capsule Take 1 capsule by mouth two times a day for 30 days. oxyCODONE-acetaminophen (PERCOCET) 7.5-325 mg tablet Take 1 tablet by mouth four times a day as needed for pain for up to 30 days. Ok to fill early if pharmacy is closed or closes early on fill date Patient should start on February 27, 2025. cyclobenzaprine (FLEXERIL) 10 mg tablet Take 0.5-1 tablets by mouth three times a day as needed for muscle spasm or pain. busPIRone (BUSPAR) 15 mg tablet Take 1 tablet by mouth three times a day. PARoxetine (PAXIL) 20 mg tablet TAKE 1/2 TABLET BY MOUTH DAILY X 1 WEEK THEN INCREASE TO 1 TABLET DAILY amLODIPine (NORVASC) 10 mg tablet ascorbic acid, vitamin C, 500 mg cap Take by mouth. ondansetron (ZOFRAN) 4 mg tablet nitroglycerin sublingual (NITROQUICK) 0.3 mg SL tablet DISSOLVE 1 TABLET UNDER THE TONGUE EVERY 5 TO 15 MINUTES lisinopril (ZESTRIL, PRINIVIL) 40 mg tablet Take 1 tablet by mouth. furosemide (LASIX) 40 mg tablet Take 40 mg by mouth once daily. atenolol (TENORMIN) 50 mg tablet Take 50 mg by mouth once daily. clopidogrel (PLAVIX) 75 mg tablet Take 75 mg by mouth once daily. atorvastatin (LIPITOR) 40 mg tablet Take 40 mg by mouth daily at bedtime. No current facility-administered medications for this visit. PHYSICAL EXAMINATION: There were no vitals taken for this visit. GENERAL: alert and appropriate, in no distress and well-hydrated, well nourished HEAD: normocephalic, no abnormality or lesion noted RESPIRATORY: breathing non-labored NEUROLOGIC: no obvious deficit ASSESSMENT: Patient is stable. Chronic pain is persistent. Medications are helping Sherley Rivera to have an improved quality of life. Patient compliance with Opioid Contract: patient is compliant Encounter Diagnosis ICD-10-CM 1. Other chronic pain G89.29 2. 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 Neuropathy G62.9 5. Multiple sclerosis (HCC) G35 PLAN: Despite its legality, THC containing products and CBD products that may contain THC are not to be used while being prescribed pain medications. If your drug screen contains any THC your medication will be discontinued. The patient understands the goal of our treatment is a reduction in pain and/or an improved level of functioning with activities of daily living. If at any time the patient does not feel the medications are helping them to achieve these goals, the medications may be discontinued. The patient reports a reduction in pain and/or an improved level of functioning with activities of daily living, denies any significant adverse effects, is compliant with the pain management agreement and there are no signs of medication misuse, abuse or diversion; therefore, the medications will be continued. Continue Percocet A prescription for narcan (naloxone) has been offered to the patient. Continue Lyrica and flexeril He declines physical therapy at this time due to the cost Patient declines injections at this time Continue care with PCP and specialists Follow up with PCP concerning BP Follow up in 2 months Tangela Maldonado APRN.FANNY documented in this encounter [facility] 04-22-2025 Note HNO ID: [id number] Author: TANGELA MALDONADO APRN.CNP Service: ? Author Type: Nurse Practitioner Type: Progress Notes Filed: 04/22/2025 15:23 Note Text: This video visit was performed via [facility] Video Visit. Patient consented to receive health care services via virtual visit for this encounter Provider Location: [facility] Patient Location: Patient Home or Place of Residence I have communicated my name and active licensure. The patient's identity and physical location were verified at the time of this visit. Either the patient or their legal direct sales representative has been informed of the risks and benefits of -- and alternatives to -- treatment through a remote evaluation and consents to proceed with the evaluation remotely. Chief Complaint: Pain _ History of Present Illness: Sherley Rivera is a 74 year old year old male being seen at [facility] for a evaluation and/or management of his chronic pain. He states that since the last visit symptoms have been stable. His medical history has not changed and he denies any hospital stays or ER visits. Pain Level: 4-5 Pain Location: (Patient-Rptd) Back-Lower Description: (Patient-Rptd) Radiating; Sharp; Shooting; Spasm; Stiffness; Tightness Duration Amount of Time: 10 Duration Units: Years Frequency: (Patient-Rptd) Continuous Intervention/Comfort measure: Medication; Reposition; Relaxation Has the Patient Had 2 Falls in the Last Year or 1 Fall with Injury or Currently Using an Ambulatory Assistive Device (Walker, Cane, Wheelchair, Crutches, etc.): (Patient-Rptd) Yes, Patient High Risk for Falls, Notify provider if applicable The patient denies any bowel or bladder dysfunction. The patient is currently prescribed percocet and lyrica from our office. The last doses were taken today. The medications are partially effective. He denies any side effects from the medications. PDMP website checked and validated. The OARRS report has been reviewed and is consistent with the patients medical history and medication intake. Last Opioid agreement effective date: 12/24/2024 Last UDS: Reviewed - No inconsistencies noted. 10/28/2024 UDS CONSISTENT 01/22/2024 UDS CONSISTENT 07/16/2023 UDS CONSISTENT 11/27/2022 UDS Questionable - no drugs detected but low creatinine. [facility] Urine Drug Screen Summary Report Date Value Ref Range Status 10/28/2024 FINAL Final Comment: == Opiate Class, MS, Ur RFX Oxycodone Class, MS, Ur RFX Methadone, MS, Ur RFX Acetaminophen, MS, Ur RFX ToxAssure Flex 23, Ur == Test Result Flag Units Drug Present Oxycodone 1098 ng/mg creat Oxymorphone 80 ng/mg creat Noroxycodone 700 ng/mg creat Sources of oxycodone include scheduled prescription medications. Oxymorphone and noroxycodone are expected metabolites of oxycodone. Oxymorphone is also available as a scheduled prescription medication. Acetaminophen PRESENT == Test Result Flag Units Ref Range Creatinine 64 mg/dL >=20 == Declared Medications: Medication list was not provided. == For clinical consultation, please call . == [facility] Urine Drug Screen and Benzo Confirm Urine Panel: Lab Results Component Value Date Cannabinoid Quant, Urine <16 11/27/2022 Benzoylecgonine Quant, Urine <24 11/27/2022 6-Acetylmorphine Quant, Urine <5 11/27/2022 Amphetamine Quant, Urine <5 11/27/2022 Methamphetamine Quant, Urine <8 11/27/2022 Buprenorphine Quant, Urine <20 11/27/2022 Norbuprenorphine Quant, Urine <20 11/27/2022 Methadone Quant, Urine <16 11/27/2022 EDDP Quant, Urine <6 11/27/2022 Tramadol Quant, Urine <25 11/27/2022 Desmethyltramadol Quant, Urine <20 11/27/2022 Fentanyl Quant, Urine <6 11/27/2022 Norfentanyl Quant, Urine <6 11/27/2022 Codeine Quant, Urine <11 11/27/2022 Morphine Quant, Urine <10 11/27/2022 Dihydrocodeine Quant, Urine <5 11/27/2022 Hydrocodone Quant, Urine <8 11/27/2022 Oxycodone Quant, Urine 1,235 (H) 11/27/2022 Hydromorphone Quant, Urine <5 11/27/2022 Oxymorphone Quant, Urine 253 (H) 11/27/2022 Chronic Pain Functional Assessment Tools Pain Disability Index: 12/24/2024 02/24/2025 Pain Disability Index Family/Home Responsibilities: This category includes chores or duties performed around the house (e.g. yard work), errands or favors for other family members (e.g. driving the children to school) 4 10 Total Disability Recreation: This category includes hobbies, sports, and other (more content not included)... [facility] 04-21-2025 Instructions Tangela Maldonado APRN.QUICKBOOKS BOOKKEEPER - 04/21/2025 8:22 AM EDT Despite its legality, THC containing products and CBD products that may contain THC are not to be used while being prescribed pain medications. If your drug screen contains any THC your medication will be discontinued. Continue Percocet A prescription for narcan (naloxone) has been offered to the patient. Continue Lyrica Continue flexeril He declines physical therapy at this time due to the cost Patient declines injections at this time Continue care with PCP and specialists Follow up with PCP concerning BP Follow up in 2 months documented in this encounter [facility] 02-24-2025 Note HNO ID: [id number] Author: EMILIE HUNTER RT(R) Service: Radiology Author Type: Technologist Type: Progress Notes Filed: 02/24/2025 16:50 Note Text: Radiology Service Progress Note PATIENT NAME: Sherley Rivera DATE OF SERVICE: February 24, 2025 TIME: 4:49 PM PATIENT IDENTITY VERIFICATION COMPLETED USING TWO (2) IDENTIFIERS: Name and Date of confirmed by patient verbally. FALL SCREENING: Has the patient had 2 falls in the last year or 1 fall with injury or currently using an Ambulatory Assistive Device (Walker, Cane, Wheelchair, Crutches, etc.)? Yes, Patient High Risk for Falls What interventions were put in place to prevent falls during this visit? Increased Observations by Caregivers PATIENT GENDER DATA: Assigned male at PATIENT RELEVANT IMPLANT DATA REVIEWED: Not Applicable PATIENT PRESENTS WITH AN IMPLANTABLE OR ATTACHED SUPERVISOR CAB: No RADIOLOGY DEPARTMENT: General X-ray: Exam(s) Completed: Spine X-Ray(s): Lumbar AP/LAT/ FLEX/EXT PERIPHERAL IV DATA: Not applicable SIGNED BY: RT Darien(R) February 24, 2025 4:49 PM [facility] 02-24-2025 Note HNO ID: [id number] Author: TANGELA MALDONADO APRN.CNP Service: ? Author Type: Nurse Practitioner Type: Progress Notes Filed: 02/24/2025 15:01 Note Text: Chief Complaint: Pain _ History of Present Illness: Sherley Rivera is a 74 year old year old male being seen at [facility] for a evaluation and/or management of his chronic pain. He states that since the last visit symptoms have been worsening. He has been having a sharp throb in his lower back on the right side. He was seen in the urgent care for this and given steroids. Otherwise, his medical history has not changed and he denies any hospital stays or ER visits. Pain Level: 9 Pain Location: (Patient-Rptd) Back-Lower Description: (Patient-Rptd) Radiating; Sharp; Shooting; Spasm; Stiffness; Tightness Duration Amount of Time: 10 Duration Units: Years Frequency: (Patient-Rptd) Continuous Intervention/Comfort measure: Medication; Reposition; Relaxation Has the Patient Had 2 Falls in the Last Year or 1 Fall with Injury or Currently Using an Ambulatory Assistive Device (Walker, Cane, Wheelchair, Crutches, etc.): (Patient-Rptd) Yes, Patient High Risk for Falls, Notify provider if applicable The patient denies any bowel or bladder dysfunction. The patient is currently prescribed percocet and lyrica from our office. The last doses were taken today. The medications are partially effective. PDMP website checked and validated. The OARRS report has been reviewed and is consistent with the patients medical history and medication intake. Last Opioid agreement effective date: 12/24/2024 Last UDS: Reviewed - No inconsistencies noted. 10/28/2024 UDS CONSISTENT 01/22/2024 UDS CONSISTENT 07/16/2023 UDS CONSISTENT 11/27/2022 UDS Questionable - no drugs detected but low creatinine. [facility] Urine Drug Screen Summary Report Date Value Ref Range Status 10/28/2024 FINAL Final Comment: == Opiate Class, MS, Ur RFX Oxycodone Class, MS, Ur RFX Methadone, MS, Ur RFX Acetaminophen, MS, Ur RFX ToxAssure Flex 23, Ur == Test Result Flag Units Drug Present Oxycodone 1098 ng/mg creat Oxymorphone 80 ng/mg creat Noroxycodone 700 ng/mg creat Sources of oxycodone include scheduled prescription medications. Oxymorphone and noroxycodone are expected metabolites of oxycodone. Oxymorphone is also available as a scheduled prescription medication. Acetaminophen PRESENT == Test Result Flag Units Ref Range Creatinine 64 mg/dL >=20 == Declared Medications: Medication list was not provided. == For clinical consultation, please call . == [facility] Urine Drug Screen and Benzo Confirm Urine Panel: Lab Results Component Value Date Cannabinoid Quant, Urine <16 11/27/2022 Benzoylecgonine Quant, Urine <24 11/27/2022 6-Acetylmorphine Quant, Urine <5 11/27/2022 Amphetamine Quant, Urine <5 11/27/2022 Methamphetamine Quant, Urine <8 11/27/2022 Buprenorphine Quant, Urine <20 11/27/2022 Norbuprenorphine Quant, Urine <20 11/27/2022 Methadone Quant, Urine <16 11/27/2022 EDDP Quant, Urine <6 11/27/2022 Tramadol Quant, Urine <25 11/27/2022 Desmethyltramadol Quant, Urine <20 11/27/2022 Fentanyl Quant, Urine <6 11/27/2022 Norfentanyl Quant, Urine <6 11/27/2022 Codeine Quant, Urine <11 11/27/2022 Morphine Quant, Urine <10 11/27/2022 Dihydrocodeine Quant, Urine <5 11/27/2022 Hydrocodone Quant, Urine <8 11/27/2022 Oxycodone Quant, Urine 1,235 (H) 11/27/2022 Hydromorphone Quant, Urine <5 11/27/2022 Oxymorphone Quant, Urine 253 (H) 11/27/2022 Chronic Pain Functional Assessment Tools Pain Disability Index: 12/24/2024 02/24/2025 Pain Disability Index Family/Home Responsibilities: This category includes chores or duties performed around the house (e.g. yard work), errands or favors for other family members (e.g. driving the children to school) 4 10 Total Disability Recreation: This category includes hobbies, sports, and other similar leisure time activities 4 10 Total disability Social Activity: This category refers to activities which involve participation with friends and acquaintances, other than family members. It includes parties, theater, concerts, dinning out, and other social functions 4 10 Total disability Occupation: This category refers to activities that are a part of or directly related to ones' job. This includes non-paying jobs as well, such as that of a housewife or volunteer worker 4 10 Total disability (more content not included)... [facility] 12-24-2024 History of Presen t illness Narrative Chief Complaint: Pain _ History of Present Illness: Sherley Rivera is a 74 year old year old male being seen at [facility] for a evaluation and/or management of his chronic pain. He states that since the last visit symptoms have been stable. He slipped on the ice when going up some stairs and fell. He denies serious injury or an Emergency Room visit. His BP is elevated today. He states he did not take his BP medication. Otherwise, his medical history has not changed and he denies any hospital stays or ER visits. Pain Level: 5 Pain Location: Back Description: Aching; Burning; Throbbing Duration Amount of Time: 10 Duration Units: Years Frequency: Continuous Intervention/Comfort measure: Medication; Reposition; Relaxation Has the Patient Had 2 Falls in the Last Year or 1 Fall with Injury or Currently Using an Ambulatory Assistive Device (Walker, Cane, Wheelchair, Crutches, etc.): (Patient-Rptd) No The patient denies any bowel or bladder dysfunction. The patient is currently prescribed percocet and lyrica from our office. The last doses were taken today. The medications are partially effective. PDMP website checked and validated. The OARRS report has been reviewed and is consistent with the patients medical history and medication intake. Last Opioid agreement effective date: 12/03/2023 Last UDS: Reviewed - No inconsistencies noted. 10/28/2024 UDS CONSISTENT 01/22/2024 UDS CONSISTENT 07/16/2023 UDS CONSISTENT 11/27/2022 UDS Questionable - no drugs detected but low creatinine. [facility] Urine Drug Screen Summary Report Date Value Ref Range Status 10/28/2024 FINAL Final Comment: == Opiate Class, MS, Ur RFX Oxycodone Class, MS, Ur RFX Methadone, MS, Ur RFX Acetaminophen, MS, Ur RFX ToxAssure Flex 23, Ur == Test Result Flag Units Drug Present Oxycodone 1098 ng/mg creat Oxymorphone 80 ng/mg creat Noroxycodone 700 ng/mg creat Sources of oxycodone include scheduled prescription medications. Oxymorphone and noroxycodone are expected metabolites of oxycodone. Oxymorphone is also available as a scheduled prescription medication. Acetaminophen PRESENT == Test Result Flag Units Ref Range Creatinine 64 mg/dL >=20 == Declared Medications: Medication list was not provided. == For clinical consultation, please call . == [facility] Urine Drug Screen and Benzo Confirm Urine Panel: Lab Results Component Value Date Cannabinoid Quant, Urine <16 11/27/2022 Benzoylecgonine Quant, Urine <24 11/27/2022 6-Acetylmorphine Quant, Urine <5 11/27/2022 Amphetamine Quant, Urine <5 11/27/2022 Methamphetamine Quant, Urine <8 11/27/2022 Buprenorphine Quant, Urine <20 11/27/2022 Norbuprenorphine Quant, Urine <20 11/27/2022 Methadone Quant, Urine <16 11/27/2022 EDDP Quant, Urine <6 11/27/2022 Tramadol Quant, Urine <25 11/27/2022 Desmethyltramadol Quant, Urine <20 11/27/2022 Fentanyl Quant, Urine <6 11/27/2022 Norfentanyl Quant, Urine <6 11/27/2022 Codeine Quant, Urine <11 11/27/2022 Morphine Quant, Urine <10 11/27/2022 Dihydrocodeine Quant, Urine <5 11/27/2022 Hydrocodone Quant, Urine <8 11/27/2022 Oxycodone Quant, Urine 1,235 (H) 11/27/2022 Hydromorphone Quant, Urine <5 11/27/2022 Oxymorphone Quant, Urine 253 (H) 11/27/2022 Chronic Pain Functional Assessment Tools Pain Disability Index: 10/28/2024 12/24/2024 Pain Disability Index Family/Home Responsibilities: This category includes chores or duties performed around the house (e.g. yard work), errands or favors for other family members (e.g. driving the children to school) 5 4 Recreation: This category includes hobbies, sports, and other similar leisure time activities 5 4 Social Activity: This category refers to activities which involve participation with friends and acquaintances, other than family members. It includes parties, theater, concerts, dinning out, and other social functions 4 4 Occupation: This category refers to activities that are a part of or directly related to ones' job. This includes non-paying jobs as well, such as that of a housewife or volunteer worker 6 4 Sexual Behavior: This category refers to the frequency and quality of one's sex life 5 4 Self Care: This category includes activities which involve personal maintenance and independent daily living (e.g. taking a shower, driving, getting dress, etc) 7 4 Life Support Activity: This category refers to basic-life supporting behaviors such as eating, sleeping, and breathing 8 4 PDI Score 40 28 Pain Enjoyment of Life and General Activity Scale (0-10): PEG: A Three-Item Scale Assessing Pain Intensity and Interference What number best describes your pain on average in the past week?: 3 (08/27/2024 2:00 PM) What number best describes how, during the past week, pain has interfered with your enjoyment of life?: 3 (08/27/2024 2:00 PM) What number best describes how, during the past week, pain has interfered with your general activity?: 3 (08/27/2024 2:00 PM) SOAPP: SOAPP QUESTIONS How often do you have mood swings?: 0 - Never (12/24/2024 7:00 AM) How often do you smoke a cigarette within an hour after you wake up?: 4 - Very Often (12/24/2024 7:00 AM) How often have you taken medication other than the way it was prescribed?: 0 - Never (12/24/2024 7:00 AM) How often have you used illegal drugs (for example, marijuana, cocaine, etc.) in the past five years?: 0 - Never (12/24/2024 7:00 AM) How often, in your lifetime, have you had legal problems or been arrested?: 0 - Never (12/24/2024 7:00 AM) Sum of Questions (> or = 7 is positive): 4 (12/24/2024 7:00 AM) REVIEW OF SYSTEMS: GENERAL: No weight loss or fevers RESPIRATORY: Negative for cough CARDIOVASCULAR: Negative for chest pain GI: No nausea, vomiting, or diarrhea. MUSCULOSKELETAL: + joint pain or swelling, back pain and muscle pain ____ PAST MEDICAL HISTORY Diagnosis Date Anxiety and depression Arthritis Back pain Bone fracture CAD (coronary artery disease) CHF (congestive heart failure) (HCC) Chronic fatigue syndrome 08/27/2022 Diverticulitis Fatty liver GERD (gastroesophageal reflux disease) HLD (hyperlipidemia) HTN (hypertension) IBS (irritable bowel syndrome) MR (mitral regurgitation) MS (multiple sclerosis) (HCC) dx in [place], seen by MS DANII and diagrisaac with dx Neuropathy Panic attacks TR (tricuspid regurgitation) PAST SURGICAL HISTORY Procedure Laterality Date APPENDECTOMY CHOLECYSTECTOMY HAND SURGERY HX KNEE SURGERY HX Right meniscus repair LX PARTIAL COLECTOMY FAMILY HISTORY Problem Relation Age of Onset Hypertension Mother other (Irregular Heart Beat) Mother Cancer Father Lymphoma Social History Tobacco Use Smoking status: Every Day Types: Cigars Smokeless tobacco: Never Tobacco comments: Smokes about 2-4 cigars per day. Since age 17 yo. Substance Use Topics Alcohol use: Not Currently Drug use: Never Allergies: Glatiramer Unknown Ibuprofen GI Upset Tecfidera [Dimethyl* Other: See Comments Comment:Cognitive changes Dizziness headaches Current Outpatient Medications Medication Sig pregabalin (LYRICA) 150 mg capsule Take 1 capsule by mouth two times a day for 30 days. oxyCODONE-acetaminophen (PERCOCET) 7.5-325 mg tablet Take 1 tablet by mouth four times a day as needed for pain for up to 30 days. Ok to fill early if pharmacy is closed or closes early on fill date Patient should start on October 30, 2024. oxyCODONE-acetaminophen (PERCOCET) 7.5-325 mg tablet Take 1 tablet by mouth four times a day as needed for pain for up to 30 days. Ok to fill early if pharmacy is closed or closes early on fill date Patient should start on November 29, 2024. busPIRone (BUSPAR) 15 mg tablet Take 1 tablet by mouth three times a day. PARoxetine (PAXIL) 20 mg tablet TAKE 1/2 TABLET BY MOUTH DAILY X 1 WEEK THEN INCREASE TO 1 TABLET DAILY amLODIPine (NORVASC) 10 mg tablet ascorbic acid, vitamin C, 500 mg cap Take by mouth. ondansetron (ZOFRAN) 4 mg tablet nitroglycerin sublingual (NITROQUICK) 0.3 mg SL tablet DISSOLVE 1 TABLET UNDER THE TONGUE EVERY 5 TO 15 MINUTES lisinopril (ZESTRIL, PRINIVIL) 40 mg tablet Take 1 tablet by mouth. furosemide (LASIX) 40 mg tablet Take 40 mg by mouth once daily. atenolol (TENORMIN) 50 mg tablet Take 50 mg by mouth once daily. clopidogrel (PLAVIX) 75 mg tablet Take 75 mg by mouth once daily. atorvastatin (LIPITOR) 40 mg tablet Take 40 mg by mouth daily at bedtime. No current facility-administered medications for this visit. PHYSICAL EXAMINATION: BP 176/68 (BP Site: Left Arm, BP Position: Sitting) Pulse 68 Resp 20 Wt 127.2 kg (280 lb 6.4 oz) SpO2 99% BMI 39.26 kg/m GENERAL: alert and appropriate, in no distress and well-hydrated, well nourished HEAD: normocephalic, no abnormality or lesion noted RESPIRATORY: breathing non-labored NEUROLOGIC: no obvious deficit MUSCULOSKELETAL: 5/5 motor strength in both legs. Negative SLR signs bilaterally. Sensory is intact to light touch in all dermatomes bilaterally. Patient has straight leg range of motion in supine position of about 90 degrees on the left and 90 degrees on the right. Negative Brad's test bilaterally. Lumbar flexion is < 90 degrees and lumbar extension is > 15 degrees. Toe and heel walking are normal. Tenderness noted at L4-5 midline paraspinal muscle, L>R. ASSESSMENT: Patient is stable. Chronic pain is persistent. Medications are helping Sherley Rivera to have an improved quality of life. Patient compliance with Opioid Contract: patient is compliant Encounter Diagnosis ICD-10-CM 1. Other chronic pain G89.29 2. Degeneration of intervertebral disc of lumbar region with discogenic back pain M51.360 3. intermediate (current) use of opiate analgesic Z79.891 4. Neuropathy G62.9 5. Multiple sclerosis (HCC) G35 PLAN: Despite its legality, THC containing products and CBD products that may contain THC are not to be used while being prescribed pain medications. If your drug screen contains any THC your medication will be discontinued. The patient understands the goal of our treatment is a reduction in pain and/or an improved level of functioning with activities of daily living. If at any time the patient does not feel the medications are helping them to achieve these goals, the medications may be discontinued. The patient reports a reduction in pain and/or an improved level of functioning with activities of daily living, denies any significant adverse effects, is compliant with the pain management agreement and there are no signs of medication misuse, abuse or diversion; therefore, the medications will be continued. Continue Percocet A prescription for narcan (naloxone) has been offered to the patient. Continue Lyrica Patient declines injections at this time Continue care with PCP and specialists Follow up with PCP concerning BP Follow up in 2 months Tangela Maldonado APRN.[employer] documented in this encounter [facility] 12-24-2024 Note HNO ID: [id number] Author: TANGELA MALDONADO APRN.[employer] B[employer]KEEPER Service: ? Author Type: Nurse Practitioner Type: Progress Notes Filed: 12/24/2024 15:09 Note Text: Chief Complaint: Pain _ History of Present Illness: Sherley Rivera is a 74 year old year old male being seen at [facility] for a evaluation and/or management of his chronic pain. He states that since the last visit symptoms have been stable. He slipped on the ice when going up some stairs and fell. He denies serious injury or an Emergency Room visit. His BP is elevated today. He states he did not take his BP medication. Otherwise, his medical history has not changed and he denies any hospital stays or ER visits. Pain Level: 5 Pain Location: Back Description: Aching; Burning; Throbbing Duration Amount of Time: 10 Duration Units: Years Frequency: Continuous Intervention/Comfort measure: Medication; Reposition; Relaxation Has the Patient Had 2 Falls in the Last Year or 1 Fall with Injury or Currently Using an Ambulatory Assistive Device (Walker, Cane, Wheelchair, Crutches, etc.): (Patient-Rptd) No The patient denies any bowel or bladder dysfunction. The patient is currently prescribed percocet and lyrica from our office. The last doses were taken today. The medications are partially effective. PDMP website checked and validated. The OARRS report has been reviewed and is consistent with the patients medical history and medication intake. Last Opioid agreement effective date: 12/03/2023 Last UDS: Reviewed - No inconsistencies noted. 10/28/2024 UDS CONSISTENT 01/22/2024 UDS CONSISTENT 07/16/2023 UDS CONSISTENT 11/27/2022 UDS Questionable - no drugs detected but low creatinine. [facility] Urine Drug Screen Summary Report Date Value Ref Range Status 10/28/2024 FINAL Final Comment: == Opiate Class, MS, Ur RFX Oxycodone Class, MS, Ur RFX Methadone, MS, Ur RFX Acetaminophen, MS, Ur RFX ToxAssure Flex 23, Ur == Test Result Flag Units Drug Present Oxycodone 1098 ng/mg creat Oxymorphone 80 ng/mg creat Noroxycodone 700 ng/mg creat Sources of oxycodone include scheduled prescription medications. Oxymorphone and noroxycodone are expected metabolites of oxycodone. Oxymorphone is also available as a scheduled prescription medication. Acetaminophen PRESENT == Test Result Flag Units Ref Range Creatinine 64 mg/dL >=20 == Declared Medications: Medication list was not provided. == For clinical consultation, please call . == [facility] Urine Drug Screen and Benzo Confirm Urine Panel: Lab Results Component Value Date Cannabinoid Quant, Urine <16 11/27/2022 Benzoylecgonine Quant, Urine <24 11/27/2022 6-Acetylmorphine Quant, Urine <5 11/27/2022 Amphetamine Quant, Urine <5 11/27/2022 Methamphetamine Quant, Urine <8 11/27/2022 Buprenorphine Quant, Urine <20 11/27/2022 Norbuprenorphine Quant, Urine <20 11/27/2022 Methadone Quant, Urine <16 11/27/2022 EDDP Quant, Urine <6 11/27/2022 Tramadol Quant, Urine <25 11/27/2022 Desmethyltramadol Quant, Urine <20 11/27/2022 Fentanyl Quant, Urine <6 11/27/2022 Norfentanyl Quant, Urine <6 11/27/2022 Codeine Quant, Urine <11 11/27/2022 Morphine Quant, Urine <10 11/27/2022 Dihydrocodeine Quant, Urine <5 11/27/2022 Hydrocodone Quant, Urine <8 11/27/2022 Oxycodone Quant, Urine 1,235 (H) 11/27/2022 Hydromorphone Quant, Urine <5 11/27/2022 Oxymorphone Quant, Urine 253 (H) 11/27/2022 Chronic Pain Functional Assessment Tools Pain Disability Index: 10/28/2024 12/24/2024 Pain Disability Index Family/Home Responsibilities: This category includes chores or duties performed around the house (e.g. yard work), errands or favors for other family members (e.g. driving the children to school) 5 4 Recreation: This category includes hobbies, sports, and other similar leisure time activities 5 4 Social Activity: This category refers to activities which involve participation with friends and acquaintances, other than family members. It includes parties, theater, concerts, dinning out, and other social functions 4 4 Occupation: This category refers to activities that are a part of or directly related to ones' job. This includes non-paying jobs as well, such as that of a housewife or volunteer worker 6 4 Sexual Behavior: This category refers to the frequency and quality of one's sex life 5 4 Self Care: This category includes activities which involve personal ma (more content not included)... [facility] 12-23-2024 Instructions Tangela Maldonado APRN.CNP - 12/23/2024 7:40 AM EDT Despite its legality, THC containing products and CBD products that may contain THC are not to be used while being prescribed pain medications. If your drug screen contains any THC your medication will be discontinued. Continue Percocet A prescription for narcan (naloxone) has been offered to the patient. Continue Lyrica Patient declines injections at this time Continue care with PCP and specialists Follow up in 2 months documented in this encounter [facility] 10-28-2024 History of Presen t illness Narrative Chief Complaint: Pain _ History of Present Illness: Sherley Rivera is a 74 year old year old male being seen at [facility] for a evaluation and/or management of his chronic pain. The patient was last seen on 08/27/2024. He states that since the last visit symptoms have been stable. His medical history has not changed and he denies any hospital stays or ER visits. Pain Location: lower back, feet due to neuropathy, right knee VAS: 7-8/10 Timing: constant Character/Quality: ache Radiation: pelvic area to both legs at times Numbness/Tingling: toes Burning: denies Weakness: denies Falls: denies Alleviating Factors: medications and laying down Aggravating Factors: standing, walking, prior to medications The patient denies any bowel or bladder dysfunction. The patient is currently prescribed percocet and lyrica from our office. The last doses were taken today. The medications are partially effective. PDMP website checked and validated. OARRS report reviewed and is consistent with the patients medical history and medication intake. Last Opioid agreement effective date: 12/03/2023 Last UDS: Reviewed - No inconsistencies noted. 01/22/2024 UDS CONSISTENT 07/16/2023 UDS CONSISTENT 11/27/2022 UDS Questionable - no drugs detected but low creatinine. Summary Report Date Value Ref Range Status 01/16/2024 FINAL Final Comment: == Opiate Class, MS, Ur RFX Oxycodone Class, MS, Ur RFX Acetaminophen, MS, Ur RFX ToxAssure Flex 23, Ur == Test Result Flag Units Drug Present Oxycodone 4730 ng/mg creat Noroxycodone 5100 ng/mg creat Sources of oxycodone include scheduled prescription medications. Noroxycodone is an expected metabolite of oxycodone. Acetaminophen PRESENT == Test Result Flag Units Ref Range Creatinine 20 mg/dL >=20 == Declared Medications: Medication list was not provided. == For clinical consultation, please call . == PREGABALIN, URINE Date Value Ref Range Status 01/16/2024 97.8 ug/mL Final Comment: This test was developed and its performance characteristics determined by [employer]. It has not been cleared or approved by the Food and Drug Administration. Urine Panel: Lab Results Component Value Date Cannabinoid Quant, Urine <16 11/27/2022 Benzoylecgonine Quant, Urine <24 11/27/2022 6-Acetylmorphine Quant, Urine <5 11/27/2022 Amphetamine Quant, Urine <5 11/27/2022 Methamphetamine Quant, Urine <8 11/27/2022 Buprenorphine Quant, Urine <20 11/27/2022 Norbuprenorphine Quant, Urine <20 11/27/2022 Methadone Quant, Urine <16 11/27/2022 EDDP Quant, Urine <6 11/27/2022 Tramadol Quant, Urine <25 11/27/2022 Desmethyltramadol Quant, Urine <20 11/27/2022 Fentanyl Quant, Urine <6 11/27/2022 Norfentanyl Quant, Urine <6 11/27/2022 Codeine Quant, Urine <11 11/27/2022 Morphine Quant, Urine <10 11/27/2022 Dihydrocodeine Quant, Urine <5 11/27/2022 Hydrocodone Quant, Urine <8 11/27/2022 Oxycodone Quant, Urine 1,235 (H) 11/27/2022 Hydromorphone Quant, Urine <5 11/27/2022 Oxymorphone Quant, Urine 253 (H) 11/27/2022 Chronic Pain Functional Assessment Tools Pain Disability Index: 11/24/2022 10/28/2024 Pain Disability Index Family/Home Responsibilities: This category includes chores or duties performed around the house (e.g. yard work), errands or favors for other family members (e.g. driving the children to school) 7 5 Recreation: This category includes hobbies, sports, and other similar leisure time activities 7 5 Social Activity: This category refers to activities which involve participation with friends and acquaintances, other than family members. It includes parties, theater, concerts, dinning out, and other social functions 7 4 Occupation: This category refers to activities that are a part of or directly related to ones' job. This includes non-paying jobs as well, such as that of a housewife or volunteer worker 0 No disability 6 Sexual Behavior: This category refers to the frequency and quality of one's sex life 5 5 Self Care: This category includes activities which involve personal maintenance and independent daily living (e.g. taking a shower, driving, getting dress, etc) 5 7 Life Support Activity: This category refers to basic-life supporting behaviors such as eating, sleeping, and breathing 3 8 PDI Score 34 40 Pain Enjoyment of Life and General Activity Scale (0-10): PEG: A Three-Item Scale Assessing Pain Intensity and Interference What number best describes your pain on average in the past week?: 3 (08/27/2024 2:00 PM) What number best describes how, during the past week, pain has interfered with your enjoyment of life?: 3 (08/27/2024 2:00 PM) What number best describes how, during the past week, pain has interfered with your general activity?: 3 (08/27/2024 2:00 PM) Screener and Opioid Assessment for Patients with Pain (SOAPP)-5 SOAPP QUESTIONS How often do you have mood swings?: 0 - Never (10/28/2024 2:57 PM) How often do you smoke a cigarette within an hour after you wake up?: 0 - Never (10/28/2024 2:57 PM) How often have you taken medication other than the way it was prescribed?: 0 - Never (10/28/2024 2:57 PM) How often have you used illegal drugs (for example, marijuana, cocaine, etc.) in the past five years?: 0 - Never (10/28/2024 2:57 PM) How often, in your lifetime, have you had legal problems or been arrested?: 0 - Never (10/28/2024 2:57 PM) Sum of Questions (> or = 7 is positive): 0 (10/28/2024 2:57 PM) REVIEW OF SYSTEMS: GENERAL: No weight loss or fevers RESPIRATORY: Negative for cough CARDIOVASCULAR: Negative for chest pain GI: No nausea, vomiting, or diarrhea. MUSCULOSKELETAL: + joint pain or swelling, back pain and muscle pain ____ PAST MEDICAL HISTORY Diagnosis Date Anxiety and depression Arthritis Back pain Bone fracture CAD (coronary artery disease) CHF (congestive heart failure) (HCC) Chronic fatigue syndrome 08/27/2022 Diverticulitis Fatty liver GERD (gastroesophageal reflux disease) HLD (hyperlipidemia) HTN (hypertension) IBS (irritable bowel syndrome) MR (mitral regurgitation) MS (multiple sclerosis) (HCC) dx in [place], seen by MS CCKrystal and diagreed with dx Neuropathy Panic attacks TR (tricuspid regurgitation) PAST SURGICAL HISTORY Procedure Laterality Date APPENDECTOMY CHOLECYSTECTOMY HAND SURGERY HX KNEE SURGERY HX Right meniscus repair LX PARTIAL COLECTOMY FAMILY HISTORY Problem Relation Age of Onset Hypertension Mother other (Irregular Heart Beat) Mother Cancer Father Lymphoma Social History Tobacco Use Smoking status: Every Day Types: Cigars Smokeless tobacco: Never Tobacco comments: Smokes about 2-4 cigars per day. Since age 17 yo. Substance Use Topics Alcohol use: Not Currently Drug use: Never Allergies: Glatiramer Unknown Ibuprofen GI Upset Tecfidera [Dimethyl* Other: See Comments Comment:Cognitive changes Dizziness headaches Current Outpatient Medications Medication Sig oxyCODONE-acetaminophen (PERCOCET) 7.5-325 mg tablet Take 1 tablet by mouth four times a day as needed for pain for up to 30 days. Ok to fill early if pharmacy is closed or closes early on fill date Patient should start on August 31, 2024. oxyCODONE-acetaminophen (PERCOCET) 7.5-325 mg tablet Take 1 tablet by mouth four times a day as needed for pain for up to 30 days. Ok to fill early if pharmacy is closed or closes early on fill date Patient should start on September 30, 2024. pregabalin (LYRICA) 150 mg capsule Take 1 capsule by mouth two times a day for 30 days. Patient should start on August 30, 2024. busPIRone (BUSPAR) 15 mg tablet Take 1 tablet by mouth three times a day. PARoxetine (PAXIL) 20 mg tablet TAKE 1/2 TABLET BY MOUTH DAILY X 1 WEEK THEN INCREASE TO 1 TABLET DAILY amLODIPine (NORVASC) 10 mg tablet ascorbic acid, vitamin C, 500 mg cap Take by mouth. ondansetron (ZOFRAN) 4 mg tablet nitroglycerin sublingual (NITROQUICK) 0.3 mg SL tablet DISSOLVE 1 TABLET UNDER THE TONGUE EVERY 5 TO 15 MINUTES lisinopril (ZESTRIL, PRINIVIL) 40 mg tablet Take 1 tablet by mouth. furosemide (LASIX) 40 mg tablet Take 40 mg by mouth once daily. atenolol (TENORMIN) 50 mg tablet Take 50 mg by mouth once daily. clopidogrel (PLAVIX) 75 mg tablet Take 75 mg by mouth once daily. atorvastatin (LIPITOR) 40 mg tablet Take 40 mg by mouth daily at bedtime. No current facility-administered medications for this visit. PHYSICAL EXAMINATION: BP 158/73 (BP Site: Right Arm, BP Position: Sitting) Pulse 78 Resp 20 Wt 128.5 kg (283 lb 3.2 oz) SpO2 98% BMI 39.65 kg/m GENERAL: alert and appropriate, in no distress and well-hydrated, well nourished HEAD: normocephalic, no abnormality or lesion noted RESPIRATORY: breathing non-labored NEUROLOGIC: no obvious deficit MUSCULOSKELETAL: 5/5 motor strength in both legs. Negative SLR signs bilaterally. Sensory is intact to light touch in all dermatomes bilaterally. Patient has straight leg range of motion in supine position of about 90 degrees on the left and 90 degrees on the right. Negative Brda's test bilaterally. Lumbar flexion is < 90 degrees and lumbar extension is > 15 degrees. Toe and heel walking are normal. Tenderness noted at L4-5 midline paraspinal muscle, L>R. ASSESSMENT: Patient is stable. Chronic pain is persistent. Medications are helping Sherley Rivera to have an improved quality of life. Patient compliance with Opioid Contract: patient is compliant Encounter Diagnosis ICD-10-CM 1. Other chronic pain G89.29 2. Degeneration of intervertebral disc of lumbar region with discogenic back pain M51.360 3. intermediate (current) use of opiate analgesic Z79.891 4. Neuropathy G62.9 5. Lumbar radiculopathy M54.16 PLAN: Drug screen was ordered today because of patient being moderate risk for possible opioid abuse. Despite its legality, THC containing products and CBD products that may contain THC are not to be used while being prescribed pain medications. If your drug screen contains any THC your medication will be discontinued. The patient understands the goal of our treatment is a reduction in pain and/or an improved level of functioning with activities of daily living. If at any time the patient does not feel the medications are helping them to achieve these goals, the medications may be discontinued. The patient reports a reduction in pain and/or an improved level of functioning with activities of daily living, denies any significant adverse effects, is compliant with the pain management agreement and there are no signs of medication misuse, abuse or diversion; therefore, the medications will be continued. Continue Percocet A prescription for narcan (naloxone) has been offered to the patient. Continue Lyrica He was started on this medication and has been maintained on it by Dr Roland and CLINICAL ALLERGIST's working with her. Patient is a candidate for interventional injection procedures. Patient declines injections at this time Continue care with PCP and specialists Follow up in 2 months Tangela Maldonado APRN.FANNY documented in this encounter [facility] 10-28-2024 Note HNO ID: [id number] Author: TANGELA MALDONADO APRN.CNP Service: ? Author Type: Nurse Practitioner Type: Progress Notes Filed: 10/28/2024 15:14 Note Text: Chief Complaint: Pain _ History of Present Illness: Sherley Rivera is a 74 year old year old male being seen at [facility] for a evaluation and/or management of his chronic pain. The patient was last seen on 08/27/2024. He states that since the last visit symptoms have been stable. His medical history has not changed and he denies any hospital stays or ER visits. Pain Location: lower back, feet due to neuropathy, right knee VAS: 7-8/10 Timing: constant Character/Quality: ache Radiation: pelvic area to both legs at times Numbness/Tingling: toes Burning: denies Weakness: denies Falls: denies Alleviating Factors: medications and laying down Aggravating Factors: standing, walking, prior to medications The patient denies any bowel or bladder dysfunction. The patient is currently prescribed percocet and lyrica from our office. The last doses were taken today. The medications are partially effective. PDMP website checked and validated. OARRS report reviewed and is consistent with the patients medical history and medication intake. Last Opioid agreement effective date: 12/03/2023 Last UDS: Reviewed - No inconsistencies noted. 01/22/2024 UDS CONSISTENT 07/16/2023 UDS CONSISTENT 11/27/2022 UDS Questionable - no drugs detected but low creatinine. Summary Report Date Value Ref Range Status 01/16/2024 FINAL Final Comment: == Opiate Class, MS, Ur RFX Oxycodone Class, MS, Ur RFX Acetaminophen, MS, Ur RFX ToxAssure Flex 23, Ur == Test Result Flag Units Drug Present Oxycodone 4730 ng/mg creat Noroxycodone 5100 ng/mg creat Sources of oxycodone include scheduled prescription medications. Noroxycodone is an expected metabolite of oxycodone. Acetaminophen PRESENT == Test Result Flag Units Ref Range Creatinine 20 mg/dL >=20 == Declared Medications: Medication list was not provided. == For clinical consultation, please call . == PREGABALIN, URINE Date Value Ref Range Status 01/16/2024 97.8 ug/mL Final Comment: This test was developed and its performance characteristics determined by [facility]. It has not been cleared or approved by the Food and Drug Administration. Urine Panel: Lab Results Component Value Date Cannabinoid Quant, Urine <16 11/27/2022 Benzoylecgonine Quant, Urine <24 11/27/2022 6-Acetylmorphine Quant, Urine <5 11/27/2022 Amphetamine Quant, Urine <5 11/27/2022 Methamphetamine Quant, Urine <8 11/27/2022 Buprenorphine Quant, Urine <20 11/27/2022 Norbuprenorphine Quant, Urine <20 11/27/2022 Methadone Quant, Urine <16 11/27/2022 EDDP Quant, Urine <6 11/27/2022 Tramadol Quant, Urine <25 11/27/2022 Desmethyltramadol Quant, Urine <20 11/27/2022 Fentanyl Quant, Urine <6 11/27/2022 Norfentanyl Quant, Urine <6 11/27/2022 Codeine Quant, Urine <11 11/27/2022 Morphine Quant, Urine <10 11/27/2022 Dihydrocodeine Quant, Urine <5 11/27/2022 Hydrocodone Quant, Urine <8 11/27/2022 Oxycodone Quant, Urine 1,235 (H) 11/27/2022 Hydromorphone Quant, Urine <5 11/27/2022 Oxymorphone Quant, Urine 253 (H) 11/27/2022 Chronic Pain Functional Assessment Tools Pain Disability Index: 11/24/2022 10/28/2024 Pain Disability Index Family/Home Responsibilities: This category includes chores or duties performed around the house (e.g. yard work), errands or favors for other family members (e.g. driving the children to school) 7 5 Recreation: This category includes hobbies, sports, and other similar leisure time activities 7 5 Social Activity: This category refers to activities which involve participation with friends and acquaintances, other than family members. It includes parties, theater, concerts, dinning out, and other social functions 7 4 Occupation: This category refers to activities that are a part of or directly related to ones' job. This includes non-paying jobs as well, such as that of a housewife or volunteer worker 0 No disability 6 Sexual Behavior: This category refers to the frequency and quality of one's sex life 5 5 Self Care: This category includes activities which involve personal maintenance and independent daily living (e.g. taking a shower, driving, getting dress, etc) 5 7 Life Support Activity: This category refers to basic-life supporting behaviors such as eating, (more content not included)... [facility] 10-27-2024 Instructions Tangela Maldonado APRN.QU[employer]BOO[employer] BOOKKEEPER - 10/27/2024 7:53 AM EST Order UDS Despite its legality, THC containing products and CBD products that may contain THC are not to be used while being prescribed pain medications. If your drug screen contains any THC your medication will be discontinued. Continue Percocet A prescription for narcan (naloxone) has been offered to the patient. Continue Lyrica He was started on this medication and has been maintained on it by Dr Roland and CLINICAL ALLERGIST's working with her. Patient declines injections at this time Continue care with PCP and specialists Follow up in 2 months documented in this encounter [facility] 08-27-2024 History of Presen t illness Narrative Chief Complaint: Pain _ History of Present Illness: Sherley Rivera is a 74 year old year old male being seen at [facility] for a evaluation and/or management of his chronic pain. The patient was last seen on 07/01/2024. He states that since the last visit symptoms have been stable. His medical history has not changed and he denies any hospital stays or ER visits. Pain Location: lower back, feet due to neuropathy, right knee VAS: 3-4/10 Timing: constant Character/Quality: ache Radiation: pelvic area to both legs at times Numbness/Tingling: toes Burning: denies Weakness: denies Falls: denies Alleviating Factors: medications and laying down Aggravating Factors: standing, walking, prior to medications The patient denies any bowel or bladder dysfunction. The patient is currently prescribed percocet and lyrica from our office. The last doses were taken today. The medications are partially effective. PDMP website checked and validated. OARRS report reviewed and is consistent with the patients medical history and medication intake. Last Opioid agreement effective date: 12/03/2023 Last UDS: Reviewed - No inconsistencies noted. 01/22/2024 UDS CONSISTENT 07/16/2023 UDS CONSISTENT 11/27/2022 UDS Questionable - no drugs detected but low creatinine. Summary Report Date Value Ref Range Status 01/16/2024 FINAL Final Comment: == Opiate Class, MS, Ur RFX Oxycodone Class, MS, Ur RFX Acetaminophen, MS, Ur RFX ToxAssure Flex 23, Ur == Test Result Flag Units Drug Present Oxycodone 4730 ng/mg creat Noroxycodone 5100 ng/mg creat Sources of oxycodone include scheduled prescription medications. Noroxycodone is an expected metabolite of oxycodone. Acetaminophen PRESENT == Test Result Flag Units Ref Range Creatinine 20 mg/dL >=20 == Declared Medications: Medication list was not provided. == For clinical consultation, please call . == PREGABALIN, URINE Date Value Ref Range Status 01/16/2024 97.8 ug/mL Final Comment: This test was developed and its performance characteristics determined by [employer]. It has not been cleared or approved by the Food and Drug Administration. Urine Panel: Lab Results Component Value Date Cannabinoid Quant, Urine <16 11/27/2022 Benzoylecgonine Quant, Urine <24 11/27/2022 6-Acetylmorphine Quant, Urine <5 11/27/2022 Amphetamine Quant, Urine <5 11/27/2022 Methamphetamine Quant, Urine <8 11/27/2022 Buprenorphine Quant, Urine <20 11/27/2022 Norbuprenorphine Quant, Urine <20 11/27/2022 Methadone Quant, Urine <16 11/27/2022 EDDP Quant, Urine <6 11/27/2022 Tramadol Quant, Urine <25 11/27/2022 Desmethyltramadol Quant, Urine <20 11/27/2022 Fentanyl Quant, Urine <6 11/27/2022 Norfentanyl Quant, Urine <6 11/27/2022 Codeine Quant, Urine <11 11/27/2022 Morphine Quant, Urine <10 11/27/2022 Dihydrocodeine Quant, Urine <5 11/27/2022 Hydrocodone Quant, Urine <8 11/27/2022 Oxycodone Quant, Urine 1,235 (H) 11/27/2022 Hydromorphone Quant, Urine <5 11/27/2022 Oxymorphone Quant, Urine 253 (H) 11/27/2022 Chronic Pain Functional Assessment Tools Pain Disability Index: 10/28/2022 11/24/2022 Pain Disability Index Family/Home Responsibilities: This category includes chores or duties performed around the house (e.g. yard work), errands or favors for other family members (e.g. driving the children to school) 7 7 Recreation: This category includes hobbies, sports, and other similar leisure time activities 7 7 Social Activity: This category refers to activities which involve participation with friends and acquaintances, other than family members. It includes parties, theater, concerts, dinning out, and other social functions 7 7 Occupation: This category refers to activities that are a part of or directly related to ones' job. This includes non-paying jobs as well, such as that of a housewife or volunteer worker 0 No disability 0 No disability Sexual Behavior: This category refers to the frequency and quality of one's sex life 5 5 Self Care: This category includes activities which involve personal maintenance and independent daily living (e.g. taking a shower, driving, getting dress, etc) 5 5 Life Support Activity: This category refers to basic-life supporting behaviors such as eating, sleeping, and breathing 3 3 PDI Score 34 34 Pain Enjoyment of Life and General Activity Scale (0-10): PEG: A Three-Item Scale Assessing Pain Intensity and Interference What number best describes your pain on average in the past week?: 4 (07/01/2024 7:00 AM) What number best describes how, during the past week, pain has interfered with your enjoyment of life?: 3 (07/01/2024 7:00 AM) What number best describes how, during the past week, pain has interfered with your general activity?: 3 (07/01/2024 7:00 AM) Screener and Opioid Assessment for Patients with Pain (SOAPP)-5 SOAPP QUESTIONS How often do you have mood swings?: 0 - Never (08/27/2024 2:58 PM) How often do you smoke a cigarette within an hour after you wake up?: 0 - Never (08/27/2024 2:58 PM) How often have you taken medication other than the way it was prescribed?: 0 - Never (08/27/2024 2:58 PM) How often have you used illegal drugs (for example, marijuana, cocaine, etc.) in the past five years?: 0 - Never (08/27/2024 2:58 PM) How often, in your lifetime, have you had legal problems or been arrested?: 0 - Never (08/27/2024 2:58 PM) Sum of Questions (> or = 7 is positive): 0 (08/27/2024 2:58 PM) REVIEW OF SYSTEMS: GENERAL: No weight loss or fevers RESPIRATORY: Negative for cough CARDIOVASCULAR: Negative for chest pain GI: No nausea, vomiting, or diarrhea. MUSCULOSKELETAL: + joint pain or swelling, back pain and muscle pain ____ PAST MEDICAL HISTORY Diagnosis Date Anxiety and depression Arthritis Back pain Bone fracture CAD (coronary artery disease) CHF (congestive heart failure) (HCC) Chronic fatigue syndrome 08/27/2022 Diverticulitis Fatty liver GERD (gastroesophageal reflux disease) HLD (hyperlipidemia) HTN (hypertension) IBS (irritable bowel syndrome) MR (mitral regurgitation) MS (multiple sclerosis) (HCC) dx in [place], seen by MS DANII and diagrisaac with dx Neuropathy Panic attacks TR (tricuspid regurgitation) PAST SURGICAL HISTORY Procedure Laterality Date APPENDECTOMY CHOLECYSTECTOMY HAND SURGERY HX KNEE SURGERY HX Right meniscus repair LX PARTIAL COLECTOMY FAMILY HISTORY Problem Relation Age of Onset Hypertension Mother other (Irregular Heart Beat) Mother Cancer Father Lymphoma Social History Tobacco Use Smoking status: Every Day Types: Cigars Smokeless tobacco: Never Tobacco comments: Smokes about 2-4 cigars per day. Since age 17 yo. Substance Use Topics Alcohol use: Not Currently Drug use: Never Allergies: Glatiramer Unknown Ibuprofen GI Upset Tecfidera [Dimethyl* Other: See Comments Comment:Cognitive changes Dizziness headaches Current Outpatient Medications Medication Sig pregabalin (LYRICA) 150 mg capsule Take 1 capsule by mouth two times a day for 30 days. oxyCODONE-acetaminophen (PERCOCET) 7.5-325 mg tablet Take 1 tablet by mouth four times a day as needed for pain for up to 30 days. Ok to fill early if pharmacy is closed or closes early on fill date Patient should start on July 02, 2024. oxyCODONE-acetaminophen (PERCOCET) 7.5-325 mg tablet Take 1 tablet by mouth four times a day as needed for pain for up to 30 days. Ok to fill early if pharmacy is closed or closes early on fill date Patient should start on August 01, 2024. oxyCODONE-acetaminophen (PERCOCET) 7.5-325 mg tablet Take 1 tablet by mouth four times a day as needed for pain for up to 7 days. Ok to fill early if pharmacy is closed or closes early on fill date busPIRone (BUSPAR) 15 mg tablet Take 1 tablet by mouth three times a day. PARoxetine (PAXIL) 20 mg tablet TAKE 1/2 TABLET BY MOUTH DAILY X 1 WEEK THEN INCREASE TO 1 TABLET DAILY amLODIPine (NORVASC) 10 mg tablet ascorbic acid, vitamin C, 500 mg cap Take by mouth. ondansetron (ZOFRAN) 4 mg tablet nitroglycerin sublingual (NITROQUICK) 0.3 mg SL tablet DISSOLVE 1 TABLET UNDER THE TONGUE EVERY 5 TO 15 MINUTES lisinopril (ZESTRIL, PRINIVIL) 40 mg tablet Take 1 tablet by mouth. furosemide (LASIX) 40 mg tablet Take 40 mg by mouth once daily. atenolol (TENORMIN) 50 mg tablet Take 50 mg by mouth once daily. clopidogrel (PLAVIX) 75 mg tablet Take 75 mg by mouth once daily. atorvastatin (LIPITOR) 40 mg tablet Take 40 mg by mouth daily at bedtime. No current facility-administered medications for this visit. PHYSICAL EXAMINATION: BP 155/74 (BP Site: Left Arm, BP Position: Sitting) Pulse 74 Resp 20 Wt 123.7 kg (272 lb 9.6 oz) SpO2 98% BMI 38.16 kg/m GENERAL: alert and appropriate, in no distress and well-hydrated, well nourished HEAD: normocephalic, no abnormality or lesion noted RESPIRATORY: breathing non-labored NEUROLOGIC: no obvious deficit MUSCULOSKELETAL: 5/5 motor strength in both legs. Negative SLR signs bilaterally. Sensory is intact to light touch in all dermatomes bilaterally. Patient has straight leg range of motion in supine position of about 90 degrees on the left and 90 degrees on the right. Negative Brad's test bilaterally. Lumbar flexion is < 90 degrees and lumbar extension is > 15 degrees. Toe and heel walking are normal. Tenderness noted at L4-5 midline paraspinal muscle, L>R. ASSESSMENT: Patient is stable. Chronic pain is persistent. Medications are helping Sherley Rivera to have an improved quality of life. Patient compliance with Opioid Contract: patient is compliant Encounter Diagnosis ICD-10-CM 1. Other chronic pain G89.29 2. 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 Neuropathy G62.9 PLAN: Drug screen was ordered today because of patient being moderate risk for possible opioid abuse. The patient understands the goal of our treatment is a reduction in pain and/or an improved level of functioning with activities of daily living. If at any time the patient does not feel the medications are helping them to achieve these goals, the medications may be discontinued. The patient reports a reduction in pain and/or an improved level of functioning with activities of daily living, denies any significant adverse effects, is compliant with the pain management agreement and there are no signs of medication misuse, abuse or diversion; therefore, the medications will be continued. Continue Percocet A prescription for narcan (naloxone) has been offered to the patient. Continue Lyrica He was started on this medication and has been maintained on it by Dr Roland and CLINICAL ALLERGIST's working with her. Patient is a candidate for interventional injection procedures. Patient declines injections at this time Continue care with PCP and specialists Follow up in 2 months Tangela Maldonado APRN.FANNY documented in this encounter [facility] 08-27-2024 Note HNO ID: [id number] Author: TANGELA MALDONADO APRN.CNP Service: ? Author Type: Nurse Practitioner Type: Progress Notes Filed: 08/27/2024 15:09 Note Text: Chief Complaint: Pain _ History of Present Illness: Sherley Rivera is a 74 year old year old male being seen at [facility] for a evaluation and/or management of his chronic pain. The patient was last seen on 07/01/2024. He states that since the last visit symptoms have been stable. His medical history has not changed and he denies any hospital stays or ER visits. Pain Location: lower back, feet due to neuropathy, right knee VAS: 3-4/10 Timing: constant Character/Quality: ache Radiation: pelvic area to both legs at times Numbness/Tingling: toes Burning: denies Weakness: denies Falls: denies Alleviating Factors: medications and laying down Aggravating Factors: standing, walking, prior to medications The patient denies any bowel or bladder dysfunction. The patient is currently prescribed percocet and lyrica from our office. The last doses were taken today. The medications are partially effective. PDMP website checked and validated. OARRS report reviewed and is consistent with the patients medical history and medication intake. Last Opioid agreement effective date: 12/03/2023 Last UDS: Reviewed - No inconsistencies noted. 01/22/2024 UDS CONSISTENT 07/16/2023 UDS CONSISTENT 11/27/2022 UDS Questionable - no drugs detected but low creatinine. Summary Report Date Value Ref Range Status 01/16/2024 FINAL Final Comment: == Opiate Class, MS, Ur RFX Oxycodone Class, MS, Ur RFX Acetaminophen, MS, Ur RFX ToxAssure Flex 23, Ur == Test Result Flag Units Drug Present Oxycodone 4730 ng/mg creat Noroxycodone 5100 ng/mg creat Sources of oxycodone include scheduled prescription medications. Noroxycodone is an expected metabolite of oxycodone. Acetaminophen PRESENT == Test Result Flag Units Ref Range Creatinine 20 mg/dL >=20 == Declared Medications: Medication list was not provided. == For clinical consultation, please call . == PREGABALIN, URINE Date Value Ref Range Status 01/16/2024 97.8 ug/mL Final Comment: This test was developed and its performance characteristics determined by [employer]. It has not been cleared or approved by the Food and Drug Administration. Urine Panel: Lab Results Component Value Date Cannabinoid Quant, Urine <16 11/27/2022 Benzoylecgonine Quant, Urine <24 11/27/2022 6-Acetylmorphine Quant, Urine <5 11/27/2022 Amphetamine Quant, Urine <5 11/27/2022 Methamphetamine Quant, Urine <8 11/27/2022 Buprenorphine Quant, Urine <20 11/27/2022 Norbuprenorphine Quant, Urine <20 11/27/2022 Methadone Quant, Urine <16 11/27/2022 EDDP Quant, Urine <6 11/27/2022 Tramadol Quant, Urine <25 11/27/2022 Desmethyltramadol Quant, Urine <20 11/27/2022 Fentanyl Quant, Urine <6 11/27/2022 Norfentanyl Quant, Urine <6 11/27/2022 Codeine Quant, Urine <11 11/27/2022 Morphine Quant, Urine <10 11/27/2022 Dihydrocodeine Quant, Urine <5 11/27/2022 Hydrocodone Quant, Urine <8 11/27/2022 Oxycodone Quant, Urine 1,235 (H) 11/27/2022 Hydromorphone Quant, Urine <5 11/27/2022 Oxymorphone Quant, Urine 253 (H) 11/27/2022 Chronic Pain Functional Assessment Tools Pain Disability Index: 10/28/2022 11/24/2022 Pain Disability Index Family/Home Responsibilities: This category includes chores or duties performed around the house (e.g. yard work), errands or favors for other family members (e.g. driving the children to school) 7 7 Recreation: This category includes hobbies, sports, and other similar leisure time activities 7 7 Social Activity: This category refers to activities which involve participation with friends and acquaintances, other than family members. It includes parties, theater, concerts, dinning out, and other social functions 7 7 Occupation: This category refers to activities that are a part of or directly related to ones' job. This includes non-paying jobs as well, such as that of a housewife or volunteer worker 0 No disability 0 No disability Sexual Behavior: This category refers to the frequency and quality of one's sex life 5 5 Self Care: This category includes activities which involve personal maintenance and independent daily living (e.g. taking a shower, driving, getting dress, etc) 5 5 Life Support Activity: This category refers to basic-life supporting behaviors suc (more content not included)... [facility] 08-26-2024 Instructions Tangela Maldonado APRN.CNP - 08/26/2024 8:04 AM EST Order Drug Screen Despite its legality, THC containing products and CBD products that may contain THC are not to be used while being prescribed pain medications. If your drug screen contains any THC your medication will be discontinued. Continue Percocet A prescription for narcan (naloxone) has been offered to the patient. Continue Lyrica He was started on this medication and has been maintained on it by Dr Roland and CLINICAL ALLERGIST's working with her. Patient declines injections at this time Continue care with PCP and specialists Follow up in 2 months documented in this encounter [facility] 07-01-2024 History of Presen t illness Narrative Chief Complaint: Pain _ History of Present Illness: Sherley Rivera is a 74 year old year old male being seen at [facility] for a evaluation and/or management of his chronic pain. The patient was last seen on 06/25/2024. He states that since the last visit symptoms have been stable. His medical history has not changed and he denies any hospital stays or ER visits. Pain Location: lower back, feet due to neuropathy, right knee VAS: 3-4/10 Timing: constant Character/Quality: ache Radiation: pelvic area to both legs at times Numbness/Tingling: toes Burning: denies Weakness: denies Falls: denies Alleviating Factors: medications and laying down Aggravating Factors: standing, walking, prior to medications The patient denies any bowel or bladder dysfunction. The patient is currently prescribed percocet and lyrica from our office. The last doses were taken today. The medications are partially effective. PDMP website checked and validated. OARRS report reviewed and is consistent with the patients medical history and medication intake. Last Opioid agreement effective date: 12/03/2023 Last UDS: Reviewed - No inconsistencies noted. 01/22/2024 UDS CONSISTENT 07/16/2023 UDS CONSISTENT 11/27/2022 UDS Questionable - no drugs detected but low creatinine. Summary Report Date Value Ref Range Status 01/16/2024 FINAL Final Comment: == Opiate Class, MS, Ur RFX Oxycodone Class, MS, Ur RFX Acetaminophen, MS, Ur RFX ToxAssure Flex 23, Ur == Test Result Flag Units Drug Present Oxycodone 4730 ng/mg creat Noroxycodone 5100 ng/mg creat Sources of oxycodone include scheduled prescription medications. Noroxycodone is an expected metabolite of oxycodone. Acetaminophen PRESENT == Test Result Flag Units Ref Range Creatinine 20 mg/dL >=20 == Declared Medications: Medication list was not provided. == For clinical consultation, please call . == PREGABALIN, URINE Date Value Ref Range Status 01/16/2024 97.8 ug/mL Final Comment: This test was developed and its performance characteristics determined by [facility]. It has not been cleared or approved by the Food and Drug Administration. Urine Panel: Lab Results Component Value Date Cannabinoid Quant, Urine <16 11/27/2022 Benzoylecgonine Quant, Urine <24 11/27/2022 6-Acetylmorphine Quant, Urine <5 11/27/2022 Amphetamine Quant, Urine <5 11/27/2022 Methamphetamine Quant, Urine <8 11/27/2022 Buprenorphine Quant, Urine <20 11/27/2022 Norbuprenorphine Quant, Urine <20 11/27/2022 Methadone Quant, Urine <16 11/27/2022 EDDP Quant, Urine <6 11/27/2022 Tramadol Quant, Urine <25 11/27/2022 Desmethyltramadol Quant, Urine <20 11/27/2022 Fentanyl Quant, Urine <6 11/27/2022 Norfentanyl Quant, Urine <6 11/27/2022 Codeine Quant, Urine <11 11/27/2022 Morphine Quant, Urine <10 11/27/2022 Dihydrocodeine Quant, Urine <5 11/27/2022 Hydrocodone Quant, Urine <8 11/27/2022 Oxycodone Quant, Urine 1,235 (H) 11/27/2022 Hydromorphone Quant, Urine <5 11/27/2022 Oxymorphone Quant, Urine 253 (H) 11/27/2022 Summary Report (Summary) Date Value Ref Range Status 07/03/2022 FINAL Final Comment: == TOXASSURE COMP DRUG ANALYSIS,UR == Test Result Flag Units Drug Present Oxycodone 657 ng/mg creat Oxymorphone 1135 ng/mg creat Noroxycodone 2217 ng/mg creat Noroxymorphone 280 ng/mg creat Sources of oxycodone are scheduled prescription medications. Oxymorphone, noroxycodone, and noroxymorphone are expected metabolites of oxycodone. Oxymorphone is also available as a scheduled prescription medication. Pregabalin PRESENT Acetaminophen PRESENT Naproxen PRESENT Atenolol PRESENT == Test Result Flag Units Ref Range Creatinine 162 mg/dL >=20 == Declared Medications: Medication list was not provided. == For clinical consultation, please call . == Chronic Pain Functional Assessment Tools Pain Disability Index: 10/28/2022 11/24/2022 Pain Disability Index Family/Home Responsibilities: This category includes chores or duties performed around the house (e.g. yard work), errands or favors for other family members (e.g. driving the children to school) 7 7 Recreation: This category includes hobbies, sports, and other similar leisure time activities 7 7 Social Activity: This category refers to activities which involve participation with friends and acquaintances, other than family members. It includes parties, theater, concerts, dinning out, and other social functions 7 7 Occupation: This category refers to activities that are a part of or directly related to ones' job. This includes non-paying jobs as well, such as that of a housewife or volunteer worker 0 No disability 0 No disability Sexual Behavior: This category refers to the frequency and quality of one's sex life 5 5 Self Care: This category includes activities which involve personal maintenance and independent daily living (e.g. taking a shower, driving, getting dress, etc) 5 5 Life Support Activity: This category refers to basic-life supporting behaviors such as eating, sleeping, and breathing 3 3 PDI Score 34 34 Pain Enjoyment of Life and General Activity Scale (0-10): PEG: A Three-Item Scale Assessing Pain Intensity and Interference What number best describes your pain on average in the past week?: 2 (02/24/2023 2:48 PM) What number best describes how, during the past week, pain has interfered with your enjoyment of life?: 6 (11/24/2022 1:38 PM) What number best describes how, during the past week, pain has interfered with your general activity?: 6 (11/24/2022 1:38 PM) Screener and Opioid Assessment for Patients with Pain (SOAPP)-5 SOAPP QUESTIONS How often do you have mood swings?: 0 - Never (07/01/2024 7:21 AM) How often do you smoke a cigarette within an hour after you wake up?: 0 - Never (07/01/2024 7:21 AM) How often have you taken medication other than the way it was prescribed?: 0 - Never (07/01/2024 7:21 AM) How often have you used illegal drugs (for example, marijuana, cocaine, etc.) in the past five years?: 0 - Never (07/01/2024 7:21 AM) How often, in your lifetime, have you had legal problems or been arrested?: 1 - Seldom (07/01/2024 7:21 AM) Sum of Questions (> or = 7 is positive): 1 (07/01/2024 7:21 AM) REVIEW OF SYSTEMS: GENERAL: No weight loss or fevers RESPIRATORY: Negative for cough CARDIOVASCULAR: Negative for chest pain GI: No nausea, vomiting, or diarrhea. MUSCULOSKELETAL: + joint pain or swelling, back pain and muscle pain ____ PAST MEDICAL HISTORY Diagnosis Date Anxiety and depression Arthritis Back pain Bone fracture CAD (coronary artery disease) CHF (congestive heart failure) (HCC) Chronic fatigue syndrome 08/27/2022 Diverticulitis Fatty liver GERD (gastroesophageal reflux disease) HLD (hyperlipidemia) HTN (hypertension) IBS (irritable bowel syndrome) MR (mitral regurgitation) MS (multiple sclerosis) (HCC) dx in [place], seen by [facility] and diagrisaac with dx Neuropathy Panic attacks TR (tricuspid regurgitation) PAST SURGICAL HISTORY Procedure Laterality Date APPENDECTOMY CHOLECYSTECTOMY HAND SURGERY HX KNEE SURGERY HX Right meniscus repair LX PARTIAL COLECTOMY FAMILY HISTORY Problem Relation Age of Onset Hypertension Mother other (Irregular Heart Beat) Mother Cancer Father Lymphoma Social History Tobacco Use Smoking status: Every Day Types: Cigars Smokeless tobacco: Never Tobacco comments: Smokes about 2-4 cigars per day. Since age 17 yo. Substance Use Topics Alcohol use: Not Currently Drug use: Never Allergies: Glatiramer Unknown Ibuprofen GI Upset Tecfidera [Dimethyl* Other: See Comments Comment:Cognitive changes Dizziness headaches Current Outpatient Medications Medication Sig oxyCODONE-acetaminophen (PERCOCET) 7.5-325 mg tablet Take 1 tablet by mouth four times a day as needed for pain for up to 7 days. Ok to fill early if pharmacy is closed or closes early on fill date oxyCODONE-acetaminophen (PERCOCET) 7.5-325 mg tablet Take 1 tablet by mouth four times a day as needed for pain for up to 30 days. Ok to fill early if pharmacy is closed or closes early on fill date Do not start before May 01, 2024. oxyCODONE-acetaminophen (PERCOCET) 7.5-325 mg tablet Take 1 tablet by mouth four times a day as needed for pain for up to 30 days. Ok to fill early if pharmacy is closed or closes early on fill date Do not start before May 31, 2024. pregabalin (LYRICA) 150 mg capsule Take 1 capsule by mouth two times a day for 30 days. Do not start before May 01, 2024. busPIRone (BUSPAR) 15 mg tablet Take 1 tablet by mouth three times a day. PARoxetine (PAXIL) 20 mg tablet TAKE 1/2 TABLET BY MOUTH DAILY X 1 WEEK THEN INCREASE TO 1 TABLET DAILY amLODIPine (NORVASC) 10 mg tablet ascorbic acid, vitamin C, 500 mg cap Take by mouth. ondansetron (ZOFRAN) 4 mg tablet nitroglycerin sublingual (NITROQUICK) 0.3 mg SL tablet DISSOLVE 1 TABLET UNDER THE TONGUE EVERY 5 TO 15 MINUTES lisinopril (ZESTRIL, PRINIVIL) 40 mg tablet Take 1 tablet by mouth. furosemide (LASIX) 40 mg tablet Take 40 mg by mouth once daily. atenolol (TENORMIN) 50 mg tablet Take 50 mg by mouth once daily. clopidogrel (PLAVIX) 75 mg tablet Take 75 mg by mouth once daily. atorvastatin (LIPITOR) 40 mg tablet Take 40 mg by mouth daily at bedtime. No current facility-administered medications for this visit. PHYSICAL EXAMINATION: BP 138/83 (BP Site: Left Arm, BP Position: Sitting) Pulse 63 Resp 18 Wt 118.9 kg (262 lb 3.2 oz) SpO2 100% BMI 36.71 kg/m GENERAL: alert and appropriate, in no distress and well-hydrated, well nourished HEAD: normocephalic, no abnormality or lesion noted RESPIRATORY: breathing non-labored NEUROLOGIC: no obvious deficit MUSCULOSKELETAL: 5/5 motor strength in both legs. Negative SLR signs bilaterally. Sensory is intact to light touch in all dermatomes bilaterally. Patient has straight leg range of motion in supine position of about 90 degrees on the left and 90 degrees on the right. Negative Brad's test bilaterally. Lumbar flexion is < 90 degrees and lumbar extension is > 15 degrees. Toe and heel walking are normal. Good balance noted. Tenderness noted at L4-5 midline paraspinal muscle, L>R. ASSESSMENT: Patient is stable. Chronic pain is persistent. Medications are helping Sherley Rivera to have an improved quality of life. Patient compliance with Opioid Contract: patient is compliant Encounter Diagnosis ICD-10-CM 1. Other chronic pain G89.29 2. Lumbar degenerative disc disease M51.36 3. Lumbar radiculopathy M54.16 4. intermediate (current) use of opiate analgesic Z79.891 PLAN: The patient understands the goal of our treatment is a reduction in pain and/or an improved level of functioning with activities of daily living. If at any time the patient does not feel the medications are helping them to achieve these goals, the medications may be discontinued. The patient reports a reduction in pain and/or an improved level of functioning with activities of daily living, denies any significant adverse effects, is compliant with the pain management agreement and there are no signs of medication misuse, abuse or diversion; therefore, the medications will be continued. Continue Percocet A prescription for narcan (naloxone) has been offered to the patient. Continue Lyrica He was started on this medication and has been maintained on it by Dr Roland and CLINICAL ALLERGIST's working with her. Patient is a candidate for interventional injection procedures. Patient declines injections at this time Continue care with PCP and specialists Follow up in 2 months Tangela Maldonado APRN.CNP documented in this encounter [facility] 07-01-2024 Instructions Tangela Maldonado APRN.CNP - 07/01/2024 7:03 AM EDT Continue Percocet A prescription for narcan (naloxone) has been offered to the patient. Continue Lyrica He was started on this medication and has been maintained on it by Dr Roland and CLINICAL ALLERGIST's working with her. Patient declines injections at this time Continue care with PCP and specialists Follow up in 2 months documented in this encounter [facility] 06-26-2024 Telephone encount er Note Called patient and LV to CB and we will see if we can get him in a later appt. Irene Agee June 26, 2024 3:21 PM [facility] 06-26-2024 Miscellaneous Notes Formattin g of this note might be different from the original. Called patient and LV to CB and we will see if we can get him in a later appt. Irene Agee June 26, 2024 3:21 PM documented in this encounter [facility] 06-25-2024 Telephone encount er Note Pharmacy seeking claification of quantity for oxycodone, please advise Denise Henriquez RN June 25, 2024 9:45 AM [facility] 06-25-2024 Miscellaneous Notes Formattin g of this note might be different from the original. Pharmacy seeking claification of quantity for oxycodone, please advise Denise Henriquez RN June 25, 2024 9:45 AM documented in this encounter [facility] 04-30-2024 History of Presen t illness Narrative This video visit was performed via [employer] Video Visit. Patient consented to receive health care services via virtual visit for this encounter Provider Location[facility] Patient Location: Patient Home or Place of Residence I have communicated my name and active licensure. The patient's identity and physical location were verified at the time of this visit. Either the patient or their legal direct sales representative has been informed of the risks and benefits of -- and alternatives to -- treatment through a remote evaluation and consents to proceed with the evaluation remotely. Chief Complaint: Pain _ History of Present Illness: Sherley Rivera is a 73 year old year old male being seen at [facility] for a evaluation and/or management of his chronic pain. The patient was last seen on 03/17/2024. He states that since the last visit symptoms have been stable. His medical history has not changed and he denies any hospital stays or ER visits. Pain Location: lower back, feet due to neuropathy, right knee VAS: 2-3/10 Timing: constant Character/Quality: ache Radiation: pelvic area to both legs at times Numbness/Tingling: toes Burning: denies Weakness: denies Falls: denies Alleviating Factors: medications and laying down Aggravating Factors: standing, walking, prior to medications The patient denies any bowel or bladder dysfunction. The patient is currently prescribed percocet and lyrica from our office. The last doses were taken today. The medications are partially effective. PDMP website checked and validated. OARRS report reviewed and is consistent with the patients medical history and medication intake. Last Opioid agreement effective date: 12/03/2023 Last UDS: Reviewed - No inconsistencies noted. 01/22/2024 UDS CONSISTENT 07/16/2023 UDS CONSISTENT 11/27/2022 UDS Questionable - no drugs detected but low creatinine. Summary Report Date Value Ref Range Status 01/16/2024 FINAL Final Comment: == Opiate Class, MS, Ur RFX Oxycodone Class, MS, Ur RFX Acetaminophen, MS, Ur RFX ToxAssure Flex 23, Ur == Test Result Flag Units Drug Present Oxycodone 4730 ng/mg creat Noroxycodone 5100 ng/mg creat Sources of oxycodone include scheduled prescription medications. Noroxycodone is an expected metabolite of oxycodone. Acetaminophen PRESENT == Test Result Flag Units Ref Range Creatinine 20 mg/dL >=20 == Declared Medications: Medication list was not provided. == For clinical consultation, please call . == PREGABALIN, URINE Date Value Ref Range Status 01/16/2024 97.8 ug/mL Final Comment: This test was developed and its performance characteristics determined by [employer]. It has not been cleared or approved by the Food and Drug Administration. Urine Panel: Lab Results Component Value Date Cannabinoid Quant, Urine <16 11/27/2022 Benzoylecgonine Quant, Urine <24 11/27/2022 6-Acetylmorphine Quant, Urine <5 11/27/2022 Amphetamine Quant, Urine <5 11/27/2022 Methamphetamine Quant, Urine <8 11/27/2022 Buprenorphine Quant, Urine <20 11/27/2022 Norbuprenorphine Quant, Urine <20 11/27/2022 Methadone Quant, Urine <16 11/27/2022 EDDP Quant, Urine <6 11/27/2022 Tramadol Quant, Urine <25 11/27/2022 Desmethyltramadol Quant, Urine <20 11/27/2022 Fentanyl Quant, Urine <6 11/27/2022 Norfentanyl Quant, Urine <6 11/27/2022 Codeine Quant, Urine <11 11/27/2022 Morphine Quant, Urine <10 11/27/2022 Dihydrocodeine Quant, Urine <5 11/27/2022 Hydrocodone Quant, Urine <8 11/27/2022 Oxycodone Quant, Urine 1,235 (H) 11/27/2022 Hydromorphone Quant, Urine <5 11/27/2022 Oxymorphone Quant, Urine 253 (H) 11/27/2022 Summary Report (Summary) Date Value Ref Range Status 07/03/2022 FINAL Final Comment: == TOXASSURE COMP DRUG ANALYSIS,UR == Test Result Flag Units Drug Present Oxycodone 657 ng/mg creat Oxymorphone 1135 ng/mg creat Noroxycodone 2217 ng/mg creat Noroxymorphone 280 ng/mg creat Sources of oxycodone are scheduled prescription medications. Oxymorphone, noroxycodone, and noroxymorphone are expected metabolites of oxycodone. Oxymorphone is also available as a scheduled prescription medication. Pregabalin PRESENT Acetaminophen PRESENT Naproxen PRESENT Atenolol PRESENT == Test Result Flag Units Ref Range Creatinine 162 mg/dL >=20 == Declared Medications: Medication list was not provided. == For clinical consultation, please call . == Chronic Pain Functional Assessment Tools Pain Disability Index: 10/28/2022 11/24/2022 Pain Disability Index Family/Home Responsibilities: This category includes chores or duties performed around the house (e.g. yard work), errands or favors for other family members (e.g. driving the children to school) 7 7 Recreation: This category includes hobbies, sports, and other similar leisure time activities 7 7 Social Activity: This category refers to activities which involve participation with friends and acquaintances, other than family members. It includes parties, theater, concerts, dinning out, and other social functions 7 7 Occupation: This category refers to activities that are a part of or directly related to ones' job. This includes non-paying jobs as well, such as that of a housewife or volunteer worker 0 No disability 0 No disability Sexual Behavior: This category refers to the frequency and quality of one's sex life 5 5 Self Care: This category includes activities which involve personal maintenance and independent daily living (e.g. taking a shower, driving, getting dress, etc) 5 5 Life Support Activity: This category refers to basic-life supporting behaviors such as eating, sleeping, and breathing 3 3 PDI Score 34 34 Pain Enjoyment of Life and General Activity Scale (0-10): PEG: A Three-Item Scale Assessing Pain Intensity and Interference What number best describes your pain on average in the past week?: 2 (02/24/2023 2:48 PM) What number best describes how, during the past week, pain has interfered with your enjoyment of life?: 6 (11/24/2022 1:38 PM) What number best describes how, during the past week, pain has interfered with your general activity?: 6 (11/24/2022 1:38 PM) REVIEW OF SYSTEMS: GENERAL: No weight loss or fevers RESPIRATORY: Negative for cough CARDIOVASCULAR: Negative for chest pain GI: No nausea, vomiting, or diarrhea. MUSCULOSKELETAL: + joint pain or swelling, back pain and muscle pain ____ PAST MEDICAL HISTORY Diagnosis Date Anxiety and depression Arthritis Back pain Bone fracture CAD (coronary artery disease) CHF (congestive heart failure) ([facility]) Chronic fatigue syndrome 08/27/2022 Diverticulitis Fatty liver GERD (gastroesophageal reflux disease) HLD (hyperlipidemia) HTN (hypertension) IBS (irritable bowel syndrome) MR (mitral regurgitation) MS (multiple sclerosis) (HCC) dx in [place], seen by [facility] and diagrisaac with dx Neuropathy Panic attacks TR (tricuspid regurgitation) PAST SURGICAL HISTORY Procedure Laterality Date APPENDECTOMY CHOLECYSTECTOMY HAND SURGERY HX KNEE SURGERY HX Right meniscus repair LX PARTIAL COLECTOMY FAMILY HISTORY Problem Relation Age of Onset Hypertension Mother other (Irregular Heart Beat) Mother Cancer Father Lymphoma Social History Tobacco Use Smoking status: Every Day Types: Cigars Smokeless tobacco: Never Tobacco comments: Smokes about 2-4 cigars per day. Since age 17 yo. Substance Use Topics Alcohol use: Not Currently Drug use: Never Allergies: Glatiramer Unknown Ibuprofen GI Upset Tecfidera [Dimethyl* Other: See Comments Comment:Cognitive changes Dizziness headaches Current Outpatient Medications Medication Sig oxyCODONE-acetaminophen (PERCOCET) 7.5-325 mg tablet Take 1 tablet by mouth four times a day as needed for pain for up to 12 days. Ok to fill early if pharmacy is closed or closes early on fill date Do not start before March 20, 2024. oxyCODONE-acetaminophen (PERCOCET) 7.5-325 mg tablet Take 1 tablet by mouth four times a day as needed for pain for up to 30 days. Ok to fill early if pharmacy is closed or closes early on fill date Do not start before April 01, 2024. pregabalin (LYRICA) 150 mg capsule Take 1 capsule by mouth two times a day for 30 days. Do not start before February 29, 2024. oxyCODONE-acetaminophen (PERCOCET) 7.5-325 mg tablet Take 1 tablet by mouth four times a day as needed for pain for up to 30 days. Ok to fill early if pharmacy is closed or closes early on fill date Do not start before March 02, 2024. busPIRone (BUSPAR) 15 mg tablet Take 1 tablet by mouth three times a day. PARoxetine (PAXIL) 20 mg tablet TAKE 1/2 TABLET BY MOUTH DAILY X 1 WEEK THEN INCREASE TO 1 TABLET DAILY amLODIPine (NORVASC) 10 mg tablet ascorbic acid, vitamin C, 500 mg cap Take by mouth. ondansetron (ZOFRAN) 4 mg tablet nitroglycerin sublingual (NITROQUICK) 0.3 mg SL tablet DISSOLVE 1 TABLET UNDER THE TONGUE EVERY 5 TO 15 MINUTES lisinopril (ZESTRIL, PRINIVIL) 40 mg tablet Take 1 tablet by mouth. furosemide (LASIX) 40 mg tablet Take 40 mg by mouth once daily. atenolol (TENORMIN) 50 mg tablet Take 50 mg by mouth once daily. clopidogrel (PLAVIX) 75 mg tablet Take 75 mg by mouth once daily. atorvastatin (LIPITOR) 40 mg tablet Take 40 mg by mouth daily at bedtime. No current facility-administered medications for this visit. PHYSICAL EXAMINATION: VIDEO EXAM: (performed via video enabled technology) GENERAL: alert and appropriate, in no distress and well-hydrated, well nourished HEAD: normocephalic, no abnormality or lesion noted RESPIRATORY: breathing non-labored NEUROLOGIC: no obvious deficit ASSESSMENT: Patient is stable. Chronic pain is persistent. Medications are helping Sherley Rivera to have an improved quality of life. Patient compliance with Opioid Contract: patient is compliant Encounter Diagnosis ICD-10-CM 1. Other chronic pain G89.29 2. 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 Neuropathy G62.9 PLAN: The patient understands the goal of our treatment is a reduction in pain and/or an improved level of functioning with activities of daily living. If at any time the patient does not feel the medications are helping them to achieve these goals, the medications may be discontinued. The patient reports a reduction in pain and/or an improved level of functioning with activities of daily living, denies any significant adverse effects, is compliant with the pain management agreement and there are no signs of medication misuse, abuse or diversion; therefore, the medications will be continued. Continue Percocet A prescription for narcan (naloxone) has been offered to the patient. Continue Lyrica He was started on this medication and has been maintained on it by Dr Roland and CLINICAL ALLERGIST's working with her. Patient is a candidate for interventional injection procedures. Patient declines injections at this time Continue care with PCP and specialists Follow up in 2 months Tangela Maldonado APRN.CNP documented in this encounter [facility] 04-30-2024 Instructions Tangela Maldonado APRN.CNP - 04/30/2024 6:29 AM EDT Continue Percocet A prescription for narcan (naloxone) has been offered to the patient. Continue Lyrica He was started on this medication and has been maintained on it by Dr Roland and CLINICAL ALLERGIST's working with her. Patient declines injections at this time Continue care with PCP and specialists Follow up in 2 months documented in this encounter [facility] 03-17-2024 Telephone encount er Note Items addressed in this encounter: MyChart Encounter Able to close encounter. Caroline Cabral MA March 17, 2024 1:34 PM 1:34 PM [facility] 03-17-2024 Miscellaneous Notes Formattin g of this note might be different from the original. Items addressed in this encounter: MyChart Encounter Able to close encounter. Caroline Cabral MA March 17, 2024 1:34 PM 1:34 PM documented in this encounter [facility] 02-27-2024 History of Presen t illness Narrative This video visit was performed via [employer] Video Visit. Patient consented to receive health care services via virtual visit for this encounter Provider Location: Non-[facility] Patient Location: Patient Home or Place of Residence I have communicated my name and active licensure. The patient's identity and physical location were verified at the time of this visit. Either the patient or their legal direct sales representative has been informed of the risks and benefits of -- and alternatives to -- treatment through a remote evaluation and consents to proceed with the evaluation remotely. Chief Complaint: Pain _ History of Present Illness: Sherley Rivera is a 73 year old year old male being seen at [facility] for a evaluation and/or management of his chronic pain. The patient was last seen virtually on 01/30/2024. He states that since the last visit symptoms have been stable. His medical history has not changed and he denies any hospital stays or ER visits. Pain Location: lower back, feet due to neuropathy, right knee VAS: 2/10 Timing: constant Character/Quality: ache Radiation: pelvic area to both legs at times Numbness/Tingling: toes Burning: denies Weakness: denies Falls: denies Alleviating Factors: medications and laying down Aggravating Factors: standing, walking, prior to medications The patient denies any bowel or bladder dysfunction. The patient is currently prescribed percocet and lyrica from our office. The last dose was taken today. The medications are partially effective. PDMP website checked and validated. OARRS report reviewed and is consistent with the patients medical history and medication intake. Last Opioid agreement effective date: 12/03/2023 Last UDS: Reviewed - No inconsistencies noted. 01/22/2024 UDS CONSISTENT 07/16/2023 UDS CONSISTENT 11/27/2022 UDS Questionable - no drugs detected but low creatinine. Summary Report Date Value Ref Range Status 01/16/2024 FINAL Final Comment: == Opiate Class, MS, Ur RFX Oxycodone Class, MS, Ur RFX Acetaminophen, MS, Ur RFX ToxAssure Flex 23, Ur == Test Result Flag Units Drug Present Oxycodone 4730 ng/mg creat Noroxycodone 5100 ng/mg creat Sources of oxycodone include scheduled prescription medications. Noroxycodone is an expected metabolite of oxycodone. Acetaminophen PRESENT == Test Result Flag Units Ref Range Creatinine 20 mg/dL >=20 == Declared Medications: Medication list was not provided. == For clinical consultation, please call . == PREGABALIN, URINE Date Value Ref Range Status 01/16/2024 97.8 ug/mL Final Comment: This test was developed and its performance characteristics determined by [employer]. It has not been cleared or approved by the Food and Drug Administration. Urine Panel: Lab Results Component Value Date Cannabinoid Quant, Urine <16 11/27/2022 Benzoylecgonine Quant, Urine <24 11/27/2022 6-Acetylmorphine Quant, Urine <5 11/27/2022 Amphetamine Quant, Urine <5 11/27/2022 Methamphetamine Quant, Urine <8 11/27/2022 Buprenorphine Quant, Urine <20 11/27/2022 Norbuprenorphine Quant, Urine <20 11/27/2022 Methadone Quant, Urine <16 11/27/2022 EDDP Quant, Urine <6 11/27/2022 Tramadol Quant, Urine <25 11/27/2022 Desmethyltramadol Quant, Urine <20 11/27/2022 Fentanyl Quant, Urine <6 11/27/2022 Norfentanyl Quant, Urine <6 11/27/2022 Codeine Quant, Urine <11 11/27/2022 Morphine Quant, Urine <10 11/27/2022 Dihydrocodeine Quant, Urine <5 11/27/2022 Hydrocodone Quant, Urine <8 11/27/2022 Oxycodone Quant, Urine 1,235 (H) 11/27/2022 Hydromorphone Quant, Urine <5 11/27/2022 Oxymorphone Quant, Urine 253 (H) 11/27/2022 Summary Report (Summary) Date Value Ref Range Status 07/03/2022 FINAL Final Comment: == TOXASSURE COMP DRUG ANALYSIS,UR == Test Result Flag Units Drug Present Oxycodone 657 ng/mg creat Oxymorphone 1135 ng/mg creat Noroxycodone 2217 ng/mg creat Noroxymorphone 280 ng/mg creat Sources of oxycodone are scheduled prescription medications. Oxymorphone, noroxycodone, and noroxymorphone are expected metabolites of oxycodone. Oxymorphone is also available as a scheduled prescription medication. Pregabalin PRESENT Acetaminophen PRESENT Naproxen PRESENT Atenolol PRESENT == Test Result Flag Units Ref Range Creatinine 162 mg/dL >=20 == Declared Medications: Medication list was not provided. == For clinical consultation, please call . == Chronic Pain Functional Assessment Tools Pain Disability Index: 10/28/2022 11/24/2022 Pain Disability Index Family/Home Responsibilities: This category includes chores or duties performed around the house (e.g. yard work), errands or favors for other family members (e.g. driving the children to school) 7 7 Recreation: This category includes hobbies, sports, and other similar leisure time activities 7 7 Social Activity: This category refers to activities which involve participation with friends and acquaintances, other than family members. It includes parties, theater, concerts, dinning out, and other social functions 7 7 Occupation: This category refers to activities that are a part of or directly related to ones' job. This includes non-paying jobs as well, such as that of a housewife or volunteer worker 0 No disability 0 No disability Sexual Behavior: This category refers to the frequency and quality of one's sex life 5 5 Self Care: This category includes activities which involve personal maintenance and independent daily living (e.g. taking a shower, driving, getting dress, etc) 5 5 Life Support Activity: This category refers to basic-life supporting behaviors such as eating, sleeping, and breathing 3 3 PDI Score 34 34 Pain Enjoyment of Life and General Activity Scale (0-10): PEG: A Three-Item Scale Assessing Pain Intensity and Interference What number best describes your pain on average in the past week?: 2 (02/24/2023 2:48 PM) What number best describes how, during the past week, pain has interfered with your enjoyment of life?: 6 (11/24/2022 1:38 PM) What number best describes how, during the past week, pain has interfered with your general activity?: 6 (11/24/2022 1:38 PM) REVIEW OF SYSTEMS: GENERAL: No weight loss or fevers RESPIRATORY: Negative for cough CARDIOVASCULAR: Negative for chest pain GI: No nausea, vomiting, or diarrhea. MUSCULOSKELETAL: + joint pain or swelling, back pain and muscle pain ____ PAST MEDICAL HISTORY Diagnosis Date Anxiety and depression Arthritis Back pain Bone fracture CAD (coronary artery disease) CHF (congestive heart failure) (HCC) Chronic fatigue syndrome 08/27/2022 Diverticulitis Fatty liver GERD (gastroesophageal reflux disease) HLD (hyperlipidemia) HTN (hypertension) IBS (irritable bowel syndrome) MR (mitral regurgitation) MS (multiple sclerosis) (HCC) dx in [place], seen by MS CCKrystal and reema with dx Neuropathy Panic attacks TR (tricuspid regurgitation) PAST SURGICAL HISTORY Procedure Laterality Date APPENDECTOMY CHOLECYSTECTOMY HAND SURGERY HX KNEE SURGERY HX Right meniscus repair LX PARTIAL COLECTOMY FAMILY HISTORY Problem Relation Age of Onset Hypertension Mother other (Irregular Heart Beat) Mother Cancer Father Lymphoma Social History Tobacco Use Smoking status: Every Day Types: Cigars Smokeless tobacco: Never Tobacco comments: Smokes about 2-4 cigars per day. Since age 17 yo. Substance Use Topics Alcohol use: Not Currently Drug use: Never Allergies: Glatiramer Unknown Ibuprofen GI Upset Tecfidera [Dimethyl* Other: See Comments Comment:Cognitive changes Dizziness headaches Current Outpatient Medications Medication Sig oxyCODONE-acetaminophen (PERCOCET) 7.5-325 mg tablet Take 1 tablet by mouth four times a day as needed for pain for up to 30 days. Ok to fill early if pharmacy is closed or closes early on fill date Do not start before February 01, 2024. pregabalin (LYRICA) 150 mg capsule Take 1 capsule by mouth two times a day for 30 days. busPIRone (BUSPAR) 15 mg tablet Take 1 tablet by mouth three times a day. PARoxetine (PAXIL) 20 mg tablet TAKE 1/2 TABLET BY MOUTH DAILY X 1 WEEK THEN INCREASE TO 1 TABLET DAILY amLODIPine (NORVASC) 10 mg tablet ascorbic acid, vitamin C, 500 mg cap Take by mouth. ondansetron (ZOFRAN) 4 mg tablet nitroglycerin sublingual (NITROQUICK) 0.3 mg SL tablet DISSOLVE 1 TABLET UNDER THE TONGUE EVERY 5 TO 15 MINUTES lisinopril (ZESTRIL, PRINIVIL) 40 mg tablet Take 1 tablet by mouth. furosemide (LASIX) 40 mg tablet Take 40 mg by mouth once daily. atenolol (TENORMIN) 50 mg tablet Take 50 mg by mouth once daily. clopidogrel (PLAVIX) 75 mg tablet Take 75 mg by mouth once daily. atorvastatin (LIPITOR) 40 mg tablet Take 40 mg by mouth daily at bedtime. No current facility-administered medications for this visit. PHYSICAL EXAMINATION: VIDEO EXAM: (performed via video enabled technology) GENERAL: alert and appropriate, in no distress and well-hydrated, well nourished HEAD: normocephalic, no abnormality or lesion noted RESPIRATORY: breathing non-labored NEUROLOGIC: no obvious deficit ASSESSMENT: Patient is stable. Chronic pain is persistent. Medications are helping Sherley Rivera to have an improved quality of life. Patient compliance with Opioid Contract: patient is compliant Encounter Diagnosis ICD-10-CM 1. 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 Lumbar degenerative disc disease M51.36 4. Neuropathy G62.9 5. Multiple sclerosis (HCC) G35 PLAN: The patient understands the goal of our treatment is a reduction in pain and/or an improved level of functioning with activities of daily living. If at any time the patient does not feel the medications are helping them to achieve these goals, the medications may be discontinued. The patient reports a reduction in pain and/or an improved level of functioning with activities of daily living, denies any significant adverse effects, is compliant with the pain management agreement and there are no signs of medication misuse, abuse or diversion; therefore, the medications will be continued. Continue Percocet Continue Lyrica Patient is a candidate for interventional injection procedures. Patient refuses injections at this time Follow up in 2 months Tangela Maldonado APRN.CNP documented in this encounter [facility] 02-27-2024 Instructions Tangela Maldonado APRN.CNP - 02/27/2024 6:38 AM EDT Continue Percocet A prescription for narcan (naloxone) has been offered to the patient. Continue Lyrica He was started on this medication and has been maintained on it by Dr Roland and CLINICAL ALLERGIST's working with her. He is compliant with the pain management agreement and there have been no signs of medication misuse, abuse or diversion. Patient is a candidate for interventional injection procedures. Patient refuses injections at this time Follow up in 2 months documented in this encounter [facility] 02-27-2024 Miscellaneous Notes Formattin g of this note might be different from the original. Items addressed in this encounter: MyChart Encounter Able to close encounter. Caroline Cabral MA February 27, 2024 5:30 AM 5:30 AM documented in this encounter [facility] 02-27-2024 Telephone encount er Note Items addressed in this encounter: MyChart Encounter Able to close encounter. Caroline Cabral MA February 27, 2024 5:30 AM 5:30 AM [facility] 02-27-2024 Telephone encount er Note Items addressed in this encounter: Virtual Visit Pre Check In Able to close encounter. Caroline Cabral MA February 27, 2024 5:29 AM 5:29 AM [facility] 02-27-2024 Miscellaneous Notes Formattin g of this note might be different from the original. Items addressed in this encounter: Virtual Visit Pre Check In Able to close encounter. Caroline Cabral MA February 27, 2024 5:29 AM 5:29 AM documented in this encounter [facility] 02-11-2024 Telephone encount er Note Items addressed in this encounter: Health Maintenance Review Able to close encounter. Caroline Cabral MA February 11, 2024 8:04 AM 8:04 AM [facility] 02-11-2024 Miscellaneous Notes Formattin g of this note might be different from the original. Items addressed in this encounter: Health Maintenance Review Able to close encounter. Caroline Cabral MA February 11, 2024 8:04 AM 8:04 AM documented in this encounter [facility] 01-30-2024 History of Presen t illness Narrative This video visit was performed via [employer] Video Visit. Patient consented to receive health care services via virtual visit for this encounter Provider [facility] Patient Location: Patient Home or Place of Residence I have communicated my name and active licensure. The patient's identity and physical location were verified at the time of this visit. Either the patient or their legal direct sales representative has been informed of the risks and benefits of -- and alternatives to -- treatment through a remote evaluation and consents to proceed with the evaluation remotely. Chief Complaint: Pain _ History of Present Illness: Sherley Rivera is a 73 year old year old male being seen at [facility] for a evaluation and/or management of his chronic pain. The patient was last seen virtually on 12/31/2023. He states that since the last visit symptoms have been stable. His medical history has not changed and he denies any hospital stays or ER visits. Pain Location: lower back, feet due to neuropathy, right knee VAS: 2/10 Timing: constant Character/Quality: ache Radiation: pelvic area to both legs at times Numbness/Tingling: toes Burning: denies Weakness: denies Falls: denies Alleviating Factors: medications and laying down Aggravating Factors: standing, walking, prior to medications The patient denies any bowel or bladder dysfunction. The patient is currently prescribed percocet and lyrica from our office. The last dose was taken today. The medications are partially effective. PDMP website checked and validated. OARRS report reviewed and is consistent with the patients medical history and medication intake. Last Opioid agreement effective date: 12/03/2023 Last UDS: Reviewed - No inconsistencies noted. 01/22/2024 7:19 AM EDT UDS CONSISTENT 07/16/2023 2:17 PM EDT UDS CONSISTENT 11/27/2022 8:57 AM EST UDS Questionable - no drugs detected but low creatinine. Summary Report Date Value Ref Range Status 01/16/2024 FINAL Final Comment: == Opiate Class, MS, Ur RFX Oxycodone Class, MS, Ur RFX Acetaminophen, MS, Ur RFX ToxAssure Flex 23, Ur == Test Result Flag Units Drug Present Oxycodone 4730 ng/mg creat Noroxycodone 5100 ng/mg creat Sources of oxycodone include scheduled prescription medications. Noroxycodone is an expected metabolite of oxycodone. Acetaminophen PRESENT == Test Result Flag Units Ref Range Creatinine 20 mg/dL >=20 == Declared Medications: Medication list was not provided. == For clinical consultation, please call . == PREGABALIN, URINE Date Value Ref Range Status 01/16/2024 97.8 ug/mL Final Comment: This test was developed and its performance characteristics determined by [employer]. It has not been cleared or approved by the Food and Drug Administration. Urine Panel: Lab Results Component Value Date Cannabinoid Quant, Urine <16 11/27/2022 Benzoylecgonine Quant, Urine <24 11/27/2022 6-Acetylmorphine Quant, Urine <5 11/27/2022 Amphetamine Quant, Urine <5 11/27/2022 Methamphetamine Quant, Urine <8 11/27/2022 Buprenorphine Quant, Urine <20 11/27/2022 Norbuprenorphine Quant, Urine <20 11/27/2022 Methadone Quant, Urine <16 11/27/2022 EDDP Quant, Urine <6 11/27/2022 Tramadol Quant, Urine <25 11/27/2022 Desmethyltramadol Quant, Urine <20 11/27/2022 Fentanyl Quant, Urine <6 11/27/2022 Norfentanyl Quant, Urine <6 11/27/2022 Codeine Quant, Urine <11 11/27/2022 Morphine Quant, Urine <10 11/27/2022 Dihydrocodeine Quant, Urine <5 11/27/2022 Hydrocodone Quant, Urine <8 11/27/2022 Oxycodone Quant, Urine 1,235 (H) 11/27/2022 Hydromorphone Quant, Urine <5 11/27/2022 Oxymorphone Quant, Urine 253 (H) 11/27/2022 Summary Report (Summary) Date Value Ref Range Status 07/03/2022 FINAL Final Comment: == TOXASSURE COMP DRUG ANALYSIS,UR == Test Result Flag Units Drug Present Oxycodone 657 ng/mg creat Oxymorphone 1135 ng/mg creat Noroxycodone 2217 ng/mg creat Noroxymorphone 280 ng/mg creat Sources of oxycodone are scheduled prescription medications. Oxymorphone, noroxycodone, and noroxymorphone are expected metabolites of oxycodone. Oxymorphone is also available as a scheduled prescription medication. Pregabalin PRESENT Acetaminophen PRESENT Naproxen PRESENT Atenolol PRESENT == Test Result Flag Units Ref Range Creatinine 162 mg/dL >=20 == Declared Medications: Medication list was not provided. == For clinical consultation, please call . == Chronic Pain Functional Assessment Tools Pain Disability Index: 10/28/2022 11/24/2022 Pain Disability Index Family/Home Responsibilities: This category includes chores or duties performed around the house (e.g. yard work), errands or favors for other family members (e.g. driving the children to school) 7 7 Recreation: This category includes hobbies, sports, and other similar leisure time activities 7 7 Social Activity: This category refers to activities which involve participation with friends and acquaintances, other than family members. It includes parties, theater, concerts, dinning out, and other social functions 7 7 Occupation: This category refers to activities that are a part of or directly related to ones' job. This includes non-paying jobs as well, such as that of a housewife or volunteer worker 0 No disability 0 No disability Sexual Behavior: This category refers to the frequency and quality of one's sex life 5 5 Self Care: This category includes activities which involve personal maintenance and independent daily living (e.g. taking a shower, driving, getting dress, etc) 5 5 Life Support Activity: This category refers to basic-life supporting behaviors such as eating, sleeping, and breathing 3 3 PDI Score 34 34 Pain Enjoyment of Life and General Activity Scale (0-10): PEG: A Three-Item Scale Assessing Pain Intensity and Interference What number best describes your pain on average in the past week?: 2 (02/24/2023 2:48 PM) What number best describes how, during the past week, pain has interfered with your enjoyment of life?: 6 (11/24/2022 1:38 PM) What number best describes how, during the past week, pain has interfered with your general activity?: 6 (11/24/2022 1:38 PM) REVIEW OF SYSTEMS: GENERAL: No weight loss or fevers RESPIRATORY: Negative for cough CARDIOVASCULAR: Negative for chest pain GI: No nausea, vomiting, or diarrhea. MUSCULOSKELETAL: + joint pain or swelling, back pain and muscle pain ____ PAST MEDICAL HISTORY Diagnosis Date Anxiety and depression Arthritis Back pain Bone fracture CAD (coronary artery disease) CHF (congestive heart failure) (HCC) Chronic fatigue syndrome 08/27/2022 Diverticulitis Fatty liver GERD (gastroesophageal reflux disease) HLD (hyperlipidemia) HTN (hypertension) IBS (irritable bowel syndrome) MR (mitral regurgitation) MS (multiple sclerosis) (HCC) dx in [place], seen by MS CCKrystal and diagrisaac with dx Neuropathy Panic attacks TR (tricuspid regurgitation) PAST SURGICAL HISTORY Procedure Laterality Date APPENDECTOMY CHOLECYSTECTOMY HAND SURGERY HX KNEE SURGERY HX Right meniscus repair LX PARTIAL COLECTOMY FAMILY HISTORY Problem Relation Age of Onset Hypertension Mother other (Irregular Heart Beat) Mother Cancer Father Lymphoma Social History Tobacco Use Smoking status: Every Day Types: Cigars Smokeless tobacco: Never Tobacco comments: Smokes about 2-4 cigars per day. Since age 17 yo. Substance Use Topics Alcohol use: Not Currently Drug use: Never Allergies: Glatiramer Unknown Ibuprofen GI Upset Tecfidera [Dimethyl* Other: See Comments Comment:Cognitive changes Dizziness headaches Current Outpatient Medications Medication Sig pregabalin (LYRICA) 150 mg capsule Take 1 capsule by mouth two times a day for 30 days. oxyCODONE-acetaminophen (PERCOCET) 7.5-325 mg tablet Take 1 tablet by mouth four times a day as needed for pain for up to 30 days. Ok to fill early if pharmacy is closed or closes early on fill date Do not start before January 02, 2024. busPIRone (BUSPAR) 15 mg tablet Take 1 tablet by mouth three times a day. PARoxetine (PAXIL) 20 mg tablet TAKE 1/2 TABLET BY MOUTH DAILY X 1 WEEK THEN INCREASE TO 1 TABLET DAILY amLODIPine (NORVASC) 10 mg tablet ascorbic acid, vitamin C, 500 mg cap Take by mouth. ondansetron (ZOFRAN) 4 mg tablet nitroglycerin sublingual (NITROQUICK) 0.3 mg SL tablet DISSOLVE 1 TABLET UNDER THE TONGUE EVERY 5 TO 15 MINUTES lisinopril (ZESTRIL, PRINIVIL) 40 mg tablet Take 1 tablet by mouth. furosemide (LASIX) 40 mg tablet Take 40 mg by mouth once daily. atenolol (TENORMIN) 50 mg tablet Take 50 mg by mouth once daily. clopidogrel (PLAVIX) 75 mg tablet Take 75 mg by mouth once daily. atorvastatin (LIPITOR) 40 mg tablet Take 40 mg by mouth daily at bedtime. No current facility-administered medications for this visit. PHYSICAL EXAMINATION: VIDEO EXAM: (performed via video enabled technology) GENERAL: alert and appropriate, in no distress and well-hydrated, well nourished HEAD: normocephalic, no abnormality or lesion noted RESPIRATORY: breathing non-labored NEUROLOGIC: no obvious deficit ASSESSMENT: Patient is stable. Chronic pain is persistent. Medications are helping Sherley Rivera to have an improved quality of life. Patient compliance with Opioid Contract: patient is compliant Encounter Diagnosis ICD-10-CM 1. 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 Lumbar degenerative disc disease M51.36 4. Neuropathy G62.9 5. Multiple sclerosis (HCC) G35 PLAN: The pain management agreement was reviewed with the patient. The patient is aware of the risks/benefits of the medicatiion, potential for addiction/overdose, and how to safely store and dispose of the medication(s). The pain management agreement was reviewed with the patient. The patient is aware of the risks/benefits of the medicatiion, potential for addiction/overdose, and how to safely store and dispose of the medication(s). He will sign the pain agreement the next time they come to the office. The patient understands the goal of our treatment is a reduction in pain and/or an improved level of functioning with activities of daily living. If at any time the patient does not feel the medications are helping them to achieve these goals, the medications may be discontinued. The patient reports a reduction in pain and/or an improved level of functioning with activities of daily living, denies any significant adverse effects, is compliant with the pain management agreement and there are no signs of medication misuse, abuse or diversion; therefore, the medications will be continued. Continue Percocet - (MED-45) No further increases Continue Lyrica, please take this medication consistently and as prescribed Keep active as possible Previously discussed CBD products and benefits. We discussed Delta 8 - Patient is a candidate for interventional injection procedures. Patient refuses injections at this time Follow up in 1 month Tangela Maldonado APRN.[employer] BOOKKEEPER documented in this encounter [facility] 01-30-2024 Instructions Tangela Maldonado APRN.CNP - 01/30/2024 6:49 AM EDT Continue Percocet - (MED-45) A prescription for narcan (naloxone) has been offered to the patient. Continue Lyrica, please take this medication consistently and as prescribed Keep active as possible No further increases in Percocet. He was started on this medication and has been maintained on it by Dr Roland and CLINICAL ALLERGIST's working with her. He is compliant with the pain management agreement and there have been no signs of medication misuse, abuse or diversion. Discussed CBD products and benefits Patient is a candidate for interventional injection procedures. Patient refuses injections at this time Follow up in 1 month documented in this encounter [facility] 01-30-2024 Telephone encount er Note Items addressed in this encounter: MyChart Encounter Able to close encounter. Caroline Cabral MA January 30, 2024 5:30 AM 5:30 AM [facility] 01-30-2024 Miscellaneous Notes Formattin g of this note might be different from the original. Items addressed in this encounter: MyChart Encounter Able to close encounter. Caroline Cabral MA January 30, 2024 5:30 AM 5:30 AM documented in this encounter [facility] 01-30-2024 Telephone encount er Note Items addressed in this encounter: Virtual Visit Pre Check In Able to close encounter. Caroline Cabral MA January 30, 2024 5:29 AM 5:29 AM [facility] 01-30-2024 Miscellaneous Notes Formattin g of this note might be different from the original. Items addressed in this encounter: Virtual Visit Pre Check In Able to close encounter. Caroline Cabral MA January 30, 2024 5:29 AM 5:29 AM documented in this encounter [facility] 01-16-2024 Miscellaneous Notes Formattin g of this note might be different from the original. Pt states he plans to come today around 1p Denise Henriquez RN January 16, 2024 9:19 AM Lmom to call the office Denise Henriquez RN January 16, 2024 8:33 AM Please try again. Thanks LMOM for pt to call the office back. My Chart message also sent. \ Genny Ngo RN January 14, 2024 9:50 AM Please call the patient for a UDS and to sign pain agreement. Order entered. Thanks documented in this encounter [facility] 12-31-2023 History of Presen t illness Narrative This video visit was performed via [employer] Video Visit. Patient consented to receive health care services via virtual visit for this encounter Provider Location[facility] Patient Location: Patient Home or Place of Residence I have communicated my name and active licensure. The patient's identity and physical location were verified at the time of this visit. Either the patient or their legal direct sales representative has been informed of the risks and benefits of -- and alternatives to -- treatment through a remote evaluation and consents to proceed with the evaluation remotely. Chief Complaint: Pain _ History of Present Illness: Sherley Rivera is a 73 year old year old male being seen at [facility] for a evaluation and/or management of his chronic pain. The patient was last seen virtually on 12/03/2023. He states that since the last visit symptoms have been stable. His medical history has not changed and he denies any hospital stays or ER visits. Pain Location: lower back, feet due to neuropathy, right knee VAS: 3/10 Timing: constant Character/Quality: ache Radiation: pelvic area to both legs at times Numbness/Tingling: toes Burning: denies Weakness: denies Falls: denies Alleviating Factors: medications and laying down Aggravating Factors: standing, walking, prior to medications The patient denies any bowel or bladder dysfunction. The patient is currently prescribed percocet from our office. The last dose was taken today. The medications are effective. PDMP website checked and validated. OARRS report reviewed and is consistent with the patients medical history and medication intake. Last Opioid agreement effective date: 12/03/2023 Last UDS: Reviewed - No inconsistencies noted. 07/16/2023 2:17 PM EDT UDS CONSISTENT 11/27/2022 8:57 AM EST UDS Questionable - no drugs detected but low creatinine. Summary Report Date Value Ref Range Status 07/12/2023 FINAL Final Comment: == Opiate Class, MS, Ur RFX Oxycodone Class, MS, Ur RFX Acetaminophen, MS, Ur RFX ToxAssure Flex 23, Ur == Test Result Flag Units Drug Present Oxycodone 3040 ng/mg creat Oxymorphone 295 ng/mg creat Noroxycodone 5645 ng/mg creat Sources of oxycodone include scheduled prescription medications. Oxymorphone and noroxycodone are expected metabolites of oxycodone. Oxymorphone is also available as a scheduled prescription medication. Acetaminophen PRESENT == Test Result Flag Units Ref Range Creatinine 20 mg/dL >=20 == Declared Medications: Medication list was not provided. == For clinical consultation, please call . == No results found for: PREGAB Urine Panel: Lab Results Component Value Date Cannabinoid Quant, Urine <16 11/27/2022 Benzoylecgonine Quant, Urine <24 11/27/2022 6-Acetylmorphine Quant, Urine <5 11/27/2022 Amphetamine Quant, Urine <5 11/27/2022 Methamphetamine Quant, Urine <8 11/27/2022 Buprenorphine Quant, Urine <20 11/27/2022 Norbuprenorphine Quant, Urine <20 11/27/2022 Methadone Quant, Urine <16 11/27/2022 EDDP Quant, Urine <6 11/27/2022 Tramadol Quant, Urine <25 11/27/2022 Desmethyltramadol Quant, Urine <20 11/27/2022 Fentanyl Quant, Urine <6 11/27/2022 Norfentanyl Quant, Urine <6 11/27/2022 Codeine Quant, Urine <11 11/27/2022 Morphine Quant, Urine <10 11/27/2022 Dihydrocodeine Quant, Urine <5 11/27/2022 Hydrocodone Quant, Urine <8 11/27/2022 Oxycodone Quant, Urine 1,235 (H) 11/27/2022 Hydromorphone Quant, Urine <5 11/27/2022 Oxymorphone Quant, Urine 253 (H) 11/27/2022 Summary Report (Summary) Date Value Ref Range Status 07/03/2022 FINAL Final Comment: == TOXASSURE COMP DRUG ANALYSIS,UR == Test Result Flag Units Drug Present Oxycodone 657 ng/mg creat Oxymorphone 1135 ng/mg creat Noroxycodone 2217 ng/mg creat Noroxymorphone 280 ng/mg creat Sources of oxycodone are scheduled prescription medications. Oxymorphone, noroxycodone, and noroxymorphone are expected metabolites of oxycodone. Oxymorphone is also available as a scheduled prescription medication. Pregabalin PRESENT Acetaminophen PRESENT Naproxen PRESENT Atenolol PRESENT == Test Result Flag Units Ref Range Creatinine 162 mg/dL >=20 == Declared Medications: Medication list was not provided. == For clinical consultation, please call . == Chronic Pain Functional Assessment Tools Pain Disability Index: 10/28/2022 11/24/2022 Pain Disability Index Family/Home Responsibilities: This category includes chores or duties performed around the house (e.g. yard work), errands or favors for other family members (e.g. driving the children to school) 7 7 Recreation: This category includes hobbies, sports, and other similar leisure time activities 7 7 Social Activity: This category refers to activities which involve participation with friends and acquaintances, other than family members. It includes parties, theater, concerts, dinning out, and other social functions 7 7 Occupation: This category refers to activities that are a part of or directly related to ones' job. This includes non-paying jobs as well, such as that of a housewife or volunteer worker 0 No disability 0 No disability Sexual Behavior: This category refers to the frequency and quality of one's sex life 5 5 Self Care: This category includes activities which involve personal maintenance and independent daily living (e.g. taking a shower, driving, getting dress, etc) 5 5 Life Support Activity: This category refers to basic-life supporting behaviors such as eating, sleeping, and breathing 3 3 PDI Score 34 34 Pain Enjoyment of Life and General Activity Scale (0-10): PEG: A Three-Item Scale Assessing Pain Intensity and Interference What number best describes your pain on average in the past week?: 2 (02/24/2023 2:48 PM) What number best describes how, during the past week, pain has interfered with your enjoyment of life?: 6 (11/24/2022 1:38 PM) What number best describes how, during the past week, pain has interfered with your general activity?: 6 (11/24/2022 1:38 PM) REVIEW OF SYSTEMS: GENERAL: No weight loss or fevers RESPIRATORY: Negative for cough CARDIOVASCULAR: Negative for chest pain GI: No nausea, vomiting, or diarrhea. MUSCULOSKELETAL: + joint pain or swelling, back pain and muscle pain ____ PAST MEDICAL HISTORY Diagnosis Date Anxiety and depression Arthritis Back pain Bone fracture CAD (coronary artery disease) CHF (congestive heart failure) (HCC) Chronic fatigue syndrome 08/27/2022 Diverticulitis Fatty liver GERD (gastroesophageal reflux disease) HLD (hyperlipidemia) HTN (hypertension) IBS (irritable bowel syndrome) MR (mitral regurgitation) MS (multiple sclerosis) (HCC) dx in [place], seen by [facility] and diagrisaac with dx Neuropathy Panic attacks TR (tricuspid regurgitation) PAST SURGICAL HISTORY Procedure Laterality Date APPENDECTOMY CHOLECYSTECTOMY HAND SURGERY HX KNEE SURGERY HX Right meniscus repair LX PARTIAL COLECTOMY FAMILY HISTORY Problem Relation Age of Onset Hypertension Mother other (Irregular Heart Beat) Mother Cancer Father Lymphoma Social History Tobacco Use Smoking status: Every Day Types: Cigars Smokeless tobacco: Never Tobacco comments: Smokes about 2-4 cigars per day. Since age 17 yo. Substance Use Topics Alcohol use: Not Currently Drug use: Never Allergies: Glatiramer Unknown Ibuprofen GI Upset Tecfidera [Dimethyl* Other: See Comments Comment:Cognitive changes Dizziness headaches Current Outpatient Medications Medication Sig oxyCODONE-acetaminophen (PERCOCET) 7.5-325 mg tablet Take 1 tablet by mouth four times a day as needed for pain for up to 30 days. Ok to fill early if pharmacy is closed or closes early on fill date pregabalin (LYRICA) 150 mg capsule Take 1 capsule by mouth two times a day for 30 days. busPIRone (BUSPAR) 15 mg tablet Take 1 tablet by mouth three times a day. PARoxetine (PAXIL) 20 mg tablet TAKE 1/2 TABLET BY MOUTH DAILY X 1 WEEK THEN INCREASE TO 1 TABLET DAILY amLODIPine (NORVASC) 10 mg tablet ascorbic acid, vitamin C, 500 mg cap Take by mouth. ondansetron (ZOFRAN) 4 mg tablet nitroglycerin sublingual (NITROQUICK) 0.3 mg SL tablet DISSOLVE 1 TABLET UNDER THE TONGUE EVERY 5 TO 15 MINUTES lisinopril (ZESTRIL, PRINIVIL) 40 mg tablet Take 1 tablet by mouth. furosemide (LASIX) 40 mg tablet Take 40 mg by mouth once daily. atenolol (TENORMIN) 50 mg tablet Take 50 mg by mouth once daily. clopidogrel (PLAVIX) 75 mg tablet Take 75 mg by mouth once daily. atorvastatin (LIPITOR) 40 mg tablet Take 40 mg by mouth daily at bedtime. No current facility-administered medications for this visit. PHYSICAL EXAMINATION: VIDEO EXAM: (performed via video enabled technology) GENERAL: alert and appropriate, in no distress and well-hydrated, well nourished HEAD: normocephalic, no abnormality or lesion noted RESPIRATORY: breathing non-labored NEUROLOGIC: no obvious deficit ASSESSMENT: Patient is stable. Chronic pain is persistent. Medications are helping Sherley Rivera to have an improved quality of life. Patient compliance with Opioid Contract: patient is compliant Encounter Diagnosis ICD-10-CM 1. Other chronic pain G89.29 2. Lumbar degenerative disc disease M51.36 3. intermediate (current) use of opiate analgesic Z79.891 4. Neuropathy G62.9 5. Multiple sclerosis (HCC) G35 PLAN: The pain management agreement was reviewed with the patient. The patient is aware of the risks/benefits of the medicatiion, potential for addiction/overdose, and how to safely store and dispose of the medication(s). The pain management agreement was reviewed with the patient. The patient is aware of the risks/benefits of the medicatiion, potential for addiction/overdose, and how to safely store and dispose of the medication(s). He will sign the pain agreement the next time they come to the office. The patient understands the goal of our treatment is a reduction in pain and/or an improved level of functioning with activities of daily living. If at any time the patient does not feel the medications are helping them to achieve these goals, the medications may be discontinued. The patient reports a reduction in pain and/or an improved level of functioning with activities of daily living, denies any significant adverse effects, is compliant with the pain management agreement and there are no signs of medication misuse, abuse or diversion; therefore, the medications will be continued. Continue Percocet - (MED-45) No further increases Continue Lyrica, please take this medication consistently and as prescribed Keep active as possible Previously discussed CBD products and benefits. We discussed Delta 8 - Patient is a candidate for interventional injection procedures. Patient refuses injections at this time Follow up in 1 month Tangela Maldonado APRN.CNP documented in this encounter [facility] 12-31-2023 Instructions Tangela Maldonado APRN.CNP - 12/31/2023 6:40 AM EDT Continue Percocet - (MED-45) A prescription for narcan (naloxone) has been offered to the patient. Continue Lyrica, please take this medication consistently and as prescribed Keep active as possible No further increases in Percocet. He was started on this medication and has been maintained on it by Dr Roland and CLINICAL ALLERGIST's working with her. He is compliant with the pain management agreement and there have been no signs of medication misuse, abuse or diversion. Discussed CBD products and benefits Patient is a candidate for interventional injection procedures. Patient refuses injections at this time Follow up in 1 month documented in this encounter [facility] 12-31-2023 Miscellaneous Notes Formattin g of this note might be different from the original. Items addressed in this encounter: MyChart Encounter Able to close encounter. Caroline Cabral MA December 31, 2023 5:40 AM 5:40 AM documented in this encounter [facility] 12-31-2023 Miscellaneous Notes Formattin g of this note might be different from the original. Items addressed in this encounter: Virtual Visit Pre Check In Able to close encounter. Caroline Cabral MA December 31, 2023 5:39 AM 5:39 AM documented in this encounter [facility] 12-03-2023 History of Presen t illness Narrative This video visit was performed via [employer] Zoom Video Visit. Patient consented to receive health care services via virtual visit for this encounter Provider Location: [facility] Patient Location: Patient Home or Place of Residence I have communicated my name and active licensure. The patient's identity and physical location were verified at the time of this visit. Either the patient or their legal direct sales representative has been informed of the risks and benefits of -- and alternatives to -- treatment through a remote evaluation and consents to proceed with the evaluation remotely. Chief Complaint: Pain _ History of Present Illness: Sherley Rivera is a 73 year old year old male being seen at [facility] for a evaluation and/or management of his chronic pain. The patient was last seen virtually on 10/31/2023. He states that since the last visit symptoms have been stable. His medical history has not changed and he denies any hospital stays or ER visits. Pain Location: lower back, feet due to neuropathy, right knee VAS: 6/10 Timing: constant Character/Quality: ache Radiation: pelvic area to both legs at times Numbness/Tingling: toes Burning: denies Weakness: denies Falls: denies Alleviating Factors: medications and laying down Aggravating Factors: standing, walking, prior to medications The patient denies any bowel or bladder dysfunction. The patient is currently prescribed percocet from our office. The last dose was taken today. The medications are effective. PDMP website checked and validated. OARRS report reviewed and is consistent with the patients medical history and medication intake. Last Opioid agreement effective date: 07/03/2022 Last UDS: Reviewed - No inconsistencies noted. 07/16/2023 2:17 PM EDT UDS CONSISTENT 11/27/2022 8:57 AM EST UDS Questionable - no drugs detected but low creatinine. Summary Report Date Value Ref Range Status 07/12/2023 FINAL Final Comment: == Opiate Class, MS, Ur RFX Oxycodone Class, MS, Ur RFX Acetaminophen, MS, Ur RFX ToxAssure Flex 23, Ur == Test Result Flag Units Drug Present Oxycodone 3040 ng/mg creat Oxymorphone 295 ng/mg creat Noroxycodone 5645 ng/mg creat Sources of oxycodone include scheduled prescription medications. Oxymorphone and noroxycodone are expected metabolites of oxycodone. Oxymorphone is also available as a scheduled prescription medication. Acetaminophen PRESENT == Test Result Flag Units Ref Range Creatinine 20 mg/dL >=20 == Declared Medications: Medication list was not provided. == For clinical consultation, please call . == No results found for: PREGAB Urine Panel: Lab Results Component Value Date Cannabinoid Quant, Urine <16 11/27/2022 Benzoylecgonine Quant, Urine <24 11/27/2022 6-Acetylmorphine Quant, Urine <5 11/27/2022 Amphetamine Quant, Urine <5 11/27/2022 Methamphetamine Quant, Urine <8 11/27/2022 Buprenorphine Quant, Urine <20 11/27/2022 Norbuprenorphine Quant, Urine <20 11/27/2022 Methadone Quant, Urine <16 11/27/2022 EDDP Quant, Urine <6 11/27/2022 Tramadol Quant, Urine <25 11/27/2022 Desmethyltramadol Quant, Urine <20 11/27/2022 Fentanyl Quant, Urine <6 11/27/2022 Norfentanyl Quant, Urine <6 11/27/2022 Codeine Quant, Urine <11 11/27/2022 Morphine Quant, Urine <10 11/27/2022 Dihydrocodeine Quant, Urine <5 11/27/2022 Hydrocodone Quant, Urine <8 11/27/2022 Oxycodone Quant, Urine 1,235 (H) 11/27/2022 Hydromorphone Quant, Urine <5 11/27/2022 Oxymorphone Quant, Urine 253 (H) 11/27/2022 Summary Report (Summary) Date Value Ref Range Status 07/03/2022 FINAL Final Comment: == TOXASSURE COMP DRUG ANALYSIS,UR == Test Result Flag Units Drug Present Oxycodone 657 ng/mg creat Oxymorphone 1135 ng/mg creat Noroxycodone 2217 ng/mg creat Noroxymorphone 280 ng/mg creat Sources of oxycodone are scheduled prescription medications. Oxymorphone, noroxycodone, and noroxymorphone are expected metabolites of oxycodone. Oxymorphone is also available as a scheduled prescription medication. Pregabalin PRESENT Acetaminophen PRESENT Naproxen PRESENT Atenolol PRESENT == Test Result Flag Units Ref Range Creatinine 162 mg/dL >=20 == Declared Medications: Medication list was not provided. == For clinical consultation, please call . == Chronic Pain Functional Assessment Tools Pain Disability Index: Pain Disability Index 10/28/2022 11/24/2022 Family/Home Responsibilities: This category includes chores or duties performed around the house (e.g. yard work), errands or favors for other family members (e.g. driving the children to school) 7 7 Recreation: This category includes hobbies, sports, and other similar leisure time activities 7 7 Social Activity: This category refers to activities which involve participation with friends and acquaintances, other than family members. It includes parties, theater, concerts, dinning out, and other social functions 7 7 Occupation: This category refers to activities that are a part of or directly related to ones' job. This includes non-paying jobs as well, such as that of a housewife or volunteer worker 0 No disability 0 No disability Sexual Behavior: This category refers to the frequency and quality of one's sex life 5 5 Self Care: This category includes activities which involve personal maintenance and independent daily living (e.g. taking a shower, driving, getting dress, etc) 5 5 Life Support Activity: This category refers to basic-life supporting behaviors such as eating, sleeping, and breathing 3 3 PDI Score 34 34 Pain Enjoyment of Life and General Activity Scale (0-10): PEG: A Three-Item Scale Assessing Pain Intensity and Interference What number best describes your pain on average in the past week?: 2 (02/24/2023 2:48 PM) What number best describes how, during the past week, pain has interfered with your enjoyment of life?: 6 (11/24/2022 1:38 PM) What number best describes how, during the past week, pain has interfered with your general activity?: 6 (11/24/2022 1:38 PM) REVIEW OF SYSTEMS: GENERAL: No weight loss or fevers RESPIRATORY: Negative for cough CARDIOVASCULAR: Negative for chest pain GI: No nausea, vomiting, or diarrhea. MUSCULOSKELETAL: + joint pain or swelling, back pain and muscle pain ____ PAST MEDICAL HISTORY Diagnosis Date Anxiety and depression Arthritis Back pain Bone fracture CAD (coronary artery disease) CHF (congestive heart failure) (HCC) Chronic fatigue syndrome 08/27/2022 Diverticulitis Fatty liver GERD (gastroesophageal reflux disease) HLD (hyperlipidemia) HTN (hypertension) IBS (irritable bowel syndrome) MR (mitral regurgitation) MS (multiple sclerosis) (HCC) dx in [place], seen by MS [facility] and diagrisaac with dx Neuropathy Panic attacks TR (tricuspid regurgitation) PAST SURGICAL HISTORY Procedure Laterality Date APPENDECTOMY CHOLECYSTECTOMY HAND SURGERY HX KNEE SURGERY HX Right meniscus repair LX PARTIAL COLECTOMY FAMILY HISTORY Problem Relation Age of Onset Hypertension Mother other (Irregular Heart Beat) Mother Cancer Father Lymphoma Social History Tobacco Use Smoking status: Every Day Types: Cigars Smokeless tobacco: Never Tobacco comments: Smokes about 2-4 cigars per day. Since age 17 yo. Substance Use Topics Alcohol use: Not Currently Drug use: Never Allergies: Glatiramer Unknown Ibuprofen GI Upset Tecfidera [Dimethyl* Other: See Comments Comment:Cognitive changes Dizziness headaches Current Outpatient Medications Medication Sig oxyCODONE-acetaminophen (PERCOCET) 7.5-325 mg tablet Take 1 tablet by mouth four times a day as needed for pain for up to 30 days. Ok to fill early if pharmacy is closed or closes early on fill date Do not start before November 03, 2023. pregabalin (LYRICA) 150 mg capsule Take 1 capsule by mouth two times a day for 30 days. busPIRone (BUSPAR) 15 mg tablet Take 1 tablet by mouth three times a day. PARoxetine (PAXIL) 20 mg tablet TAKE 1/2 TABLET BY MOUTH DAILY X 1 WEEK THEN INCREASE TO 1 TABLET DAILY amLODIPine (NORVASC) 10 mg tablet ascorbic acid, vitamin C, 500 mg cap Take by mouth. ondansetron (ZOFRAN) 4 mg tablet nitroglycerin sublingual (NITROQUICK) 0.3 mg SL tablet DISSOLVE 1 TABLET UNDER THE TONGUE EVERY 5 TO 15 MINUTES lisinopril (ZESTRIL, PRINIVIL) 40 mg tablet Take 1 tablet by mouth. furosemide (LASIX) 40 mg tablet Take 40 mg by mouth once daily. atenolol (TENORMIN) 50 mg tablet Take 50 mg by mouth once daily. clopidogrel (PLAVIX) 75 mg tablet Take 75 mg by mouth once daily. atorvastatin (LIPITOR) 40 mg tablet Take 40 mg by mouth daily at bedtime. No current facility-administered medications for this visit. PHYSICAL EXAMINATION: VIDEO EXAM: (performed via video enabled technology) GENERAL: alert and appropriate, in no distress and well-hydrated, well nourished HEAD: normocephalic, no abnormality or lesion noted RESPIRATORY: breathing non-labored NEUROLOGIC: no obvious deficit ASSESSMENT: Patient is stable. Chronic pain is persistent. Medications are helping Sherley Rivera to have an improved quality of life. Patient compliance with Opioid Contract: patient is compliant Encounter Diagnosis ICD-10-CM 1. Other chronic pain G89.29 2. 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 Neuropathy G62.9 5. Multiple sclerosis (HCC) G35 PLAN: The pain management agreement was reviewed with the patient. The patient is aware of the risks/benefits of the medicatiion, potential for addiction/overdose, and how to safely store and dispose of the medication(s). The pain management agreement was reviewed with the patient. The patient is aware of the risks/benefits of the medicatiion, potential for addiction/overdose, and how to safely store and dispose of the medication(s). He will sign the pain agreement the next time they come to the office. The patient understands the goal of our treatment is a reduction in pain and/or an improved level of functioning with activities of daily living. If at any time the patient does not feel the medications are helping them to achieve these goals, the medications may be discontinued. The patient reports a reduction in pain and/or an improved level of functioning with activities of daily living, denies any significant adverse effects, is compliant with the pain management agreement and there are no signs of medication misuse, abuse or diversion; therefore, the medications will be continued. Continue Percocet - (MED-45) No further increases Continue Lyrica, please take this medication consistently and as prescribed Keep active as possible Previously discussed CBD products and benefits. We discussed Delta 8 - Patient is a candidate for interventional injection procedures. Patient refuses injections at this time Follow up in 1 month Tangela Maldonado APRN.CNP documented in this encounter [facility] 12-03-2023 Instructions Tangela Maldonado APRN.CNP - 12/03/2023 6:45 AM EST Continue Percocet - (MED-45) A prescription for narcan (naloxone) has been offered to the patient. Continue Lyrica, please take this medication consistently and as prescribed Keep active as possible No further increases in Percocet. He was started on this medication and has been maintained on it by Dr Roland and CLINICAL ALLERGIST's working with her. He is compliant with the pain management agreement and there have been no signs of medication misuse, abuse or diversion. Discussed CBD products and benefits Patient is a candidate for interventional injection procedures. Patient refuses injections at this time Follow up in 1 month documented in this encounter [facility] 09-03-2023 History of Presen t illness Narrative This video visit was performed via [employer] Video Visit. Patient consented to receive health care services via virtual visit for this encounter Provider Location: [facility] Patient Location: Patient Home or Place of Residence I have communicated my name and active licensure. The patient's identity and physical location were verified at the time of this visit. Either the patient or their legal direct sales representative has been informed of the risks and benefits of -- and alternatives to -- treatment through a remote evaluation and consents to proceed with the evaluation remotely. Chief Complaint: Pain _ History of Present Illness: Sherley Rivera is a 73 year old year old male being seen at [facility] for a evaluation and/or management of his chronic pain. The patient was last seen virtually on 07/30/2023. He states that since the last visit symptoms have been stable. His medical history has not changed and he denies any hospital stays or ER visits. Pain Location: lower back, feet due to neuropathy, right knee VAS: 2/10 Timing: constant Character/Quality: ache Radiation: pelvic area to both legs at times Numbness/Tingling: toes Burning: denies Weakness: denies Falls: denies Alleviating Factors: medications and laying down Aggravating Factors: standing, walking, prior to medications The patient denies any bowel or bladder dysfunction. The patient is currently prescribed percocet from our office. The last dose was taken today. The medications are effective. PDMP website checked and validated. OARRS report reviewed and is consistent with the patients medical history and medication intake. Last Opioid agreement effective date: 07/03/2022 Last UDS: 11/27/22 Consistent Chronic Pain Functional Assessment Tools Pain Disability Index: Pain Disability Index 10/28/2022 11/24/2022 Family/Home Responsibilities 7 7 Recreation 7 7 Social Activity 7 7 Occupation 0 No disability 0 No disability Sexual Behavior 5 5 Self Care 5 5 Life Support Activity 3 3 PDI Score 34 34 Pain Enjoyment of Life and General Activity Scale (0-10): PEG: A Three-Item Scale Assessing Pain Intensity and Interference What number best describes your pain on average in the past week?: 2 (02/24/2023 2:48 PM) What number best describes how, during the past week, pain has interfered with your enjoyment of life?: 6 (11/24/2022 1:38 PM) What number best describes how, during the past week, pain has interfered with your general activity?: 6 (11/24/2022 1:38 PM) REVIEW OF SYSTEMS: GENERAL: No weight loss or fevers RESPIRATORY: Negative for cough CARDIOVASCULAR: Negative for chest pain GI: No nausea, vomiting, or diarrhea. MUSCULOSKELETAL: + joint pain or swelling, back pain and muscle pain ____ PAST MEDICAL HISTORY Diagnosis Date Anxiety and depression Arthritis Back pain Bone fracture CAD (coronary artery disease) CHF (congestive heart failure) (HCC) Chronic fatigue syndrome 08/27/2022 Diverticulitis Fatty liver GERD (gastroesophageal reflux disease) HLD (hyperlipidemia) HTN (hypertension) IBS (irritable bowel syndrome) MR (mitral regurgitation) MS (multiple sclerosis) (HCC) dx in [place], seen by MS [facility] and diagrisaac with dx Neuropathy Panic attacks TR (tricuspid regurgitation) PAST SURGICAL HISTORY Procedure Laterality Date APPENDECTOMY CHOLECYSTECTOMY HAND SURGERY HX KNEE SURGERY HX Right meniscus repair LX PARTIAL COLECTOMY FAMILY HISTORY Problem Relation Age of Onset Hypertension Mother other (Irregular Heart Beat) Mother Cancer Father Lymphoma Social History Tobacco Use Smoking status: Every Day Types: Cigars Smokeless tobacco: Never Tobacco comments: Smokes about 2-4 cigars per day. Since age 17 yo. Substance Use Topics Alcohol use: Not Currently Drug use: Never Allergies: Glatiramer Unknown Ibuprofen GI Upset Tecfidera [Dimethyl* Other: See Comments Comment:Cognitive changes Dizziness headaches Current Outpatient Medications Medication Sig oxyCODONE-acetaminophen (PERCOCET) 7.5-325 mg tablet Take 1 tablet by mouth four times a day as needed for pain for up to 30 days. Ok to fill early if pharmacy is closed or closes early on fill date Do not start before July 31, 2023. busPIRone (BUSPAR) 15 mg tablet Take 1 tablet by mouth three times a day. oxyCODONE-acetaminophen (PERCOCET) 7.5-325 mg tablet Take 1 tablet by mouth four times a day as needed for pain for up to 5 days. Ok to fill early if pharmacy is closed on fill date Do not start before August 30, 2023. pregabalin (LYRICA) 150 mg capsule Take 1 capsule by mouth two times a day for 30 days. PARoxetine (PAXIL) 20 mg tablet TAKE 1/2 TABLET BY MOUTH DAILY X 1 WEEK THEN INCREASE TO 1 TABLET DAILY amLODIPine (NORVASC) 10 mg tablet ascorbic acid, vitamin C, 500 mg cap Take by mouth. ondansetron (ZOFRAN) 4 mg tablet nitroglycerin sublingual (NITROQUICK) 0.3 mg SL tablet DISSOLVE 1 TABLET UNDER THE TONGUE EVERY 5 TO 15 MINUTES lisinopril (ZESTRIL, PRINIVIL) 40 mg tablet Take 1 tablet by mouth. furosemide (LASIX) 40 mg tablet Take 40 mg by mouth once daily. atenolol (TENORMIN) 50 mg tablet Take 50 mg by mouth once daily. clopidogrel (PLAVIX) 75 mg tablet Take 75 mg by mouth once daily. atorvastatin (LIPITOR) 40 mg tablet Take 40 mg by mouth daily at bedtime. No current facility-administered medications for this visit. PHYSICAL EXAMINATION: VIDEO EXAM: (performed via video enabled technology) GENERAL: alert and appropriate, in no distress and well-hydrated, well nourished HEAD: normocephalic, no abnormality or lesion noted RESPIRATORY: breathing non-labored NEUROLOGIC: no obvious deficit ASSESSMENT: Patient is stable. Chronic pain is persistent. Medications are helping Sherley Rivera to have an improved quality of life. Patient compliance with Opioid Contract: patient is compliant Encounter Diagnosis ICD-10-CM 1. 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 Lumbar degenerative disc disease M51.36 4. Lumbar radiculopathy M54.16 5. Neuropathy G62.9 PLAN: The pain management agreement was reviewed with the patient. The patient is aware of the risks/benefits of the medicatiion, potential for addiction/overdose, and how to safely store and dispose of the medication(s). He will sign the pain agreement the next time they come to the office. The patient understands the goal of our treatment is a reduction in pain and/or an improved level of functioning with activities of daily living. If at any time the patient does not feel the medications are helping them to achieve these goals, the medications may be discontinued. The patient reports a reduction in pain and/or an improved level of functioning with activities of daily living, denies any significant adverse effects, is compliant with the pain management agreement and there are no signs of medication misuse, abuse or diversion; therefore, the medications will be continued. Continue Percocet - (MED-45) No further increases Continue Lyrica, please take this medication consistently and as prescribed Keep active as possible Previously discussed CBD products and benefits. We discussed Delta 8 - Patient is a candidate for interventional injection procedures. Patient refuses injections at this time Follow up in 1 month Tangela Maldonado APRN.FANNY documented in this encounter [facility] 09-03-2023 Instructions Tangela Maldonado APRN.CNP - 09/03/2023 7:35 AM EST Continue Percocet - (MED-45) Continue Lyrica, please take this medication consistently and as prescribed Keep active as possible No further increases in Percocet. Discussed CBD products and benefits Patient is a candidate for interventional injection procedures. Patient refuses injections at this time Follow up in 1 month documented in this encounter [facility] 08-28-2023 Miscellaneous Notes Summary: Health Maintenance Review Items addressed in this encounter: MyChart Encounter Able to close encounter.Items addressed in this encounter: Health Maintenance Review Able to close encounter. Caroline Cabral MA August 28, 2023 8:47 AM 8:47 AM Caroline Cabral MA August 28, 2023 8:47 AM 8:47 AM documented in this encounter [facility] 07-30-2023 History of Presen t illness Narrative This video visit was performed via [employer] Video Visit. Patient consented to receive health care services via virtual visit for this encounter Provider Location: [facility] Patient Location: Patient Home or Place of Residence I have communicated my name and active licensure. The patient's identity and physical location were verified at the time of this visit. Either the patient or their legal direct sales representative has been informed of the risks and benefits of -- and alternatives to -- treatment through a remote evaluation and consents to proceed with the evaluation remotely. Chief Complaint: Pain _ History of Present Illness: Sherley Rivera is a 73 year old year old male being seen at [facility] for a evaluation and/or management of his chronic pain. The patient was last seen virtually on 06/28/2023. He states that since the last visit symptoms have been stable. His medical history has not changed and he denies any hospital stays or ER visits. Pain Location: lower back, feet due to neuropathy, right knee VAS: 4/10 Timing: constant Character/Quality: ache Radiation: pelvic area to both legs at times Numbness/Tingling: toes Burning: denies Weakness: denies Falls: denies Alleviating Factors: medications and laying down Aggravating Factors: standing, walking, prior to medications The patient denies any bowel or bladder dysfunction. The patient is currently prescribed percocet from our office. The last dose was taken today. The medications are effective. PDMP website checked and validated. OARRS report reviewed and is consistent with the patients medical history and medication intake. Last Opioid agreement effective date: 07/03/2022 Last UDS: 11/27/22 Consistent Chronic Pain Functional Assessment Tools Pain Disability Index: Pain Disability Index 10/28/2022 11/24/2022 Family/Home Responsibilities 7 7 Recreation 7 7 Social Activity 7 7 Occupation 0 No disability 0 No disability Sexual Behavior 5 5 Self Care 5 5 Life Support Activity 3 3 PDI Score 34 34 Pain Enjoyment of Life and General Activity Scale (0-10): PEG: A Three-Item Scale Assessing Pain Intensity and Interference What number best describes your pain on average in the past week?: 2 (02/24/2023 2:48 PM) What number best describes how, during the past week, pain has interfered with your enjoyment of life?: 6 (11/24/2022 1:38 PM) What number best describes how, during the past week, pain has interfered with your general activity?: 6 (11/24/2022 1:38 PM) REVIEW OF SYSTEMS: GENERAL: No weight loss or fevers RESPIRATORY: Negative for cough CARDIOVASCULAR: Negative for chest pain GI: No nausea, vomiting, or diarrhea. MUSCULOSKELETAL: + joint pain or swelling, back pain and muscle pain ____ PAST MEDICAL HISTORY Diagnosis Date Anxiety and depression Arthritis Back pain Bone fracture CAD (coronary artery disease) CHF (congestive heart failure) (HCC) Chronic fatigue syndrome 08/27/2022 Diverticulitis Fatty liver GERD (gastroesophageal reflux disease) HLD (hyperlipidemia) HTN (hypertension) IBS (irritable bowel syndrome) MR (mitral regurgitation) MS (multiple sclerosis) (HCC) dx in [place], seen by MS CCKrystal and diagrisaac with dx Neuropathy Panic attacks TR (tricuspid regurgitation) PAST SURGICAL HISTORY Procedure Laterality Date APPENDECTOMY CHOLECYSTECTOMY HAND SURGERY HX KNEE SURGERY HX Right meniscus repair LX PARTIAL COLECTOMY FAMILY HISTORY Problem Relation Age of Onset Hypertension Mother other (Irregular Heart Beat) Mother Cancer Father Lymphoma Social History Tobacco Use Smoking status: Every Day Types: Cigars Smokeless tobacco: Never Tobacco comments: Smokes about 2-4 cigars per day. Since age 17 yo. Substance Use Topics Alcohol use: Not Currently Drug use: Never Allergies: Glatiramer Unknown Ibuprofen GI Upset Tecfidera [Dimethyl* Other: See Comments Comment:Cognitive changes Dizziness headaches Current Outpatient Medications Medication Sig pregabalin (LYRICA) 150 mg capsule Take 1 capsule by mouth twice daily for 30 days. oxyCODONE-acetaminophen (PERCOCET) 7.5-325 mg tablet Take 1 tablet by mouth four times daily as needed for pain for up to 30 days. Ok to fill early if pharmacy is closed or closes early on fill date Do not start before July 01, 2023. oxyCODONE-acetaminophen (PERCOCET) 7.5-325 mg tablet Take 1 tablet by mouth four times daily as needed for pain for up to 5 days. Ok to fill early if pharmacy is closed on fill date Do not start before April 26, 2023. PARoxetine (PAXIL) 20 mg tablet TAKE 1/2 TABLET BY MOUTH DAILY X 1 WEEK THEN INCREASE TO 1 TABLET DAILY amLODIPine (NORVASC) 10 mg tablet ascorbic acid, vitamin C, 500 mg cap Take by mouth. ondansetron (ZOFRAN) 4 mg tablet nitroglycerin sublingual (NITROQUICK) 0.3 mg SL tablet DISSOLVE 1 TABLET UNDER THE TONGUE EVERY 5 TO 15 MINUTES lisinopril (ZESTRIL, PRINIVIL) 40 mg tablet Take 1 tablet by mouth. furosemide (LASIX) 40 mg tablet Take 40 mg by mouth once daily. atenolol (TENORMIN) 50 mg tablet Take 50 mg by mouth once daily. clopidogrel (PLAVIX) 75 mg tablet Take 75 mg by mouth once daily. atorvastatin (LIPITOR) 40 mg tablet Take 40 mg by mouth daily at bedtime. No current facility-administered medications for this visit. PHYSICAL EXAMINATION: VIDEO EXAM: (performed via video enabled technology) GENERAL: alert and appropriate, in no distress and well-hydrated, well nourished HEAD: normocephalic, no abnormality or lesion noted RESPIRATORY: breathing non-labored NEUROLOGIC: no obvious deficit ASSESSMENT: Patient is stable. Chronic pain is persistent. Medications are helping Sherley Rivera to have an improved quality of life. Patient compliance with Opioid Contract: patient is compliant Encounter Diagnosis ICD-10-CM 1. 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 Lumbar degenerative disc disease M51.36 4. Lumbar radiculopathy M54.16 5. Neuropathy G62.9 6. Multiple sclerosis (HCC) G35 PLAN: The pain management agreement was reviewed with the patient. The patient is aware of the risks/benefits of the medicatiion, potential for addiction/overdose, and how to safely store and dispose of the medication(s). He will sign the pain agreement the next time they come to the office. The patient understands the goal of our treatment is a reduction in pain and/or an improved level of functioning with activities of daily living. If at any time the patient does not feel the medications are helping them to achieve these goals, the medications may be discontinued. The patient reports a reduction in pain and/or an improved level of functioning with activities of daily living, denies any significant adverse effects, is compliant with the pain management agreement and there are no signs of medication misuse, abuse or diversion; therefore, the medications will be continued. Continue Percocet - (MED-45) No further increases Continue Lyrica, please take this medication consistently and as prescribed Keep active as possible Previously discussed CBD products and benefits. We discussed Delta 8 - Patient is a candidate for interventional injection procedures. Patient refuses injections at this time Follow up in 1 month Tangela Maldonado APRN.FANNY documented in this encounter [facility] 07-30-2023 Instructions Tangela Maldonado APRN.FANNY - 07/30/2023 6:59 AM EDT Continue Percocet - (MED-45) Continue Lyrica, please take this medication consistently and as prescribed Keep active as possible No further increases in Percocet. Discussed CBD products and benefits Patient is a candidate for interventional injection procedures. Patient refuses injections at this time Follow up in 1 month documented in this encounter [facility] 07-30-2023 Miscellaneous Notes Summary: Virtual Visit Pre Check In Items addressed in this encounter: Virtual Visit Pre Check In Able to close encounter. Caroline Cabral MA July 30, 2023 5:39 AM 5:39 AM documented in this encounter [facility] 07-26-2023 Miscellaneous Notes Summary: Health Maintenance Review-UDS Items addressed in this encounter: Health Maintenance Review Able to close encounter. Caroline Cabral MA July 26, 2023 12:50 PM 12:50 PM documented in this encounter [facility] 07-10-2023 Miscellaneous Notes Formattin g of this note might be different from the original. Lmom to call office Denise Hneriquez RN July 10, 2023 3:12 PM Attempted to call x 4 thru out morning nd afternoon, unable to get outside line to connect Denise Henriquez RN July 10, 2023 1:29 PM Please call the patient for a UDS. Order entered. Thanks documented in this encounter [facility] 06-28-2023 History of Presen t illness Narrative This video visit was performed via [employer] Video Visit. Patient consented to receive health care services via virtual visit for this encounter Provider Location: [facility] Patient Location: Patient Home or Place of Residence I have communicated my name and active licensure. The patient's identity and physical location were verified at the time of this visit. Either the patient or their legal direct sales representative has been informed of the risks and benefits of -- and alternatives to -- treatment through a remote evaluation and consents to proceed with the evaluation remotely. Chief Complaint: Pain _ History of Present Illness: Sherley Rivera is a 73 year old year old male being seen at [facility] for a evaluation and/or management of his chronic pain. The patient was last seen virtually on 05/30/2023. He states that since the last visit symptoms have been stable. His medical history has not changed and he denies any hospital stays or ER visits. Pain Location: lower back, feet due to neuropathy, right knee VAS: 3-4/10 Timing: constant Character/Quality: ache Radiation: pelvic area to both legs at times Numbness/Tingling: toes Burning: denies Weakness: denies Falls: denies Alleviating Factors: medications and laying down Aggravating Factors: standing, walking, prior to medications The patient denies any bowel or bladder dysfunction. The patient is currently prescribed percocet from our office. The last dose was taken today. The medications are effective. PDMP website checked and validated. OARRS report reviewed and is consistent with the patients medical history and medication intake. Last Opioid agreement effective date: 07/03/2022 Last UDS: 11/27/22 Consistent Chronic Pain Functional Assessment Tools Pain Disability Index: Pain Disability Index 10/28/2022 11/24/2022 Family/Home Responsibilities 7 7 Recreation 7 7 Social Activity 7 7 Occupation 0 No disability 0 No disability Sexual Behavior 5 5 Self Care 5 5 Life Support Activity 3 3 PDI Score 34 34 Pain Enjoyment of Life and General Activity Scale (0-10): PEG: A Three-Item Scale Assessing Pain Intensity and Interference What number best describes your pain on average in the past week?: 2 (02/24/2023 2:48 PM) What number best describes how, during the past week, pain has interfered with your enjoyment of life?: 6 (11/24/2022 1:38 PM) What number best describes how, during the past week, pain has interfered with your general activity?: 6 (11/24/2022 1:38 PM) REVIEW OF SYSTEMS: GENERAL: No weight loss or fevers RESPIRATORY: Negative for cough CARDIOVASCULAR: Negative for chest pain GI: No nausea, vomiting, or diarrhea. MUSCULOSKELETAL: + joint pain or swelling, back pain and muscle pain ____ PAST MEDICAL HISTORY Diagnosis Date Anxiety and depression Arthritis Back pain Bone fracture CAD (coronary artery disease) CHF (congestive heart failure) (HCC) Chronic fatigue syndrome 08/27/2022 Diverticulitis Fatty liver GERD (gastroesophageal reflux disease) HLD (hyperlipidemia) HTN (hypertension) IBS (irritable bowel syndrome) MR (mitral regurgitation) MS (multiple sclerosis) (HCC) dx in [place], seen by MS DANII and diagrisaac with dx Neuropathy Panic attacks TR (tricuspid regurgitation) PAST SURGICAL HISTORY Procedure Laterality Date APPENDECTOMY CHOLECYSTECTOMY HAND SURGERY HX KNEE SURGERY HX Right meniscus repair LX PARTIAL COLECTOMY FAMILY HISTORY Problem Relation Age of Onset Hypertension Mother other (Irregular Heart Beat) Mother Cancer Father Lymphoma Social History Tobacco Use Smoking status: Every Day Types: Cigars Smokeless tobacco: Never Tobacco comments: Smokes about 2-4 cigars per day. Since age 17 yo. Substance Use Topics Alcohol use: Not Currently Drug use: Never Allergies: Glatiramer Unknown Ibuprofen GI Upset Tecfidera [Dimethyl* Other: See Comments Comment:Cognitive changes Dizziness headaches Current Outpatient Medications Medication Sig oxyCODONE-acetaminophen (PERCOCET) 7.5-325 mg tablet Take 1 tablet by mouth four times daily as needed for pain for up to 30 days. Ok to fill early if pharmacy is closed or closes early on fill date Do not start before June 01, 2023. pregabalin (LYRICA) 150 mg capsule Take 1 capsule by mouth twice daily for 30 days. oxyCODONE-acetaminophen (PERCOCET) 7.5-325 mg tablet Take 1 tablet by mouth four times daily as needed for pain for up to 5 days. Ok to fill early if pharmacy is closed on fill date Do not start before April 26, 2023. PARoxetine (PAXIL) 20 mg tablet TAKE 1/2 TABLET BY MOUTH DAILY X 1 WEEK THEN INCREASE TO 1 TABLET DAILY amLODIPine (NORVASC) 10 mg tablet ascorbic acid, vitamin C, 500 mg cap Take by mouth. ondansetron (ZOFRAN) 4 mg tablet nitroglycerin sublingual (NITROQUICK) 0.3 mg SL tablet DISSOLVE 1 TABLET UNDER THE TONGUE EVERY 5 TO 15 MINUTES lisinopril (ZESTRIL, PRINIVIL) 40 mg tablet Take 1 tablet by mouth. furosemide (LASIX) 40 mg tablet Take 40 mg by mouth once daily. atenolol (TENORMIN) 50 mg tablet Take 50 mg by mouth once daily. clopidogrel (PLAVIX) 75 mg tablet Take 75 mg by mouth once daily. atorvastatin (LIPITOR) 40 mg tablet Take 40 mg by mouth daily at bedtime. No current facility-administered medications for this visit. PHYSICAL EXAMINATION: VIDEO EXAM: (performed via video enabled technology) GENERAL: alert and appropriate, in no distress and well-hydrated, well nourished HEAD: normocephalic, no abnormality or lesion noted RESPIRATORY: breathing non-labored NEUROLOGIC: no obvious deficit ASSESSMENT: Patient is stable. Chronic pain is persistent. Medications are helping Sherley Rivera to have an improved quality of life. Patient compliance with Opioid Contract: patient is compliant Encounter Diagnosis ICD-10-CM 1. 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 Lumbar degenerative disc disease M51.36 4. Neuropathy G62.9 5. Multiple sclerosis (HCC) G35 PLAN: The pain management agreement was reviewed with the patient. The patient is aware of the risks/benefits of the medicatiion, potential for addiction/overdose, and how to safely store and dispose of the medication(s). He will sign the pain agreement the next time they come to the office. The patient understands the goal of our treatment is a reduction in pain and/or an improved level of functioning with activities of daily living. If at any time the patient does not feel the medications are helping them to achieve these goals, the medications may be discontinued. The patient reports a reduction in pain and/or an improved level of functioning with activities of daily living, denies any significant adverse effects, is compliant with the pain management agreement and there are no signs of medication misuse, abuse or diversion; therefore, the medications will be continued. Continue Percocet - (MED-45) No further increases Continue Lyrica, please take this medication consistently and as prescribed Keep active as possible Previously discussed CBD products and benefits. We discussed Delta 8 - Patient is a candidate for interventional injection procedures. Patient refuses injections at this time Follow up in 1 month Tangela Maldonado APRN.CNP documented in this encounter [facility] 06-28-2023 Instructions Tangela Maldonado APRN.CNP - 06/28/2023 6:48 AM EDT Continue Percocet - (MED-45) Continue Lyrica, please take this medication consistently and as prescribed Keep active as possible No further increases in Percocet. Discussed CBD products and benefits Patient is a candidate for interventional injection procedures. Patient refuses injections at this time Follow up in 1 month documented in this encounter [facility] 06-27-2023 Miscellaneous Notes Summary: UDS updated Items addressed in this encounter: Health Maintenance Review Able to close encounter. Caroline Cabral MA June 27, 2023 10:21 AM 10:21 AM documented in this encounter [facility] 05-30-2023 History of Presen t illness Narrative This video visit was performed via [employer] video visit. Patient consented to receive health care services via virtual visit for this encounter Provider Location: [facility] Patient Location: Patient Home or Place of Residence I have communicated my name and active licensure. The patient's identity and physical location were verified at the time of this visit. Either the patient or their legal direct sales representative has been informed of the risks and benefits of -- and alternatives to -- treatment through a remote evaluation and consents to proceed with the evaluation remotely. Chief Complaint: Pain _ History of Present Illness: Sherley Rivera is a 72 year old year old male being seen at [facility] for a evaluation and/or management of his chronic pain. The patient was last seen virtually on 04/30/2023. He states that since the last visit symptoms have been stable. His medical history has not changed and he denies any hospital stays or ER visits. Pain Location: lower back, feet due to neuropathy, right knee VAS: 2-3/10 Timing: constant Character/Quality: ache Radiation: pelvic area to both legs at times Numbness/Tingling: toes Burning: denies Weakness: denies Falls: denies Alleviating Factors: medications and laying down Aggravating Factors: standing, walking, prior to medications The patient denies any bowel or bladder dysfunction. The patient is currently prescribed percocet from our office. The last dose was taken today. The medications are effective. PDMP website checked and validated. OARRS report reviewed and is consistent with the patients medical history and medication intake. Last Opioid agreement effective date: 07/03/2022 Last UDS: 11/27/22 Consistent Chronic Pain Functional Assessment Tools Pain Disability Index: Pain Disability Index 10/28/2022 11/24/2022 Family/Home Responsibilities 7 7 Recreation 7 7 Social Activity 7 7 Occupation 0 No disability 0 No disability Sexual Behavior 5 5 Self Care 5 5 Life Support Activity 3 3 PDI Score 34 34 Pain Enjoyment of Life and General Activity Scale (0-10): PEG: A Three-Item Scale Assessing Pain Intensity and Interference What number best describes your pain on average in the past week?: 2 (02/24/2023 2:48 PM) What number best describes how, during the past week, pain has interfered with your enjoyment of life?: 6 (11/24/2022 1:38 PM) What number best describes how, during the past week, pain has interfered with your general activity?: 6 (11/24/2022 1:38 PM) REVIEW OF SYSTEMS: GENERAL: No weight loss or fevers RESPIRATORY: Negative for cough CARDIOVASCULAR: Negative for chest pain GI: No nausea, vomiting, or diarrhea. MUSCULOSKELETAL: + joint pain or swelling, back pain and muscle pain ____ PAST MEDICAL HISTORY Diagnosis Date Anxiety and depression Arthritis Back pain Bone fracture CAD (coronary artery disease) CHF (congestive heart failure) (HCC) Chronic fatigue syndrome 08/27/2022 Diverticulitis Fatty liver GERD (gastroesophageal reflux disease) HLD (hyperlipidemia) HTN (hypertension) IBS (irritable bowel syndrome) MR (mitral regurgitation) MS (multiple sclerosis) (HCC) dx in [place], seen by MS DANII and diagreed with dx Neuropathy Panic attacks TR (tricuspid regurgitation) PAST SURGICAL HISTORY Procedure Laterality Date APPENDECTOMY CHOLECYSTECTOMY HAND SURGERY HX KNEE SURGERY HX Right meniscus repair LX PARTIAL COLECTOMY FAMILY HISTORY Problem Relation Age of Onset Hypertension Mother other (Irregular Heart Beat) Mother Cancer Father Lymphoma Social History Tobacco Use Smoking status: Every Day Types: Cigars Smokeless tobacco: Never Tobacco comments: Smokes about 2-4 cigars per day. Since age 17 yo. Substance Use Topics Alcohol use: Not Currently Drug use: Never Allergies: Glatiramer Unknown Ibuprofen GI Upset Tecfidera [Dimethyl* Other: See Comments Comment:Cognitive changes Dizziness headaches Current Outpatient Medications Medication Sig oxyCODONE-acetaminophen (PERCOCET) 7.5-325 mg tablet Take 1 tablet by mouth four times daily as needed for pain for up to 30 days. Ok to fill early if pharmacy is closed or closes early on fill date Do not start before May 02, 2023. pregabalin (LYRICA) 150 mg capsule Take 1 capsule by mouth twice daily for 30 days. oxyCODONE-acetaminophen (PERCOCET) 7.5-325 mg tablet Take 1 tablet by mouth four times daily as needed for pain for up to 5 days. Ok to fill early if pharmacy is closed on fill date Do not start before April 26, 2023. PARoxetine (PAXIL) 20 mg tablet TAKE 1/2 TABLET BY MOUTH DAILY X 1 WEEK THEN INCREASE TO 1 TABLET DAILY amLODIPine (NORVASC) 10 mg tablet ascorbic acid, vitamin C, 500 mg cap Take by mouth. ondansetron (ZOFRAN) 4 mg tablet nitroglycerin sublingual (NITROQUICK) 0.3 mg SL tablet DISSOLVE 1 TABLET UNDER THE TONGUE EVERY 5 TO 15 MINUTES lisinopril (ZESTRIL, PRINIVIL) 40 mg tablet Take 1 tablet by mouth. furosemide (LASIX) 40 mg tablet Take 40 mg by mouth once daily. atenolol (TENORMIN) 50 mg tablet Take 50 mg by mouth once daily. clopidogrel (PLAVIX) 75 mg tablet Take 75 mg by mouth once daily. atorvastatin (LIPITOR) 40 mg tablet Take 40 mg by mouth daily at bedtime. No current facility-administered medications for this visit. PHYSICAL EXAMINATION: VIDEO EXAM: (performed via video enabled technology) GENERAL: alert and appropriate, in no distress and well-hydrated, well nourished HEAD: normocephalic, no abnormality or lesion noted RESPIRATORY: breathing non-labored NEUROLOGIC: no obvious deficit ASSESSMENT: Patient is stable. Chronic pain is persistent. Medications are helping Sherley Rivera to have an improved quality of life. Patient compliance with Opioid Contract: patient is compliant Encounter Diagnosis ICD-10-CM 1. Other chronic pain G89.29 2. 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 Lumbar degenerative disc disease M51.36 4. Neuropathy G62.9 PLAN: The pain management agreement was reviewed with the patient. The patient is aware of the risks/benefits of the medicatiion, potential for addiction/overdose, and how to safely store and dispose of the medication(s). He will sign the pain agreement the next time they come to the office. The patient understands the goal of our treatment is a reduction in pain and/or an improved level of functioning with activities of daily living. If at any time the patient does not feel the medications are helping them to achieve these goals, the medications may be discontinued. The patient reports a reduction in pain and/or an improved level of functioning with activities of daily living, denies any significant adverse effects, is compliant with the pain management agreement and there are no signs of medication misuse, abuse or diversion; therefore, the medications will be continued. Continue Percocet - (MED-45) No further increases Continue Lyrica, please take this medication consistently and as prescribed Keep active as possible Previously discussed CBD products and benefits. We discussed Delta 8 - Patient is a candidate for interventional injection procedures. Patient refuses injections at this time Follow up in 1 month Tangela Maldonado APRN.CNP documented in this encounter [facility] 05-30-2023 Instructions Tangela Maldonado APRN.CNP - 05/30/2023 6:50 AM EDT Continue Percocet - (MED-45) Continue Lyrica, please take this medication consistently and as prescribed Keep active as possible No further increases in Percocet. Discussed CBD products and benefits Patient is a candidate for interventional injection procedures. Patient refuses injections at this time Follow up in 1 month documented in this encounter [facility] 05-29-2023 Miscellaneous Notes Summary: Virtual Visit Pre Check In Items addressed in this encounter: Virtual Visit Pre Check In Able to close encounter. Caroline Cabral MA May 29, 2023 11:00 AM 11:00 AM documented in this encounter [facility] 05-24-2023 Miscellaneous Notes Formattin g of this note might be different from the original. Items addressed in this encounter: Health Maintenance Review Able to close encounter. Yue Frazier MA May 24, 2023 1:24 PM 1:24 PM documented in this encounter [facility] 05-24-2023 Miscellaneous Notes Summary: Health Maintenance/called patient for update Items addressed in this encounter: Health Maintenance Review Called patient about updated insurance information / no answer Able to close encounter. Caroline Cabral MA May 24, 2023 11:14 AM 11:14 AM documented in this encounter [facility] 04-16-2023 Miscellaneous Notes Formattin g of this note is different from the original. Pt called in today requesting the Percocet script be sent to [facility] due to [facility] not having the drug in stock. Please advise. Joselyn Masterson RN April 16, 2023 1:19 PM Patient phones requesting refills as follows: Requested Prescriptions Pending Prescriptions Disp Refills oxyCODONE-acetaminophen (PERCOCET) 7.5-325 mg tablet 20 tablet 0 Sig: Take 1 tablet by mouth four times daily as needed for pain for up to 5 days. Ok to fill early if pharmacy is closed on fill date Do not start before April 26, 2023. Last UDS: Summary Report Date Value Ref Range Status 11/16/2022 FINAL Final Comment: == ToxAssure Flex 23, Ur == Specimen Alert Note: Urinary creatinine is low; ability to detect some drugs may be compromised. Interpret results with caution. == Test Result Flag Units NO DRUGS DETECTED. == Test Result Flag Units Ref Range Creatinine 10 L mg/dL >=20 == Declared Medications: Medication list was not provided. == For clinical consultation, please call . == @FLOW([id number])@ Lab Results Component Value Date SUMM FINAL 11/16/2022 Summary Report (Summary) Date Value Ref Range Status 07/03/2022 FINAL Final Comment: == TOXASSURE COMP DRUG ANALYSIS,UR == Test Result Flag Units Drug Present Oxycodone 657 ng/mg creat Oxymorphone 1135 ng/mg creat Noroxycodone 2217 ng/mg creat Noroxymorphone 280 ng/mg creat Sources of oxycodone are scheduled prescription medications. Oxymorphone, noroxycodone, and noroxymorphone are expected metabolites of oxycodone. Oxymorphone is also available as a scheduled prescription medication. Pregabalin PRESENT Acetaminophen PRESENT Naproxen PRESENT Atenolol PRESENT == Test Result Flag Units Ref Range Creatinine 162 mg/dL >=20 == Declared Medications: Medication list was not provided. == For clinical consultation, please call . == Please review and advise. Joselyn Masterson, RN documented in this encounter [facility] 03-29-2023 Miscellaneous Notes Formattin g of this note might be different from the original. I cancelled RX at [facility]. New RX entered to go to . Genny Ngo RN March 29, 2023 12:59 PM documented in this encounter [facility] 03-29-2023 History of Presen t illness Narrative This video visit was performed via [employer] video visit. Patient consented to receive health care services via virtual visit for this encounter Provider Location[facility] Patient Location: Patient Home or Place of Residence I have communicated my name and active licensure. The patient's identity and physical location were verified at the time of this visit. Either the patient or their legal direct sales representative has been informed of the risks and benefits of -- and alternatives to -- treatment through a remote evaluation and consents to proceed with the evaluation remotely. Chief Complaint: Pain _ History of Present Illness: Sherley Rivera is a 72 year old year old male being seen at [facility] for a evaluation and/or management of his chronic pain. The patient was last seen virtually on 02/27/2023. He states that since the last visit symptoms have been persistent. His medical history has not changed and he denies any hospital stays or ER visits. Pain Location: lower back, feet due to neuropathy, right knee VAS: 3/10 Timing: constant Character/Quality: ache Radiation: pelvic area to both legs at times Numbness/Tingling: toes Burning: denies Weakness: denies Falls: denies Alleviating Factors: medications and laying down Aggravating Factors: standing, walking, prior to medications The patient denies any bowel or bladder dysfunction. The patient is currently prescribed percocet from our office. The last dose was taken today. The medications are effective. PDMP website checked and validated. OARRS report reviewed and is consistent with the patients medical history and medication intake. Last Opioid agreement effective date: 07/03/2022 Last UDS: 11/27/22 Consistent Chronic Pain Functional Assessment Tools Pain Disability Index: Pain Disability Index 10/28/2022 11/24/2022 Family/Home Responsibilities 7 7 Recreation 7 7 Social Activity 7 7 Occupation 0 No disability 0 No disability Sexual Behavior 5 5 Self Care 5 5 Life Support Activity 3 3 PDI Score 34 34 Pain Enjoyment of Life and General Activity Scale (0-10): PEG: A Three-Item Scale Assessing Pain Intensity and Interference What number best describes your pain on average in the past week?: 2 (02/24/2023 2:48 PM) What number best describes how, during the past week, pain has interfered with your enjoyment of life?: 6 (11/24/2022 1:38 PM) What number best describes how, during the past week, pain has interfered with your general activity?: 6 (11/24/2022 1:38 PM) REVIEW OF SYSTEMS: GENERAL: No weight loss or fevers RESPIRATORY: Negative for cough CARDIOVASCULAR: Negative for chest pain GI: No nausea, vomiting, or diarrhea. MUSCULOSKELETAL: + joint pain or swelling, back pain and muscle pain ____ PAST MEDICAL HISTORY Diagnosis Date Anxiety and depression Arthritis Back pain Bone fracture CAD (coronary artery disease) CHF (congestive heart failure) (HCC) Chronic fatigue syndrome 08/27/2022 Diverticulitis Fatty liver GERD (gastroesophageal reflux disease) HLD (hyperlipidemia) HTN (hypertension) IBS (irritable bowel syndrome) MR (mitral regurgitation) MS (multiple sclerosis) (HCC) dx in [place], seen by [facility] and reema with dx Neuropathy Panic attacks TR (tricuspid regurgitation) PAST SURGICAL HISTORY Procedure Laterality Date APPENDECTOMY CHOLECYSTECTOMY HAND SURGERY HX KNEE SURGERY HX Right meniscus repair LX PARTIAL COLECTOMY FAMILY HISTORY Problem Relation Age of Onset Hypertension Mother other (Irregular Heart Beat) Mother Cancer Father Lymphoma Social History Tobacco Use Smoking status: Every Day Types: Cigars Smokeless tobacco: Never Tobacco comments: Smokes about 2-4 cigars per day. Since age 17 yo. Substance Use Topics Alcohol use: Not Currently Drug use: Never Allergies: Glatiramer Unknown Ibuprofen GI Upset Tecfidera [Dimethyl* Other: See Comments Comment:Cognitive changes Dizziness headaches Current Outpatient Medications Medication Sig PARoxetine (PAXIL) 20 mg tablet TAKE 1/2 TABLET BY MOUTH DAILY X 1 WEEK THEN INCREASE TO 1 TABLET DAILY amLODIPine (NORVASC) 10 mg tablet pregabalin (LYRICA) 150 mg capsule Take 1 capsule by mouth twice daily for 30 days. oxyCODONE-acetaminophen (PERCOCET) 7.5-325 mg tablet Take 1 tablet by mouth four times daily as needed for pain for up to 30 days. Ok to fill early if pharmacy is closed on fill date Do not start before February 28, 2023. ascorbic acid, vitamin C, 500 mg cap Take by mouth. ondansetron (ZOFRAN) 4 mg tablet nitroglycerin sublingual (NITROQUICK) 0.3 mg SL tablet DISSOLVE 1 TABLET UNDER THE TONGUE EVERY 5 TO 15 MINUTES lisinopril (ZESTRIL, PRINIVIL) 40 mg tablet Take 1 tablet by mouth. furosemide (LASIX) 40 mg tablet Take 40 mg by mouth once daily. atenolol (TENORMIN) 50 mg tablet Take 50 mg by mouth once daily. clopidogrel (PLAVIX) 75 mg tablet Take 75 mg by mouth once daily. atorvastatin (LIPITOR) 40 mg tablet Take 40 mg by mouth daily at bedtime. No current facility-administered medications for this visit. PHYSICAL EXAMINATION: VIDEO EXAM: (performed via video enabled technology) GENERAL: alert and appropriate, in no distress and well-hydrated, well nourished HEAD: normocephalic, no abnormality or lesion noted RESPIRATORY: breathing non-labored NEUROLOGIC: no obvious deficit ASSESSMENT: Patient is stable. Chronic pain is persistent. Medications are helping Sherley Rivera to have an improved quality of life. Patient compliance with Opioid Contract: patient is compliant Encounter Diagnosis ICD-10-CM 1. Other chronic pain G89.29 2. Lumbar radiculopathy M54.16 3. intermediate (current) use of opiate analgesic Z79.891 4. Neuropathy G62.9 5. Multiple sclerosis (HCC) G35 PLAN: The pain management agreement was reviewed with the patient. The patient is aware of the risks/benefits of the medicatiion, potential for addiction/overdose, and how to safely store and dispose of the medication(s). He will sign the pain agreement the next time they come to the office. The patient understands the goal of our treatment is a reduction in pain and/or an improved level of functioning with activities of daily living. If at any time the patient does not feel the medications are helping them to achieve these goals, the medications may be discontinued. The patient reports a reduction in pain and/or an improved level of functioning with activities of daily living, denies any significant adverse effects, is compliant with the pain management agreement and there are no signs of medication misuse, abuse or diversion; therefore, the medications will be continued. Continue Percocet - (MED-45) No further increases Continue Lyrica, please take this medication consistently and as prescribed Keep active as possible Previously discussed CBD products and benefits. We discussed Delta 8 - Patient is a candidate for interventional injection procedures. Patient refuses injections at this time Follow up in 1 month Tangela Maldonado APRN.CNP documented in this encounter [facility] 03-29-2023 Instructions Tangela Maldonado APRN.CNP - 03/29/2023 8:03 AM EDT Continue Percocet - (MED-45) Continue Lyrica, please take this medication consistently and as prescribed Keep active as possible No further increases in Percocet. Discussed CBD products and benefits Patient is a candidate for interventional injection procedures. Patient refuses injections at this time Follow up in 1 month documented in this encounter [facility] 12-26-2022 History of Presen t illness Narrative This video visit was performed via [employer] video visit. Patient consented to receive health care services via virtual visit for this encounter Provider Location: [facility] Patient Location: Patient Home or Place of Residence I have communicated my name and active licensure. The patient's identity and physical location were verified at the time of this visit. Either the patient or their legal direct sales representative has been informed of the risks and benefits of -- and alternatives to -- treatment through a remote evaluation and consents to proceed with the evaluation remotely. Chief Complaint: Pain _ History of Present Illness: Sherley Rivera is a 72 year old year old male being seen at [facility] for a evaluation and/or management of his chronic pain. The patient was last seen virtually on 11/30/2022. He states that since the last visit symptoms have been stable. He is not feeling well today. He is seeing Ortho for his right knee pain from a former [facility] injury. He states it is so bad at this point that he has difficulty walking. His medical history has not changed and he denies any hospital stays or ER visits. Pain Location: lower back, feet due to neuropathy, right knee VAS: 4/10 Timing: constant Character/Quality: ache Radiation: pelvic area to both legs at times Numbness/Tingling: toes Burning: denies Weakness: denies Falls: denies Alleviating Factors: medications and laying down Aggravating Factors: standing, walking, prior to medications The patient denies any bowel or bladder dysfunction. The patient is currently prescribed percocet from our office. The last dose was taken today. The medications are effective. PDMP website checked and validated. OARRS report reviewed and is consistent with the patients medical history and medication intake. Last Opioid agreement effective date: 07/03/2022 Last UDS: 11/27/22 Consistent Chronic Pain Functional Assessment Tools Pain Disability Index: Pain Disability Index 10/28/2022 11/24/2022 Family/Home Responsibilities 7 7 Recreation 7 7 Social Activity 7 7 Occupation 0 No disability 0 No disability Sexual Behavior 5 5 Self Care 5 5 Life Support Activity 3 3 PDI Score 34 34 Pain Enjoyment of Life and General Activity Scale (0-10): PEG: A Three-Item Scale Assessing Pain Intensity and Interference What number best describes your pain on average in the past week?: 3 (11/24/2022 1:38 PM) What number best describes how, during the past week, pain has interfered with your enjoyment of life?: 6 (11/24/2022 1:38 PM) What number best describes how, during the past week, pain has interfered with your general activity?: 6 (11/24/2022 1:38 PM) REVIEW OF SYSTEMS: GENERAL: No weight loss or fevers RESPIRATORY: Negative for cough CARDIOVASCULAR: Negative for chest pain GI: No nausea, vomiting, or diarrhea. MUSCULOSKELETAL: + joint pain or swelling, back pain and muscle pain ____ PAST MEDICAL HISTORY Diagnosis Date Anxiety and depression Arthritis Back pain Bone fracture CAD (coronary artery disease) CHF (congestive heart failure) (HCC) Chronic fatigue syndrome 08/27/2022 Diverticulitis Fatty liver GERD (gastroesophageal reflux disease) HLD (hyperlipidemia) HTN (hypertension) IBS (irritable bowel syndrome) MR (mitral regurgitation) MS (multiple sclerosis) (HCC) dx in [place], seen by [facility] and diagrisaac with dx Neuropathy Panic attacks TR (tricuspid regurgitation) PAST SURGICAL HISTORY Procedure Laterality Date APPENDECTOMY CHOLECYSTECTOMY HAND SURGERY HX KNEE SURGERY HX Right meniscus repair LX PARTIAL COLECTOMY FAMILY HISTORY Problem Relation Age of Onset Hypertension Mother other (Irregular Heart Beat) Mother Cancer Father Lymphoma Social History Tobacco Use Smoking status: Every Day Types: Cigars Smokeless tobacco: Never Tobacco comments: Smokes about 2-4 cigars per day. Since age 17 yo. Substance Use Topics Alcohol use: Not Currently Drug use: Never Allergies: Glatiramer Unknown Ibuprofen GI Upset Tecfidera [Dimethyl* Other: See Comments Comment:Cognitive changes Dizziness headaches Current Outpatient Medications Medication Sig oxyCODONE-acetaminophen (PERCOCET) 7.5-325 mg tablet Take 1 tablet by mouth four times daily as needed for pain for up to 30 days. Ok to fill early if pharmacy is closed on fill date pregabalin (LYRICA) 150 mg capsule Take 1 capsule by mouth twice daily for 30 days. ondansetron (ZOFRAN) 4 mg tablet nitroglycerin sublingual (NITROQUICK) 0.3 mg SL tablet DISSOLVE 1 TABLET UNDER THE TONGUE EVERY 5 TO 15 MINUTES lisinopril (ZESTRIL, PRINIVIL) 40 mg tablet Take 1 tablet by mouth. amLODIPine (NORVASC) 5 mg tablet furosemide (LASIX) 40 mg tablet Take 40 mg by mouth once daily. atenolol (TENORMIN) 50 mg tablet Take 50 mg by mouth once daily. clopidogrel (PLAVIX) 75 mg tablet Take 75 mg by mouth once daily. atorvastatin (LIPITOR) 40 mg tablet Take 40 mg by mouth daily at bedtime. No current facility-administered medications for this visit. PHYSICAL EXAMINATION: VIDEO EXAM: (performed via video enabled technology) GENERAL: alert and appropriate, in no distress and well-hydrated, well nourished HEAD: normocephalic, no abnormality or lesion noted RESPIRATORY: breathing non-labored NEUROLOGIC: no obvious deficit ASSESSMENT: Patient is stable. Chronic pain is persistent. Medications are helping Sherley Rivera to have an improved quality of life. Patient compliance with Opioid Contract: patient is compliant Encounter Diagnosis ICD-10-CM 1. Other chronic pain G89.29 2. Lumbar radiculopathy M54.16 3. intermediate (current) use of opiate analgesic Z79.891 4. Neuropathy G62.9 5. Multiple sclerosis (HCC) G35 PLAN: The pain management agreement was reviewed with the patient. The patient is aware of the risks/benefits of the medicatiion, potential for addiction/overdose, and how to safely store and dispose of the medication(s). He will sign the pain agreement the next time they come to the office. The patient understands the goal of our treatment is a reduction in pain and/or an improved level of functioning with activities of daily living. If at any time the patient does not feel the medications are helping them to achieve these goals, the medications may be discontinued. The patient reports a reduction in pain and/or an improved level of functioning with activities of daily living, denies any significant adverse effects, is compliant with the pain management agreement and there are no signs of medication misuse, abuse or diversion; therefore, the medications will be continued. Continue Percocet - (MED-45) No further increases Continue Lyrica, please take this medication consistently and as prescribed Keep active as possible Previously discussed CBD products and benefits. We discussed Delta 8 - Patient is a candidate for interventional injection procedures. Patient refuses injections at this time Follow up in 1 month Tangela Maldonado APRN.CNP documented in this encounter [facility] 12-26-2022 Instructions Tangela Maldonado APRN.CNP - 12/26/2022 2:09 PM EDT Continue Percocet - (MED-45) Continue Lyrica, please take this medication consistently and as prescribed Keep active as possible No further increases in Percocet. Discussed CBD products and benefits Patient is a candidate for interventional injection procedures. Patient refuses injections at this time Follow up in 1 month documented in this encounter [facility] 11-30-2022 History of Presen t illness Narrative This video visit was performed via [employer] video visit. Patient consented to receive health care services via virtual visit for this encounter Provider Location: Non-[facility] Patient Location: Patient Home or Place of Residence Risks, benefits, and limitations of receiving care virtually were discussed with the patient. The patient expressed understanding and is willing to proceed. Chief Complaint: Pain _ History of Present Illness: Sherley Rivera is a 72 year old year old male being seen at [facility] for a evaluation and/or management of his chronic pain. The patient was last seen virtually on 10/31/2022. He states that since the last visit symptoms have been persistent. He is having severe pain in his right knee from a former [facility] injury. He states it is so bad at this point that he cannot walk. Otherwise, his medical history has not changed and he denies any hospital stays or ER visits. Pain Location: lower back, feet due to neuropathy, right knee VAS: 5.5/10 Timing: constant Character/Quality: ache Radiation: pelvic area to both legs at times Numbness/Tingling: toes Burning: denies Weakness: denies Falls: denies Alleviating Factors: medications and laying down Aggravating Factors: standing, walking, prior to medications The patient denies any bowel or bladder dysfunction. The patient is currently prescribed percocet from our office. The last dose was taken today. The medications are effective. PDMP website checked and validated. OARRS report reviewed on November 30, 2022 by Tangela Maldonado APRN.CNP and is consistent with the patients medical history and medication intake. Last Opioid agreement effective date: 07/03/2022 Last UDS: Reviewed - Inconsistencies noted. Results do not show use of medication prescribed to this patient. Creatinine level is low. Pending results of follow up test. Summary Report Date Value Ref Range Status 11/16/2022 FINAL Final Comment: == ToxAssure Flex 23, Ur == Specimen Alert Note: Urinary creatinine is low; ability to detect some drugs may be compromised. Interpret results with caution. == Test Result Flag Units NO DRUGS DETECTED. == Test Result Flag Units Ref Range Creatinine 10 L mg/dL >=20 == Declared Medications: Medication list was not provided. == For clinical consultation, please call . == Chronic Pain Functional Assessment Tools Pain Disability Index: Pain Disability Index 10/28/2022 11/24/2022 Family/Home Responsibilities 7 7 Recreation 7 7 Social Activity 7 7 Occupation 0 No disability 0 No disability Sexual Behavior 5 5 Self Care 5 5 Life Support Activity 3 3 PDI Score 34 34 Pain Enjoyment of Life and General Activity Scale (0-10): PEG: A Three-Item Scale Assessing Pain Intensity and Interference What number best describes your pain on average in the past week?: 3 (11/24/2022 1:38 PM) What number best describes how, during the past week, pain has interfered with your enjoyment of life?: 6 (11/24/2022 1:38 PM) What number best describes how, during the past week, pain has interfered with your general activity?: 6 (11/24/2022 1:38 PM) REVIEW OF SYSTEMS: GENERAL: No weight loss or fevers RESPIRATORY: Negative for cough CARDIOVASCULAR: Negative for chest pain GI: No nausea, vomiting, or diarrhea. MUSCULOSKELETAL: + joint pain or swelling, back pain and muscle pain ____ PAST MEDICAL HISTORY Diagnosis Date Anxiety and depression Arthritis Back pain Bone fracture CAD (coronary artery disease) CHF (congestive heart failure) (HCC) Chronic fatigue syndrome 08/27/2022 Diverticulitis Fatty liver GERD (gastroesophageal reflux disease) HLD (hyperlipidemia) HTN (hypertension) IBS (irritable bowel syndrome) MR (mitral regurgitation) MS (multiple sclerosis) (HCC) dx in [place], seen by [facility] and diagrisaac with dx Neuropathy Panic attacks TR (tricuspid regurgitation) PAST SURGICAL HISTORY Procedure Laterality Date APPENDECTOMY CHOLECYSTECTOMY HAND SURGERY HX KNEE SURGERY HX Right meniscus repair LX PARTIAL COLECTOMY FAMILY HISTORY Problem Relation Age of Onset Hypertension Mother other (Irregular Heart Beat) Mother Cancer Father Lymphoma Social History Tobacco Use Smoking status: Every Day Types: Cigars Smokeless tobacco: Never Tobacco comments: Smokes about 2-4 cigars per day. Since age 17 yo. Substance Use Topics Alcohol use: Not Currently Drug use: Never Allergies: Glatiramer Unknown Ibuprofen GI Upset Tecfidera [Dimethyl* Other: See Comments Comment:Cognitive changes Dizziness headaches Current Outpatient Medications Medication Sig oxyCODONE-acetaminophen (PERCOCET) 7.5-325 mg tablet Take 1 tablet by mouth four times daily as needed for pain for up to 30 days. Ok to fill early if pharmacy is closed on fill date pregabalin (LYRICA) 150 mg capsule Take 1 capsule by mouth twice daily for 30 days. ondansetron (ZOFRAN) 4 mg tablet nitroglycerin sublingual (NITROQUICK) 0.3 mg SL tablet DISSOLVE 1 TABLET UNDER THE TONGUE EVERY 5 TO 15 MINUTES lisinopril (ZESTRIL, PRINIVIL) 40 mg tablet Take 1 tablet by mouth. amLODIPine (NORVASC) 5 mg tablet furosemide (LASIX) 40 mg tablet Take 40 mg by mouth once daily. atenolol (TENORMIN) 50 mg tablet Take 50 mg by mouth once daily. clopidogrel (PLAVIX) 75 mg tablet Take 75 mg by mouth once daily. atorvastatin (LIPITOR) 40 mg tablet Take 40 mg by mouth daily at bedtime. No current facility-administered medications for this visit. PHYSICAL EXAMINATION: VIDEO EXAM: (performed via video enabled technology) GENERAL: alert and appropriate, in no distress and well-hydrated, well nourished HEAD: normocephalic, no abnormality or lesion noted RESPIRATORY: breathing non-labored NEUROLOGIC: no obvious deficit ASSESSMENT: Patient is stable. Chronic pain is persistent. Medications are helping Sherley Rivera to have an improved quality of life. Patient compliance with Opioid Contract: patient is compliant Encounter Diagnosis ICD-10-CM 1. Other chronic pain G89.29 2. 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 Neuropathy G62.9 5. Multiple sclerosis (HCC) G35 6. Chronic pain syndrome G89.4 7. Lumbar degenerative disc disease M51.36 8. Lumbar facet arthropathy M47.816 PLAN: The pain management agreement was reviewed with the patient. The patient is aware of the risks/benefits of the medicatiion, potential for addiction/overdose, and how to safely store and dispose of the medication(s). He will sign the pain agreement the next time they come to the office. The patient understands the goal of our treatment is a reduction in pain and/or an improved level of functioning with activities of daily living. If at any time the patient does not feel the medications are helping them to achieve these goals, the medications may be discontinued. The patient reports a reduction in pain and/or an improved level of functioning with activities of daily living, denies any significant adverse effects, is compliant with the pain management agreement and there are no signs of medication misuse, abuse or diversion; therefore, the medications will be continued. Continue Percocet - (MED-45) No further increases Continue Lyrica, please take this medication consistently and as prescribed Keep active as possible Previously discussed CBD products and benefits. We discussed Delta 8 - Patient is a candidate for interventional injection procedures. Patient refuses injections at this time Follow up in 1 month Tangela Maldonado APRN.FANYN documented in this encounter [facility] 11-27-2022 Miscellaneous Notes Formattin g of this note might be different from the original. Handled in Szl message Patient phones requesting refills as follows: Requested Prescriptions Pending Prescriptions Disp Refills oxyCODONE-acetaminophen (PERCOCET) 7.5-325 mg tablet 120 tablet 0 Sig: Take 1 tablet by mouth four times daily as needed for pain for up to 30 days. Ok to fill early if pharmacy is closed on fill date Last UDS: Summary Report Date Value Ref Range Status 11/16/2022 FINAL Final Comment: == ToxAssure Flex 23, Ur == Specimen Alert Note: Urinary creatinine is low; ability to detect some drugs may be compromised. Interpret results with caution. == Test Result Flag Units NO DRUGS DETECTED. == Test Result Flag Units Ref Range Creatinine 10 L mg/dL >=20 == Declared Medications: Medication list was not provided. == For clinical consultation, please call . == @FLOW([id number])@ Lab Results Component Value Date SUMM FINAL 11/16/2022 Summary Report (Summary) Date Value Ref Range Status 07/03/2022 FINAL Final Comment: == TOXASSURE COMP DRUG ANALYSIS,UR == Test Result Flag Units Drug Present Oxycodone 657 ng/mg creat Oxymorphone 1135 ng/mg creat Noroxycodone 2217 ng/mg creat Noroxymorphone 280 ng/mg creat Sources of oxycodone are scheduled prescription medications. Oxymorphone, noroxycodone, and noroxymorphone are expected metabolites of oxycodone. Oxymorphone is also available as a scheduled prescription medication. Pregabalin PRESENT Acetaminophen PRESENT Naproxen PRESENT Atenolol PRESENT == Test Result Flag Units Ref Range Creatinine 162 mg/dL >=20 == Declared Medications: Medication list was not provided. == For clinical consultation, please call . == Please review and advise. Hannah Wolfe RN documented in this encounter [facility] 11-19-2022 Miscellaneous Notes Formattin g of this note might be different from the original. Submitted uds 11/16/22 Abby White RN Attempted to call the pt today for UDS, message left to call the office back to discuss. [employer] message sent also. Please advise. Joselyn Masterson RN November 15, 2022 8:38 AM Please call the patient for a UDS. Order entered. Thanks documented in this encounter [facility] 10-31-2022 History of Presen t illness Narrative This video visit was performed via [employer] video visit. Patient consented to receive health care services via virtual visit for this encounter Provider [facility] Patient Location: Patient Home or Place of Residence Risks, benefits, and limitations of receiving care virtually were discussed with the patient. The patient expressed understanding and is willing to proceed. Chief Complaint: Pain _ History of Present Illness: Sherley Rivera is a 72 year old year old male being seen at [facility] for a evaluation and/or management of his chronic pain. The patient was last seen virtually on 10/02/2022. He states that since the last visit symptoms have been stable. His medical history has not changed and he denies any hospital stays or ER visits. VAS: 5.5/10 Pain Location: lower back, feet due to neuropathy Timing: constant Character/Quality: ache Radiation: pelvic area to both legs at times Numbness/Tingling: toes Burning: denies Weakness: denies Falls: denies Alleviating Factors: medications and laying down Aggravating Factors: standing, walking, prior to medications The patient denies any bowel or bladder dysfunction. The patient is currently prescribed percocet from our office. The last dose was taken yesterday. The medications are effective. The OARRS report has been reviewed and is consistent with the patients medical history and medication intake. Last UDS: Summary Report (Summary) Date Value Ref Range Status 07/03/2022 FINAL Final Comment: == TOXASSURE COMP DRUG ANALYSIS,UR == Test Result Flag Units Drug Present Oxycodone 657 ng/mg creat Oxymorphone 1135 ng/mg creat Noroxycodone 2217 ng/mg creat Noroxymorphone 280 ng/mg creat Sources of oxycodone are scheduled prescription medications. Oxymorphone, noroxycodone, and noroxymorphone are expected metabolites of oxycodone. Oxymorphone is also available as a scheduled prescription medication. Pregabalin PRESENT Acetaminophen PRESENT Naproxen PRESENT Atenolol PRESENT == Test Result Flag Units Ref Range Creatinine 162 mg/dL >=20 == Declared Medications: Medication list was not provided. == For clinical consultation, please call . == Pain Disability Index 09/27/2022 10/28/2022 Family/Home Responsibilities 4 7 Recreation 4 7 Social Activity 4 7 Occupation - 0 No disability Sexual Behavior 0 No disability 5 Self Care 3 5 Life Support Activity 0 No disability 3 PDI Score - 34 REVIEW OF SYSTEMS: GENERAL: No weight loss or fevers RESPIRATORY: Negative for cough CARDIOVASCULAR: Negative for chest pain GI: No nausea, vomiting, or diarrhea. MUSCULOSKELETAL: + joint pain or swelling, back pain and muscle pain ____ PAST MEDICAL HISTORY Diagnosis Date Anxiety and depression Arthritis Back pain Bone fracture CAD (coronary artery disease) CHF (congestive heart failure) (HCC) Chronic fatigue syndrome 08/27/2022 Diverticulitis Fatty liver GERD (gastroesophageal reflux disease) HLD (hyperlipidemia) HTN (hypertension) IBS (irritable bowel syndrome) MR (mitral regurgitation) MS (multiple sclerosis) ([facility]) dx in [place], seen by [facility] and diagrisaac with dx Neuropathy Panic attacks TR (tricuspid regurgitation) PAST SURGICAL HISTORY Procedure Laterality Date APPENDECTOMY CHOLECYSTECTOMY HAND SURGERY HX KNEE SURGERY HX Right meniscus repair LX PARTIAL COLECTOMY FAMILY HISTORY Problem Relation Age of Onset Hypertension Mother other (Irregular Heart Beat) Mother Cancer Father Lymphoma Social History Tobacco Use Smoking status: Every Day Types: Cigars Smokeless tobacco: Never Tobacco comments: Smokes about 2-4 cigars per day. Since age 17 yo. Substance Use Topics Alcohol use: Not Currently Drug use: Never Allergies: Glatiramer Unknown Ibuprofen GI Upset Tecfidera [Dimethyl* Other: See Comments Comment:Cognitive changes Dizziness headaches Current Outpatient Medications Medication Sig ondansetron (ZOFRAN) 4 mg tablet oxyCODONE-acetaminophen (PERCOCET) 7.5-325 mg tablet Take 1 tablet by mouth four times daily as needed for pain for up to 30 days. Normal fill date would be 10/01/22- ok to fill 09/28/22 due to the holiday pregabalin (LYRICA) 150 mg capsule Take 1 capsule by mouth twice daily for 60 days. Do not start before September 27, 2022. nitroglycerin sublingual (NITROQUICK) 0.3 mg SL tablet DISSOLVE 1 TABLET UNDER THE TONGUE EVERY 5 TO 15 MINUTES lisinopril (ZESTRIL, PRINIVIL) 40 mg tablet Take 1 tablet by mouth. amLODIPine (NORVASC) 5 mg tablet furosemide (LASIX) 40 mg tablet Take 40 mg by mouth once daily. atenolol (TENORMIN) 50 mg tablet Take 50 mg by mouth once daily. clopidogrel (PLAVIX) 75 mg tablet Take 75 mg by mouth once daily. atorvastatin (LIPITOR) 40 mg tablet Take 40 mg by mouth daily at bedtime. No current facility-administered medications for this visit. PHYSICAL EXAMINATION: VIDEO EXAM: (performed via video enabled technology) GENERAL: alert and appropriate, in no distress and well-hydrated, well nourished HEAD: normocephalic, no abnormality or lesion noted RESPIRATORY: breathing non-labored NEUROLOGIC: no obvious deficit ASSESSMENT: Patient is stable. Chronic pain is persistent. Medications are helping Sherley Rivera to have an improved quality of life. Patient compliance with Opioid Contract: patient is compliant Encounter Diagnosis ICD-10-CM 1. Other chronic pain G89.29 2. Lumbar radiculopathy M54.16 3. intermediate (current) use of opiate analgesic Z79.891 4. Neuropathy G62.9 PLAN: The pain management agreement was reviewed with the patient. The patient is aware of the risks/benefits of the medicatiion, potential for addiction/overdose, and how to safely store and dispose of the medication(s). He will sign the pain agreement the next time they come to the office. The patient understands the goal of our treatment is a reduction in pain and/or an improved level of functioning with activities of daily living. If at any time the patient does not feel the medications are helping them to achieve these goals, the medications may be discontinued. The patient reports a reduction in pain and/or an improved level of functioning with activities of daily living, denies any significant adverse effects, is compliant with the pain management agreement and there are no signs of medication misuse, abuse or diversion; therefore, the medications will be continued. Continue Percocet - (MED-45) No further increases Continue Lyrica, please take this medication consistently and as prescribed Keep active as possible Previously discussed CBD products and benefits. We discussed Delta 8 - Patient is a candidate for interventional injection procedures. Patient refuses injections at this time Follow up in 1 month Tangela Maldonado APRN.CNP documented in this encounter [facility] 10-31-2022 Instructions Tangela Maldonado APRN.CNP - 10/31/2022 8:26 AM EST Continue Percocet - (MED-45) Continue Lyrica, please take this medication consistently and as prescribed Keep active as possible No further increases in Percocet. Discussed CBD products and benefits Patient is a candidate for interventional injection procedures. Patient refuses injections at this time Follow up in 1 month documented in this encounter [facility] 09-20-2022 Miscellaneous Notes Formattin g of this note is different from the original. The following approved medication requests have been transmitted electronically. Requested Prescriptions Signed Prescriptions Disp Refills oxyCODONE-acetaminophen (PERCOCET) 7.5-325 mg tablet 120 tablet 0 Sig: Take 1 tablet by mouth four times daily as needed for pain for up to 30 days. Normal fill date would be 10/01/22- ok to fill 09/28/22 due to the holiday Authorizing Provider: TANGELA MALDONADO APRN.CNP Pharmacy calling to clarify directions for percocet, directions say take 1 as needed for pain #120, this script was canceled and a new script will need to be sent to the pharmacy with update directions, also pharmacist states that they are not open on the they could either fill on or after actuall fill date on Denise Henriquez RN September 20, 2022 9:41 AM documented in this encounter [facility] 09-17-2022 Miscellaneous Notes Formattin g of this note might be different from the original. Please see my chart message regarding pharmacy closure and fill date. documented in this encounter [facility] 07-03-2022 Instructions Marija Roland DO - 07/03/2022 9:21 AM EDT Continue Percocet - (MED-45) Continue Lyrica, please take this medication consistently and as prescribed Keep active as possible No further increases in Percocet. Discussed CBD products and benefits Patient is a candidate for interventional injection procedures. Patient refuses injections at this time. Obtain UDS Follow up in 4-6 weeks with CLINICAL ALLERGIST documented in this encounter [facility] 07-03-2022 History of Presen t illness Narrative Summary: Pain Management Follow Up DATE: July 03, 2022 Chief Complaint: back pain and left knee pain _ History of Present Illness: Sherley Rivera is a 72 year old male being seen at [facility] for a evaluation and/or management of their chronic pain. He was last seen on 05/29/22 and the plan of care was as follows: Continue Percocet - (MED-45) A prescription for narcan (naloxone) has been offered to the patient. Previously discussed Xtampza- he has tried in the past without relief Continue Lyrica prn - no refill needed today Keep active as possible Follow-up in 1 month Her reports the main problems are in his lower back and left knee. He reports no major changes since his last visit. He was interested in increasing his narcotic dose for pain control. Discussed other options for pain control such as CBD treatments and injections instead of increasing the narcotic dosage. He admits to be taking the Lyrica as needed instead of taking it as prescribed. VAS: 3-4/10 Pain Location: lower back Timing: constant Character/Quality: aching and throbbing Radiation: pelvic area to both legs at times Numbness/Tingling: toes Burning: denies Weakness: denies Falls: denies Alleviating Factors: medications and laying down Aggravating Factors: standing, walking, prior to medications The patient denies any bowel or bladder dysfunction. The patient is currently prescribed percocet from our office. The medications are effective. The OARRS report has been reviewed and is consistent with the patients medical history and medication intake. Last Urine Drug Screen (UDS): 12/01/2021. The UDS has been reviewed and is consistent with medications prescribed. REVIEW OF SYSTEMS: GENERAL: No weight loss, malaise or fevers RESPIRATORY: Negative for cough, hemoptysis, wheezing, COPD, dyspnea or shortness of breath. CARDIOVASCULAR: Negative for chest pain, leg swelling, hypertension, CHF or palpitations GI: No nausea, vomiting, or diarrhea. MUSCULOSKELETAL: positive back and left knee pain ____ PAST MEDICAL HISTORY Diagnosis Date Anxiety and depression Arthritis Back pain Bone fracture CAD (coronary artery disease) CHF (congestive heart failure) (HCC) Diverticulitis Fatty liver GERD (gastroesophageal reflux disease) HLD (hyperlipidemia) HTN (hypertension) IBS (irritable bowel syndrome) MR (mitral regurgitation) MS (multiple sclerosis) (HCC) dx in [place], seen by [facility] and diagrisaac with dx Neuropathy Panic attacks TR (tricuspid regurgitation) PAST SURGICAL HISTORY Procedure Laterality Date APPENDECTOMY CHOLECYSTECTOMY HAND SURGERY HX KNEE SURGERY HX Right meniscus repair LX PARTIAL COLECTOMY FAMILY HISTORY Problem Relation Age of Onset Hypertension Mother other (Irregular Heart Beat) Mother Cancer Father Lymphoma Social History Tobacco Use Smoking status: Every Day Types: Cigars Smokeless tobacco: Never Tobacco comments: Smokes about 2-4 cigars per day. Since age 17 yo. 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 Allergies: Glatiramer Unknown Ibuprofen GI Upset Tecfidera [Dimethyl* Other: See Comments Comment:Cognitive changes Dizziness headaches Current Outpatient Medications Medication Sig lisinopril (ZESTRIL, PRINIVIL) 40 mg tablet Take 1 tablet by mouth. oxyCODONE-acetaminophen (PERCOCET) 7.5-325 mg tablet Take 1 tablet by mouth as needed. amLODIPine (NORVASC) 5 mg tablet furosemide (LASIX) 40 mg tablet Take 40 mg by mouth once daily. atenolol (TENORMIN) 50 mg tablet Take 50 mg by mouth once daily. clopidogrel (PLAVIX) 75 mg tablet Take 75 mg by mouth once daily. atorvastatin (LIPITOR) 40 mg tablet Take 40 mg by mouth daily at bedtime. No current facility-administered medications for this visit. I have reviewed the nurses notes and I am aware of the family/social history. Since the last evaluation the medical history has not changed. PHYSICAL EXAMINATION: Vitals: BP 153/84 Pulse 71 Resp 19 Ht 5' 10.866 (1.80m) Wt 269 lb (122.0kg) SpO2 98% BMI 37.66 kg/(m^2). GENERAL: healthy, alert, no distress, cooperative, patient has an antalgic gait and is using a walking stick for ambulation. SKIN: Skin color, texture, turgor normal. No rashes or lesions. HEENT: PERRL, EOMI, and normal dentition CARDIAC: normal S1 and S2; no rubs, murmurs, or gallops LUNGS: Lungs clear to auscultation. Good diaphragmatic excursion. Musculoskeletal: +5/5 motor strength in both legs. Negative SLR signs bilaterally. +2/4 DTR at L4 and S1 reflex. Sensory is intact to light touch in all dermatomes bilaterally. Patient has straight leg range of motion in supine position of about 90 degrees on the left and 90 degrees on the right. Negative Brad's test bilaterally. Lumbar flexion is < 90 degrees and lumbar extension is > 15 degrees. Toe and heel walking are normal. Good balance noted. Tenderness noted at L4-5 midline paraspinal muscle, L>R. ASSESSMENT: Multiple sclerosis Chronic pain syndrome Lumbar radiculopathy Neuropathy intermediate (current) use of opiate analgesic Patient is stable. Chronic pain is persistent. Medications are helping Sherley Rivera to have an improved quality of life. Patient compliance with Opioid Contract: patient is compliant PDMP website checked and validated. All prescriptions have been APPROPRIATELY filled. No suspicious activity was identified. 07/03/2022 by Mckenzie Lynch MA PLAN: The patient understands the goal of our treatment is a reduction in pain and/or an improved level of functioning with activities of daily living. If at any time the patient does not feel the medications are helping them to achieve these goals, the medications may be discontinued. The patient reports a reduction in pain and/or an improved level of functioning with activities of daily living, denies any significant adverse effects, is compliant with the pain management agreement and there are no signs of medication misuse, abuse or diversion; therefore, the medications will be continued. The documentation for this encounter was entered by Mckenzie Lynch medical records technician, for Dr. Marija Roland on July 03, 2022 Provider Attestation: I, Dr. Roland, personally performed the services described in this documentation. All medical record entries made by the scribe were at my direction and in my presence. I have reviewed the chart and discharge instructions (if applicable) and agree that the record reflects my personal performance and is accurate and complete. documented in this encounter [facility] 05-29-2022 Instructions Tangela Maldonado APRN.QUICKBOOKS BOOKKEEPER - 05/29/2022 9:25 AM EDT Continue Percocet - (MED-45) A prescription for narcan (naloxone) has been offered to the patient. Previously discussed Xtampza- he has tried in the past without relief Continue Lyrica prn - no refill needed today Keep active as possible Follow-up in 1 month documented in this encounter [facility] 05-29-2022 History of Presen t illness Narrative This video visit was performed via [employer] video visit. Patient consented to receive health care services via virtual visit for this encounter Provider [facility] Patient Location: Patient Home or Place of Residence Risks, benefits, and limitations of receiving care virtually were discussed with the patient. The patient expressed understanding and is willing to proceed. Chief Complaint: Pain _ History of Present Illness: Sherley Rivera is a 71 year old year old male being seen at [facility] for a evaluation and/or management of his chronic pain. The patient was last seen virtually on 05/02/2022. He states that since the last visit symptoms have been stable. His medical history has not changed and he denies any hospital stays or ER visits. VAS: 3-4/10 Pain Location: lower back Timing: constant Character/Quality: ache Radiation: pelvic area to both legs at times Numbness/Tingling: toes Burning: denies Weakness: denies Falls: denies Alleviating Factors: medications and laying down Aggravating Factors: standing, walking, prior to medications The patient denies any bowel or bladder dysfunction. The patient is currently prescribed percocet from our office. The last dose was taken today. The medications are effective. The OARRS report has been reviewed and is consistent with the patients medical history and medication intake. Last Urine Drug Screen (UDS): 12/01/2021. The UDS has been reviewed and is consistent with medications prescribed. REVIEW OF SYSTEMS: GENERAL: No weight loss or fevers RESPIRATORY: Negative for cough CARDIOVASCULAR: Negative for chest pain GI: No nausea, vomiting, or diarrhea. MUSCULOSKELETAL: + joint pain or swelling, back pain and muscle pain ____ PAST MEDICAL HISTORY Diagnosis Date Anxiety and depression Arthritis Back pain Bone fracture CAD (coronary artery disease) CHF (congestive heart failure) (HCC) Diverticulitis Fatty liver GERD (gastroesophageal reflux disease) HLD (hyperlipidemia) HTN (hypertension) IBS (irritable bowel syndrome) MR (mitral regurgitation) MS (multiple sclerosis) (HCC) dx in [place], seen by [facility] and diag[facility]aac with dx Neuropathy (HCC) Panic attacks TR (tricuspid regurgitation) PAST SURGICAL HISTORY Procedure Laterality Date APPENDECTOMY CHOLECYSTECTOMY HAND SURGERY HX KNEE SURGERY HX Right meniscus repair LX PARTIAL COLECTOMY FAMILY HISTORY Problem Relation Age of Onset Hypertension Mother other (Irregular Heart Beat) Mother Cancer Father Lymphoma Social History Tobacco Use Smoking status: Current Every Day Smoker Types: Cigars Smokeless tobacco: Never Used Tobacco comment: Smokes about 2-4 cigars per day Substance Use Topics Alcohol use: Not Currently Drug use: Never Allergies: Glatiramer Unknown Tecfidera [Dimethyl* Other: See Comments Comment:Cognitive changes Dizziness headaches Current Outpatient Medications Medication Sig amLODIPine (NORVASC) 5 mg tablet furosemide (LASIX) 40 mg tablet Take 40 mg by mouth once daily. oxyCODONE-acetaminophen (PERCOCET) 7.5-325 mg tablet Take 1 tablet by mouth four times daily as needed for pain for up to 30 days. Do not start before May 06, 2022. nitroglycerin sublingual (NITROQUICK) 0.3 mg SL tablet ondansetron (ZOFRAN) 4 mg tablet Take by mouth as needed. atenolol (TENORMIN) 50 mg tablet Take 50 mg by mouth once daily. clopidogrel (PLAVIX) 75 mg tablet Take 75 mg by mouth once daily. pregabalin (LYRICA) 150 mg capsule Take 150 mg by mouth twice daily. atorvastatin (LIPITOR) 40 mg tablet Take 40 mg by mouth daily at bedtime. lisinopril (ZESTRIL, PRINIVIL) 40 mg tablet Take 40 mg by mouth once daily. ondansetron orally disintegrating (ZOFRAN ODT) 4 mg disintegrating tablet Take 4 mg by mouth every 6 hours as needed for Nausea/Vomiting. No current facility-administered medications for this visit. PHYSICAL EXAMINATION: VIDEO EXAM: (performed via video enabled technology) GENERAL: alert and appropriate, in no distress and well-hydrated, well nourished HEAD: normocephalic, no abnormality or lesion noted RESPIRATORY: breathing non-labored NEUROLOGIC: no obvious deficit ASSESSMENT: Patient is stable. Chronic pain is persistent. Medications are helping Sherley Rivera to have an improved quality of life. Patient compliance with Opioid Contract: patient is compliant Encounter Diagnosis ICD-10-CM 1. Multiple sclerosis (HCC) G35 2. Chronic pain syndrome G89.4 oxyCODONE-acetaminophen (PERCOCET) 7.5-325 mg tablet pregabalin (LYRICA) 150 mg capsule 3. Lumbar radiculopathy M54.16 4. 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 If at any time the patient does not feel the medications are helping them to achieve these goals, the medications may be discontinued. The patient reports a reduction in pain and/or an improved level of functioning with activities of daily living, denies any significant adverse effects, is compliant with the pain management agreement and there are no signs of medication misuse, abuse or diversion; therefore, the medications will be continued. Continue Percocet - (MED-45) A prescription for narcan (naloxone) has been offered to the patient. Previously discussed Xtampza- he has tried in the past without relief Continue Lyrica prn - no refill needed today Keep active as possible Follow-up in 1 month Tangela Maldonado APRN.CNP documented in this encounter [facility] 05-02-2022 Instructions Tangela Maldonado APRN.CNP - 05/02/2022 9:49 AM EDT Continue Percocet - (MED-45) A prescription for narcan (naloxone) has been offered to the patient. Previously discussed Xtampza- he has tried in the past without relief Continue Lyrica prn - no refill needed today Keep active as possible Follow-up in 1 month documented in this encounter [facility] 05-02-2022 History of Presen t illness Narrative This video visit was performed via [employer] video visit. Patient consented to receive health care services via virtual visit for this encounter [facility] Patient Location: Patient Home or Place of Residence Risks, benefits, and limitations of receiving care virtually were discussed with the patient. The patient expressed understanding and is willing to proceed. Chief Complaint: Pain _ History of Present Illness: Sherley Rivera is a 71 year old year old male being seen at [facility] for a evaluation and/or management of his chronic pain. He states that since the last visit symptoms have been persistent and stable. VAS: 3-4/10 Pain Location: lower back Timing: constant Character/Quality: ache Radiation: pelvic area to both legs at times Numbness/Tingling: toes Burning: denies Weakness: denies Falls: denies Alleviating Factors: medications and laying down Aggravating Factors: standing, walking, prior to medications The patient denies any bowel or bladder dysfunction. Since the last office visit the patients medical history has not changed. The patient denies any new diagnoses, hospital visits or ER visits. The patient is currently prescribed percocet from our office. The last dose was taken today. The medications are effective. The patient denies nausea, vomiting, constipation,rashes, drowsiness,weight gain, weight loss,dizziness,and fatigue. The OARRS report has been reviewed and is consistent with the patients medical history and medication intake. Last Urine Drug Screen (UDS): 12/01/2021. The UDS has been reviewed and is consistent with medications prescribed. REVIEW OF SYSTEMS: GENERAL: No weight loss or fevers RESPIRATORY: Negative for cough CARDIOVASCULAR: Negative for chest pain GI: No nausea, vomiting, or diarrhea. MUSCULOSKELETAL: + joint pain or swelling, back pain and muscle pain ____ PAST MEDICAL HISTORY Diagnosis Date Anxiety and depression Arthritis Back pain Bone fracture CAD (coronary artery disease) CHF (congestive heart failure) (HCC) Diverticulitis Fatty liver GERD (gastroesophageal reflux disease) HLD (hyperlipidemia) HTN (hypertension) IBS (irritable bowel syndrome) MR (mitral regurgitation) MS (multiple sclerosis) (HCC) dx in [place], [facility] and reema with dx Neuropathy (HCC) Panic attacks TR (tricuspid regurgitation) PAST SURGICAL HISTORY Procedure Laterality Date APPENDECTOMY CHOLECYSTECTOMY HAND SURGERY HX KNEE SURGERY HX Right meniscus repair LX PARTIAL COLECTOMY FAMILY HISTORY Problem Relation Age of Onset Hypertension Mother other (Irregular Heart Beat) Mother Cancer Father Lymphoma Social History Tobacco Use Smoking status: Current Every Day Smoker Types: Cigars Smokeless tobacco: Never Used Tobacco comment: Smokes about 2-4 cigars per day Substance Use Topics Alcohol use: Not Currently Drug use: Never Allergies: Glatiramer Unknown Tecfidera [Dimethyl* Other: See Comments Comment:Cognitive changes Dizziness headaches Current Outpatient Medications Medication Sig [START ON 05/06/2022] oxyCODONE-acetaminophen (PERCOCET) 7.5-325 mg tablet Take 1 tablet by mouth four times daily as needed for pain for up to 30 days. Do not start before May 06, 2022. nitroglycerin sublingual (NITROQUICK) 0.3 mg SL tablet amLODIPine (NORVASC) 10 mg tablet ondansetron (ZOFRAN) 4 mg tablet Take by mouth as needed. atenolol (TENORMIN) 50 mg tablet Take 50 mg by mouth once daily. furosemide (LASIX) 20 mg tablet Take 20 mg by mouth once daily. clopidogrel (PLAVIX) 75 mg tablet Take 75 mg by mouth once daily. pregabalin (LYRICA) 150 mg capsule Take 150 mg by mouth twice daily. atorvastatin (LIPITOR) 40 mg tablet Take 40 mg by mouth daily at bedtime. lisinopril (ZESTRIL, PRINIVIL) 40 mg tablet Take 40 mg by mouth once daily. ondansetron orally disintegrating (ZOFRAN ODT) 4 mg disintegrating tablet Take 4 mg by mouth every 6 hours as needed for Nausea/Vomiting. No current facility-administered medications for this visit. PHYSICAL EXAMINATION: VIDEO EXAM: (performed via video enabled technology) GENERAL: alert and appropriate, in no distress and well-hydrated, well nourished HEAD: normocephalic, no abnormality or lesion noted RESPIRATORY: breathing non-labored NEUROLOGIC: no obvious deficit ASSESSMENT: Patient is stable. Chronic pain is persistent. Medications are helping Sherley Rivera to have an improved quality of life. Patient compliance with Opioid Contract: patient is compliant Encounter Diagnosis ICD-10-CM 1. Chronic pain syndrome G89.4 oxyCODONE-acetaminophen (PERCOCET) 7.5-325 mg tablet 2. Multiple sclerosis (HCC) G35 3. Lumbar radiculopathy M54.16 4. Neuropathy G62.9 5. intermediate (current) use of opiate analgesic Z79.891 PLAN: The patient understands the goal of our treatment is a reduction in pain and/or an improved level of functioning with activities of daily living. If at any time the patient does not feel the medications are helping them to achieve these goals, the medications may be discontinued. The patient reports a reduction in pain and/or an improved level of functioning with activities of daily living, denies any significant adverse effects, is compliant with the pain management agreement and there are no signs of medication misuse, abuse or diversion; therefore, the medications will be continued. Continue Percocet - (MED-45) A prescription for narcan (naloxone) has been offered to the patient. Previously discussed Xtampza- he has tried in the past without relief Continue Lyrica prn - no refill needed today Keep active as possible Follow-up in 1 month Tangela Maldonado APRN.CNP documented in this encounter [facility] Evaluation note Diagnosis Chronic pain syndrome- Primary Multiple sclerosis (HCC) Multiple sclerosis Lumbar radiculopathy Thoracic or lumbosacral neuritis or radiculitis, unspecified Neuropathy Mononeuritis of unspecified site intermediate (current) use of opiate analgesic [facility] Diagnosis Onset Date Resolution Status Anxiety and depression chron ic HTN (hypertension) chronic Hyperlipidemia chronic [facility] Work Phone: Evaluation note* Diagnosis Multiple sclerosis (HCC)- Primary Multiple sclerosis Chronic pain syndrome Lumbar radiculopathy Thoracic or lumbosacral neuritis or radiculitis, unspecified Neuropathy Mononeuritis of unspecified site 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 [facility] [place] [facility]* Diagnosis Chronic pain syndrome- Primary Lumbar degenerative disc disease Degeneration of lumbar or lumbosacral intervertebral disc Lumbar radiculopathy Thoracic or lumbosacral neuritis or radiculitis, unspecified Lumbar facet arthropathy Lumbosacral spondylosis without myelopathy [facility] Diagnosis Lumbar radiculopathy Thoracic or lumbosacral neuritis or radiculitis, unspecified Chronic pain syndrome Lumbar degenerative disc disease Degeneration of lumbar or lumbosacral intervertebral disc Lumbar facet arthropathy Lumbosacral spondylosis without myelopathy [facility] [place] [facility]* Diagnosis Lumbar radiculopathy Thoracic or lumbosacral neuritis or radiculitis, unspecified Chronic pain syndrome Lumbar degenerative disc disease Degeneration of lumbar or lumbosacral intervertebral disc Lumbar facet arthropathy Lumbosacral spondylosis without myelopathy [facility] Diagnosis Onset Date Resolution Status BPH (benign prostatic hyperplasia) acute HTN (hypertension) chronic Hyperlipidemia chronic Right knee pain [facility] Work Phone: Evaluation note* Diagnosis Other chronic pain- Primary Lumbar radiculopathy Thoracic or lumbosacral neuritis or radiculitis, unspecified intermediate (current) use of opiate analgesic Neuropathy Mononeuritis of unspecified site Chronic pain syndrome Lumbar degenerative disc disease Degeneration of lumbar or lumbosacral intervertebral disc Lumbar facet arthropathy Lumbosacral spondylosis without myelopathy [facility] [place] [facility] Diagnosis intermediate (current) use of opiate analgesic- Primary [facility] Diagnosis intermediate (current) use of opiate analgesic- Primary [facility] [place] [facility] Diagnosis Lumbar radiculopathy Thoracic or lumbosacral neuritis or radiculitis, unspecified Chronic pain syndrome Lumbar degenerative disc disease Degeneration of lumbar or lumbosacral intervertebral disc Lumbar facet arthropathy Lumbosacral spondylosis without myelopathy [facility] Diagnosis Other chronic pain- Primary Lumbar radiculopathy Thoracic or lumbosacral neuritis or radiculitis, unspecified 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 Neuropathy Mononeuritis of unspecified site Multiple sclerosis (HCC) Multiple sclerosis Chronic pain syndrome Lumbar degenerative disc disease Degeneration of lumbar or lumbosacral intervertebral disc Lumbar facet arthropathy Lumbosacral spondylosis without myelopathy [facility] Diagnosis Other chronic pain- Primary Lumbar radiculopathy Thoracic or lumbosacral neuritis or radiculitis, unspecified intermediate (current) use of opiate analgesic Neuropathy Mononeuritis of unspecified site Multiple sclerosis (HCC) Multiple sclerosis Chronic pain syndrome Lumbar degenerative disc disease Degeneration of lumbar or lumbosacral intervertebral disc Lumbar facet arthropathy Lumbosacral spondylosis without myelopathy [facility] [place] [facility] Diagnosis Lumbar radiculopathy Thoracic or lumbosacral neuritis or radiculitis, unspecified Chronic pain syndrome Lumbar degenerative disc disease Degeneration of lumbar or lumbosacral intervertebral disc Lumbar facet arthropathy Lumbosacral spondylosis without myelopathy [facility] Diagnosis Lumbar radiculopathy Thoracic or lumbosacral neuritis or radiculitis, unspecified Chronic pain syndrome Lumbar degenerative disc disease Degeneration of lumbar or lumbosacral intervertebral disc Lumbar facet arthropathy Lumbosacral spondylosis without myelopathy [facility] Diagnosis Other chronic pain- Primary 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 Lumbar degenerative disc disease Degeneration of lumbar or lumbosacral intervertebral disc Neuropathy Mononeuritis of unspecified site Lumbar radiculopathy Thoracic or lumbosacral neuritis or radiculitis, unspecified Chronic pain syndrome Lumbar facet arthropathy Lumbosacral spondylosis without myelopathy [facility] Diagnosis Chronic pain syndrome [facility] [place] [facility] Diagnosis Other chronic pain- Primary intermediate (current) use of opiate analgesic Lumbar degenerative disc disease Degeneration of lumbar or lumbosacral intervertebral disc Neuropathy Mononeuritis of unspecified site Multiple sclerosis (HCC) Multiple sclerosis Chronic pain syndrome Lumbar radiculopathy Thoracic or lumbosacral neuritis or radiculitis, unspecified Lumbar facet arthropathy Lumbosacral spondylosis without myelopathy [facility] Diagnosis intermediate (current) use of opiate analgesic- Primary [facility] [place] [facility] Diagnosis Other chronic pain- Primary intermediate (current) use of opiate analgesic Lumbar degenerative disc disease Degeneration of lumbar or lumbosacral intervertebral disc Lumbar radiculopathy Thoracic or lumbosacral neuritis or radiculitis, unspecified Neuropathy Mononeuritis of unspecified site Multiple sclerosis (HCC) Multiple sclerosis Bipolar I disorder (HCC) Bipolar I disorder, most recent episode (or current) unspecified Chronic pain syndrome Lumbar facet arthropathy Lumbosacral spondylosis without myelopathy [facility] Diagnosis Other chronic pain- Primary 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 Lumbar degenerative disc disease Degeneration of lumbar or lumbosacral intervertebral disc Lumbar radiculopathy Thoracic or lumbosacral neuritis or radiculitis, unspecified Neuropathy Mononeuritis of unspecified site Chronic pain syndrome Lumbar facet arthropathy Lumbosacral spondylosis without myelopathy [facility] Diagnosis Other chronic pain- Primary Lumbar degenerative disc disease Degeneration of lumbar or lumbosacral intervertebral disc 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 Neuropathy Mononeuritis of unspecified site Multiple sclerosis (HCC) Multiple sclerosis Lumbar radiculopathy Thoracic or lumbosacral neuritis or radiculitis, unspecified Chronic pain syndrome Lumbar facet arthropathy Lumbosacral spondylosis without myelopathy [facility] Diagnosis Other chronic pain- Primary Lumbar degenerative disc disease Degeneration of lumbar or lumbosacral intervertebral disc 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 Neuropathy Mononeuritis of unspecified site Multiple sclerosis (HCC) Multiple sclerosis Chronic pain syndrome Lumbar radiculopathy Thoracic or lumbosacral neuritis or radiculitis, unspecified Lumbar facet arthropathy Lumbosacral spondylosis without myelopathy [facility] [place] [facility] Diagnosis intermediate (current) use of opiate analgesic- Primary [facility] Diagnosis Other chronic pain- Primary intermediate (current) use of opiate analgesic Lumbar degenerative disc disease Degeneration of lumbar or lumbosacral intervertebral disc Neuropathy Mononeuritis of unspecified site Multiple sclerosis (HCC) Multiple sclerosis Chronic pain syndrome Lumbar radiculopathy Thoracic or lumbosacral neuritis or radiculitis, unspecified Lumbar facet arthropathy Lumbosacral spondylosis without myelopathy [facility] [place] [facility] Diagnosis Other chronic pain- Primary 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 Lumbar degenerative disc disease Degeneration of lumbar or lumbosacral intervertebral disc Neuropathy Mononeuritis of unspecified site Multiple sclerosis (HCC) Multiple sclerosis Chronic pain syndrome Lumbar radiculopathy Thoracic or lumbosacral neuritis or radiculitis, unspecified Lumbar facet arthropathy Lumbosacral spondylosis without myelopathy [facility] Diagnosis Lumbar degenerative disc disease Degeneration of lumbar or lumbosacral intervertebral disc Chronic pain syndrome Lumbar radiculopathy Thoracic or lumbosacral neuritis or radiculitis, unspecified Lumbar facet arthropathy Lumbosacral spondylosis without myelopathy [facility] Diagnosis Lumbar degenerative disc disease Degeneration of lumbar or lumbosacral intervertebral disc Chronic pain syndrome Lumbar radiculopathy Thoracic or lumbosacral neuritis or radiculitis, unspecified Lumbar facet arthropathy Lumbosacral spondylosis without myelopathy [facility] Diagnosis Other chronic pain- Primary Lumbar degenerative disc disease Degeneration of lumbar or lumbosacral intervertebral disc 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 Neuropathy Mononeuritis of unspecified site Chronic pain syndrome Lumbar radiculopathy Thoracic or lumbosacral neuritis or radiculitis, unspecified Lumbar facet arthropathy Lumbosacral spondylosis without myelopathy [facility] Diagnosis Lumbar degenerative disc disease Degeneration of lumbar or lumbosacral intervertebral disc Chronic pain syndrome Lumbar radiculopathy Thoracic or lumbosacral neuritis or radiculitis, unspecified Lumbar facet arthropathy Lumbosacral spondylosis without myelopathy [facility] Diagnosis Other chronic pain- Primary Lumbar degenerative disc disease Degeneration of lumbar or lumbosacral intervertebral disc Lumbar radiculopathy Thoracic or lumbosacral neuritis or radiculitis, unspecified intermediate (current) use of opiate analgesic Chronic pain syndrome Lumbar facet arthropathy Lumbosacral spondylosis without myelopathy [facility] Diagnosis Other chronic pain- Primary Degeneration of intervertebral disc of lumbar region with discogenic back pain intermediate (current) use of opiate analgesic Neuropathy Mononeuritis of unspecified site Lumbar radiculopathy Thoracic or lumbosacral neuritis or radiculitis, unspecified Chronic pain syndrome Lumbar facet arthropathy Lumbosacral spondylosis without myelopathy [facility] Diagnosis Other chronic pain- Primary Degeneration of intervertebral disc of lumbar region with discogenic back pain 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 Neuropathy Mononeuritis of unspecified site Lumbar radiculopathy Thoracic or lumbosacral neuritis or radiculitis, unspecified Chronic pain syndrome Lumbar facet arthropathy Lumbosacral spondylosis without myelopathy [facility] [place] [facility] Diagnosis Other chronic pain- Primary Degeneration of intervertebral disc of lumbar region with discogenic back pain 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 Neuropathy Mononeuritis of unspecified site Multiple sclerosis (HCC) Multiple sclerosis Lumbar radiculopathy Thoracic or lumbosacral neuritis or radiculitis, unspecified Chronic pain syndrome Lumbar facet arthropathy Lumbosacral spondylosis without myelopathy [facility] [place] [facility]* Diagnosis Chronic pain syndrome Lumbar radiculopathy Thoracic or lumbosacral neuritis or radiculitis, unspecified Lumbar degenerative disc disease Degeneration of lumbar or lumbosacral intervertebral disc Lumbar facet arthropathy Lumbosacral spondylosis without myelopathy [facility] Diagnosis Other chronic pain- Primary Lumbar radiculopathy Thoracic or lumbosacral neuritis or radiculitis, unspecified intermediate (current) use of opiate analgesic Neuropathy Mononeuritis of unspecified site Multiple sclerosis (HCC) Multiple sclerosis Chronic pain syndrome Lumbar degenerative disc disease Degeneration of lumbar or lumbosacral intervertebral disc Lumbar facet arthropathy Lumbosacral spondylosis without myelopathy documented [facility] encounter [facility] Chief Complaint and Reason for Visit Chief Complaint 2 M FU Reason for Visit Anxiety and depressi on HTN (hypertension) Hyperlipidemia Chief Complaint follow up Reason for Visit BPH (benign prostati c hyperplasia) HTN (hypertension) Hyperlipidemia Right knee pain Family History No Family History Records Found Relationship Condition Age at Onset Recorded Date/T alissa Not Specified Psychiatric care Unknown High blood cholesterol Unknown Anxiety Unknown Arthritis Unknown Depression Unknown Mental disorder Unknown Attempted suicide Unknown Bipolar I disorder Unknown Hypertension Unknown Advance Directives No Advanced Directives Records Found Advance Directive Response Recorded Date/ Time Living Will No February 21, 2021 9 :28pm 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 February 21, 2021 9:28pm Advance Directive Response Recorded Date/ Time Living Will No February 21, 2021 8 :28pm 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 February 21, 2021 8:28pm Summary Purpose Additional Source Comments Source Comments (unrecognize d section and content) In the event this informatio n is protected by the Federal Confidentiality of Alcohol and Drug Abuse Patient Records regulations: The Federal rules restrict any use of the information to criminally investigate or prosecute any alcohol or drug abuse patient.[facility] HospitalIn the event this information is protected by the Federal Confidentiality of Alcohol and Drug Abuse Patient Records regulations: The Federal rules restrict any use of the information to criminally investigate or prosecute any alcohol or drug abuse patient.[facility] HospitalIn the event this information is protected by the Federal Confidentiality of Alcohol and Drug Abuse Patient Records regulations: The Federal rules restrict any use of the information to criminally investigate or prosecute any alcohol or drug abuse patient.[facility] HospitalIn the event this information is protected by the Federal Confidentiality of Alcohol and Drug Abuse Patient Records regulations: The Federal rules restrict any use of the information to criminally investigate or prosecute any alcohol or drug abuse patient.[facility] HospitalIn the event this information is protected by the Federal Confidentiality of Alcohol and Drug Abuse Patient Records regulations: The Federal rules restrict any use of the information to criminally investigate or prosecute any alcohol or drug abuse patient.[facility] HospitalIn the event this information is protected by the Federal Confidentiality of Alcohol and Drug Abuse Patient Records regulations: The Federal rules restrict any use of the information to criminally investigate or prosecute any alcohol or drug abuse patient.[facility] HospitalIn the event this information is protected by the Federal Confidentiality of Alcohol and Drug Abuse Patient Records regulations: The Federal rules restrict any use of the information to criminally investigate or prosecute any alcohol or drug abuse patient.[facility] HospitalIn the event this information is protected by the Federal Confidentiality of Alcohol and Drug Abuse Patient Records regulations: The Federal rules restrict any use of the information to criminally investigate or prosecute any alcohol or drug abuse patient.[facility] HospitalIn the event this information is protected by the Federal Confidentiality of Alcohol and Drug Abuse Patient Records regulations: The Federal rules restrict any use of the information to criminally investigate or prosecute any alcohol or drug abuse patient.[facility] HospitalIn the event this information is protected by the Federal Confidentiality of Alcohol and Drug Abuse Patient Records regulations: The Federal rules restrict any use of the information to criminally investigate or prosecute any alcohol or drug abuse patient.[facility] HospitalIn the event this information is protected by the Federal Confidentiality of Alcohol and Drug Abuse Patient Records regulations: The Federal rules restrict any use of the information to criminally investigate or prosecute any alcohol or drug abuse patient.[facility] the event this information is protected by the Federal Confidentiality of Alcohol and Drug Abuse Patient Records regulations: The Federal rules restrict any use of the information to criminally investigate or prosecute any alcohol or drug abuse patient.[facility] HospitalIn the event this information is protected by the Federal Confidentiality of Alcohol and Drug Abuse Patient Records regulations: The Federal rules restrict any use of the information to criminally investigate or prosecute any alcohol or drug abuse patient.[facility] HospitalIn the event this information is protected by the Federal Confidentiality of Alcohol and Drug Abuse Patient Records regulations: The Federal rules restrict any use of the information to criminally investigate or prosecute any alcohol or drug abuse patient.[facility] HospitalIn the event this information is protected by the Federal Confidentiality of Alcohol and Drug Abuse Patient Records regulations: The Federal rules restrict any use of the information to criminally investigate or prosecute any alcohol or drug abuse patient.[facility] HospitalIn the event this information is protected by the Federal Confidentiality of Alcohol and Drug Abuse Patient Records regulations: The Federal rules restrict any use of the information to criminally investigate or prosecute any alcohol or drug abuse patient.[facility] HospitalIn the event this information is protected by the Federal Confidentiality of Alcohol and Drug Abuse Patient Records regulations: The Federal rules restrict any use of the information to criminally investigate or prosecute any alcohol or drug abuse patient.[facility] HospitalIn the event this information is protected by the Federal Confidentiality of Alcohol and Drug Abuse Patient Records regulations: The Federal rules restrict any use of the information to criminally investigate or prosecute any alcohol or drug abuse patient.[facility] HospitalIn the event this information is protected by the Federal Confidentiality of Alcohol and Drug Abuse Patient Records regulations: The Federal rules restrict any use of the information to criminally investigate or prosecute any alcohol or drug abuse patient.[facility] HospitalIn the event this information is protected by the Federal Confidentiality of Alcohol and Drug Abuse Patient Records regulations: The Federal rules restrict any use of the information to criminally investigate or prosecute any alcohol or drug abuse patient.[facility] HospitalIn the event this information is protected by the Federal Confidentiality of Alcohol and Drug Abuse Patient Records regulations: The Federal rules restrict any use of the information to criminally investigate or prosecute any alcohol or drug abuse patient.[facility] HospitalIn the event this information is protected by the Federal Confidentiality of Alcohol and Drug Abuse Patient Records regulations: The Federal rules restrict any use of the information to criminally investigate or prosecute any alcohol or drug abuse patient.[facility] HospitalIn the event this information is protected by the Federal Confidentiality of Alcohol and Drug Abuse Patient Records regulations: The Federal rules restrict any use of the information to criminally investigate or prosecute any alcohol or drug abuse patient.[facility] HospitalIn the event this information is protected by the Federal Confidentiality of Alcohol and Drug Abuse Patient Records regulations: The Federal rules restrict any use of the information to criminally investigate or prosecute any alcohol or drug abuse patient.[facility] HospitalIn the event this information is protected by the Federal Confidentiality of Alcohol and Drug Abuse Patient Records regulations: The Federal rules restrict any use of the information to criminally investigate or prosecute any alcohol or drug abuse patient.[facility] HospitalIn the event this information is protected by the Federal Confidentiality of Alcohol and Drug Abuse Patient Records regulations: The Federal rules restrict any use of the information to criminally investigate or prosecute any alcohol or drug abuse patient.[facility] HospitalIn the event this information is protected by the Federal Confidentiality of Alcohol and Drug Abuse Patient Records regulations: The Federal rules restrict any use of the information to criminally investigate or prosecute any alcohol or drug abuse patient.[facility] HospitalIn the event this information is protected by the Federal Confidentiality of Alcohol and Drug Abuse Patient Records regulations: The Federal rules restrict any use of the information to criminally investigate or prosecute any alcohol or drug abuse patient.[facility] HospitalIn the event this information is protected by the Federal Confidentiality of Alcohol and Drug Abuse Patient Records regulations: The Federal rules restrict any use of the information to criminally investigate or prosecute any alcohol or drug abuse patient.[facility] HospitalIn the event this information is protected by the Federal Confidentiality of Alcohol and Drug Abuse Patient Records regulations: The Federal rules restrict any use of the information to criminally investigate or prosecute any alcohol or drug abuse patient.[facility] HospitalIn the event this information is protected by the Federal Confidentiality of Alcohol and Drug Abuse Patient Records regulations: The Federal rules restrict any use of the information to criminally investigate or prosecute any alcohol or drug abuse patient.[facility] HospitalIn the event this information is protected by the Federal Confidentiality of Alcohol and Drug Abuse Patient Records regulations: The Federal rules restrict any use of the information to criminally investigate or prosecute any alcohol or drug abuse patient.[facility] HospitalIn the event this information is protected by the Federal Confidentiality of Alcohol and Drug Abuse Patient Records regulations: The Federal rules restrict any use of the information to criminally investigate or prosecute any alcohol or drug abuse patient.[facility] HospitalIn the event this information is protected by the Federal Confidentiality of Alcohol and Drug Abuse Patient Records regulations: The Federal rules restrict any use of the information to criminally investigate or prosecute any alcohol or drug abuse patient.[facility] HospitalIn the event this information is protected by the Federal Confidentiality of Alcohol and Drug Abuse Patient Records regulations: The Federal rules restrict any use of the information to criminally investigate or prosecute any alcohol or drug abuse patient.[facility] HospitalIn the event this information is protected by the Federal Confidentiality of Alcohol and Drug Abuse Patient Records regulations: The Federal rules restrict any use of the information to criminally investigate or prosecute any alcohol or drug abuse patient.[facility] HospitalIn the event this information is protected by the Federal Confidentiality of Alcohol and Drug Abuse Patient Records regulations: The Federal rules restrict any use of the information to criminally investigate or prosecute any alcohol or drug abuse patient.[facility] HospitalIn the event this information is protected by the Federal Confidentiality of Alcohol and Drug Abuse Patient Records regulations: The Federal rules restrict any use of the information to criminally investigate or prosecute any alcohol or drug abuse patient.[facility] HospitalIn the event this information is protected by the Federal Confidentiality of Alcohol and Drug Abuse Patient Records regulations: The Federal rules restrict any use of the information to criminally investigate or prosecute any alcohol or drug abuse patient.[facility] HospitalIn the event this information is protected by the Federal Confidentiality of Alcohol and Drug Abuse Patient Records regulations: The Federal rules restrict any use of the information to criminally investigate or prosecute any alcohol or drug abuse patient.[facility] HospitalIn the event this information is protected by the Federal Confidentiality of Alcohol and Drug Abuse Patient Records regulations: The Federal rules restrict any use of the information to criminally investigate or prosecute any alcohol or drug abuse patient.[facility] HospitalIn the event this information is protected by the Federal Confidentiality of Alcohol and Drug Abuse Patient Records regulations: The Federal rules restrict any use of the information to criminally investigate or prosecute any alcohol or drug abuse patient.[facility] HospitalIn the event this information is protected by the Federal Confidentiality of Alcohol and Drug Abuse Patient Records regulations: The Federal rules restrict any use of the information to criminally investigate or prosecute any alcohol or drug abuse patient.[facility] HospitalIn the event this information is protected by the Federal Confidentiality of Alcohol and Drug Abuse Patient Records regulations: The Federal rules restrict any use of the information to criminally investigate or prosecute any alcohol or drug abuse patient.[facility] HospitalIn the event this information is protected by the Federal Confidentiality of Alcohol and Drug Abuse Patient Records regulations: The Federal rules restrict any use of the information to criminally investigate or prosecute any alcohol or drug abuse patient.[facility] HospitalIn the event this information is protected by the Federal Confidentiality of Alcohol and Drug Abuse Patient Records regulations: The Federal rules restrict any use of the information to criminally investigate or prosecute any alcohol or drug abuse patient.[facility] HospitalIn the event this information is protected by the Federal Confidentiality of Alcohol and Drug Abuse Patient Records regulations: The Federal rules restrict any use of the information to criminally investigate or prosecute any alcohol or drug abuse patient.[facility] HospitalIn the event this information is protected by the Federal Confidentiality of Alcohol and Drug Abuse Patient Records regulations: The Federal rules restrict any use of the information to criminally investigate or prosecute any alcohol or drug abuse patient.[facility] HospitalIn the event this information is protected by the Federal Confidentiality of Alcohol and Drug Abuse Patient Records regulations: The Federal rules restrict any use of the information to criminally investigate or prosecute any alcohol or drug abuse patient.[facility] HospitalIn the event this information is protected by the Federal Confidentiality of Alcohol and Drug Abuse Patient Records regulations: The Federal rules restrict any use of the information to criminally investigate or prosecute any alcohol or drug abuse patient.[facility] HospitalIn the event this information is protected by the Federal Confidentiality of Alcohol and Drug Abuse Patient Records regulations: The Federal rules restrict any use of the information to criminally investigate or prosecute any alcohol or drug abuse patient.[facility] HospitalIn the event this information is protected by the Federal Confidentiality of Alcohol and Drug Abuse Patient Records regulations: The Federal rules restrict any use of the information to criminally investigate or prosecute any alcohol or drug abuse patient.[facility] HospitalIn the event this information is protected by the Federal Confidentiality of Alcohol and Drug Abuse Patient Records regulations: The Federal rules restrict any use of the information to criminally investigate or prosecute any alcohol or drug abuse patient.[facility] HospitalIn the event this information is protected by the Federal Confidentiality of Alcohol and Drug Abuse Patient Records regulations: The Federal rules restrict any use of the information to criminally investigate or prosecute any alcohol or drug abuse patient.[facility] HospitalIn the event this information is protected by the Federal Confidentiality of Alcohol and Drug Abuse Patient Records regulations: The Federal rules restrict any use of the information to criminally investigate or prosecute any alcohol or drug abuse patient.[facility] HospitalIn the event this information is protected by the Federal Confidentiality of Alcohol and Drug Abuse Patient Records regulations: The Federal rules restrict any use of the information to criminally investigate or prosecute any alcohol or drug abuse patient.[facility] HospitalIn the event this information is protected by the Federal Confidentiality of Alcohol and Drug Abuse Patient Records regulations: The Federal rules restrict any use of the information to criminally investigate or prosecute any alcohol or drug abuse patient.[facility] HospitalIn the event this information is protected by the Federal Confidentiality of Alcohol and Drug Abuse Patient Records regulations: The Federal rules restrict any use of the information to criminally investigate or prosecute any alcohol or drug abuse patient.[facility] HospitalIn the event this information is protected by the Federal Confidentiality of Alcohol and Drug Abuse Patient Records regulations: The Federal rules restrict any use of the information to criminally investigate or prosecute any alcohol or drug abuse patient.[facility] HospitalIn the event this information is protected by the Federal Confidentiality of Alcohol and Drug Abuse Patient Records regulations: The Federal rules restrict any use of the information to criminally investigate or prosecute any alcohol or drug abuse patient.[facility] HospitalIn the event this information is protected by the Federal Confidentiality of Alcohol and Drug Abuse Patient Records regulations: The Federal rules restrict any use of the information to criminally investigate or prosecute any alcohol or drug abuse patient.[facility] the event this information is protected by the Federal Confidentiality of Alcohol and Drug Abuse Patient Records regulations: The Federal rules restrict any use of the information to criminally investigate or prosecute any alcohol or drug abuse patient.[facility] HospitalIn the event this information is protected by the Federal Confidentiality of Alcohol and Drug Abuse Patient Records regulations: The Federal rules restrict any use of the information to criminally investigate or prosecute any alcohol or drug abuse patient.[facility] HospitalIn the event this information is protected by the Federal Confidentiality of Alcohol and Drug Abuse Patient Records regulations: The Federal rules restrict any use of the information to criminally investigate or prosecute any alcohol or drug abuse patient.[facility] HospitalIn the event this information is protected by the Federal Confidentiality of Alcohol and Drug Abuse Patient Records regulations: The Federal rules restrict any use of the information to criminally investigate or prosecute any alcohol or drug abuse patient.[facility] HospitalIn the event this information is protected by the Federal Confidentiality of Alcohol and Drug Abuse Patient Records regulations: The Federal rules restrict any use of the information to criminally investigate or prosecute any alcohol or drug abuse patient.[facility] HospitalIn the event this information is protected by the Federal Confidentiality of Alcohol and Drug Abuse Patient Records regulations: The Federal rules restrict any use of the information to criminally investigate or prosecute any alcohol or drug abuse patient.[facility] Care Teams (unrecognized sec tion and content) Seal Mixing Operator Relationship Specialty Start Date End Date Francisco De La Cruz MD [address] [place] [address] PCP - General Internal Medicine 07/09/19 Carlos A Marquis MD Referring Cardiology 07/09/19 Seal Mixing Operator Relationship Specialty Start Date End Date Francisco De La Cruz MD [address] [place] [address] PCP - General Internal Medicine 07/09/19 Carlos A Marquis MD Referring Cardiology 07/09/19 Seal Mixing Operator Relationship Specialty Start Date End Date Francisco De La Cruz MD [address] [place] [address] PCP - General Internal Medicine 07/09/19 Carlos A Marquis MD Referring Cardiology 07/09/19 Seal Mixing Operator Relationship Specialty Start Date End Date Francisco De La Cruz MD [address] [place] [address] PCP - General Internal Medicine 07/09/19 Carlos A Marquis MD Referring Cardiology 07/09/19 Seal Mixing Operator Relationship Specialty Start Date End Date Francisco De La Cruz MD [address] [place] [address] PCP - General Internal Medicine 07/09/19 Carlos A Marquis MD Referring Cardiology 07/09/19 Seal Mixing Operator Relationship Specialty Start Date End Date Francisco De La Cruz MD [address] [place] [address] PCP - General Internal Medicine 07/09/19 Carlos A Marquis MD [address] [place] [address] Referring Cardiology 07/09/19 Seal Mixing Operator Relationship Specialty Start Date End Date Francisco De La Cruz MD [address] [place] [address] PCP - General Internal Medicine 07/09/19 Carlos A Marquis MD [address] [place] [address] Referring Cardiology 07/09/19 Team Status: Active Member Role Status Dates Dr. Francisco De La Cruz MD Family Provider Active Dr. Francisco De La Cruz MD Primary Care Provider Active Team Status: Inactive Member Role Status Dates Dr. Francisco De La Cruz MD Primary Care P katharine, Attending Provider, Referring Provider Active Seal Mixing Operator Relationship Specialty Start Date End Date Francisco De La Cruz MD [address] [place] [address] PCP - General Internal Medicine 07/09/19 Carlos A Marquis MD [address] [place] [address] Referring Cardiology 07/09/19 Seal Mixing Operator Relationship Specialty Start Date End Date Francisco De La Cruz MD [address] [place] [address] PCP - General Internal Medicine 07/09/19 Carlos A Marquis MD [address] [place] [address] Referring Cardiology 07/09/19 Seal Mixing Operator Relationship Specialty Start Date End Date Francisco De La Cruz MD [address] [place] [address] PCP - General Internal Medicine 07/09/19 Carlos A Marquis MD [address] [place] [address] Referring Cardiology 07/09/19 Seal Mixing Operator Relationship Specialty Start Date End Date Francisco De La Cruz MD [address] [place] [address] PCP - General Internal Medicine 07/09/19 Carlos A Marquis MD [address] [place] [address] Referring Cardiology 07/09/19 Seal Mixing Operator Relationship Specialty Start Date End Date Francisco De La Cruz MD [address] [place] [address] PCP - General Internal Medicine 07/09/19 Carlos A Marquis MD [address] [place] [address] Referring Cardiology 07/09/19 Seal Mixing Operator Relationship Specialty Start Date End Date Francisco De La Cruz MD [address] [place] [address] PCP - General Internal Medicine 07/09/19 Carlos A Marquis MD [address] [place] [address] Referring Cardiology 07/09/19 Seal Mixing Operator Relationship Specialty Start Date End Date Francisco De La Cruz MD [address] [place] [address] PCP - General Internal Medicine 07/09/19 Carlos A Marquis MD [address] [place] [address] Referring Cardiology 07/09/19 Seal Mixing Operator Relationship Specialty Start Date End Date Francisco De La Cruz MD [address] [place] [address] PCP - General Internal Medicine 07/09/19 Carlos A Marquis MD [address] [place] [id number] Referring Cardiology 07/09/19 Seal Mixing Operator Relationship Specialty Start Date End Date Francisco De La Cruz MD [address] [place] [address] PCP - General Internal Medicine 07/09/19 Carlos A Marquis MD [address] [place] [address] Referring Cardiology 07/09/19 Seal Mixing Operator Relationship Specialty Start Date End Date Francisco De La Cruz MD [address] [place] [address] PCP - General Internal Medicine 07/09/19 Carlos A Marquis MD [address] [place] [address] Referring Cardiology 07/09/19 Seal Mixing Operator Relationship Specialty Start Date End Date Francisco De La Cruz MD [address] [place] [address] PCP - General Internal Medicine 07/09/19 Carlos A Marquis MD [address] [place] [address] Referring Cardiology 07/09/19 Seal Mixing Operator Relationship Specialty Start Date End Date Francisco De La Cruz MD [address] [place] [address] PCP - General Internal Medicine 07/09/19 Carlos A Marquis MD [address] [place] [address] Referring Cardiology 07/09/19 Seal Mixing Operator Relationship Specialty Start Date End Date Francisco De La Cruz MD [address] [place] [address] PCP - General Internal Medicine 07/09/19 Carlos A Marquis MD [address] [place] [address] Referring Cardiology 07/09/19 Seal Mixing Operator Relationship Specialty Start Date End Date Francisco De La Cruz MD [address] [place] [address] PCP - General Internal Medicine 07/09/19 Carlos A Marquis MD [address] [place] [address] Referring Cardiology 07/09/19 Seal Mixing Operator Relationship Specialty Start Date End Date Francisco De La Cruz MD [address] [place] [address] PCP - General Internal Medicine 07/09/19 Carlos A Marquis MD [address] [place] [address] Referring Cardiology 07/09/19 Seal Mixing Operator Relationship Specialty Start Date End Date Francisco De La Cruz MD [address] [place] [address] PCP - General Internal Medicine 07/09/19 Carlos A Marquis MD [address] [place] [address] Referring Cardiology 07/09/19 Seal Mixing Operator Relationship Specialty Start Date End Date Francisco De La Cruz MD [address] [place] [address] PCP - General Internal Medicine 07/09/19 Carlos A Marquis MD [address] [place] [address] Referring Cardiology 07/09/19 Seal Mixing Operator Relationship Specialty Start Date End Date Francisco De La Cruz MD [address] [place] [address] PCP - General Internal Medicine 07/09/19 Carlos A Marquis MD [address] [place] [address] Referring Cardiology 07/09/19 Seal Mixing Operator Relationship Specialty Start Date End Date Francisco De La Cruz MD [address] [place] [address] PCP - General Internal Medicine 07/09/19 Carlos A Marquis MD [address] [place] [address] Referring Cardiology 07/09/19 Seal Mixing Operator Relationship Specialty Start Date End Date Francisco De La Cruz MD [address] [place] [address] PCP - General Internal Medicine 07/09/19 Carlos A Marquis MD [address] [place] [address] Referring Cardiology 07/09/19 Seal Mixing Operator Relationship Specialty Start Date End Date Francisco De La Cruz MD [address] [place] [address] PCP - General Internal Medicine 07/09/19 Carlos A Marquis MD [address] [place], [place] [address] Referring Cardiology 07/09/19 Seal Mixing Operator Relationship Specialty Start Date End Date Francisco De La Cruz MD [address] [place] [address] PCP - General Internal Medicine 07/09/19 Carlos A Marquis MD [address] [place] [address] Referring Cardiology 07/09/19 Seal Mixing Operator Relationship Specialty Start Date End Date Francisco De La Cruz MD [address] [place] [address] PCP - General Internal Medicine 07/09/19 Carlos A Marquis MD [address] [place] [address] Referring Cardiology 07/09/19 Seal Mixing Operator Relationship Specialty Start Date End Date Francisco De La Cruz MD [address] [place] [address] PCP - General Internal Medicine 07/09/19 Carlos A Marquis MD [address] [place] [address] Referring Cardiology 07/09/19 Seal Mixing Operator Relationship Specialty Start Date End Date Francisco De La Cruz MD [address] [place] [address] PCP - General Internal Medicine 07/09/19 Carlos A Marquis MD [address] [place], [place] [address] Referring Cardiology 07/09/19 Seal Mixing Operator Relationship Specialty Start Date End Date Francisco De La Cruz MD [address] [place], [place] [address] PCP - General Internal Medicine 07/09/19 Carlos A Marquis MD [address] [place] [place], [place] [address] Referring Cardiology 07/09/19 Seal Mixing Operator Relationship Specialty Start Date End Date Francisco De La Cruz MD [address] [place] [address] PCP - General Internal Medicine 07/09/19 Carlos A Marquis MD [address] [place] [address] Referring Cardiology 07/09/19 Seal Mixing Operator Relationship Specialty Start Date End Date Francisco De La Cruz MD [address] [place] [address] PCP - General Internal Medicine 07/09/19 Carlos A Marquis MD [address] [place] [address] Referring Cardiology 07/09/19 Seal Mixing Operator Relationship Specialty Start Date End Date Francisco De La Cruz MD [address] [place] [address] PCP - General Internal Medicine 07/09/19 Carlos A Marquis MD [address] [place] [place], [place] [address] Referring Cardiology 07/09/19 Seal Mixing Operator Relationship Specialty Start Date End Date Francisco De La Cruz MD [address] [place] [address] PCP - General Internal Medicine 07/09/19 Carlos A Marquis MD [address] [place] [place], [place] [address] Referring Cardiology 07/09/19 Seal Mixing Operator Relationship Specialty Start Date End Date Francisco De La Cruz MD [address] [place] [address] PCP - General Internal Medicine 07/09/19 Carlos A Marquis MD [address] [place] [address] Referring Cardiology 07/09/19 Seal Mixing Operator Relationship Specialty Start Date End Date Francisco De La Cruz MD [address] [place] [address] PCP - General Internal Medicine 07/09/19 Carlos A Mraquis MD [address] [place] [address] Referring Cardiology 07/09/19 Seal Mixing Operator Relationship Specialty Start Date End Date Francisco De La Cruz MD [address] [place] [address] PCP - General Internal Medicine 07/09/19 Carlos A Marquis MD [address] [place] [address] Referring Cardiology 07/09/19 Seal Mixing Operator Relationship Specialty Start Date End Date Francisco De aL Cruz MD [address] [place] [place], [place] [phone] PCP - General Internal Medicine 07/09/19 Carlos A Marquis MD [address] [place] [place], [place] [address] Referring Cardiology 07/09/19 Seal Mixing Operator Relationship Specialty Start Date End Date Francisco De La Cruz MD [address] [place] [place], [place] [phone]- PCP - General Internal Medicine 07/09/19 Carlos A Marquis MD [address] [place] [place], [place] [address] Referring Cardiology 07/09/19 Seal Mixing Operator Relationship Specialty Start Date End Date Francisco De La Cruz MD [address] [place] [place], [place] [phone]- PCP - General Internal Medicine 07/09/19 Carlos A Marquis MD [address] [place] [place], [place] [address] Referring Cardiology 07/09/19 Seal Mixing Operator Relationship Specialty Start Date End Date Francisco De La Cruz MD [address] [place] [place], [place] [address] PCP - General Internal Medicine 07/09/19 Carlos A Marquis MD [address] [place] [place], [place] [address] Referring Cardiology 07/09/19 Seal Mixing Operator Relationship Specialty Start Date End Date Francisco De La Cruz MD [address] [place] [address] PCP - General Internal Medicine 07/09/19 Carlos A Marquis MD [address] [place] [address] Referring Cardiology 07/09/19 Reason for Visit (unrecogniz ed section and content) Reason Comments Pain Reason Comments Back Pain Reason Comments inquiring about rx directions 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 Date Comments Refill Request 11/27/2022 Reason Onset Date Comments Refill Request 04/16/2023 Reason Comments Health Maintenance Reason Comments Refill Request Reason Comments Appointment UDS updated Reason Comments Other Health Maintenance R eview-UDS Reason Comments Other Virtual Visit Pre Ch parker In Reason Comments Other Health Maintenance R eview Reason Comments Other Patient questions Reason Comments Orders Reason Comments Other Health Maintenance Reason Comments Medication Problem Reason Onset Date Comments Refill Request 03/23/2025 Goals (unrecognized section and content) Goals may be documented in a n alternate sectionGoals may be documented in an alternate section (unrecognized sect ion and content) No Status Records FoundNo Status Records FoundNo Status Records Found INFORMATION SOURCE (unrecogn ized section and content) DATE CREATED AUTHOR 11/28/2022 [facility] DATE CREATED AUTHOR AUTHOR'S ORGANIZ ATION 07/13/2025 [facility] DATE CREATED AUTHOR AUTHOR'S ORGANIZ ATION 07/27/2025 [facility] FOR RECORDS PERTAINING TO PATIENTS WHO ARE OR HAVE BEEN ENROLLED IN A CHEMICAL DEPENDENCY/SUBSTANCEABUSE PROGRAM, SOME INFORMATION MAY BE OMITTED. This clinical summary was aggregated from multiple sources. Caution should be exercised in using it in the provision of clinical care. This summary normalizes information from multiple sources, and as a consequence, information in this document may materially change the coding, format and clinical context of patient data. In addition, data may be omitted in some cases. CLINICAL DECISIONS SHOULD BE BASED ON THE PRIMARY CLINICAL RECORDS. [employer] provides no warranty or guarantee of the accuracy or completeness of information in this document.
== END | disposition home or self-care (01) ==
LOC: MRI 11:07
PROVIDERS: PCP Internal Medicine; Referring Provider Internal Medicine; Visit Provider Internal Medicine
DX: R26.81 Unsteadiness on feet (principal); G35.D Multiple sclerosis, unspecified; H53.2 Diplopia
CPT/HCPCS: 70553; A9575